=== PATIENT | female | born 1960 | race Caucasian/White ===

== ENCOUNTER 2024-03-10 20:30 | Observation (INO) | payer MEDICARE, SELFPAY ==
[2024-03-10] VITALS (11 sets, daily range): BP systolic 89–117; BP diastolic 58–74; PULSE 59–88; RESP 11–22; TEMP 37.5; O2SAT 96–99; BMI 23.0
--- NOTE | 2024-03-10 21:19 | EKG12_ITS ---
Test Reason : Blood Pressure : / mmHG Vent. Rate : 068 BPM Atrial Rate : 068 BPM P-R Int : 128 ms QRS Dur : 090 ms QT Int : 440 ms P-R-T Axes : 043 -19 025 degrees QTc Int : 467 ms Normal sinus rhythm Normal ECG Confirmed by Stanford Kelly ([id number]), communications editor SCOTT TEE ([id number]) on 03/11/2024 1:00:31 PM Referred By: Confirmed By:Stanford Kelly
--- NOTE | 2024-03-10 21:19 | CT_ITS ---
STUDY: CT BRAIN WITHOUT CONTRAST REASON FOR EXAM: Female, 64 years old. FLORES RADIATION DOSAGE (If Supplied By Facility): CTDIvol = ( 44.99 ) mGy, DLP = ( 846.73 ) mGycm TECHNIQUE: Transaxial CT imaging of the brain was performed without administration of intravenous contrast material. Individualized dose optimization techniques were used for this CT. COMPARISON: No relevant priors. FINDINGS: Normal soft tissue structures. Normal calvarium. Normal size ventricles and extra-axial spaces for the patient''s age. Normal white matter tracts of the cerebral hemispheres. Normal basal ganglia and thalami. Normal brainstem. Normal cerebellum. 1 cm round area of CSF attenuation near the left insula may represent an arachnoid cyst. There is no intracranial hemorrhage. There are no findings of an acute ischemic infarction. Normal visualized paranasal sinuses. CT/Brain/Head without Contrast IMPRESSION: 1. No acute intracranial hemorrhage. 2. Suspect 1 cm arachnoid cyst near the left insula. Electronically Signed: Raymond Villarreal MD at 21:57 EDT ,
--- NOTE | 2024-03-10 21:20 | EX.ED.DYSGE1 ---
HPI History of Present Illness Chief Complaint: Alt LOC Narrative Narrative: 64-year-old female presenting via EMS with perceived confusion. She states that she is from [place] and moved here to [place] to live with her aunt and had a falling out with her and and she had no place to go so she found some resources as she was sent to [place] to the homeless senior living where apparently she states there is a lot of drug activity. She was accused of doing drugs and she got an argument with several people and was told not to come back. Patient states he has chronic back pain and states he used to be treated for this by pain management in [place] does not anybody established here. Patient states she used to be on Dilaudid. Patient states that she was at the [facility] and apparently EMS transported her because they thought she was confused. Patient also told is any she is having a migraine headache and has a history of migraines. [facility] Medical History Heart attack Pain management Home Medications ?Medication ?Instructions ?Recorded ?Last Taken ?Type aspirin 81 mg capsule 81 mg PO DAILY 03/10/24 Unknown History baclofen 20 mg tablet 20 mg PO TID 03/10/24 Unknown History gabapentin 600 mg tablet 600 mg PO 5X/DAY 03/10/24 Unknown History metoprolol tartrate 25 mg tablet 12.5 mg PO DAILY 03/10/24 Unknown History ondansetron HCl 4 mg tablet 4 mg PO Q6H 03/10/24 Unknown History Allergy/AdvReac Type Severity Reaction Status Date / Time diltiazem (From [facility]) Allergy Severe Angioedema Verified 03/10/24 23:00 meloxicam Allergy Intermediate Pain in Verified 03/10/24 23:00 joints Social History Smoking Status: Current every day smoker tobacco type: e-cigarettes ROS ROS ED Constitutional Constitutional ED: Denies chills, fever(s) or sweats Eyes Eyes: Denies blurry vision or change in vision ENT ENT ED: Denies ear pain or sore throat Cardiovascular Cardiovascular: Denies chest pain, palpitations or racing heartbeat Respiratory/Chest Respiratory/Chest: Denies cough, dyspnea or sputum Gastrointestinal Gastrointestinal: Denies abdominal pain, constipation, diarrhea, nausea or vomiting Genitourinary Genitourinary ED: Denies dysuria, hematuria or urinary frequency Musculoskeletal Musculoskeletal: Denies arthralgias, myalgias or neck pain Integumentary Denies abscess, Abrasions or rash Neurologic Neurologic: Denies headache(s), paresthesias or weakness Psychiatric Psychiatric: Denies anxiety, depression, suicidal ideation or suicidal thoughts Endocrine Endocrinology: Denies polydipsia or polyuria EXAM Physical Exam Const Vital Signs: 03/10/24 20:31 03/10/24 21:33 03/10/24 21:33 Temperature 99.5 F H Temperature Source Temporal Pulse Rate 88 69 Respiratory Rate 18 18 Blood Pressure 94/60 117/74 117/74 Blood Pressure Mean 71 85 85 Pulse Ox 98 97 Oxygen Delivery Method Room Air 03/10/24 21:51 03/10/24 22:00 03/10/24 22:15 Temperature Temperature Source Pulse Rate 70 71 Respiratory Rate 22 H 15 Blood Pressure 94/69 Blood Pressure Mean 78 Pulse Ox 96 97 99 Oxygen Delivery Method Room Air 03/10/24 22:30 03/10/24 22:45 03/10/24 23:00 Temperature Temperature Source Pulse Rate 68 61 62 Respiratory Rate 12 12 11 L Blood Pressure 92/58 L 89/59 L Blood Pressure Mean 70 70 Pulse Ox 96 97 97 Oxygen Delivery Method Room Air Room Air 03/10/24 23:15 03/10/24 23:30 03/10/24 23:45 Temperature Temperature Source Pulse Rate 61 59 L 60 Respiratory Rate 12 12 12 Blood Pressure 90/61 Blood Pressure Mean 70 Pulse Ox 96 96 97 Oxygen Delivery Method 03/11/24 00:00 03/11/24 01:00 Temperature Temperature Source Pulse Rate 61 55 L Respiratory Rate 12 11 L Blood Pressure 88/56 L 91/57 L Blood Pressure Mean 67 68 Pulse Ox 98 97 Oxygen Delivery Method Room Air Room Air Positive well nourished General Appearance ED: NAD; Negative for pallor HEENT Reports moist mucous membranes Eyes PERRL and EOMs intact bilaterally Neck no lymphadenopathy Chest Wall inspection of chest normal and palpation of chest normal Resp normal respiratory effort and clear to auscultation bilaterally Auscultation: Negative for rales, rhonchi or wheezes Cardio regular rate and regular rhythm GI normal to inspection, nondistended, normoactive bowel sounds Back/Spine Back/Spine Narrative: There is mild thoracic paraspinal musculature tenderness about T8 bilaterally. There is no deformity or step-off. Patient is able to sit forward and backwards in the bed without any difficulty. She does not appear to be in pain. Twisting of the trunk without difficulty. No bruising or rashes. Extremity normal to inspection Neuro oriented x3 and CN's II-XII intact bilaterally Sensorium / Orientation: alert Motor Exam: strength 5/5 throughout Psych mental status grossly normal Skin no rashes or lesions noted General Skin Exam: Negative for jaundice or pallor MDM MDM MDM Narrative Medical decision making narrative: Patient states that she was transported against her well initially but then she states she wants an evaluation for back pain. She is also having a migraine headache. She states that the back pain is chronic. Denies saddle anesthesia or paresthesia. No loss of bladder or bowel control. Patient is sitting up in the bed and moving [id number] without any difficulty. She does appear to possibly be on drugs or confused. It is unknown if she has a mental health history she has not told me this. She does not have any focal deficits on examination. Will treat her headache with Reglan and Benadryl. Will obtain a CBC to assess white blood cell count, hemoglobin, platelets. CMP to assess liver function, renal function, electrolytes. High-sensitivity troponin and EKG to assess for ischemia/arrhythmia. Chest x-ray to rule out pneumonia. CT brain will be obtained as the patient seems to be a little confused and complaining of headache. Patient will be given IV fluids. Review of the medical records on [facility] shows that she was admitted to the hospital 01/28/2024 through 01/30/2024 for gastroenteritis. She was treated for this. It looks as if she was discharged with amitriptyline 50 mg tablets, aspirin 81 mg, baclofen 20 mg tablets celecoxib 200 mg, diphenhydramine 25 mg, duloxetine 60 mg, famotidine 20 mg, gabapentin 600 mg hide hydromorphone 4 mg every 4-6 hours. Looking at these records it does not show how much she was given. Patient went into the restroom and about 9:50 PM and came out more confused and was falling asleep in the bed. I went to evaluate her and knowing that she has a prescription for opiates I did give her Narcan. Her eyes appear to be more dilated than pinpoint. She was more arousable after this we did give her a sternal rub and she was up she was able to get up and walk around. BMP in her pockets and found to SATIVA of vape inhaler, and a pocket knife which we took from her. Went to her medications did not find any opiates or other drugs. Patient put back in bed. CBC shows white blood cell count 11.4. Hemoglobin 12.2. Platelets of 18. Renal function and electrolytes are really unremarkable. LFTs are normal. EtOH negative. High-sensitivity troponin is 5. EKG on my interpretation shows a sinus rhythm at 68 bpm without sign of ischemic change or ectopy. CT brain shows nothing acute. Still awaiting urine drug screen and UA. Urinalysis negative for infection. Urine drug screen only positive for cannabinoids. Patient still confused and unable to arouse her very well. I gave her another dose of Narcan because when I sternal rub her she is not waking up. She is protecting her airway. She was able to wake up after the status of Narcan and grunted for a second and then laid back down. Her blood pressure has been up and down and her latest blood pressure is 88/56. She is already received 2 L of fluids but I will add maintenance fluids for her. Discussed with the hospitalist for admission due to the altered mental status. Impression 1. Altered mental status Lab Data Attestation: I reviewed the patient's lab results. Labs: Laboratory Results - last 24 hr 03/10/24 03/10/24 20:40 22:27 WBC 11.4 H RBC 3.99 L Hgb 12.2 Hct 36.5 L MCV 91.5 MCH 30.6 MCHC 33.4 RDW Std Deviation 43.2 RDW Coeff of Jessica 12.8 Plt Count 318 MPV 9.3 Immature Gran % (Auto) 0.400 Neut % (Auto) 78.3 H Lymph % (Auto) 15.7 L [place] % (Auto) 4.9 Eos % (Auto) 0.1 Baso % (Auto) 0.6 Absolute Neuts (auto) 8.9 H Absolute Lymphs (auto) 1.79 Nucleated RBC % 0 Sodium 137 Potassium 3.3 L Chloride 107 Carbon Dioxide 23.0 Anion Gap 7 BUN 17 Creatinine 1.22 H Estim Creat Clear Calc 43.02 Est GFR (MDRD) Af Amer 57 L Est GFR (MDRD) Non-Af 47 L BUN/Creatinine Ratio 13.9 Glucose 110 H Calcium 8.5 Total Bilirubin 0.40 AST 35 ALT 41 Alkaline Phosphatase 80 Troponin I High Sens 5 Total Protein 6.4 Albumin 3.6 Globulin 2.8 Albumin/Globulin Ratio 1.3 Urine Color Yellow Urine Clarity Clear Urine pH 6.5 Ur Specific [place] 1.010 Urine Protein 15 H Urine Glucose (UA) Normal Urine Ketones Negative Urine Occult Blood Negative Urine Nitrite Negative Urine Bilirubin Negative Urine Urobilinogen Normal Ur Leukocyte Esterase 25 H Urine RBC 0 SEEN Urine WBC 0 SEEN Ur Squamous Epith Cells 0 SEEN Urine Bacteria 0 SEEN Urine Mucus 0 SEEN Urine Opiates Screen NEGATIVE Urine Methadone Screen NEGATIVE Ur Barbiturates Screen NEGATIVE Ur Phencyclidine Scrn NEGATIVE Ur Amphetamines Screen NEGATIVE MDMA (Ecstasy) Screen NEGATIVE U Benzodiazepines Scrn NEGATIVE Urine Cocaine Screen NEGATIVE U Cannabinoids Screen POSITIVE H Ur Drug Screen Comment Ethyl Alcohol < 3.0 Radiography Diagnostic Testing: Clinical Impression(s) from Imaging Studies Brain CT 03/10/24 21:19 IMPRESSION: 1. No acute intracranial hemorrhage. 2. Suspect 1 cm arachnoid cyst near the left insula. Electronically Signed: Raymond Villarreal MD at 21:57 EDT , Chest X-Ray 03/10/24 21:35 IMPRESSION: Normal x-ray examination of the chest. Electronically Signed: Raymond Villarreal MD at 22:12 EDT , Discharge Plan Triage Chief Complaint: Alt LOC ED Provider: Huber Comer Dx/Rx/DC Orders Prescriptions: No Action metoprolol tartrate 25 mg tablet 12.5 mg PO DAILY gabapentin 600 mg tablet 600 mg PO 5X/DAY baclofen 20 mg tablet 20 mg PO TID aspirin 81 mg capsule 81 mg PO DAILY ondansetron HCl 4 mg tablet 4 mg PO Q6H Primary Care Provider: Care Physician,No Primary Referrals: NOT,DEFINED [Non-Staff] - Print Language: French
[2024-03-10 21:28] LABS: Absolute Lymphocyte Count 1.79 X10^3/uL (0.83-4.51); Absolute Neutrophil Count 8.9 X10^3/uL (2.0-7.7); Basophil# 0.07 X10^3/uL; Basophil% 0.6 % (0-1); Eosinophil# 0.01 X10^3/uL; Eosinophils% 0.1 % (0-5); Hematocrit 36.5 % (37-47); Hemoglobin 12.2 g/dL (12.0-15.0); Lymphocyte # 1.79 X10^3/ul (0.83-4.51); Lymphocyte % 15.7 % (19-41); Mean Corp Hgb Conc 33.4 g/dL (32-36); Mean Corpuscular Hgb 30.6 pg (27.0-32.0); Mean Corpuscular Volume 91.5 fL (81-99); Mean Platelet Vol. 9.3 fl (6.2-12.0); Monocyte# 0.56 X10^3/uL; Monocyte% 4.9 % (0-10); NRBC Flagged by Analyzer 0 % (0-5); Neutrophil # 8.91 X10^3/uL (2.7-7.7); Neutrophil % 78.3 % (47-70); Platelet Count 318 K/mm3 (150-450); RBC Distribution Width CV 12.8 % (11.6-14.6); RBC Distribution Width SD 43.2 fl (35.1-43.9); Red Blood Count 3.99 M/mm3 (4.2-5.4); White Blood Count 11.4 K/mm3 (4.4-11.0)
[2024-03-10] MEDS: 0.9% Normal Saline (1000mL) 1,000 ML 1000 ML IV (21:34)
[2024-03-10] MEDS: DiphenhydrAMINE 50 MG/ML Syringe 25 MG IV (21:34)
[2024-03-10] MEDS: Metoclopramide 10 MG/2 ML Vial IV (21:34)
--- NOTE | 2024-03-10 21:35 | RAD_ITS ---
STUDY: X-RAY CHEST REASON FOR EXAM: Female, 64 years old. alt loc, weakness TECHNIQUE: Single AP portable view of the chest. COMPARISON: None. FINDINGS: The lungs are clear and expanded. There is no demonstrated pleural abnormality. Normal size heart. Normal mediastinum and yves. Normal visualized pulmonary arteries. Normal visualized aortic arch and descending thoracic aorta. Normal visualized thoracic spine. Normal visualized ribs, clavicles, and shoulders. There is no demonstrated abnormality of the visualized soft tissue structures of the upper abdomen. RAD/Chest 1 View (Portable) IMPRESSION: Normal x-ray examination of the chest. Electronically Signed: Raymond Villarreal MD at 22:12 EDT ,
[2024-03-10 21:43] LABS: Alcohol, Blood (Medical)-Serum < 3.0 mg/dL
[2024-03-10 21:49] LABS: ALB/GLOB Ratio 1.3 RATIO (0.9-2.4); AST(SGOT) 35 U/L (15-37); Alanine Aminotransfer ALT/SGPT 41 U/L (13-56); Albumin, Serum 3.6 g/dL (3.2-5.0); Alkaline Phosphatase 80 U/L (45-117); Anion Gap 7 (5-15); BUN 17 mg/dL (7-18); BUN/Creat Ratio 13.9 RATIO (10-20); Calcium,Total 8.5 mg/dL (8.5-10.1); Chloride 107 mmol/L (98-107); Creatinine, Serum 1.22 mg/dL (0.55-1.02); EST Glomerular Filtration Rate 47 mL/min (>60); Est Glom Filt Rate - Afr Amer 57 mL/min (>60); Estimated Creatinine Clearance 43.02 ml/min; Globulin 2.8 g/dL (2.2-4.2); Glucose 110 mg/dL (74-106); Potassium 3.3 mmol/L (3.5-5.1); Protein, Total 6.4 g/dL (6.4-8.2); Sodium Level 137 mmol/L (136-145); Troponin-I HS 5 pg/mL (3.0-54.0)
[2024-03-10] MEDS: 0.9% Normal Saline (1000mL) 1,000 ML 999 ML IV (21:55)
[2024-03-10] MEDS: Naloxone 2 MG/2 ML Syringe IV (22:00)
[2024-03-10 22:34] LABS: Bacteria 0 SEEN /hpf (None Seen); Mucous, Urine 0 SEEN /hpf (<or=2+); Red Blood Cells-Urine 0 SEEN /hpf (0-5); Squamous Epithelial Cells - UA 0 SEEN /hpf (5-10); White Blood Cells 0 SEEN /hpf (0-5)
[2024-03-10 22:37] LABS: Color, Urine Yellow (Yellow); Glucose, Dipstick Normal (Normal); Ketone-Dipstick Negative (Negative); Leukocyte Esterase-Dipstick 25 /ul (Negative); Nitrite-Dipstick Negative (Negative); Occult Blood-Urine Negative /ul (Negative); Protein-Dipstick 15 mg/dl (Negative); Urine Bilirubin Dipstick Negative (Negative); Urine Clarity Clear (Clear); Urine Urobilinogen Normal (Normal); Urine pH 6.5 (5.0 - 8.0)
[2024-03-10 22:53] LABS: Amphetamine Urine VISTA NEGATIVE (<1000 ng/mL); Barbiturate Urine VISTA NEGATIVE (< 200 ng/mL); Benzodiazepine Urine VISTA NEGATIVE (< 200 ng/mL); Cocaine Urine VISTA NEGATIVE (< 300 ng/mL); Ecstacy Urine VISTA NEGATIVE (< 500 ng/mL); Methadone Urine VISTA NEGATIVE (< 300 ng/mL); PCP Urine VISTA NEGATIVE (< 25 ng/mL); THC Urine VISTA POSITIVE (< 50 ng/mL); Vista UDS pH Range 6
[2024-03-11] VITALS: BP 88/56; PULSE 61; RESP 12; O2SAT 98
[2024-03-11] MEDS: Naloxone 2 MG/2 ML Syringe IV (00:27)
--- NOTE | 2024-03-11 00:39 | ED.RN ---
Unable to obtain accurate medication list, patient not maintaining LOC appropriate for conversation.
[2024-03-11] MEDS: 0.9% Normal Saline (1000mL) 1,000 ML 100 ML IV (00:58)
[2024-03-11 01:00] VITALS: BP 91/57; PULSE 55; RESP 11; O2SAT 97
--- NOTE | 2024-03-11 01:04 | PCM.HP.STD ---
HPI - General General Date of Service: 03/11/24 Chief Complaint: drug intoxication. HPI Narrative RODERICK HAMILTON, is a 64 F who presents with confusion. Patient is lethargic and unable provide any history so history is obtained through the emergency room physician. Patient recently moved to [place] from [place], has been living with a relative but had a falling out in the went to a homeless residential where she was kicked out because of drug activity. Patient was had a [employer] hotel and was noted to be confused and picked up by EMS brought to the hospital. In emergency room, patient was awake and alert and was able to go to the bathroom. In the bathroom there was concern the patient may have ingested a drug of some kind she came back out more intended to get worse. Patient underwent head CT that showed no acute process. Gave her a couple rounds of Narcan had no effects on her. She continued to remain lethargic and did not wake up to any kind noxious stimuli. After couple hours no improvement, the hospital service was contacted for admission. Discussing with nursing, did not find anything of any overall concerns other than a vape pen but they were unsure what was in the cartridges. [facility] Medical History Heart attack Pain management Home Medications ?Medication ?Instructions ?Recorded ?Last Taken ?Type aspirin 81 mg capsule 81 mg PO DAILY 03/10/24 Unknown History baclofen 20 mg tablet 20 mg PO TID 03/10/24 Unknown History gabapentin 600 mg tablet 600 mg PO 5X/DAY 03/10/24 Unknown History metoprolol tartrate 25 mg tablet 12.5 mg PO DAILY 03/10/24 Unknown History ondansetron HCl 4 mg tablet 4 mg PO Q6H 03/10/24 Unknown History Allergy/AdvReac Type Severity Reaction Status Date / Time diltiazem (From Cardizem) Allergy Severe Angioedema Verified 03/10/24 23:00 meloxicam Allergy Intermediate Pain in Verified 03/10/24 23:00 joints unable to obtain unable to obtain Social History Smoking Status: Current every day smoker tobacco type: e-cigarettes ROS Review of Systems ROS Unobtainable: due to encephalopathy Vital Signs Vital Signs Vital Signs: 03/10/24 20:31 03/10/24 21:33 03/10/24 21:33 Temperature 37.5 C H Temperature Source Temporal Pulse Rate 88 69 Respiratory Rate 18 18 Blood Pressure 94/60 117/74 117/74 Blood Pressure Mean 71 85 85 Pulse Ox 98 97 Oxygen Delivery Method Room Air 03/10/24 21:51 03/10/24 22:00 03/10/24 22:15 Temperature Temperature Source Pulse Rate 70 71 Respiratory Rate 22 H 15 Blood Pressure 94/69 Blood Pressure Mean 78 Pulse Ox 96 97 99 Oxygen Delivery Method Room Air 03/10/24 22:30 03/10/24 22:45 03/10/24 23:00 Temperature Temperature Source Pulse Rate 68 61 62 Respiratory Rate 12 12 11 L Blood Pressure 92/58 L 89/59 L Blood Pressure Mean 70 70 Pulse Ox 96 97 97 Oxygen Delivery Method Room Air Room Air 03/10/24 23:15 03/10/24 23:30 03/10/24 23:45 Temperature Temperature Source Pulse Rate 61 59 L 60 Respiratory Rate 12 12 12 Blood Pressure 90/61 Blood Pressure Mean 70 Pulse Ox 96 96 97 Oxygen Delivery Method 03/11/24 00:00 03/11/24 01:00 Temperature Temperature Source Pulse Rate 61 55 L Respiratory Rate 12 11 L Blood Pressure 88/56 L 91/57 L Blood Pressure Mean 67 68 Pulse Ox 98 97 Oxygen Delivery Method Room Air Room Air Weight Weight: 62.8 kg Body Mass Index (BMI) 23.0 Physical Exam Const Constitutional Narrative: Lethargic. Patient sleeping. Patient did have a positive gag reflex using a tongue blade. Patient did withdraw to noxious stimuli such as performing a Babinski on her bilaterally. Did not follow any commands, did mumble some words that I could not decipher when I used a tongue blade. Appears much older than stated age. HEENT normocephalic and head/scalp atraumatic HEENT Narrative: Poor dentition Eyes Eyes Narrative: Pupils not completely dilated but minimal reaction to light. No icterus. Resp normal respiratory effort, no retractions, no use of accessory muscles and clear to auscultation bilaterally Cardio regular rate, regular rhythm, S1 normal heart sound and S2 normal heart sound GI normal to inspection, nondistended, normoactive bowel sounds, soft to palpation, non-tender and non-distended Extremity normal to inspection and full ROM Neuro moves all extremities Neuro Narrative: Downgoing Babinski. Withdraws to noxious stimuli. Results Lab / Micro Data Attestation: I reviewed the patient's lab results. 03/10/24 20:40 03/10/24 20:40 Labs: Laboratory Results - last 24 hr 03/10/24 20:40: WBC 11.4 H, RBC 3.99 L, Hgb 12.2, Hct 36.5 L, MCV 91.5, MCH 30.6, MCHC 33.4, RDW Std Deviation 43.2, RDW Coeff of Jessica 12.8, Plt Count 318, MPV 9.3, Immature Gran % (Auto) 0.400, Neut % (Auto) 78.3 H, Lymph % (Auto) 15.7 L, [place] % (Auto) 4.9, Eos % (Auto) 0.1, Baso % (Auto) 0.6, Absolute Neuts (auto) 8.9 H, Absolute Lymphs (auto) 1.79, Nucleated RBC % 0, Sodium 137, Potassium 3.3 L, Chloride 107, Carbon Dioxide 23.0, Anion Gap 7, BUN 17, Creatinine 1.22 H, Estim Creat Clear Calc 43.02, Est GFR (MDRD) Af Amer 57 L, Est GFR (MDRD) Non-Af 47 L, BUN/Creatinine Ratio 13.9, Glucose 110 H, Calcium 8.5, Total Bilirubin 0.40, AST 35, ALT 41, Alkaline Phosphatase 80, Troponin I High Sens 5, Total Protein 6.4, Albumin 3.6, Globulin 2.8, Albumin/Globulin Ratio 1.3, Ethyl Alcohol < 3.0 03/10/24 22:27: Urine Color Yellow, Urine Clarity Clear, Urine pH 6.5, Ur Specific [place] 1.010, Urine Protein 15 H, Urine Glucose (UA) Normal, Urine Ketones Negative, Urine Occult Blood Negative, Urine Nitrite Negative, Urine Bilirubin Negative, Urine Urobilinogen Normal, Ur Leukocyte Esterase 25 H, Urine RBC 0 SEEN, Urine WBC 0 SEEN, Ur Squamous Epith Cells 0 SEEN, Urine Bacteria 0 SEEN, Urine Mucus 0 SEEN, Urine Opiates Screen NEGATIVE, Urine Methadone Screen NEGATIVE, Ur Barbiturates Screen NEGATIVE, Ur Phencyclidine Scrn NEGATIVE, Ur Amphetamines Screen NEGATIVE, MDMA (Ecstasy) Screen NEGATIVE, U Benzodiazepines Scrn NEGATIVE, Urine Cocaine Screen NEGATIVE, U Cannabinoids Screen POSITIVE H, Ur Drug Screen Comment EKG Initial EKG: Attestation: I personally reviewed and interpreted this EKG as follows: Prior EKG tracings: available for review EKG Rhythm Intrepretation: Sinus Rhythm Imaging Radiology Impression Brain CT 03/10/24 21:19 IMPRESSION: 1. No acute intracranial hemorrhage. 2. Suspect 1 cm arachnoid cyst near the left insula. Electronically Signed: Raymond Villarreal MD at 21:57 EDT Reading Location ID and State: [email or web address] [facility] [email or web address] Tel , Service support , Chest X-Ray 03/10/24 21:35 IMPRESSION: Normal x-ray examination of the chest. Electronically Signed: Raymond Villarreal MD at 22:12 EDT Reading Location ID and State: [email or web address] / [employer] Tel , Service support , Assessment & Plan Assessment/Plan (1) Drug intoxication: PLAN: Plan Drug intoxication This apparently occurred while she was in the emergency room. No obvious lesion was identified. Drug screen only positive for cannabinoids. I do not feel that this is cannabinoid toxicity, however. She did not respond to Narcan which is suggests that this is not an opiate overdose. Head CT was negative. Plan: Supportive at this time. Patient is clearly unsafe to go home or be discharged at this time. Will give IV fluids. If patient does start to become agitated lorazepam will be available if needed. Hold her baclofen and gabapentin. Homelessness Patient is really from [place] and then went to stay with a relative and then was at homeless residential and got kicked out due to drug use. When she presented here she was staying at a hotel. Plan: Case management for input. Chronic conditions Migraines: This was gleaned from history and physical performed at [facility]. Patient was hospitalized there in January of this year for what appears to be colitis. Colitis: Seems like she is completed treatment for that. Does not appear to be active at this time. VTE prophylaxis: Low risk this patient just radios to be observation status. Disposition: To be determined. If this is just drug overdose I would dissipate the patient improving in the next several hours. Complicating this is the patient's apparent homeless status. Charges/Coding Visit Charges Inpatient E&M: 63441 Init Hosp L3
[2024-03-11 01:14] VITALS: BP 91/57; PULSE 50; RESP 12; TEMP 36.8; O2SAT 97
[2024-03-11 01:58] VITALS: BMI 22.1
[2024-03-11 01:59] VITALS: BP 120/80; PULSE 73; RESP 10; TEMP 36.4; O2SAT 97
[2024-03-11] MEDS: 0.9% Normal Saline (1000mL) 1,000 ML 150 ML IV ×2 (02:48→09:58)
[2024-03-11 07:05] LABS: Absolute Lymphocyte Count 2.62 X10^3/uL (0.83-4.51); Absolute Neutrophil Count 6.5 X10^3/uL (2.0-7.7); Eosinophil# 0.12 X10^3/uL; Eosinophils% 1.2 % (0-5); Hematocrit 37.9 % (37-47); Hemoglobin 12.2 g/dL (12.0-15.0); Lymphocyte # 2.62 X10^3/ul (0.83-4.51); Lymphocyte % 26.1 % (19-41); Mean Corp Hgb Conc 32.2 g/dL (32-36); Mean Corpuscular Volume 93.1 fL (81-99); Monocyte# 0.72 X10^3/uL; Monocyte% 7.2 % (0-10); NRBC Flagged by Analyzer 0 % (0-5); Neutrophil # 6.46 X10^3/uL (2.7-7.7); Neutrophil % 64.2 % (47-70); Platelet Count 269 K/mm3 (150-450); RBC Distribution Width SD 44.6 fl (35.1-43.9); Red Blood Count 4.07 M/mm3 (4.2-5.4); White Blood Count 10.1 K/mm3 (4.4-11.0)
[2024-03-11 07:33] LABS: ALB/GLOB Ratio 1.2 RATIO (0.9-2.4); AST(SGOT) 24 U/L (15-37); Alanine Aminotransfer ALT/SGPT 30 U/L (13-56); Albumin, Serum 2.8 g/dL (3.2-5.0); Alkaline Phosphatase 55 U/L (45-117); Anion Gap 4 (5-15); BUN 12 mg/dL (7-18); BUN/Creat Ratio 15.8 RATIO (10-20); Calcium,Total 7.8 mg/dL (8.5-10.1); Chloride 119 mmol/L (98-107); Creatinine, Serum 0.76 mg/dL (0.55-1.02); EST Glomerular Filtration Rate 82 mL/min (>60); Est Glom Filt Rate - Afr Amer 99 mL/min (>60); Estimated Creatinine Clearance 69.06 ml/min; Globulin 2.3 g/dL (2.2-4.2); Glucose 98 mg/dL (74-106); Potassium 2.9 mmol/L (3.5-5.1); Protein, Total 5.1 g/dL (6.4-8.2); Sodium Level 146 mmol/L (136-145)
--- NOTE | 2024-03-11 08:05 | NURSING ---
black and yellow tote with pt belongings sent down to security office via [employer] in [employer].
[2024-03-11 08:17] VITALS: BP 110/59; PULSE 51; RESP 16; TEMP 36.1; O2SAT 98
--- NOTE | 2024-03-11 09:48 | NURSING ---
pt states she is unsure of her PCP, the [facility] is going to set me up with one. I talked with a lady named Diane osullivan at the [facility] [employer] who works for [facility]. pt states her pharmacy that she uses for medications is [facility] in [place]
[2024-03-11] MEDS: Potassium Chloride Oral Tablet 20 MEQ 60 MEQ PO (09:59)
[2024-03-11] MEDS: Enoxaparin 40 MG/0.4 ML Syringe SC (09:59)
--- NOTE | 2024-03-11 10:06 | PCM.HOSP.N ---
Hospitalist Note Patient was sleeping on my arrival however she woke up to tactile stimulus and was completely alert and oriented x 3. Per documentation she had been living with a relative but they had a falling out and she had gone to a homeless [facility] where she was kicked out for drug activity. She adamantly denies this and states the only drug she uses is marijuana which is prescribed to her by pain management. 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 I discussed with her that we would monitor her throughout the day today and as long as she remained alert and oriented we will plan on discharging her tomorrow. Case management and social work will be walking with her with regards to living arrangements after discharge.
--- NOTE | 2024-03-11 10:27 | NURSING ---
spoke with Pharmacist Pina at [facility]. She verbally gave pt med list with repeating back information
--- NOTE | 2024-03-11 12:29 | NURSING ---
tote brought up from security office by Hema STEWART and opened in front of pt. pt cooperative and allows her pocket knife, vape and blue fender mechanic and a meteor rock to be locked in med drawer at bedside. pt keeps her wallet at bedside, offered to send to security office/safe and pt declines, states if she changes her mind, she will let said nurse or primary nurse Emperatriz know. pt organizes rest of her belongings and shown where closet is in room to place her belongings.
[2024-03-11] MEDS: DULoxetine Hcl 60 MG Capsule PO (12:44)
[2024-03-11] MEDS: Topiramate 100 MG Tablet PO (12:44)
[2024-03-11] MEDS: Celecoxib 200 MG Capsule PO (12:45)
[2024-03-11] MEDS: Ensure Plus High Protein 120 ML LIQUID PO (12:45)
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
[2024-03-11] MEDS: Acetaminophen 500 MG Tablet 1000 MG PO (13:53)
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
--- NOTE | 2024-03-11 15:40 | PCM.DC.SUM ---
Providers Date of Admission: 03/11/24 Date of Discharge: 03/11/24 Primary Care Physician: No Primary Care Phys Reason For Visit: DRUG INTOXICATION Diagnosis Discharge Diagnosis (1) Drug intoxication: Status: Acute Code(s): F19.929 - Other psychoactive substance use, unspecified with intoxication, unspecified Medications at Discharge Home Medications aspirin 81 mg capsule 81 mg PO DAILY 03/10/24 baclofen 20 mg tablet 20 mg PO TID PRN pain/spasms 03/10/24 gabapentin 600 mg tablet 600 mg PO TIDCM per md 03/10/24 metoprolol tartrate 25 mg tablet 12.5 mg PO DAILY 03/10/24 ondansetron HCl 4 mg tablet 4 mg PO Q6H PRN nausea and vomiting 03/10/24 celecoxib 200 mg capsule (Celebrex) 200 mg PO BID 03/11/24 duloxetine 60 mg capsule,delayed release (Cymbalta) 60 mg PO DAILY 03/11/24 nortriptyline 50 mg capsule 50 mg PO QHS 03/11/24 topiramate 100 mg tablet (Topamax) 100 mg PO BID 03/11/24 Hospital Course Procedures - (CT brain/chest x-ray) Summary of Care Provided Minutes Spent on Discharge: 25 Hospital Course: Ms. Fernandes is a 64-year-old white female who presented to the emergency department at [facility] late last evening with perceived confusion. She reported at the time of presentation that she recently moved here from [place] to live in [place] with her aunt. She and her aunt had a falling out and she had no place to go so she found some resources and [facility] where she reported there was a lot of drug activity. She was accused of doing drugs and got an argument with several people and was told not to come back. She has a history of chronic back pain and reported that she used to be treated for this by pain management in [place] and has not established yet here with anybody. She indicated she used to be on Dilaudid and is currently living at [place] [address] [address]. EMS was called and transported her here because they thought she was confused. Initially she was transported the emergency department against her will but then reported she had back pain upon arrival. She also complained of a migraine headache. She denied any saddle anesthesia or paresthesia with no loss of bowel or bladder control and was sitting up in the bed moving without any difficulty. It was unknown if she has any mental health history and on examination had no focal deficits. She was treated with Reglan and Benadryl for her headache. Her vital signs were overtly unremarkable and her CBC, CMP, troponin, and EKG were all unremarkable. Chest x-ray was unremarkable for any signs of infection and CT of the brain was without any acute abnormality. She was also given some IV fluids. Patient went into the restroom at about 950 last evening and came out more confused and was falling asleep in the bed. The emergency department physician went to evaluate her and her pupils were noted to be more dilated than pinpoint. She was able to get up and walk around however she was found to have SATIVA with a vape inhaler in her pocket as well as a pocket knife which was taken from her. Toxicology screen was performed and showed only cannabis. She was given Narcan x 2 doses and was able to wake up after her Narcan dose and grunted for second and then laid back down given this it was recommended she be admitted. Her pressure at the time admission was 88/56. It was highly suspected that she took something in the bathroom which caused her altered mental status. She was admitted to the medical floor and upon evaluation by me earlier this morning she was sleeping but arousable to tactile stimulus and upon awakening she was alert and oriented x 3 asking if she could have breakfast and drink some coffee. She was monitored throughout the day with any significant abnormalities. Her potassium was found to be low so she was given supplemental potassium orally and her baseline medications were reinitiated. She was evaluated by social work as she is noted to be homeless however stated she would go back to the [facility] but did not want us to call to make a reservation for her prior to discharge and stated she would do that on her own. She was referred to the [facility] clinic at the time of discharge as she does not have a primary care physician and discharged home in stable condition on 03/11/2024. I did question her about any illicit use which she adamantly denied. Discharge diagnoses: Acute toxic/metabolic encephalopathy-resolved Suspected drug intoxication-resolved Homelessness History of migraines History of chronic back pain History of colitis-not currently active Chronic pain Hypertension History of polysubstance abuse History of tobacco abuse Physical Exam Const alert, oriented x3 and no apparent distress; Negative for healthy appearing Constitutional Narrative: Upper middle-aged, white female, initially lying in bed sleeping but responded to tactile stimulus and was alert and oriented x 3, appears comfortable, nontoxic, appears much older than stated age General Appearance: cooperative, comfortable, well developed and disheveled Orientation / Consciousness: awake, oriented to person, oriented to place and oriented to time Exam Limitations: no limitations HEENT normocephalic, head/scalp atraumatic, hearing grossly normal bilaterally and moist oral mucous membranes HEENT Narrative: Dentition is poor, Mallampati is 2, no thrush Resp normal respiratory effort, no retractions, no use of accessory muscles and clear to auscultation bilaterally Resp Narrative: Diminished diffusely but clear Auscultation: Negative for rales, rhonchi or wheezes Cardio regular rate, regular rhythm, S1 normal heart sound, S2 normal heart sound, no murmurs, no rub, no gallops and no clicks GI normal to inspection, nondistended, normoactive bowel sounds, soft to palpation and non-tender Extremity no clubbing, cyanosis or edema Extremity Narrative: Radial and pedal pulses are 2+ Neuro oriented x3, moves all extremities and no focal motor deficits Speech: speech normal Psych affect normal Psych Narrative: Calm at this time my examination however became intermittently agitated throughout the day Weight / BMI Weight Weight: 60.5 kg Body Mass Index (BMI) 22.1 ABG / Lab / Microbiology Data 03/11/24 06:43 03/11/24 06:43 Laboratory: Laboratory Results - last 24 hr 03/10/24 20:40: WBC 11.4 H, RBC 3.99 L, Hgb 12.2, Hct 36.5 L, MCV 91.5, MCH 30.6, MCHC 33.4, RDW Std Deviation 43.2, RDW Coeff of Jessica 12.8, Plt Count 318, MPV 9.3, Immature Gran % (Auto) 0.400, Neut % (Auto) 78.3 H, Lymph % (Auto) 15.7 L, Whitman % (Auto) 4.9, Eos % (Auto) 0.1, Baso % (Auto) 0.6, Absolute Neuts (auto) 8.9 H, Absolute Lymphs (auto) 1.79, Nucleated RBC % 0, Sodium 137, Potassium 3.3 L, Chloride 107, Carbon Dioxide 23.0, Anion Gap 7, BUN 17, Creatinine 1.22 H, Estim Creat Clear Calc 43.02, Est GFR (MDRD) Af Amer 57 L, Est GFR (MDRD) Non-Af 47 L, BUN/Creatinine Ratio 13.9, Glucose 110 H, Calcium 8.5, Total Bilirubin 0.40, AST 35, ALT 41, Alkaline Phosphatase 80, Troponin I High Sens 5, Total Protein 6.4, Albumin 3.6, Globulin 2.8, Albumin/Globulin Ratio 1.3, Ethyl Alcohol < 3.0 03/10/24 22:27: Urine Color Yellow, Urine Clarity Clear, Urine pH 6.5, Ur Specific Jennings 1.010, Urine Protein 15 H, Urine Glucose (UA) Normal, Urine Ketones Negative, Urine Occult Blood Negative, Urine Nitrite Negative, Urine Bilirubin Negative, Urine Urobilinogen Normal, Ur Leukocyte Esterase 25 H, Urine RBC 0 SEEN, Urine WBC 0 SEEN, Ur Squamous Epith Cells 0 SEEN, Urine Bacteria 0 SEEN, Urine Mucus 0 SEEN, Urine Opiates Screen NEGATIVE, Urine Methadone Screen NEGATIVE, Ur Barbiturates Screen NEGATIVE, Ur Phencyclidine Scrn NEGATIVE, Ur Amphetamines Screen NEGATIVE, MDMA (Ecstasy) Screen NEGATIVE, U Benzodiazepines Scrn NEGATIVE, Urine Cocaine Screen NEGATIVE, U Cannabinoids Screen POSITIVE H, Ur Drug Screen Comment 03/11/24 06:43: WBC 10.1, RBC 4.07 L, Hgb 12.2, Hct 37.9, MCV 93.1, MCH 30.0, MCHC 32.2, RDW Std Deviation 44.6 H, RDW Coeff of Jessica 13.0, Plt Count 269, MPV 9.0, Immature Gran % (Auto) 0.300, Neut % (Auto) 64.2, Lymph % (Auto) 26.1, Whitman % (Auto) 7.2, Eos % (Auto) 1.2, Baso % (Auto) 1.0, Absolute Neuts (auto) 6.5, Absolute Lymphs (auto) 2.62, Nucleated RBC % 0, Sodium 146 H, Potassium 2.9 L, Chloride 119 H, Carbon Dioxide 23.0, Anion Gap 4 L, BUN 12, Creatinine 0.76, Estim Creat Clear Calc 69.06, Est GFR (MDRD) Af Amer 99, Est GFR (MDRD) Non-Af 82, BUN/Creatinine Ratio 15.8, Glucose 98, Calcium 7.8 L, Total Bilirubin 0.30, AST 24, ALT 30, Alkaline Phosphatase 55, Total Protein 5.1 L, Albumin 2.8 L, Globulin 2.3, Albumin/Globulin Ratio 1.2 Radiography Diagnostic Testing: Radiology Impression Brain CT 03/10/24 21:19 IMPRESSION: 1. No acute intracranial hemorrhage. 2. Suspect 1 cm arachnoid cyst near the left insula. Electronically Signed: Raymond Villarreal MD at 21:57 EDT , Chest X-Ray 03/10/24 21:35 IMPRESSION: Normal x-ray examination of the chest. Electronically Signed: Raymond Villarreal MD at 22:12 EDT Reading Location ID and State: [id number] / [employer] Tel , Service support , D/C Instructions Discharge Diet: Low fat / Low cholesterol Discharge Activity: Return to Normal Activity Meaningful Use Info Meaningful Use Meaningful Use Diagnoses (Choose all that apply): None applicable Ischemic Stroke Statin Dosing Therapy Reference: STATIN DOSE THERAPY REFERENCE: * Patients > 75 years receive moderate or high dose statin therapy. * Patients 75 years or YOUNGER should receive HIGH intensity statin dose unless contraindicated. You will be required to document reason for non-treatment if statin daily dose does not meet guidelines. HIGH DOSE STATIN THERAPY DAILY Atorvastatin > than or = to 40 mg Rosuvastatin > than or = to 20 mg Amlodipine + Atorvastatin > than or = to 2.5/40 mg Ezetimibe + Simvastatin 10/80 mg Simvastatin 80mg Discharge Plan Admission Admit Date/Time: 03/11/24 00:57 Primary Reason for Your Visit: Altered mental status Attending Provider: Adilia Cali Primary Care Provider: Care Physician,No Primary Consulting Providers: Gil Foster Discharge Orders/Prescriptions Prescriptions: Continued metoprolol tartrate 25 mg tablet 12.5 mg PO DAILY gabapentin 600 mg tablet 600 mg PO TIDCM Patient Comments: Takes 600mg po in am Takes 600mg po at noon Takes 1800 mg po at HS Rx Instructions: Takes 600mg po in am Takes 600mg po at noon Takes 1800 mg po at HS baclofen 20 mg tablet 20 mg PO TID PRN aspirin 81 mg capsule 81 mg PO DAILY ondansetron HCl 4 mg tablet 4 mg PO Q6H PRN (Reason: nausea and vomiting) Patient Comments: ODT Rx Instructions: uses ODT celecoxib [Celebrex] 200 mg capsule 200 mg PO BID nortriptyline 50 mg capsule 50 mg PO QHS duloxetine [Cymbalta] 60 mg capsule,delayed release(DR/EC) 60 mg PO DAILY topiramate [Topamax] 100 mg tablet 100 mg PO BID Referrals / Follow Up: Jaycee Brown [Non-Staff] - Within 1 Week Care Physician,No Primary [Primary Care Provider] - NOT,DEFINED [Non-Staff] - Disposition Disposition (needs filled in before D/C Order can be placed): Home, Self Care Charges/Coding Visit Charges Inpatient E&M: 74787 Disch Hosp
--- NOTE | 2024-03-11 15:52 | CASEMGMT ---
Social Work SW gave pt information on the hotels that have availability. Pt wants to go to [facility]. SW called the hospital van, they can take her at 4pm. FRANKIE let the RN know, she is going over discharge instructions and will have her downstairs at 4pm. MARCI Greenberg
== END 2024-03-11 16:17 | disposition home or self-care (01) ==
LOC: ED 22:30 → MS3 03-11 01:14
PROVIDERS: Emergency Provider Student in an Organized Health Care Education/Training Program; Visit Provider Internal Medicine
DX: G92.8 Other toxic encephalopathy (principal); F19.929 Other psychoactive substance use, unspecified with intoxication, unspecified; G89.29 Other chronic pain; Z79.82 Long term (current) use of aspirin; I10 Essential (primary) hypertension; Z59.01 Sheltered homelessness; G43.909 Migraine, unspecified, not intractable, without status migrainosus; M54.9 Dorsalgia, unspecified; Z79.899 Other long term (current) drug therapy; F17.290 Nicotine dependence, other tobacco product, uncomplicated
CPT/HCPCS: 36415; 70450; 71045; 80053; 80307; 80320; 81001; 84484; 85025; 92523; 93005; 96361; 96372; 96374; 96375; 96376; 97162; 97165; 97802; 99221; 99285; J7030; P9612; A4216; G0378; G0480

== ENCOUNTER 2024-03-21 08:34 | Inpatient (IN) | payer MEDICARE, SELFPAY ==
[2024-03-21 08:35] VITALS: BP 172/75; PULSE 57; RESP 16; TEMP 36.2; O2SAT 99; BMI 10.5
--- NOTE | 2024-03-21 08:44 | ED.RN ---
pt reports having diarrhea for several days. pt soiled of urine and stool on arrival.
--- NOTE | 2024-03-21 09:17 | CT_ITS ---
STUDY: CT CHEST, ABDOMEN T PELVIS WITH CONTRAST REASON FOR EXAM: Female, 64 years old. History of fall. Bruising. Rib pain. RADIATION DOSAGE (If Supplied By Facility): CTDIvol = ( 12.34 ) mGy, DLP = ( 909.14 ) mGycm TECHNIQUE: Transaxial imaging was performed following intravenous administration of IV 100mL Isovue-370. Individualized dose optimization techniques were used for this CT. COMPARISON: No relevant priors. FINDINGS: CHEST Apical scarring bilaterally. There is no demonstrated pleural abnormality. Normal heart and pericardium. Normal mediastinum. Normal hilar regions. Normal unenhanced pulmonary arteries. Normal aorta arch and descending thoracic aorta. There is a nondisplaced fracture of the right sixth and seventh ribs anterolaterally. ABDOMEN Mild degree of central intrahepatic biliary ductal dilatation. The patient is status post cholecystectomy. The common bile duct is dilated. It measures 1 cm in transverse dimension. Normal spleen. Mildly dilated pancreatic duct. Normal bilateral adrenal glands. Normal right kidney. Normal left kidney. Normal visualized stomach. Normal small intestine. Normal colon. The appendix is visualized and appears normal. There is diffuse atherosclerotic calcification of the abdominal aorta, without a demonstrated aneurysm. Normal inferior vena cava. Normal retroperitoneum. There is a 4.2 cm x 2.9 cm soft tissue prominence in the lower right lateral abdominal wall most likely secondary to trauma and possible resolving hematoma. Prior fusion at the L2-L3 vertebrae. Scoliosis. PELVIS Normal urinary bladder. Normal visualized pelvic arteries. CT/CT Chest, Abd, Pel w/Contrast IMPRESSION: Nondisplaced right sixth and seventh rib fractures. Status post cholecystectomy with dilatation of the intrahepatic biliary ducts and common bile duct as well as the pancreatic duct. Focal soft tissue prominence in the inferior aspect of the right anterior abdominal wall laterally suggestive of possible hematoma. Electronically Signed: Andres Adams MD at 10:24 EDT ,
--- NOTE | 2024-03-21 09:17 | CT_ITS ---
STUDY: CT BRAIN WITHOUT CONTRAST REASON FOR EXAM: Female, 64 years old. Altered mental status. Trauma. RADIATION DOSAGE (If Supplied By Facility): CTDIvol = ( 44.99 ) mGy, DLP = ( 846.73 ) mGycm TECHNIQUE: Transaxial CT imaging of the brain was performed without administration of intravenous contrast material. Individualized dose optimization techniques were used for this CT. COMPARISON: Comparison is made with prior study dated March 10, 2024. FINDINGS: Normal soft tissue structures. Normal calvarium. Normal size ventricles and extra-axial spaces for the patient''s age. Stable 1.2 cm x 1.1 cm lacunar in the insular cortex of the left temporal lobe. Normal basal ganglia and thalami. Normal brainstem. Normal cerebellum. There is no intracranial hemorrhage. There are no findings of an acute ischemic infarction. Normal visualized paranasal sinuses. CT/Brain/Head without Contrast IMPRESSION: Stable lacunar infarct in the insular cortex of the left temporal lobe. Electronically Signed: Andres Adams MD at 10:06 EDT ,
--- NOTE | 2024-03-21 09:18 | EKG12_ITS ---
Test Reason : FALL Blood Pressure : / mmHG Vent. Rate : 063 BPM Atrial Rate : 063 BPM P-R Int : 142 ms QRS Dur : 088 ms QT Int : 466 ms P-R-T Axes : 081 046 070 degrees QTc Int : 476 ms Sinus rhythm with marked sinus arrhythmia Otherwise normal ECG Confirmed by Stanford Kelyl ([id number]), advertising editor EAMON WHEAT ([id number]) on 03/25/2024 6:58:14 AM Referred By: Confirmed By:Stanford Kelly
[2024-03-21 09:36] LABS: Absolute Lymphocyte Count 1.13 X10^3/uL (0.83-4.51); Basophil# 0.05 X10^3/uL; Basophil% 0.3 % (0-1); Eosinophil# 0.01 X10^3/uL; Eosinophils% 0.1 % (0-5); Hematocrit 43.6 % (37-47); Hemoglobin 14.6 g/dL (12.0-15.0); Lymphocyte # 1.13 X10^3/ul (0.83-4.51); Lymphocyte % 7.1 % (19-41); Mean Corp Hgb Conc 33.5 g/dL (32-36); Mean Corpuscular Hgb 30.5 pg (27.0-32.0); Mean Corpuscular Volume 91.2 fL (81-99); Mean Platelet Vol. 9.9 fl (6.2-12.0); Monocyte% 3.8 % (0-10); NRBC Flagged by Analyzer 0 % (0-5); Neutrophil # 13.98 X10^3/uL (2.7-7.7); Neutrophil % 88.4 % (47-70); Platelet Count 325 K/mm3 (150-450); RBC Distribution Width CV 13.2 % (11.6-14.6); Red Blood Count 4.78 M/mm3 (4.2-5.4); White Blood Count 15.8 K/mm3 (4.4-11.0)
--- NOTE | 2024-03-21 09:40 | CT_ITS ---
STUDY: CT CERVICAL SPINE WITHOUT CONTRAST REASON FOR EXAM: Female, 64 years old. TRAUMA RADIATION DOSAGE (If Supplied By Facility): CTDIvol = ( 13.88 ) mGy, DLP = ( 241.65 ) mGycm TECHNIQUE: High resolution transaxial imaging was performed without contrast material. Sagittal and coronal images were reconstructed. Individualized dose optimization techniques were used for this CT. COMPARISON: None FINDINGS: Normal craniovertebral junction. Normal anterior atlantoaxial articulation. Normal odontoid process. There is an exaggerated cervical lordosis. Normal vertebral bodies and posterior osseous elements. C2-3: Normal endplates. Normal disc height and morphology. Normal central canal and intervertebral neuroforamina. C3-4: Normal endplates. Normal disc height and morphology. Normal central canal and intervertebral neuroforamina. C4-5: Mild degree of disc space narrowing. Hypertrophy of the facet joints right greater than left with mild degree of bilateral neural foraminal stenosis. C5-6: Normal endplates. Normal disc height and morphology. Normal central canal and intervertebral neuroforamina. C6-7: Normal endplates. Normal disc height and morphology. Normal central canal and intervertebral neuroforamina. C7-T1: Normal endplates. Normal disc height and morphology. Normal central canal and intervertebral neuroforamina. Normal visualized soft tissue structures. CT/Spine Cervical without Contras IMPRESSION: Multilevel degenerative changes, as described above. Exaggerated cervical lordosis. Electronically Signed: Andres Adams MD at 10:26 EDT ,
[2024-03-21] MEDS: 0.9% Normal Saline (1000mL) 1,000 ML 1000 ML IV (09:55)
[2024-03-21] MEDS: Diphth,Pertuss(Acell),Tet Vac 0.5 ML Vial IM (09:55)
[2024-03-21 10:04] LABS: ALB/GLOB Ratio 1.2 RATIO (0.9-2.4); AST(SGOT) 48 U/L (15-37); Alanine Aminotransfer ALT/SGPT 49 U/L (13-56); Albumin, Serum 3.7 g/dL (3.2-5.0); Alkaline Phosphatase 88 U/L (45-117); Anion Gap 11 (5-15); BUN 16 mg/dL (7-18); BUN/Creat Ratio 19.9 RATIO (10-20); CPK Total, Creatine Kinase 571 U/L (26-192); Calcium,Total 8.6 mg/dL (8.5-10.1); Chloride 100 mmol/L (98-107); EST Glomerular Filtration Rate 77 mL/min (>60); Est Glom Filt Rate - Afr Amer 93 mL/min (>60); Estimated Creatinine Clearance 33.15 ml/min; Glucose 117 mg/dL (74-106); Lipase 15 U/L (13-75); Potassium 3.5 mmol/L (3.5-5.1); Protein, Total 6.7 g/dL (6.4-8.2); Sodium Level 133 mmol/L (136-145); Troponin-I HS 7 pg/mL (3.0-54.0)
[2024-03-21 10:05] LABS: Bacteria 0 SEEN /hpf (None Seen); Mucous, Urine 0 SEEN /hpf (<or=2+); Red Blood Cells-Urine 0 SEEN /hpf (0-5); Squamous Epithelial Cells - UA 0 SEEN /hpf (5-10); White Blood Cells 0 SEEN /hpf (0-5)
[2024-03-21 10:19] LABS: Alcohol, Blood (Medical)-Serum < 3.0 mg/dL
[2024-03-21 10:20] LABS: Bedside Glucose 115 mg/dL (74-106)
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
[2024-03-21 10:33] LABS: Color, Urine Yellow (Yellow); Glucose, Dipstick Normal (Normal); Ketone-Dipstick 50 mg/dl (Negative); Leukocyte Esterase-Dipstick Negative /ul (Negative); Nitrite-Dipstick Negative (Negative); Occult Blood-Urine Negative /ul (Negative); Protein-Dipstick Negative (Negative); Urine Bilirubin Dipstick Negative (Negative); Urine Clarity Clear (Clear); Urine Urobilinogen Normal (Normal); Urine pH 6.5 (5.0 - 8.0)
[2024-03-21 10:35] VITALS: BP 146/76; PULSE 57; RESP 14; O2SAT 98
[2024-03-21 10:35] LABS: Lactic Acid 1.4 mmol/L (0.4-1.9)
--- NOTE | 2024-03-21 10:49 | PCM.HP.STD ---
HPI - General General Date of Admission: 03/21/24 Date of Service: 03/21/24 Chief Complaint: Altered mental status, fall HPI Narrative RODERICK HAMILTON, is a 64 F who presented to [facility] ED on 03/21/2024 via EMS with altered mental status. Patient seen at bedside in the ED. Patient was laying back comfortably in bed, in no acute distress. She was breathing comfortably on room air with oxygen saturations in the high 90s. Blood pressure was slightly elevated but heart rate was stable in the 60s to 70s and respiration rate was stable around 14-16. Patient remained altered during my encounter. She appeared very somnolent. She did respond to voice and open her eyes for me but was not able to answer any questions for me. Per EMS and ED staff, patient was found unresponsive and down in the parking lot at the [employer] in [place] this morning. ED physician noted that patient was able to tell her that she fell but continued to fall asleep and did not provide any further information. On chart review, patient was recently hospitalized here from 03/10 to 03/11. See discharge summary from 03/11 for further details. Had similar presentation at that time, however she notably improved back to her baseline mental status by the evening of admission. She previously lived in [place], has recently moved to [place]. 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 Had very high concern for substance abuse during the hospitalization but patient adamantly denied this. She was also noted to be homeless and living in a motel per social work. However, patient denied any social work needs on discharge and was discharged on hospital day 2. Vitals in ED notable for mild hypertension, otherwise benign. CBC with WBC count 15, hemoglobin 14 (baseline hemoglobin around 12-13). BMP with sodium 133, potassium 3.5, creatinine 0.80 (at baseline), BUN 16, otherwise unremarkable. CK level 571. Lactic acid 1.4. UA unremarkable. Urine drug screen positive for cannabinoids, otherwise unremarkable. CT brain and C-spine with stable lacunar infarct in left temporal lobe and multilevel degenerative cervical changes, otherwise nonacute. CT chest abdomen pelvis with IV contrast showed nondisplaced right sixth and seventh rib fractures, focal soft tissue prominence and inferior aspect of right anterior abdominal wall suggestive of possible hematoma, otherwise unremarkable. Patient will be admitted for further evaluation. [facility] Medical History Heart attack Pain management Home Medications ?Medication ?Instructions ?Recorded ?Last Taken ?Type aspirin 81 mg capsule 81 mg PO DAILY 03/10/24 Unknown History baclofen 20 mg tablet 20 mg PO TID PRN pain/spasms 03/10/24 Unknown History gabapentin 600 mg tablet 600 mg PO TIDCM per md 03/10/24 Unknown History metoprolol tartrate 25 mg tablet 12.5 mg PO DAILY 03/10/24 Unknown History ondansetron HCl 4 mg tablet 4 mg PO Q6H PRN nausea and vomiting 03/10/24 Unknown History celecoxib 200 mg capsule (Celebrex) 200 mg PO BID 03/11/24 Unknown History duloxetine 60 mg capsule,delayed 60 mg PO DAILY 03/11/24 Unknown History release (Cymbalta) nortriptyline 50 mg capsule 50 mg PO QHS 03/11/24 Unknown History topiramate 100 mg tablet (Topamax) 100 mg PO BID 03/11/24 Unknown History amitriptyline 50 mg tablet 50 mg PO QHS 03/21/24 Unknown History Allergy/AdvReac Type Severity Reaction Status Date / Time diltiazem (From Cardizem) Allergy Severe Angioedema Verified 03/21/24 08:35 meloxicam Allergy Intermediate Pain in Verified 03/21/24 08:35 joints Social History Smoking Status: Current every day smoker tobacco type: e-cigarettes ROS Review of Systems ROS Unobtainable: due to mental status Vital Signs Vital Signs Vital Signs: 03/21/24 08:35 03/21/24 10:35 Temperature 97.1 F L Temperature Source Temporal Pulse Rate 57 L 57 L Respiratory Rate 16 14 Blood Pressure 172/75 H 146/76 H Blood Pressure Mean 107 99 Pulse Ox 99 98 Oxygen Delivery Method Room Air Room Air Weight Weight: 28.803 kg Body Mass Index (BMI) 10.5 Physical Exam Const Constitutional Narrative: Middle-age female, thin and chronically ill-appearing, very lethargic and somnolent, opening eyes to voice but not answering many questions for me, otherwise laying back comfortably in bed and in no acute distress. General Appearance: comfortable Orientation / Consciousness: lethargic HEENT normocephalic and nasal mucous membranes and turbinates normal HEENT Narrative: Dry mucous membranes. Large bruise noted around left eye. Chest inspection of chest normal Resp normal respiratory effort, normal air movement, no use of accessory muscles and clear to auscultation bilaterally Resp Narrative: Breathing comfortably on room air with good saturations. Good breath sounds bilaterally throughout. Cardio regular rate, regular rhythm, no murmurs and peripheral pulses 2+ throughout GI normal to inspection, nondistended, normoactive bowel sounds, soft to palpation, non-tender and non-distended Extremity normal to inspection and no pedal edema Skin no rashes or lesions noted Results Lab / Micro Data 03/21/24 09:25 03/21/24 09:25 Labs: Laboratory Results - last 24 hr 03/21/24 09:25: WBC 15.8 H, RBC 4.78, Hgb 14.6, Hct 43.6, MCV 91.2, MCH 30.5, MCHC 33.5, RDW Std Deviation 44.0 H, RDW Coeff of Jessica 13.2, Plt Count 325, MPV 9.9, Immature Gran % (Auto) 0.300, Neut % (Auto) 88.4 H, Lymph % (Auto) 7.1 L, [place] % (Auto) 3.8, Eos % (Auto) 0.1, Baso % (Auto) 0.3, Absolute Neuts (auto) 14.0 H, Absolute Lymphs (auto) 1.13, Nucleated RBC % 0, Sodium 133 L, Potassium 3.5, Chloride 100, Carbon Dioxide 22.0, Anion Gap 11, BUN 16, Creatinine 0.80, Estim Creat Clear Calc 33.15, Est GFR (MDRD) Af Amer 93, Est GFR (MDRD) Non-Af 77, BUN/Creatinine Ratio 19.9, Glucose 117 H, Lactic Acid 1.4, Calcium 8.6, Total Bilirubin 0.50, AST 48 H, ALT 49, Alkaline Phosphatase 88, Total Creatine Kinase 571 H, Troponin I High Sens 7, Total Protein 6.7, Albumin 3.7, Globulin 3.0, Albumin/Globulin Ratio 1.2, Lipase 15, Ethyl Alcohol < 3.0 03/21/24 10:00: Urine Color Yellow, Urine Clarity Clear, Urine pH 6.5, Ur Specific [place] 1.020, Urine Protein Negative, Urine Glucose (UA) Normal, Urine Ketones 50 H, Urine Occult Blood Negative, Urine Nitrite Negative, Urine Bilirubin Negative, Urine Urobilinogen Normal, Ur Leukocyte Esterase Negative, Urine RBC 0 SEEN, Urine WBC 0 SEEN, Ur Squamous Epith Cells 0 SEEN, Urine Bacteria 0 SEEN, Urine Mucus 0 SEEN, Ur Drug Screen Comment 03/21/24 10:01: POC Glucose 115 H Imaging Radiology Impression Brain CT 03/21/24 09:17 IMPRESSION: Stable lacunar infarct in the insular cortex of the left temporal lobe. Electronically Signed: Andres Adams MD at 10:06 EDT , Chest/Abdomen/Pelvis CT 03/21/24 09:17 IMPRESSION: Nondisplaced right sixth and seventh rib fractures. Status post cholecystectomy with dilatation of the intrahepatic biliary ducts and common bile duct as well as the pancreatic duct. Focal soft tissue prominence in the inferior aspect of the right anterior abdominal wall laterally suggestive of possible hematoma. Electronically Signed: Andres Adams MD at 10:24 EDT , Cervical Spine CT 03/21/24 09:40 IMPRESSION: Multilevel degenerative changes, as described above. Exaggerated cervical lordosis. Electronically Signed: Andres Adams MD at 10:26 EDT , Assessment & Plan Assessment/Plan (1) Acute alteration in mental status: (2) Right rib fracture: (3) Rhabdomyolysis: PLAN: Plan Patient is a 64-year-old female who presented [facility] ED on 03/21/2024 via EMS with altered mental status. 1. Acute encephalopathy, recent hospitalization for encephalopathy suspected secondary to drug use ? Admit under observation status to [facility]. Suspected toxic encephalopathy secondary to illicit drug use. UDS only positive for cannabinoids but patient reportedly has history of opiate abuse. Currently somnolent but hemodynamically stable and protecting her airway. Will monitor closely as I expect her mental status will recover fairly quickly as it did on the most recent admission. Limit sedating medications as able. Case management consulted. 2. Fall with right sixth and seventh rib fractures ? PT/OT/case management consulted. Small rib fractures noted on imaging on my read, no need for surgical evaluation. Pain control with Tylenol as needed for now given patient is quite somnolent. If patient has worsening pain once mental status recovers we will need to discuss pain medication options with her given concern for opiate abuse. 3. Homelessness ? Case management consulted. 4. Acute dehydration with mild rhabdomyolysis and mild hyponatremia ? Sodium 133, CK level 571 on admit. No kidney dysfunction. Labs generally appeared hemoconcentrated. Given 1 L of normal saline in the ED, will give another 1 L of normal saline over 8 hours today. Follow-up a.m. labs. Once mental status improves, will encourage p.o. intake. Chronic medical conditions: ? History of chronic back pain: Listed home regimen of gabapentin 600 mg 3 times daily, duloxetine 60 mg daily, amitriptyline 50 mg at night, Celebrex 200 mg twice daily. Strongly suspect patient is not taking any these medications at home. Will restart home duloxetine but otherwise hold other home medications for now. ? History of migraines: Topamax 100 mg twice daily on home med list, unclear if patient has been compliant. Topamax level ordered. Will start Topamax at home dose for now. ? History of tobacco abuse: Encouraged cessation. Nicotine replacement therapy available as needed. ? History of colitis: Not currently active. DVT prophylaxis: Lovenox CODE STATUS: Full code, unverified Expected disposition: TBD Total clinical time spent by myself addressing the patient's medical issues, reviewing all the data, and collaborating with patient's care team: 55 minutes. Charges/Coding Visit Charges Inpatient E&M: 48981 Init Hosp L2
[2024-03-21 11:10] LABS: Amphetamine Urine VISTA NEGATIVE (<1000 ng/mL); Barbiturate Urine VISTA NEGATIVE (< 200 ng/mL); Benzodiazepine Urine VISTA NEGATIVE (< 200 ng/mL); Cocaine Urine VISTA NEGATIVE (< 300 ng/mL); Ecstacy Urine VISTA NEGATIVE (< 500 ng/mL); Methadone Urine VISTA NEGATIVE (< 300 ng/mL); PCP Urine VISTA NEGATIVE (< 25 ng/mL); THC Urine VISTA POSITIVE (< 50 ng/mL); Vista UDS pH Range 6
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
[2024-03-21 12:04] VITALS: BP 141/89; PULSE 79; RESP 16; TEMP 36.3; TEMP 36.4; O2SAT 98
[2024-03-21 12:14] VITALS: BP 142/85; PULSE 63; RESP 13; TEMP 36.3; O2SAT 97; BMI 21.1
[2024-03-21] MEDS: 0.9% Normal Saline (1000mL) 1,000 ML 125 ML IV ×2 (12:20→20:08)
--- NOTE | 2024-03-21 12:32 | NURSING ---
rt knee w. abrasions largest area [id number]. site cleansed with NS, adaptic and opsite x2 applied. left knee with smaller abrasion cleansed with NS, adaptic and 2x2 gauze applied.
[2024-03-21 14:00] VITALS: BP 140/90; PULSE 62; RESP 13; TEMP 36.3; O2SAT 100
[2024-03-21] MEDS: Famotidine 20 MG Tablet PO (15:46)
[2024-03-21] MEDS: Ensure Plus High Protein 120 ML LIQUID PO (15:48)
[2024-03-21] MEDS: 0.9% Saline Lock 10 ML Syringe IV (18:30)
[2024-03-21] MEDS: Ondansetron 4 MG/2 ML Vial IV (18:30)
[2024-03-21 21:37] VITALS: BP 135/75; PULSE 69; RESP 16; TEMP 36.8; O2SAT 99
[2024-03-21] MEDS: Topiramate 100 MG Tablet PO (21:41)
[2024-03-21] MEDS: Acetaminophen 325 MG Tablet 650 MG PO (23:54)
[2024-03-21] MEDS: proCHLORPERazine 10 MG/2 ML Vial IV (23:54)
[2024-03-22 06:09] VITALS: BP 149/68; PULSE 85; RESP 16; TEMP 37.2; O2SAT 97
[2024-03-22 06:49] LABS: Hematocrit 37.3 % (37-47); Hemoglobin 12.3 g/dL (12.0-15.0); Mean Corpuscular Hgb 30.1 pg (27.0-32.0); Mean Corpuscular Volume 91.2 fL (81-99); Mean Platelet Vol. 10.2 fl (6.2-12.0); Platelet Count 332 K/mm3 (150-450); RBC Distribution Width CV 13.3 % (11.6-14.6); RBC Distribution Width SD 44.7 fl (35.1-43.9); Red Blood Count 4.09 M/mm3 (4.2-5.4); White Blood Count 9.3 K/mm3 (4.4-11.0)
[2024-03-22] MEDS: Famotidine 20 MG Tablet PO (07:19)
[2024-03-22] MEDS: Topiramate 100 MG Tablet PO ×2 (07:19→20:53)
[2024-03-22] MEDS: Ensure Plus High Protein 120 ML LIQUID PO ×2 (07:19→17:20)
[2024-03-22] MEDS: Aspirin 81 MG TAB.CHEW PO ×2 (07:20)
[2024-03-22] MEDS: Enoxaparin 40 MG/0.4 ML Syringe SC (07:20)
[2024-03-22] MEDS: DULoxetine Hcl 60 MG Capsule PO (07:20)
[2024-03-22 07:24] LABS: Anion Gap 12 (5-15); BUN 11 mg/dL (7-18); BUN/Creat Ratio 16.3 RATIO (10-20); CPK Total, Creatine Kinase 279 U/L (26-192); Calcium,Total 8.2 mg/dL (8.5-10.1); Chloride 108 mmol/L (98-107); Creatinine, Serum 0.67 mg/dL (0.55-1.02); EST Glomerular Filtration Rate 94 mL/min (>60); Est Glom Filt Rate - Afr Amer 114 mL/min (>60); Estimated Creatinine Clearance 78.34 ml/min; Glucose 84 mg/dL (74-106); Sodium Level 138 mmol/L (136-145)
[2024-03-22] MEDS: Acetaminophen 325 MG Tablet 650 MG PO (07:28)
[2024-03-22 07:30] VITALS: BP 127/63; PULSE 85; RESP 14; TEMP 36.6; O2SAT 93
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
[2024-03-22] MEDS: Potassium Chloride Oral Tablet 20 MEQ 40 MEQ PO (12:23)
[2024-03-22] MEDS: Gabapentin 300 MG Capsule PO ×2 (12:24→17:19)
[2024-03-22] MEDS: Ketorolac 15 MG/ML Vial IV ×3 (12:24→23:52)
[2024-03-22] MEDS: 0.9% Saline Lock 10 ML Syringe IV (12:24)
[2024-03-22 13:40] LABS: Magnesium 2.3 mg/dL (1.6-2.6)
[2024-03-22 14:00] VITALS: BP 95/48; PULSE 84; RESP 14; TEMP 37.1; O2SAT 93
--- NOTE | 2024-03-22 14:05 | CASEMGMT ---
Met with patient to complete BARRETT form. BARRETT form explained to patient who voiced understanding and signed form. Original form placed in pt?s chart and copy provided to patient. Carol Barton, Discharge Planning Asst
--- NOTE | 2024-03-22 15:07 | PCM.PN.HOSP ---
Reason for Visit Reason for Visit: Diagnoses Rhabdomyolysis (03/21/24) Altered mental status, unspecified (03/21/24) Fracture of one rib, right side, initial encounter for closed fracture (03/21/24) Subjective Subjective No acute events overnight. Saw patient bedside this morning. Patient appears much more awake and alert today than yesterday. Was sitting up in bedside chair and conversing normally. Patient did appear to be in mild pain and discomfort and stated she had moderate rib pain as well as generalized pain and discomfort this morning. She was on several home medications and states that she was taking these as prescribed, and she was hoping that these will be restarted. She denies any fevers or chills. Denies any recent illicit drug use. Rather, states that she is currently homeless and she has been trying to avoid being seen by the police so that she does not get picked up for vacancy, and that she has been hiding in trees in her dumpsters. States that she think she had a fall yesterday by one of those dumpsters that led to her coming in. She does feel weaker than her baseline currently and had difficulty with ambulation this morning due to pain. She would be interested in pursuing detention facility placement if she would qualify. Objective Data Objective Data Vital Signs: Vital Signs Temp Pulse Resp BP Pulse Ox O2 Del Method 98.8 F 84 14 95/48 L 93 Room Air 03/22/24 14:00 03/22/24 14:00 03/22/24 14:00 03/22/24 14:00 03/22/24 14:00 03/22/24 14:00 Oxygen Delivery Method Room Air Weight: 57.663 kg Body Mass Index (BMI) 21.1 Intake & Output: Intake and Output for Last 24 Hours 03/20/24 03/21/24 03/22/24 23:59 23:59 23:59 Intake Total 2275 / 2275 1200 / 1200 Balance 2275 / 2275 1200 / 1200 Lab / Micro Data 03/22/24 06:05 03/22/24 06:05 Labs: Laboratory Results - last 24 hr 03/22/24 06:05: WBC 9.3, RBC 4.09 L, Hgb 12.3, Hct 37.3, MCV 91.2, MCH 30.1, MCHC 33.0, RDW Std Deviation 44.7 H, RDW Coeff of Jessica 13.3, Plt Count 332, MPV 10.2, Sodium 138, Potassium 3.0 L, Chloride 108 H, Carbon Dioxide 18.0 L, Anion Gap 12, BUN 11, Creatinine 0.67, Estim Creat Clear Calc 78.34, Est GFR (MDRD) Af Amer 114, Est GFR (MDRD) Non-Af 94, BUN/Creatinine Ratio 16.3, Glucose 84, Calcium 8.2 L, Magnesium 2.3, Total Creatine Kinase 279 H Rhythm Strip Rhythm Strip: Sinus Rhythm Rate: 63 Ectopy: None Physical Exam Const alert and oriented x3 Constitutional Narrative: Middle-age female, thin and chronically ill-appearing, much more awake and alert today than on admission, sitting up in bedside chair and conversing normally, mild distress due to pain. HEENT normocephalic, nasal mucous membranes and turbinates normal and moist oral mucous membranes HEENT Narrative: Large bruise noted around left eye, stable. Eyes PERRL, EOMs intact bilaterally and conjunctivae normal Chest inspection of chest normal Resp normal respiratory effort, normal air movement, no use of accessory muscles and clear to auscultation bilaterally Resp Narrative: Breathing comfortably on room air with good saturations. Good breath sounds bilaterally throughout. Cardio regular rate, regular rhythm, no murmurs and peripheral pulses 2+ throughout GI normal to inspection, nondistended, normoactive bowel sounds, soft to palpation, non-tender and non-distended Extremity normal to inspection and no pedal edema Skin no rashes or lesions noted Neuro moves all extremities and no focal motor deficits Speech: speech normal Psych affect normal Mood & Affect: anxious Assessment & Plan Assessment/Plan (1) Acute alteration in mental status: (2) Right rib fracture: (3) Rhabdomyolysis: PLAN: Plan Patient is a 64-year-old female who presented [facility] ED on 03/21/2024 via EMS with altered mental status. 1. Acute encephalopathy, resolved; recent hospitalization for encephalopathy suspected secondary to drug use ? Found down by police in a parking lot and brought to the ED by EMS. Was lethargic in the ED, able to open eyes to command but not able to answer any questions. Highest concern is for toxic cephalopathy secondary to illicit drug use. Patient with significant improvement in mental status by hospital day 2, alert and oriented x 3. Notably had the same presentation on a recent admission about 2 weeks ago. UDS only positive for cannabinoids and patient denies opiate use but unclear if other substances may be involved. Case management following. Continue to limit sedating medications as able. 2. Fall with right sixth and seventh rib fractures ? PT/OT/case management following. Small rib fractures noted on imaging on my read, no need for surgical evaluation. Initiated on IV Toradol 15 mg every 6 hours on 03/22, will plan to give 5 doses total. Scheduled Tylenol every 8 hours also prescribed for pain. Restarted home gabapentin at decreased dose of 300 mg 3 times daily on 03/22. Patient with borderline therapy scores on 03/22 and requesting SNF placement on discharge. Continue to monitor. 3. Homelessness ? Case management following. Planning for SNF placement on discharge at this time. 4. Acute dehydration with mild rhabdomyolysis and mild hyponatremia, improving ? Sodium 133, CK level 571 on admit. No kidney dysfunction. Labs generally appeared hemoconcentrated. Given 2 L normal saline on admission with improvement in sodium. CK level 279 on hospital day 2. No need to check further CK values. Encourage p.o. intake. Continue to monitor daily BMP. Chronic medical conditions: ? History of chronic back pain: Listed home regimen of gabapentin 600 mg 3 times daily, duloxetine 60 mg daily, amitriptyline 50 mg at night, Celebrex 200 mg twice daily. Patient reported taking her medications as prescribed on 03/22 and per pharmacy it does appear that she had most of these filled recently. Continued home duloxetine on admission. Will start gabapentin 300 mg 3 times daily and amitriptyline 50 mg at night on 03/22. Giving IV Toradol for pain as noted above. Monitor. ? History of migraines: Topamax 100 mg twice daily on home med list and patient reports compliance. Topamax level pending. Continue Topamax at home dose. ? History of tobacco abuse: Encouraged cessation. Nicotine replacement therapy available as needed. ? History of colitis: Not currently active. DVT prophylaxis: Lovenox CODE STATUS: Full code, unverified Expected disposition: SNF, likely medically ready for discharge on 03/23 Total clinical time spent by myself addressing the patient's medical issues, reviewing all the data, and collaborating with patient's care team: 35 minutes. Charges/Coding Visit Charges Inpatient E&M: 43315 Subs Hosp L2
--- NOTE | 2024-03-22 15:11 | CASEMGMT ---
Social Work SW printed a list via [facility] of fpc facilities in network w/insurance, in pt's preferred geographic area, complete w/quality and resource use management. FRANKIE Ornelas gave list to pt, pt does not have a preference for facility. Referrals sent to [facility], [facility], [facility] and [facility]. It is anticipated pt will be here through the weekend, SW will follow up on Monday. MARCI Greenberg
[2024-03-22 20:22] VITALS: BP 103/50; PULSE 80; RESP 16; TEMP 36.8; O2SAT 95
[2024-03-22] MEDS: Amitriptyline 25 MG Tablet 50 MG PO (20:53)
[2024-03-22] MEDS: Ondansetron 4 MG/2 ML Vial IV (22:23)
[2024-03-22] MEDS: proCHLORPERazine 10 MG/2 ML Vial IV (23:59)
[2024-03-23] MEDS: Ketorolac 15 MG/ML Vial IV ×2 (05:51→12:40)
[2024-03-23 05:59] VITALS: BP 121/65; PULSE 75; RESP 16; TEMP 36.7; O2SAT 95
[2024-03-23 08:12] LABS: Anion Gap 6 (5-15); BUN 14 mg/dL (7-18); Calcium,Total 8.4 mg/dL (8.5-10.1); Chloride 109 mmol/L (98-107); Creatinine, Serum 0.88 mg/dL (0.55-1.02); EST Glomerular Filtration Rate 70 mL/min (>60); Est Glom Filt Rate - Afr Amer 84 mL/min (>60); Estimated Creatinine Clearance 59.64 ml/min; Glucose 114 mg/dL (74-106); Sodium Level 139 mmol/L (136-145)
[2024-03-23 09:05] VITALS: BP 116/59; PULSE 86; RESP 16; TEMP 37.2; O2SAT 94
[2024-03-23] MEDS: DULoxetine Hcl 60 MG Capsule PO (09:14)
[2024-03-23] MEDS: Famotidine 20 MG Tablet PO (09:15)
[2024-03-23] MEDS: Enoxaparin 40 MG/0.4 ML Syringe SC (09:15)
[2024-03-23] MEDS: Topiramate 100 MG Tablet PO ×2 (09:16→20:58)
[2024-03-23] MEDS: Gabapentin 300 MG Capsule PO ×3 (09:20→16:49)
--- NOTE | 2024-03-23 09:55 | PN.HOSP_ITS ---
Reason for Visit Reason for Visit: Diagnoses Rhabdomyolysis (03/22/24) Altered mental status, unspecified (03/22/24) Fracture of one rib, right side, initial encounter for closed fracture (03/22/24) Subjective Subjective No acute events overnight. Patient seen at bedside this morning. Sitting up comfortably in bed, conversing normally, in no acute distress. States that her pain is moderately improved today compared to yesterday. She otherwise does still feel weaker than her baseline but denies any new pain or discomfort. No other acute concerns this morning. Objective Data Objective Data Vital Signs: Vital Signs Temp Pulse Resp BP Pulse Ox O2 Del Method 99.0 F 86 16 116/59 L 94 Room Air 03/23/24 09:05 03/23/24 09:05 03/23/24 09:05 03/23/24 09:05 03/23/24 09:05 03/23/24 09:05 Oxygen Delivery Method Room Air Weight: 57.663 kg Body Mass Index (BMI) 21.1 Intake & Output: Intake and Output for Last 24 Hours 03/21/24 03/22/24 03/23/24 23:59 23:59 23:59 Intake Total 2275 / 2275 1200 / 1200 800 / 800 Balance 2275 / 2275 1200 / 1200 800 / 800 Lab / Micro Data 03/22/24 06:05 03/23/24 07:38 Labs: Laboratory Results - last 24 hr 03/22/24 06:05: Magnesium 2.3 03/23/24 07:38: Sodium 139, Potassium 3.0 L, Chloride 109 H, Carbon Dioxide 24.0, Anion Gap 6, BUN 14, Creatinine 0.88, Estim Creat Clear Calc 59.64, Est GFR (MDRD) Af Amer 84, Est GFR (MDRD) Non-Af 70, BUN/Creatinine Ratio 16.0, G lucose 114 H, Calcium 8.4 L Micro: Microbiology 03/22/24 16:30 Sputum, Expectorated/Coughed Respiratory Culture - Preliminary Gram negative kristina Rhythm Strip Rhythm Strip: Sinus Rhythm Rate: 63 Ectopy: None Physical Exam Const alert and oriented x3 Constitutional Narrative: Middle-age female, thin and chronically ill-appearing, alert and oriented x 3, sitting up comfortably in bed, conversing normally, in no acute distress. HEENT normocephalic, nasal mucous membranes and turbinates normal and moist oral mucous membranes HEENT Narrative: Large bruise noted around left eye, stable. Eyes PERRL, EOMs intact bilaterally and conjunctivae normal Chest inspection of chest normal Resp normal respiratory effort, normal air movement, no use of accessory muscles and clear to auscultation bilaterally Resp Narrative: Breathing comfortably on room air with good saturations. Good breath sounds bilaterally throughout. Cardio regular rate, regular rhythm, no murmurs and peripheral pulses 2+ throughout GI normal to inspection, nondistended, normoactive bowel sounds, soft to palpation, non-tender and non-distended Extremity normal to inspection and no pedal edema Skin no rashes or lesions noted Neuro moves all extremities and no focal motor deficits Speech: speech normal Psych affect normal Assessment & Plan Assessment/Plan (1) Acute alteration in mental status: (2) Right rib fracture: (3) Rhabdomyolysis: PLAN: Plan Patient is a 64-year-old female who presented [facility] ED on 03/21/2024 via EMS with altered mental status. 1. Acute encephalopathy, resolved; recent hospitalization for encephalopathy suspected secondary to drug use ? Found down by police in a parking lot and brought to the ED by EMS. Was lethargic in the ED, able to open eyes to command but not able to answer any questions. Highest concern is for toxic cephalopathy secondary to illicit drug use. Patient with significant improvement in mental status by hospital day 2, alert and oriented x 3. Notably had the same presentation on a recent admission about 2 weeks ago. UDS only positive for cannabinoids and patient denies opiate use but unclear if other substances may be involved. Case management following. Continue to limit sedating medications as able. 2. Fall with right sixth and seventh rib fractures, acute debility ? PT/OT/case management following. Small rib fractures noted on imaging, no need for surgical evaluation. Started on IV Toradol 15 mg every 6 hours on 03/22, will complete 5 doses of 03/23; patient reports good improvement in pain level with this. Will restart home Celebrex 200 mg twice daily on 03/24. Continue scheduled Tylenol every 8 hours for pain as well. Restarted home gabapentin at decreased dose of 300 mg 3 times daily on 03/22. Patient with borderline therapy scores on 03/22 and requesting SNF placement on discharge, referrals sent. Medically stable for discharge on 03/23, awaiting placement. 3. Homelessness ? Case management following. Planning for SNF placement on discharge at this time. 4. Acute dehydration with mild rhabdomyolysis and mild hyponatremia, improving ? Sodium 133, CK level 571 on admit. No kidney dysfunction. Labs generally appeared hemoconcentrated. Given 2 L normal saline on admission with improvement in sodium. CK level 279 on hospital day 2. No need to check further CK values. Encourage p.o. intake. Continue to monitor daily BMP. Chronic medical conditions: ? History of chronic back pain: Listed home regimen of gabapentin 600 mg 3 times daily, duloxetine 60 mg daily, amitriptyline 50 mg at night, Celebrex 200 mg twice daily. Patient reported taking her medications as prescribed on 03/22 and per pharmacy it does appear that she had most of these filled recently. Continued home duloxetine on admission. Started gabapentin 300 mg 3 times daily and amitriptyline 50 mg at night on 03/22. Will finish IV Toradol on 03/23 and restart home Celebrex on 03/24. Monitor. ? History of migraines: Topamax 100 mg twice daily on home med list and patient reports compliance. Topamax level pending. Continue Topamax at home dose. ? History of tobacco abuse: Encouraged cessation. Nicotine replacement therapy available as needed. ? History of colitis: Not currently active. DVT prophylaxis: Lovenox CODE STATUS: Full code, unverified Expected disposition: SNF, medically ready for discharge on 03/23, awaiting placement Total clinical time spent by myself addressing the patient's medical issues, reviewing all the data, and collaborating with patient's care team: 35 minutes. Charges/Coding Visit Charges Inpatient E&M: 03560 Subs Hosp L2
[2024-03-23] MEDS: Potassium Chloride Oral Tablet 20 MEQ 60 MEQ PO (10:30)
[2024-03-23] MEDS: Ceftriaxone 1 GM/50 ML BAG IV (10:30)
[2024-03-23 13:59] VITALS: BP 105/57; PULSE 76; RESP 16; TEMP 37.1; O2SAT 96
[2024-03-23] MEDS: Acetaminophen 500 MG Tablet 1000 MG PO ×2 (14:07→20:58)
[2024-03-23 20:40] VITALS: BP 118/63; PULSE 79; RESP 16; TEMP 37.1; O2SAT 98
[2024-03-23] MEDS: Menthol/Lanolin/Calamine/Znox 113 GM Tube 1 APPLIC TOPICAL (20:43)
[2024-03-23] MEDS: Amitriptyline 25 MG Tablet 50 MG PO (20:58)
[2024-03-24 02:40] VITALS: BP 113/65; PULSE 72; RESP 18; TEMP 37.2; O2SAT 96
[2024-03-24] MEDS: Acetaminophen 500 MG Tablet 1000 MG PO ×3 (04:59→20:39)
[2024-03-24 08:04] VITALS: BP 119/74; PULSE 71; RESP 16; TEMP 37.3; O2SAT 94
[2024-03-24] MEDS: Aspirin 81 MG TAB.CHEW PO (08:14)
[2024-03-24] MEDS: Gabapentin 300 MG Capsule PO ×3 (08:16→16:56)
[2024-03-24 09:02] LABS: Anion Gap 7 (5-15); BUN 15 mg/dL (7-18); BUN/Creat Ratio 20.7 RATIO (10-20); Calcium,Total 8.3 mg/dL (8.5-10.1); Chloride 109 mmol/L (98-107); Creatinine, Serum 0.72 mg/dL (0.55-1.02); EST Glomerular Filtration Rate 87 mL/min (>60); Est Glom Filt Rate - Afr Amer 105 mL/min (>60); Glucose 96 mg/dL (74-106); Potassium 3.3 mmol/L (3.5-5.1); Sodium Level 139 mmol/L (136-145)
[2024-03-24] MEDS: 0.9% Saline Lock 10 ML Syringe IV (10:06)
[2024-03-24] MEDS: Ceftriaxone 1 GM/50 ML BAG IV (10:06)
[2024-03-24] MEDS: Menthol/Lanolin/Calamine/Znox 113 GM Tube 1 APPLIC TOPICAL ×2 (10:06→20:39)
[2024-03-24] MEDS: Enoxaparin 40 MG/0.4 ML Syringe SC (10:07)
[2024-03-24] MEDS: Celecoxib 200 MG Capsule PO ×2 (10:07→20:39)
[2024-03-24] MEDS: DULoxetine Hcl 60 MG Capsule PO (10:07)
[2024-03-24] MEDS: Topiramate 100 MG Tablet PO ×2 (10:09→20:39)
[2024-03-24] MEDS: Famotidine 20 MG Tablet PO (10:15)
--- NOTE | 2024-03-24 11:10 | PCM.PN.HOSP ---
Reason for Visit Reason for Visit: Diagnoses Rhabdomyolysis (03/22/24) Altered mental status, unspecified (03/22/24) Fracture of one rib, right side, initial encounter for closed fracture (03/22/24) Subjective Subjective No acute events overnight. Saw patient at bedside this morning. Sitting up comfortably in bed, conversing normally, no acute distress. Appears similar to yesterday. Reports mild pain in her ribs and mild general pain, similar to yesterday. Completed 5 doses of IV Toradol yesterday and back on home Celebrex today, feels like her pain is being adequately controlled. No other acute concerns today. Objective Data Objective Data Vital Signs: Vital Signs Temp Pulse Resp BP Pulse Ox O2 Del Method 99.1 F 71 16 119/74 94 Room Air 03/24/24 08:04 03/24/24 08:04 03/24/24 08:04 03/24/24 08:04 03/24/24 08:04 03/24/24 08:04 Oxygen Delivery Method Room Air Weight: 57.663 kg Body Mass Index (BMI) 21.1 Intake & Output: Intake and Output for Last 24 Hours 03/22/24 03/23/24 03/24/24 23:59 23:59 23:59 Intake Total 1200 / 1200 1250 / 1250 200 / 200 Balance 1200 / 1200 1250 / 1250 200 / 200 Lab / Micro Data 03/22/24 06:05 03/24/24 08:05 Labs: Laboratory Results - last 24 hr 03/24/24 08:05: Sodium 139, Potassium 3.3 L, Chloride 109 H, Carbon Dioxide 23.0, Anion Gap 7, BUN 15, Creatinine 0.72, Estim Creat Clear Calc 72.90, Est GFR (MDRD) Af Amer 105, Est GFR (MDRD) Non-Af 87, BUN/Creatinine Ratio 20.7 H, Glucose 96, Calcium 8.3 L Micro: Microbiology 03/22/24 16:30 Sputum, Expectorated/Coughed Gram Stain - Final 03/22/24 16:30 Sputum, Expectorated/Coughed Respiratory Culture - Final Serratia marcescens Rhythm Strip Rhythm Strip: Sinus Rhythm Rate: 63 Ectopy: None Physical Exam Const alert and oriented x3 Constitutional Narrative: Middle-age female, thin and chronically ill-appearing, alert and oriented x 3, sitting up comfortably in bed, conversing normally, in no acute distress. HEENT normocephalic, nasal mucous membranes and turbinates normal and moist oral mucous membranes HEENT Narrative: Large bruise noted around left eye, improving. Eyes PERRL, EOMs intact bilaterally and conjunctivae normal Chest inspection of chest normal Resp normal respiratory effort, normal air movement, no use of accessory muscles and clear to auscultation bilaterally Resp Narrative: Breathing comfortably on room air with good saturations. Good breath sounds bilaterally throughout. Cardio regular rate, regular rhythm, no murmurs and peripheral pulses 2+ throughout GI normal to inspection, nondistended, normoactive bowel sounds, soft to palpation, non-tender and non-distended Extremity normal to inspection and no pedal edema Skin no rashes or lesions noted Neuro moves all extremities and no focal motor deficits Speech: speech normal Psych affect normal Assessment & Plan Assessment/Plan (1) Acute alteration in mental status: (2) Right rib fracture: (3) Rhabdomyolysis: PLAN: Plan Patient is a 64-year-old female who presented [facility] ED on 03/21/2024 via EMS with altered mental status. 1. Acute encephalopathy, resolved; recent hospitalization for encephalopathy suspected secondary to drug use ? Found down by police in a parking lot and brought to the ED by EMS. Was lethargic in the ED, able to open eyes to command but not able to answer any questions. Highest concern is for toxic cephalopathy secondary to illicit drug use. Patient with significant improvement in mental status by hospital day 2, alert and oriented x 3. Notably had the same presentation on a recent admission about 2 weeks ago. UDS only positive for cannabinoids and patient denies opiate use but unclear if other substances may be involved. Case management following. Continue to limit sedating medications as able. 2. Fall with right sixth and seventh rib fractures, acute debility ? PT/OT/case management following. Small rib fractures noted on imaging, no need for surgical evaluation. Started on IV Toradol 15 mg every 6 hours on 03/22, completed 5 doses of 03/23; patient reported good improvement in pain level with this. Restarted home Celebrex 200 mg twice daily on 03/24. Continue scheduled Tylenol every 8 hours for pain as well. Restarted home gabapentin at decreased dose of 300 mg 3 times daily on 03/22. Patient with borderline therapy scores on 03/22 and requesting SNF placement on discharge, referrals sent. Medically stable for discharge on 03/23, awaiting placement. 3. Homelessness ? Case management following. Planning for SNF placement on discharge at this time. 4. Acute dehydration with mild rhabdomyolysis and mild hyponatremia, improving ? Sodium 133, CK level 571 on admit. No kidney dysfunction. Labs generally appeared hemoconcentrated. Given 2 L normal saline on admission with improvement in sodium. CK level 279 on hospital day 2. No need to check further CK values. Encourage p.o. intake. Continue to monitor daily BMP. Chronic medical conditions: ? History of chronic back pain: Listed home regimen of gabapentin 600 mg 3 times daily, duloxetine 60 mg daily, amitriptyline 50 mg at night, Celebrex 200 mg twice daily. Patient reported taking her medications as prescribed on 03/22 and per pharmacy it does appear that she had most of these filled recently. Continued home duloxetine on admission. Started gabapentin 300 mg 3 times daily and amitriptyline 50 mg at night on 03/22. Finished IV Toradol on 03/23 and restarted home Celebrex on 03/24. Monitor. ? History of migraines: Topamax 100 mg twice daily on home med list and patient reports compliance. Topamax level pending. Continue Topamax at home dose. ? History of tobacco abuse: Encouraged cessation. Nicotine replacement therapy available as needed. ? History of colitis: Not currently active. DVT prophylaxis: Lovenox CODE STATUS: Full code, unverified Expected disposition: SNF, medically ready for discharge on 03/23, awaiting placement Total clinical time spent by myself addressing the patient's medical issues, reviewing all the data, and collaborating with patient's care team: 35 minutes. Charges/Coding Visit Charges Inpatient E&M: 10860 Subs Hosp L2
[2024-03-24 13:26] VITALS: BP 115/64; PULSE 88; RESP 16; TEMP 37; O2SAT 98
[2024-03-24 20:32] VITALS: BP 123/76; PULSE 88; RESP 18; TEMP 37.2; O2SAT 97
[2024-03-24] MEDS: Amitriptyline 25 MG Tablet 50 MG PO (20:39)
[2024-03-25 03:09] VITALS: BP 125/82; PULSE 68; RESP 16; TEMP 36.9; O2SAT 97
[2024-03-25 06:03] LABS: Hematocrit 36.1 % (37-47); Hemoglobin 11.9 g/dL (12.0-15.0); Mean Corpuscular Hgb 30.3 pg (27.0-32.0); Mean Corpuscular Volume 91.9 fL (81-99); Platelet Count 243 K/mm3 (150-450); RBC Distribution Width CV 13.7 % (11.6-14.6); RBC Distribution Width SD 46.4 fl (35.1-43.9); Red Blood Count 3.93 M/mm3 (4.2-5.4); White Blood Count 8.7 K/mm3 (4.4-11.0)
[2024-03-25] MEDS: Acetaminophen 500 MG Tablet 1000 MG PO ×3 (06:32→21:29)
[2024-03-25 06:38] LABS: Anion Gap 8 (5-15); BUN 16 mg/dL (7-18); BUN/Creat Ratio 21.2 RATIO (10-20); Calcium,Total 8.5 mg/dL (8.5-10.1); Chloride 110 mmol/L (98-107); Creatinine, Serum 0.76 mg/dL (0.55-1.02); EST Glomerular Filtration Rate 82 mL/min (>60); Est Glom Filt Rate - Afr Amer 100 mL/min (>60); Estimated Creatinine Clearance 69.06 ml/min; Glucose 89 mg/dL (74-106); Potassium 3.3 mmol/L (3.5-5.1); Sodium Level 140 mmol/L (136-145)
[2024-03-25 07:34] VITALS: BP 119/77; PULSE 71; RESP 16; TEMP 36.8; O2SAT 95
[2024-03-25] MEDS: Menthol/Lanolin/Calamine/Znox 113 GM Tube 1 APPLIC TOPICAL ×2 (07:47→21:26)
[2024-03-25] MEDS: Gabapentin 300 MG Capsule PO ×3 (07:47→17:03)
[2024-03-25] MEDS: Enoxaparin 40 MG/0.4 ML Syringe SC (07:48)
[2024-03-25] MEDS: Aspirin 81 MG TAB.CHEW PO (07:49)
[2024-03-25] MEDS: Celecoxib 200 MG Capsule PO ×2 (07:49→21:27)
[2024-03-25] MEDS: DULoxetine Hcl 60 MG Capsule PO (07:49)
[2024-03-25] MEDS: Famotidine 20 MG Tablet PO (07:59)
[2024-03-25] MEDS: Topiramate 100 MG Tablet PO ×2 (07:59→21:27)
--- NOTE | 2024-03-25 08:13 | PCM.PN.HOSP ---
Reason for Visit Reason for Visit: Diagnoses Rhabdomyolysis (03/22/24) Altered mental status, unspecified (03/22/24) Fracture of one rib, right side, initial encounter for closed fracture (03/22/24) Subjective Subjective Patient is a 64-year-old lady who was apparently found wandering brought to the emergency department. An assessment of acute toxic encephalopathy suspected to be secondary to drug use made admitted to regular nursing floor for further management Objective Data Objective Data Vital Signs: Vital Signs Temp Pulse Resp BP Pulse Ox O2 Del Method 98.2 F 71 16 119/77 95 Room Air 03/25/24 07:34 03/25/24 07:34 03/25/24 07:34 03/25/24 07:34 03/25/24 07:34 03/25/24 07:34 Oxygen Delivery Method Room Air Weight: 57.663 kg Body Mass Index (BMI) 21.1 Intake & Output: Intake and Output for Last 24 Hours 03/23/24 03/24/24 03/25/24 23:59 23:59 23:59 Intake Total 1250 / 1250 250 / 700 550 / 550 Balance 1250 / 1250 250 / 700 550 / 550 Lab / Micro Data 03/25/24 05:23 03/25/24 05:23 Labs: Laboratory Results - last 24 hr 03/24/24 08:05: Sodium 139, Potassium 3.3 L, Chloride 109 H, Carbon Dioxide 23.0, Anion Gap 7, BUN 15, Creatinine 0.72, Estim Creat Clear Calc 72.90, Est GFR (MDRD) Af Amer 105, Est GFR (MDRD) Non-Af 87, BUN/Creatinine Ratio 20.7 H, Glucose 96, Calcium 8.3 L 03/25/24 05:23: WBC 8.7, RBC 3.93 L, Hgb 11.9 L, Hct 36.1 L, MCV 91.9, MCH 30.3, MCHC 33.0, RDW Std Deviation 46.4 H, RDW Coeff of Jessica 13.7, Plt Count 243, MPV 10.0, Sodium 140, Potassium 3.3 L, Chloride 110 H, Carbon Dioxide 22.0, Anion Gap 8, BUN 16, Creatinine 0.76, Estim Creat Clear Calc 69.06, Est GFR (MDRD) Af Amer 100, Est GFR (MDRD) Non-Af 82, BUN/Creatinine Ratio 21.2 H, Glucose 89, Calcium 8.5 Micro: Microbiology 03/22/24 16:30 Sputum, Expectorated/Coughed Gram Stain - Final 03/22/24 16:30 Sputum, Expectorated/Coughed Respiratory Culture - Final Serratia marcescens Rhythm Strip Rhythm Strip: Sinus Rhythm Rate: 63 Ectopy: None Physical Exam Narrative GENERAL: cooperative HEENT: Left periorbital bruising, normocephalic EYES; Anicteric, Normal Conjunctiva NECK; supple, normal thyroid, RESPIRATORY: Diminished to auscultation CARDIOVASCULAR: Regular S1 S2, GI: soft, normoactive bowel sounds, : No Renal angle tenderness; EXTREMITIES: No edema, no clubbing, MUSCULOSKELETAL: no muscle wasting NEURO: Awake; no lateralizing signs. SKIN: No Rash PSYCH; Flat affect Assessment & Plan Assessment/Plan (1) Acute alteration in mental status: (2) Right rib fracture: (3) Rhabdomyolysis: PLAN: Plan Patient is a 64-year-old lady who was apparently found wandering brought to the emergency department. An assessment of acute toxic encephalopathy suspected to be secondary to drug use made admitted to regular nursing floor for further management Acute toxic encephalopathy secondary to drug use ? Patient back to baseline. Case management consulted to assist with disposition 2. Homelessness ? Case management following plan is for SNF placement 3. Mild rhabdomyolysis ? Managed with IV fluid with subsequent monitoring of electrolyte 4. Dehydration ? Resolved with IV fluids 5. Hyponatremia ? Secondary to hypovolemic hyponatremia. Resolved with rehydration 6. Hypokalemia ? Corrected per protocol repeat labs ordered for a.m. 7. Chronic back pain ? Patient is on gabapentin and Celebrex continue 8. Migraine headaches ? Patient is on Topamax 9. Tobacco dependence - Counseled on cessation, offered nicotine patch for tobacco cravings 10. DVT prophylaxis - On enoxaparin Time spent in the patient's overall evaluation,decision-making process, review of diagnostic data, adjustment of management, discussion with other providers, nursing nursing and ancillary staff involved in patient's care documentation, 35 minutes Charges/Coding Visit Charges Inpatient E&M: 37835 Subs Hosp L2
[2024-03-25] MEDS: Ceftriaxone 1 GM/50 ML BAG IV (10:09)
[2024-03-25] MEDS: 0.9% Saline Lock 10 ML Syringe IV ×3 (10:09→22:55)
[2024-03-25] MEDS: Potassium Chloride Oral Tablet 20 MEQ 40 MEQ PO (10:56)
--- NOTE | 2024-03-25 11:37 | CASEMGMT ---
[facility] Planning Follow up msgs sent to all referrals via [facility]. [facility] would like to do an onsite that patient consented to. SW updated. Carol Barton DC Planning Asst.
--- NOTE | 2024-03-25 12:32 | CASEMGMT ---
Social Work- Sw met with pt to discuss preferences at d/c. Pt states she would like to stay near [place] and, therefore, would like to meet with [facility] food service representative at 2. Pt states that he aunt Celeste is coming to visit this afternoon to buy her clothes, as pt clothing is all soiled. Pt advised that [facility] was also willing to accept if [facility] does not. SW will f/u w/pt following meeting with [facility] at 2pm today. KAHLIL Leung
[2024-03-25 15:40] VITALS: BP 112/66; PULSE 84; RESP 18; TEMP 37.2; O2SAT 99
--- NOTE | 2024-03-25 15:48 | CASEMGMT ---
Social Work- Medicaid pending #: [id number]. Mellissa, [facility], asks to be notified with d/c facility and date to pass on to medicaid eligibility examiner for potential AL. SW reached out to [facility] to clarify acceptance status. KAHLIL Leung
[2024-03-25] MEDS: Potassium Chloride Oral Tablet 20 MEQ PO (17:05)
[2024-03-25 21:24] VITALS: BP 119/65; PULSE 80; RESP 16; TEMP 36.6; O2SAT 99
[2024-03-25] MEDS: Amitriptyline 25 MG Tablet 50 MG PO (21:27)
[2024-03-25] MEDS: Ondansetron 4 MG/2 ML Vial IV (22:55)
[2024-03-26 05:01] VITALS: BP 118/76; PULSE 74; RESP 16; TEMP 37.1; O2SAT 98
[2024-03-26] MEDS: Acetaminophen 500 MG Tablet 1000 MG PO (06:02)
[2024-03-26 06:18] LABS: Absolute Lymphocyte Count 2.54 X10^3/uL (0.83-4.51); Absolute Neutrophil Count 4.1 X10^3/uL (2.0-7.7); Basophil# 0.09 X10^3/uL; Basophil% 1.1 % (0-1); Eosinophil# 0.34 X10^3/uL; Eosinophils% 4.3 % (0-5); Hematocrit 38.9 % (37-47); Hemoglobin 12.6 g/dL (12.0-15.0); Lymphocyte # 2.54 X10^3/ul (0.83-4.51); Mean Corp Hgb Conc 32.4 g/dL (32-36); Mean Corpuscular Hgb 30.1 pg (27.0-32.0); Mean Corpuscular Volume 93.1 fL (81-99); Mean Platelet Vol. 9.9 fl (6.2-12.0); Monocyte# 0.82 X10^3/uL; Monocyte% 10.3 % (0-10); NRBC Flagged by Analyzer 0 % (0-5); Neutrophil # 4.12 X10^3/uL (2.7-7.7); Neutrophil % 51.9 % (47-70); Platelet Count 267 K/mm3 (150-450); RBC Distribution Width CV 13.9 % (11.6-14.6); RBC Distribution Width SD 47.7 fl (35.1-43.9); Red Blood Count 4.18 M/mm3 (4.2-5.4); White Blood Count 7.9 K/mm3 (4.4-11.0)
[2024-03-26 07:05] LABS: Anion Gap 6 (5-15); BUN 18 mg/dL (7-18); BUN/Creat Ratio 21.9 RATIO (10-20); Calcium,Total 8.9 mg/dL (8.5-10.1); Chloride 109 mmol/L (98-107); Creatinine, Serum 0.82 mg/dL (0.55-1.02); EST Glomerular Filtration Rate 75 mL/min (>60); Est Glom Filt Rate - Afr Amer 91 mL/min (>60); Estimated Creatinine Clearance 64.01 ml/min; Glucose 86 mg/dL (74-106); Magnesium 2.1 mg/dL (1.6-2.6); Phosphorus 4.1 mg/dL (2.5-4.9); Potassium 4.2 mmol/L (3.5-5.1); Sodium Level 138 mmol/L (136-145)
--- NOTE | 2024-03-26 08:01 | PCM.PN.HOSP ---
Reason for Visit Reason for Visit: Diagnoses Rhabdomyolysis (03/22/24) Altered mental status, unspecified (03/22/24) Fracture of one rib, right side, initial encounter for closed fracture (03/22/24) Subjective Subjective Patient seen complains of sore RIB. Transfer to A care home facility still pending Objective Data Objective Data Vital Signs: Vital Signs Temp Pulse Resp BP Pulse Ox O2 Del Method 98.7 F 74 16 118/76 98 Room Air 03/26/24 05:01 03/26/24 05:01 03/26/24 05:01 03/26/24 05:01 03/26/24 05:01 03/26/24 05:01 Oxygen Delivery Method Room Air Weight: 57.663 kg Body Mass Index (BMI) 21.1 Intake & Output: Intake and Output for Last 24 Hours 03/24/24 03/25/24 03/26/24 23:59 23:59 23:59 Intake Total 250 / 700 700 / 1000 550 / 550 Balance 250 / 700 700 / 1000 550 / 550 Lab / Micro Data 03/26/24 05:19 03/26/24 05:19 Labs: Laboratory Results - last 24 hr 03/26/24 05:19: WBC 7.9, RBC 4.18 L, Hgb 12.6, Hct 38.9, MCV 93.1, MCH 30.1, MCHC 32.4, RDW Std Deviation 47.7 H, RDW Coeff of Jessica 13.9, Plt Count 267, MPV 9.9, Immature Gran % (Auto) 0.400, Neut % (Auto) 51.9, Lymph % (Auto) 32.0, [place] % (Auto) 10.3 H, Eos % (Auto) 4.3, Baso % (Auto) 1.1 H, Absolute Neuts (auto) 4.1, Absolute Lymphs (auto) 2.54, Nucleated RBC % 0, Sodium 138, Potassium 4.2, Chloride 109 H, Carbon Dioxide 23.0, Anion Gap 6, BUN 18, Creatinine 0.82, Estim Creat Clear Calc 64.01, Est GFR (MDRD) Af Amer 91, Est GFR (MDRD) Non-Af 75, BUN/Creatinine Ratio 21.9 H, Glucose 86, Calcium 8.9, Phosphorus 4.1, Magnesium 2.1 Micro: Microbiology 03/22/24 16:30 Sputum, Expectorated/Coughed Gram Stain - Final 03/22/24 16:30 Sputum, Expectorated/Coughed Respiratory Culture - Final Serratia marcescens Rhythm Strip Rhythm Strip: Sinus Rhythm Rate: 63 Ectopy: None Physical Exam Narrative GENERAL: cooperative HEENT: Left periorbital bruising, normocephalic EYES; Anicteric, Normal Conjunctiva NECK; supple, normal thyroid, RESPIRATORY: Diminished to auscultation CARDIOVASCULAR: Regular S1 S2, GI: soft, normoactive bowel sounds, : No Renal angle tenderness; EXTREMITIES: No edema, no clubbing, MUSCULOSKELETAL: no muscle wasting NEURO: Awake; no lateralizing signs. SKIN: No Rash PSYCH; Flat affect Assessment & Plan Assessment/Plan (1) Acute alteration in mental status: (2) Right rib fracture: (3) Rhabdomyolysis: PLAN: Plan Patient is a 64-year-old lady who was apparently found wandering brought to the emergency department. An assessment of acute toxic encephalopathy suspected to be secondary to drug use made admitted to regular nursing floor for further management 1. Acute toxic encephalopathy secondary to drug use ? Patient back to baseline. Case management consulted to assist with disposition 2. Fall with multiple rib fractures ? Imaging studies demonstrated nondisplaced right sixth and seventh rib fractures. Use of incentive spirometry encouraged in addition to pain meds ? 03/26/2024;Patient seen complains of sore RIB. Transfer to A care home facility still pending 3. Mild rhabdomyolysis ? Managed with IV fluid with subsequent monitoring of electrolyte 4. Dehydration ? Resolved with IV fluids 5. Hyponatremia ? Secondary to hypovolemic hyponatremia. Resolved with rehydration 6. Hypokalemia ? Corrected per protocol repeat labs ordered for a.m. 7. Chronic back pain ? Patient is on gabapentin and Celebrex continue 8. Migraine headaches ? Patient is on Topamax 9. Tobacco dependence - Counseled on cessation, offered nicotine patch for tobacco cravings 10. Homelessness ? Case management following plan is for SNF placement 11. DVT prophylaxis - On enoxaparin Time spent in the patient's overall evaluation,decision-making process, review of diagnostic data, adjustment of management, discussion with other providers, nursing nursing and ancillary staff involved in patient's care documentation, 37 minutes Charges/Coding Visit Charges Inpatient E&M: 77766 Subs Hosp L2
--- NOTE | 2024-03-26 08:13 | CASEMGMT ---
Discharge Planning Msg sent via [facility] to check on status of referral. Carol Barton DC Planning Asst.
[2024-03-26 08:35] VITALS: BP 108/74; PULSE 78; RESP 18; TEMP 36.8; O2SAT 97
[2024-03-26] MEDS: Aspirin 81 MG TAB.CHEW PO (08:39)
[2024-03-26] MEDS: Potassium Chloride Oral Tablet 20 MEQ PO (08:39)
[2024-03-26] MEDS: Celecoxib 200 MG Capsule PO (08:39)
[2024-03-26] MEDS: DULoxetine Hcl 60 MG Capsule PO (08:40)
[2024-03-26] MEDS: Enoxaparin 40 MG/0.4 ML Syringe SC (08:40)
[2024-03-26] MEDS: Famotidine 20 MG Tablet PO (08:40)
[2024-03-26] MEDS: Menthol/Lanolin/Calamine/Znox 113 GM Tube 1 APPLIC TOPICAL (08:40)
[2024-03-26] MEDS: Topiramate 100 MG Tablet PO (08:40)
[2024-03-26] MEDS: Gabapentin 300 MG Capsule PO ×2 (08:51→12:04)
[2024-03-26] MEDS: Ceftriaxone 1 GM/50 ML BAG IV (09:40)
[2024-03-26] MEDS: 0.9% Saline Lock 10 ML Syringe IV (09:40)
--- NOTE | 2024-03-26 10:18 | DS.PCM_ITS ---
Providers Date of Admission: 03/22/24 Date of Discharge: 03/26/24 Primary Care Physician: No Primary Care Phys Reason For Visit: ALTERED MENTAL STATUS, DEHYDRATION WITH MILD RHABD Diagnosis Discharge Diagnosis (1) Acute alteration in mental status: Status: Acute Code(s): R41.82 - Altered mental status, unspecified (2) Right rib fracture: Status: Acute Code(s): S22.31XA - Fracture of one rib, right side, initial encounter for closed fracture (3) Rhabdomyolysis: Status: Acute Code(s): M62.82 - Rhabdomyolysis Plan Patient is a 64-year-old lady who was apparently found wandering brought to the emergency department. An assessment of acute toxic encephalopathy suspected to be secondary to drug use made admitted to regular nursing floor for further management 1. Acute toxic encephalopathy secondary to drug use ? Patient back to baseline. Case management consulted to assist with disposition 2. Fall with multiple rib fractures ? Imaging studies demonstrated nondisplaced right sixth and seventh rib fractures. Use of incentive spirometry encouraged in addition to pain meds ? 03/26/2024;Patient seen complains of sore RIB. Transfer to A long-term facility still pending 3. Mild rhabdomyolysis ? Managed with IV fluid with subsequent monitoring of electrolyte 4. Dehydration ? Resolved with IV fluids 5. Hyponatremia ? Secondary to hypovolemic hyponatremia. Resolved with rehydration 6. Hypokalemia ? Corrected per protocol repeat labs ordered for a.m. 7. Chronic back pain ? Patient is on gabapentin and Celebrex continue 8. Migraine headaches ? Patient is on Topamax 9. Tobacco dependence - Counseled on cessation, offered nicotine patch for tobacco cravings 10. Homelessness ? Case management following plan is for SNF placement 11. DVT prophylaxis - On enoxaparin Time spent in the patient's overall evaluation,decision-making process, review of diagnostic data, adjustment of management, discussion with other providers, nursing nursing and ancillary staff involved in patient's care documentation, 37 minutes Medications at Discharge Home Medications aspirin 81 mg capsule 81 mg PO DAILY 03/10/24 baclofen 20 mg tablet 20 mg PO TID PRN pain/spasms 03/10/24 gabapentin 600 mg tablet 600 mg PO TIDCM per 03/10/24 metoprolol tartrate 25 mg tablet 12.5 mg PO DAILY 03/10/24 ondansetron HCl 4 mg tablet 4 mg PO Q6H PRN nausea and vomiting 03/10/24 celecoxib 200 mg capsule (Celebrex) 200 mg PO BID 03/11/24 duloxetine 60 mg capsule,delayed release (Cymbalta) 60 mg PO DAILY 03/11/24 nortriptyline 50 mg capsule 50 mg PO QHS 03/11/24 topiramate 100 mg tablet (Topamax) 100 mg PO BID 03/11/24 amitriptyline 50 mg tablet 50 mg PO QHS 03/21/24 acetaminophen 500 mg tablet 1,000 mg (2 x 500 mg) PO Q8 #0 tabs 03/26/24 cefdinir 300 mg capsule 300 mg PO BID #14 caps 03/26/24 famotidine 20 mg tablet 20 mg PO DAILY #0 tabs 03/26/24 nicotine 21 mg/24 hr daily transdermal patch 21 mg transdermal DAILY #0 ea 03/26/24 potassium chloride 20 mEq tablet,extended release(part/cryst) 20 meq PO BIDCM #0 tabs 03/26/24 Physical Exam Narrative GENERAL: cooperative HEENT: Left periorbital bruising, normocephalic EYES; Anicteric, Normal Conjunctiva NECK; supple, normal thyroid, RESPIRATORY: Diminished to auscultation CARDIOVASCULAR: Regular S1 S2, GI: soft, normoactive bowel sounds, : No Renal angle tenderness; EXTREMITIES: No edema, no clubbing, MUSCULOSKELETAL: no muscle wasting NEURO: Awake; no lateralizing signs. SKIN: No Rash PSYCH; Flat affect Weight / BMI Weight Weight: 57.663 kg Body Mass Index (BMI) 21.1 ABG / Lab / Microbiology Data 03/26/24 05:19 03/26/24 05:19 Laboratory: Laboratory Results - last 24 hr 03/26/24 05:19: WBC 7.9, RBC 4.18 L, Hgb 12.6, Hct 38.9, MCV 93.1, MCH 30.1, MCHC 32.4, RDW Std Deviation 47.7 H, RDW Coeff of Jessica 13.9, Plt Count 267, MPV 9.9, Immature Gran % (Auto) 0.400, Neut % (Auto) 51.9, Lymph % (Auto) 32.0, [place] % (Auto) 10.3 H, Eos % (Auto) 4.3, Baso % (Auto) 1.1 H, Absolute Neuts (auto) 4.1, Absolute Lymphs (auto) 2.54, Nucleated RBC % 0, Sodium 138, Potassium 4.2, Chloride 109 H, Carbon Dioxide 23.0, Anion Gap 6, BUN 18, Creatinine 0.82, Estim Creat Clear Calc 64.01, Est GFR (MDRD) Af Amer 91, Est GFR (MDRD) Non-Af 75, B UN/Creatinine Ratio 21.9 H, Glucose 86, Calcium 8.9, Phosphorus 4.1, Magnesium 2.1 Microbiology: Microbiology 03/22/24 16:30 Sputum, Expectorated/Coughed Gram Stain - Final 03/22/24 16:30 Sputum, Expectorated/Coughed Respiratory Culture - Final Serratia marcescens D/C Instructions Discharge Diet: No restrictions Discharge Activity: Return to Normal Activity Call your doctor if you observe: Fever of 101 or Higher, Shortness of breath, Fainting spells and Chest pain Meaningful Use Info Meaningful Use Meaningful Use Diagnoses (Choose all that apply): None applicable Ischemic Stroke Statin Dosing Therapy Reference: STATIN DOSE THERAPY REFERENCE: * Patients > 75 years receive moderate or high dose statin therapy. * Patients 75 years or YOUNGER should receive HIGH intensity statin dose unless contraindicated. You will be required to document reason for non-treatment if statin daily dose does not meet guidelines. HIGH DOSE STATIN THERAPY DAILY Atorvastatin > than or = to 40 mg Rosuvastatin > than or = to 20 mg Amlodipine + Atorvastatin > than or = to 2.5/40 mg Ezetimibe + Simvastatin 10/80 mg Simvastatin 80mg Discharge Plan Admission Admit Date/Time: 03/22/24 14:59 Attending Provider: Dillon Blanc Primary Care Provider: Care Physician,No Primary Consulting Providers: Alvarez Razo Discharge Orders/Prescriptions Prescriptions: New acetaminophen 500 mg Tablet 1,000 mg PO Q8 Qty: 0 0RF nicotine 21 mg/24 hr Patch 24 Hour 21 mg transdermal DAILY Qty: 0 0RF potassium chloride 20 mEq Tablet,Er Particles/Crystals 20 meq PO BIDCM Qty: 0 0RF cefdinir 300 mg capsule 300 mg PO BID Qty: 14 0RF famotidine 20 mg Tablet 20 mg PO DAILY Qty: 0 0RF Continued metoprolol tartrate 25 mg tablet 12.5 mg PO DAILY gabapentin 600 mg tablet 600 mg PO TIDCM Patient Comments: Takes 600mg po in am Takes 600mg po at noon Takes 1800 mg po at HS Rx Instructions: Takes 600mg po in am Takes 600mg po at noon Takes 1800 mg po at HS baclofen 20 mg tablet 20 mg PO TID PRN aspirin 81 mg capsule 81 mg PO DAILY ondansetron HCl 4 mg tablet 4 mg PO Q6H PRN (Reason: nausea and vomiting) Patient Comments: ODT Rx Instructions: uses ODT celecoxib [Celebrex] 200 mg capsule 200 mg PO BID nortriptyline 50 mg capsule 50 mg PO QHS duloxetine [Cymbalta] 60 mg capsule,delayed release(DR/EC) 60 mg PO DAILY topiramate [Topamax] 100 mg tablet 100 mg PO BID amitriptyline 50 mg tablet 50 mg PO QHS Referrals / Follow Up: Care Physician,No Primary [Primary Care Provider] - Disposition Disposition (needs filled in before D/C Order can be placed): Detention Facility Charges/Coding Visit Charges Inpatient E&M: 57234 Disch Hosp >30min
--- NOTE | 2024-03-26 10:22 | TREXTCAR_ITS ---
Diet Diet Order/Speech Therapy: 03/21/24 12:16 Diet: Regular - General Food consistency:: Regular Liquid Consistency:: Regular/Thin Type of Dietary Supplement:: Ensure Plus High Protein Is pt able to select menu?: Yes Diet Comments: ensure plus high protein on each meal tray Wound(s) lt eyebrow: Wound Type: Abrasion rt knee: Wound Type: Abrasion lt knee: Wound Type: Abrasion Problem/Diagnosis (1) Acute alteration in mental status: Status: Acute Code(s): R41.82 - Altered mental status, unspecified (2) Right rib fracture: Status: Acute Code(s): S22.31XA - Fracture of one rib, right side, initial encounter for closed fracture (3) Rhabdomyolysis: Status: Acute Code(s): M62.82 - Rhabdomyolysis Plan Patient is a 64-year-old lady who was apparently found wandering brought to the emergency department. An assessment of acute toxic encephalopathy suspected to be secondary to drug use made admitted to regular nursing floor for further management 1. Acute toxic encephalopathy secondary to drug use ? Patient back to baseline. Case management consulted to assist with disposition 2. Fall with multiple rib fractures ? Imaging studies demonstrated nondisplaced right sixth and seventh rib fractures. Use of incentive spirometry encouraged in addition to pain meds ? 03/26/2024;Patient seen complains of sore RIB. Transfer to A senior living facility still pending 3. Mild rhabdomyolysis ? Managed with IV fluid with subsequent monitoring of electrolyte 4. Dehydration ? Resolved with IV fluids 5. Hyponatremia ? Secondary to hypovolemic hyponatremia. Resolved with rehydration 6. Hypokalemia ? Corrected per protocol repeat labs ordered for a.m. 7. Chronic back pain ? Patient is on gabapentin and Celebrex continue 8. Migraine headaches ? Patient is on Topamax 9. Tobacco dependence - Counseled on cessation, offered nicotine patch for tobacco cravings 10. Homelessness ? Case management following plan is for SNF placement 11. DVT prophylaxis - On enoxaparin Time spent in the patient's overall evaluation,decision-making process, review of diagnostic data, adjustment of management, discussion with other providers, nursing nursing and ancillary staff involved in patient's care documentation, 3 7 minutes Allergies/Procedures Done in Hospital Allergies diltiazem (From [facility]) Allergy (Severe, Verified 03/21/24 08:35) Angioedema PATIENT DISORIENTED AT TIME OF REPORT meloxicam Allergy (Intermediate, Verified 03/21/24 08:35) Pain in joints PATIENT DISORIENTED AT TIME OF REPORT Type of Care/Length of Stay Estimated LOS: Convalescent Care Less Than 30 days Type of Care Needed: Skilled Rehab Potential: Good Prognosis: Good Additional Orders/Day of Discharge Day of Discharge: 03/26/24 Dietary and Speech Recommendations Dietitian Recommendations/Changes: Continue Regular diet to optimize oral intakes. Continue 120mL EPHP TID with medpass to provide supplemental energy Discharge Plan Admission Admit Date/Time: 03/22/24 14:59 Attending Provider: Dillon Blanc Primary Care Provider: Care Physician,No Primary Consulting Providers: Alvarez Razo Discharge Orders/Prescriptions Prescriptions: New acetaminophen 500 mg Tablet 1,000 mg PO Q8 Qty: 0 0RF nicotine 21 mg/24 hr Patch 24 Hour 21 mg transdermal DAILY Qty: 0 0RF potassium chloride 20 mEq Tablet,Er Particles/Crystals 20 meq PO BIDCM Qty: 0 0RF cefdinir 300 mg capsule 300 mg PO BID Qty: 14 0RF famotidine 20 mg Tablet 20 mg PO DAILY Qty: 0 0RF Continued metoprolol tartrate 25 mg tablet 12.5 mg PO DAILY gabapentin 600 mg tablet 600 mg PO TIDCM Patient Comments: Takes 600mg po in am Takes 600mg po at noon Takes 1800 mg po at HS Rx Instructions: Takes 600mg po in am Takes 600mg po at noon Takes 1800 mg po at HS baclofen 20 mg tablet 20 mg PO TID PRN aspirin 81 mg capsule 81 mg PO DAILY ondansetron HCl 4 mg tablet 4 mg PO Q6H PRN (Reason: nausea and vomiting) Patient Comments: ODT Rx Instructions: uses ODT celecoxib [Celebrex] 200 mg capsule 200 mg PO BID nortriptyline 50 mg capsule 50 mg PO QHS duloxetine [Cymbalta] 60 mg capsule,delayed release(DR/EC) 60 mg PO DAILY topiramate [Topamax] 100 mg tablet 100 mg PO BID amitriptyline 50 mg tablet 50 mg PO QHS Referrals / Follow Up: Care Physician,No Primary [Primary Care Provider] - Disposition Disposition (needs filled in before D/C Order can be placed): Assisted Facility
--- NOTE | 2024-03-26 10:39 | CASEMGMT ---
[facility] cannot accept pt. SW let pt know this, she is agreeable to go to [facility] today. Physician notified, he discharged pt. FRANKIE completed the hospital exemption in the [facility] system, d/c therapeutic recreation assistant Carol setting up discharge to [facility], pt going to SNF today, skilled. MARCI Greenberg
--- NOTE | 2024-03-26 10:47 | CASEMGMT ---
Discharge Planning Discharge orders, signed med list, and transport time sent to [facility] via [facility]. Physicians will transport patient by wheelchair at 12p. Nursing, SW, and patient updated. Carol Barton DC Planning Asst.
--- NOTE | 2024-03-26 10:53 | NURSING ---
attempted 4 times to phone ECF facility to give nurse to nurse, Sonia hot saw operator sent me to couple different numbers with no answer, she states she will transfer my call to the social media coordinator, voicemail message left at informed said nurse attempting to give nurse to nurse report for pt who's transportation was scheduled to be picked up from [facility] at noon. requesting inform nurse at facility and ask that ECF nurse phones back to [facility] and phone number to this station provided.
== END 2024-03-26 12:28 | disposition skilled nursing facility (03) | DRG 183 ==
LOC: ED 10:59 → MS3 11:25
PROVIDERS: Admitting Provider Hospitalist; Emergency Provider Emergency Medicine; Visit Provider Internal Medicine
DX: S22.41XA Multiple fractures of ribs, right side, initial encounter for closed fracture (principal); G92.8 Other toxic encephalopathy; E87.1 Hypo-osmolality and hyponatremia; Z59.02 Unsheltered homelessness; T79.6XXA Traumatic ischemia of muscle, initial encounter; S30.1XXA Contusion of abdominal wall, initial encounter; E87.6 Hypokalemia; E86.0 Dehydration; E86.1 Hypovolemia; G43.909 Migraine, unspecified, not intractable, without status migrainosus; M50.30 Other cervical disc degeneration, unspecified cervical region; W19.XXXA Unspecified fall, initial encounter; I25.2 Old myocardial infarction; F17.290 Nicotine dependence, other tobacco product, uncomplicated; F12.99 Cannabis use, unspecified with unspecified cannabis-induced disorder; G89.29 Other chronic pain; R53.81 Other malaise; Z79.82 Long term (current) use of aspirin; Z79.899 Other long term (current) drug therapy
CPT/HCPCS: 36415; 70450; 71260; 72125; 74177; 80048; 80053; 80201; 80307; 81001; 82077; 82550; 82962; 83605; 83690; 83735; 84100; 84484; 85025; 85027; 87070; 87077; 87186; 87205; 90715; 93005; 94668; 97116; 97162; 97166; 97530; 97535; 99252; 99285; 99406; J7030; Q9967; A4216; G0463; J2405

== ENCOUNTER 2024-05-06 07:39 | Emergency (ER) | payer MEDICARE, SELFPAY ==
[2024-05-06 07:40] VITALS: BP 130/94; PULSE 82; RESP 16; TEMP 36.7; O2SAT 99; BMI 22.3
[2024-05-06 07:49] VITALS: BP 130/94; PULSE 81; RESP 16; TEMP 36.7; O2SAT 99
--- NOTE | 2024-05-06 08:30 | EKG12_ITS ---
Test Reason : GEN ILLNESS Blood Pressure : / mmHG Vent. Rate : 075 BPM Atrial Rate : 075 BPM P-R Int : 124 ms QRS Dur : 084 ms QT Int : 420 ms P-R-T Axes : 073 017 050 degrees QTc Int : 469 ms Normal sinus rhythm Confirmed by CALEB BUTTERFIELD, CAMI ([id number]), communications editor EAMON WHEAT ([id number]) on 05/08/2024 9:56:51 AM Referred By: Confirmed By:ROSY ELLIS MD
--- NOTE | 2024-05-06 08:31 | EX.ED.DYSGE1 ---
HPI History of Present Illness Chief Complaint: General Illness Informant: patient and EMS Onset/Context/Timing Onset: Days Context: Gradual Onset Timing: Continuous Quality: Aching Location: Generalized Worsened by: Walking Relieved by: Nothing Narrative Narrative: Patient presents with generalized muscle pain that has been getting worse over the past several days. Patient states she feels achy all over. Patient states it feels similar to prior episode of rhabdomyolysis. Patient states her pain is worse with walking. Patient states she is unable to walk due to the pain. Patient states nothing seems to help her pain. Patient denies any fevers or chills. Patient does admit to some chest pain and shortness of breath. Patient also admits to some recent rhinorrhea. [facility] Medical History (Updated 05/06/24 @ 14:[address] Gil Baker, ) Rhabdomyolysis Heart attack Pain management Home Medications ?Medication ?Instructions ?Recorded ?Last Taken ?Type aspirin 81 mg capsule 81 mg PO DAILY 03/10/24 Unknown History baclofen 20 mg tablet 20 mg PO TID PRN pain/spasms 03/10/24 Unknown History gabapentin 600 mg tablet 600 mg PO TIDCM per md 03/10/24 Unknown History metoprolol tartrate 25 mg tablet 12.5 mg PO DAILY 03/10/24 Unknown History ondansetron HCl 4 mg tablet 4 mg PO Q6H PRN nausea and vomiting 03/10/24 Unknown History celecoxib 200 mg capsule (Celebrex) 200 mg PO BID 03/11/24 Unknown History duloxetine 60 mg capsule,delayed 60 mg PO DAILY 03/11/24 Unknown History release (Cymbalta) nortriptyline 50 mg capsule 50 mg PO QHS 03/11/24 Unknown History topiramate 100 mg tablet (Topamax) 100 mg PO BID 03/11/24 Unknown History amitriptyline 50 mg tablet 50 mg PO QHS 03/21/24 Unknown History acetaminophen 500 mg tablet 1,000 mg (2 x 500 mg) PO Q8 #0 tabs 03/26/24 Unknown Rx cefdinir 300 mg capsule 300 mg PO BID #14 caps 03/26/24 Unknown Rx famotidine 20 mg tablet 20 mg PO DAILY #0 tabs 03/26/24 Unknown Rx nicotine 21 mg/24 hr daily 21 mg transdermal DAILY #0 ea 03/26/24 Unknown Rx transdermal patch potassium chloride 20 mEq 20 meq PO BIDCM #0 tabs 03/26/24 Unknown Rx tablet,extended release(part/cryst) Allergy/AdvReac Type Severity Reaction Status Date / Time diltiazem (From Cardizem) Allergy Severe Angioedema Verified 05/06/24 07:50 meloxicam Allergy Intermediate Pain in Verified 05/06/24 07:50 joints Surgical History (Updated 05/06/24 @ 08:[address] Gil Baker DO) History of back surgery Social History Smoking Status: Current every day smoker tobacco type: cigarettes ROS ROS ED Constitutional Constitutional ED: Denies chills or fever(s) Eyes Eyes: Denies blurry vision or change in vision ENT ENT ED: Reports rhinorrhea; Denies sore throat Cardiovascular Cardiovascular: Reports chest pain; Denies palpitations Respiratory/Chest Respiratory/Chest: Reports dyspnea; Denies cough Gastrointestinal Gastrointestinal: Denies nausea or vomiting Genitourinary Genitourinary ED: Denies dysuria or hematuria Musculoskeletal Musculoskeletal: Reports back pain and neck pain Integumentary Denies abscess or rash Neurologic Neurologic: Reports headache(s); Denies weakness Psychiatric Psychiatric: Reports depression, suicidal ideation and suicidal thoughts Allergic/Immunologic Allergic/Immunologic ED: Denies mouth swelling or urticaria EXAM Physical Exam Const Vital Signs: 05/06/24 07:40 05/06/24 07:49 05/06/24 07:50 Temperature 98.1 F 98.1 F Temperature Source Oral Oral Pulse Rate 82 81 Respiratory Rate 16 16 Respiratory Effort Normal Non-Labored Respiratory Pattern Normal Blood Pressure 130/94 H 130/94 H Blood Pressure Mean 106 106 Pulse Ox 99 99 Oxygen Delivery Method Room Air Room Air 05/06/24 09:39 Temperature Temperature Source Pulse Rate 68 Respiratory Rate 16 Respiratory Effort Respiratory Pattern Blood Pressure 111/70 Blood Pressure Mean 83 Pulse Ox 97 Oxygen Delivery Method Room Air Positive well nourished and well developed General Appearance ED: well developed and NAD Neck supple and no JVD Resp normal respiratory effort and clear to auscultation bilaterally Cardio regular rate and regular rhythm GI non-tender and non-distended Palpation: soft Extremity General Extremety ED: Negative for edema or tenderness General Extremity: Negative for edema Neuro oriented x3, CN's II-XII intact bilaterally and no sensory deficits noted Sensorium / Orientation: alert Motor Exam: strength 5/5 throughout Psych mental status grossly normal MDM MDM MDM Narrative Medical decision making narrative: Differential diagnosis includes rhabdomyolysis, dehydration, depression, suicidal ideation, anxiety, viral illness, cardiac dysrhythmia, cardiac ischemia, and electrolyte abnormality. EKG will be obtained to assess for cardiac dysrhythmia and cardiac ischemia. Chest x-ray will be obtained to assess for pneumonia and pneumothorax. CBC will be obtained to assess for leukocytosis and anemia. Basic metabolic profile will be obtained to assess for electrolyte abnormality and renal function. Urinalysis will be obtained to assess for urinary tract infection and hematuria. Total CPK will be obtained to assess for rhabdomyolysis. High-sensitivity troponin will be obtained to assess for cardiac ischemia. Urine tox screen will be obtained to assess for substance abuse. Serum alcohol level will be obtained to assess for alcohol intoxication. Lab Data Attestation: I reviewed the patient's lab results. Lab results narrative: CBC was reviewed and was within normal limits. Basic metabolic profile was reviewed and was within normal limits. High-sensitivity troponin was reviewed and was within normal limits. Total CPK was reviewed and was only slightly elevated at 256. Urinalysis was reviewed. There is no evidence of urinary tract infection or hematuria. Urine tox screen was reviewed and was positive for cannabinoids. Serum alcohol level was reviewed and was less than 3.0. Labs: Laboratory Results - last 24 hr 05/06/24 05/06/24 08:40 08:47 WBC 6.1 RBC 4.06 L Hgb 12.1 Hct 38.6 MCV 95.1 MCH 29.8 MCHC 31.3 L RDW Std Deviation 51.3 H RDW Coeff of Jessica 14.6 Plt Count 314 MPV 9.0 Immature Gran % (Auto) 0.200 Neut % (Auto) 56.5 Lymph % (Auto) 26.1 [place] % (Auto) 11.2 H Eos % (Auto) 4.5 Baso % (Auto) 1.5 H Absolute Neuts (auto) 3.4 Absolute Lymphs (auto) 1.58 Nucleated RBC % 0 Sodium 142 Potassium 3.7 Chloride 112 H Carbon Dioxide 24.0 Anion Gap 6 BUN 12 Creatinine 0.99 Estim Creat Clear Calc 53.02 Est GFR (MDRD) Af Amer 73 Est GFR (MDRD) Non-Af 60 BUN/Creatinine Ratio 12.1 Glucose 97 Calcium 9.1 Total Creatine Kinase 256 H Troponin I High Sens 4 Urine Color Yellow Urine Clarity Clear Urine pH 6.5 Ur Specific [place] 1.010 Urine Protein Negative Urine Glucose (UA) Normal Urine Ketones Negative Urine Occult Blood Negative Urine Nitrite Negative Urine Bilirubin Negative Urine Urobilinogen Normal Ur Leukocyte Esterase 500 H Urine RBC 0 SEEN Urine WBC 0 SEEN Ur Squamous Epith Cells 0 SEEN Urine Bacteria 0 SEEN Urine Mucus 0 SEEN Urine Opiates Screen NEGATIVE Urine Methadone Screen NEGATIVE Ur Barbiturates Screen NEGATIVE Ur Phencyclidine Scrn NEGATIVE Ur Amphetamines Screen NEGATIVE MDMA (Ecstasy) Screen NEGATIVE U Benzodiazepines Scrn NEGATIVE Urine Cocaine Screen NEGATIVE U Cannabinoids Screen POSITIVE H Ur Drug Screen Comment Ethyl Alcohol < 3.0 Radiography Chest X-Ray - ED: 1 View, Read by ED Physician, Read by Radiologist and No Acute Disease Diagnostic Testing: Clinical Impression(s) from Imaging Studies Chest X-Ray 05/06/24 09:10 IMPRESSION: No acute abnormality is seen. Electronically Signed: Andres Adams MD at 9:47 EDT , Portable 1 view chest x-ray was obtained. On my independent interpretation, lung montemayor are clear. There is normal cardiac silhouette. Bony thorax is normal. There is no acute process noted. Radiologist also interpreted the x-ray and agrees. EKG Initial EKG: Attestation: I personally reviewed and interpreted this EKG as follows: Interpretation: Sinus Rhythm (75) and No Acute Injury Pattern Comments: EKG was obtained. On my independent interpretation, it showed a normal sinus rhythm with a rate of 75. DC interval, QRS interval, and QTc intervals were all normal. [place] was normal. There are no acute ST or T wave changes. Prior EKG tracings: available for review Prior: Unchanged (03/22/2024) Management Discussion w/another healthcare provider: Behavioral health Treatment and Re-Evaluation :: Patient was given IV fluids. Patient is medically cleared for crisis evaluation. Crisis came in to evaluate the patient. She does not feel patient is actively suicidal. She will attempt to arrange for outpatient follow-up. Patient was instructed to take Tylenol as needed for pain. Patient was instructed to drink plenty of fluids. Patient understands and is agreeable with the plan. All questions were answered. Discharge Plan Triage Chief Complaint: General Illness ED Provider: Gil Baker Dx/Rx/DC Orders Clinical Impression: Myalgia, Chest pain Instructions: ED Myalgias, ED Pain, Acute, Uncertain Cause Prescriptions: No Action metoprolol tartrate 25 mg tablet 12.5 mg PO DAILY gabapentin 600 mg tablet 600 mg PO TIDCM Patient Comments: Takes 600mg po in am Takes 600mg po at noon Takes 1800 mg po at HS Rx Instructions: Takes 600mg po in am Takes 600mg po at noon Takes 1800 mg po at HS baclofen 20 mg tablet 20 mg PO TID PRN aspirin 81 mg capsule 81 mg PO DAILY ondansetron HCl 4 mg tablet 4 mg PO Q6H PRN (Reason: nausea and vomiting) Patient Comments: ODT Rx Instructions: uses ODT celecoxib [Celebrex] 200 mg capsule 200 mg PO BID nortriptyline 50 mg capsule 50 mg PO QHS duloxetine [Cymbalta] 60 mg capsule,delayed release(DR/EC) 60 mg PO DAILY topiramate [Topamax] 100 mg tablet 100 mg PO BID amitriptyline 50 mg tablet 50 mg PO QHS acetaminophen 500 mg Tablet 1,000 mg PO Q8 Qty: 0 0RF nicotine 21 mg/24 hr Patch 24 Hour 21 mg transdermal DAILY Qty: 0 0RF potassium chloride 20 mEq Tablet,Er Particles/Crystals 20 meq PO BIDCM Qty: 0 0RF cefdinir 300 mg capsule 300 mg PO BID Qty: 14 0RF famotidine 20 mg Tablet 20 mg PO DAILY Qty: 0 0RF Primary Care Provider: Care Physician,No Primary Referrals: Counseling,Center [Group of Physicians] - 5-7 Days Jaycee Brown [Non-Staff] - 5-7 Days Care Physician,No Primary [Primary Care Provider] - Print Language: [place]ese Disposition Disposition: Home, Self Care
[2024-05-06 08:52] LABS: Bacteria 0 SEEN /hpf (None Seen); Mucous, Urine 0 SEEN /hpf (<or=2+); Red Blood Cells-Urine 0 SEEN /hpf (0-5); Squamous Epithelial Cells - UA 0 SEEN /hpf (5-10); White Blood Cells 0 SEEN /hpf (0-5)
[2024-05-06 08:58] LABS: Absolute Lymphocyte Count 1.58 X10^3/uL (0.83-4.51); Absolute Neutrophil Count 3.4 X10^3/uL (2.0-7.7); Basophil# 0.09 X10^3/uL; Basophil% 1.5 % (0-1); Eosinophil# 0.27 X10^3/uL; Eosinophils% 4.5 % (0-5); Hematocrit 38.6 % (37-47); Hemoglobin 12.1 g/dL (12.0-15.0); Lymphocyte # 1.58 X10^3/ul (0.83-4.51); Lymphocyte % 26.1 % (19-41); Mean Corp Hgb Conc 31.3 g/dL (32-36); Mean Corpuscular Hgb 29.8 pg (27.0-32.0); Mean Corpuscular Volume 95.1 fL (81-99); Monocyte# 0.68 X10^3/uL; Monocyte% 11.2 % (0-10); NRBC Flagged by Analyzer 0 % (0-5); Neutrophil # 3.43 X10^3/uL (2.7-7.7); Neutrophil % 56.5 % (47-70); Platelet Count 314 K/mm3 (150-450); RBC Distribution Width CV 14.6 % (11.6-14.6); RBC Distribution Width SD 51.3 fl (35.1-43.9); Red Blood Count 4.06 M/mm3 (4.2-5.4); White Blood Count 6.1 K/mm3 (4.4-11.0)
[2024-05-06] MEDS: 0.9% Normal Saline (1000mL) 1,000 ML 1000 ML IV (09:09)
--- NOTE | 2024-05-06 09:10 | RAD_ITS ---
STUDY: X-RAY CHEST REASON FOR EXAM: Female, 64 years old. Chest pain TECHNIQUE: Single AP portable view of the chest. COMPARISON: Comparison is made with prior study dated March 10, 2024. FINDINGS: Hyperinflation. Scattered calcified granulomas. There is no demonstrated pleural abnormality. Normal size heart. Normal mediastinum and yves. Normal visualized pulmonary arteries. There is atherosclerotic calcification of the aortic arch with tortuosity. There are diffuse degenerative changes of the visualized thoracic spine. Mild levoscoliosis. Healed right rib fractures. There is no demonstrated abnormality of the visualized soft tissue structures of the upper abdomen. RAD/Chest 1 View (Portable) IMPRESSION: No acute abnormality is seen. Electronically Signed: Andres Adams MD at 9:47 EDT ,
[2024-05-06 09:13] LABS: Color, Urine Yellow (Yellow); Glucose, Dipstick Normal (Normal); Ketone-Dipstick Negative (Negative); Leukocyte Esterase-Dipstick 500 /ul (Negative); Nitrite-Dipstick Negative (Negative); Occult Blood-Urine Negative /ul (Negative); Protein-Dipstick Negative (Negative); Urine Bilirubin Dipstick Negative (Negative); Urine Clarity Clear (Clear); Urine Urobilinogen Normal (Normal); Urine pH 6.5 (5.0 - 8.0)
[2024-05-06 09:39] VITALS: BP 111/70; PULSE 68; RESP 16; O2SAT 97
[2024-05-06 09:40] LABS: Anion Gap 6 (5-15); BUN 12 mg/dL (7-18); BUN/Creat Ratio 12.1 RATIO (10-20); CPK Total, Creatine Kinase 256 U/L (26-192); Calcium,Total 9.1 mg/dL (8.5-10.1); Chloride 112 mmol/L (98-107); Creatinine, Serum 0.99 mg/dL (0.55-1.02); EST Glomerular Filtration Rate 60 mL/min (>60); Est Glom Filt Rate - Afr Amer 73 mL/min (>60); Estimated Creatinine Clearance 53.02 ml/min; Glucose 97 mg/dL (74-106); Potassium 3.7 mmol/L (3.5-5.1); Sodium Level 142 mmol/L (136-145); Troponin-I HS 4 pg/mL (3.0-54.0)
[2024-05-06 09:41] LABS: Alcohol, Blood (Medical)-Serum < 3.0 mg/dL
[2024-05-06 10:08] LABS: Amphetamine Urine VISTA NEGATIVE (<1000 ng/mL); Barbiturate Urine VISTA NEGATIVE (< 200 ng/mL); Benzodiazepine Urine VISTA NEGATIVE (< 200 ng/mL); Cocaine Urine VISTA NEGATIVE (< 300 ng/mL); Ecstacy Urine VISTA NEGATIVE (< 500 ng/mL); Methadone Urine VISTA NEGATIVE (< 300 ng/mL); PCP Urine VISTA NEGATIVE (< 25 ng/mL); THC Urine VISTA POSITIVE (< 50 ng/mL); Vista UDS pH Range 6
--- NOTE | 2024-05-06 10:49 | PCA ---
Pt states that she doesn't need a sitter due to the fact that she is a [employer] and believes that if she were to kill herself that she would be committing murder, and that she isn't a murderer.
[2024-05-06 14:43] VITALS: BP 119/74; PULSE 71; RESP 16; TEMP 36.7; O2SAT 99
== END 2024-05-06 14:45 | disposition home or self-care (01) ==
PROVIDERS: Emergency Provider Emergency Medicine; Visit Provider Emergency Medicine
DX: M79.10 Myalgia, unspecified site (principal); R07.9 Chest pain, unspecified; R06.02 Shortness of breath; M54.2 Cervicalgia; F17.210 Nicotine dependence, cigarettes, uncomplicated; Z79.82 Long term (current) use of aspirin; Z79.899 Other long term (current) drug therapy
CPT/HCPCS: 71045; 80048; 80307; 81001; 82077; 82550; 84484; 85025; 93005; 96360; 99283; J7030; A4216

== ENCOUNTER 2024-05-09 12:02 | Emergency (ER) | payer MEDICARE, SELFPAY ==
[2024-05-09 12:03] VITALS: BP 112/82; PULSE 112; RESP 13; TEMP 36.6; O2SAT 99; BMI 20.9
--- NOTE | 2024-05-09 12:21 | RAD_ITS ---
STUDY: X-RAY CHEST REASON FOR EXAM: Female, 64 years old. cp TECHNIQUE: Single AP portable view of the chest. COMPARISON: 05/06/2024 FINDINGS: There is hyperinflation of the lungs consistent with chronic obstructive lung disease (COPD). There is no demonstrated pleural abnormality. Normal size heart. Normal mediastinum and yves. Normal visualized pulmonary arteries. Normal visualized aortic arch and descending thoracic aorta. There is a levoscoliosis of the thoracic spine. Normal visualized ribs, clavicles, and shoulders. There is no demonstrated abnormality of the visualized soft tissue structures of the upper abdomen. RAD/Chest 1 View (Portable) IMPRESSION: Emphysema without pneumonia or atelectasis. Electronically Signed: Raymond Villarreal MD at 13:14 EDT ,
--- NOTE | 2024-05-09 12:22 | EKG12_ITS ---
Test Reason : SOB Blood Pressure : / mmHG Vent. Rate : 101 BPM Atrial Rate : 101 BPM P-R Int : 112 ms QRS Dur : 084 ms QT Int : 370 ms P-R-T Axes : 085 042 063 degrees QTc Int : 479 ms Sinus tachycardia Otherwise normal ECG Confirmed by TRAMAINE GUZMAN MD [id number]), non linear editor EAMON WHEAT ([id number]) on 05/13/2024 11:07:32 AM Referred By: PRETTY Confirmed By:TRAMAINE GUZMAN MD
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
--- NOTE | 2024-05-09 12:26 | RAD_ITS ---
STUDY: X-RAY - LUMBAR SPINE REASON FOR EXAM: Female, 64 years old. back pain, H/O surgery TECHNIQUE: 3 view(s) of the lumbar spine were obtained. COMPARISON: None FINDINGS: Normal lumbar lordosis. Moderate dextroscoliosis centered at L1/L2. Status post discectomy, interbody fusion, transpedicular fixation at L2/L3 with anatomic alignment. There is multilevel endplate spondylosis of the lumbar vertebrae. There is multi-level degenerative disc disease with multi-level disc space narrowing. There is multilevel facet hypertrophy. The soft tissue structures are unremarkable. RAD/Lumbar Spine 2 or 3 Views IMPRESSION: 1. Status post discectomy, interbody fusion, transpedicular fixation at L2/L3 with anatomic alignment. 2. Moderate dextroscoliosis with degenerative disc disease. Electronically Signed: Raymond Villarreal MD at 13:13 EDT ,
[2024-05-09] MEDS: Ketorolac 15 MG/ML Vial IV (12:38)
[2024-05-09] MEDS: 0.9% Normal Saline (1000mL) 1,000 ML 1000 ML IV (12:38)
[2024-05-09 12:47] LABS: Absolute Lymphocyte Count 1.89 X10^3/uL (0.83-4.51); Absolute Neutrophil Count 3.9 X10^3/uL (2.0-7.7); Basophil# 0.07 X10^3/uL; Basophil% 1.1 % (0-1); Eosinophil# 0.06 X10^3/uL; Eosinophils% 0.9 % (0-5); Hematocrit 33.8 % (37-47); Hemoglobin 11.4 g/dL (12.0-15.0); Lymphocyte # 1.89 X10^3/ul (0.83-4.51); Lymphocyte % 29.7 % (19-41); Mean Corp Hgb Conc 33.7 g/dL (32-36); Mean Corpuscular Hgb 31.1 pg (27.0-32.0); Mean Corpuscular Volume 92.3 fL (81-99); Mean Platelet Vol. 8.9 fl (6.2-12.0); Monocyte# 0.46 X10^3/uL; Monocyte% 7.2 % (0-10); NRBC Flagged by Analyzer 0 % (0-5); Neutrophil # 3.87 X10^3/uL (2.7-7.7); Neutrophil % 60.8 % (47-70); Platelet Count 354 K/mm3 (150-450); RBC Distribution Width CV 14.3 % (11.6-14.6); Red Blood Count 3.66 M/mm3 (4.2-5.4); White Blood Count 6.4 K/mm3 (4.4-11.0)
[2024-05-09 13:00] VITALS: BP 126/75; PULSE 98; RESP 16; O2SAT 100
[2024-05-09 13:08] LABS: Anion Gap 6 (5-15); BUN 12 mg/dL (7-18); CPK Total, Creatine Kinase 135 U/L (26-192); Calcium,Total 8.8 mg/dL (8.5-10.1); Chloride 113 mmol/L (98-107); Creatinine, Serum 0.75 mg/dL (0.55-1.02); EST Glomerular Filtration Rate 83 mL/min (>60); Est Glom Filt Rate - Afr Amer 101 mL/min (>60); Estimated Creatinine Clearance 69.98 ml/min; Glucose 109 mg/dL (74-106); Potassium 3.1 mmol/L (3.5-5.1); Sodium Level 140 mmol/L (136-145); Troponin-I HS 4 pg/mL (3.0-54.0)
[2024-05-09] MEDS: Metoprolol Tartrate 25 MG Tablet 12.5 MG PO (13:10)
[2024-05-09] MEDS: Potassium Chloride Oral Tablet 20 MEQ 40 MEQ PO (13:39)
[2024-05-09] MEDS: 0.9% Normal Saline (1000mL) 1,000 ML 150 ML IV (14:10)
[2024-05-09 14:50] LABS: Mucous, Urine 0 SEEN /hpf (<or=2+); Red Blood Cells-Urine 0 SEEN /hpf (0-5)
[2024-05-09 15:00] VITALS: BP 118/74; PULSE 73; RESP 17; TEMP 36.5; O2SAT 100
[2024-05-09 15:03] LABS: Color, Urine Yellow (Yellow); Glucose, Dipstick Normal (Normal); Ketone-Dipstick Negative (Negative); Leukocyte Esterase-Dipstick 25 /ul (Negative); Nitrite-Dipstick Negative (Negative); Occult Blood-Urine Negative /ul (Negative); Protein-Dipstick Negative (Negative); Specific Gravity, Urine 1.015 (1.002-1.030); Urine Bilirubin Dipstick Negative (Negative); Urine Clarity Sl. Cloudy (Clear); Urine Urobilinogen Normal (Normal); Urine pH 6.5 (5.0 - 8.0)
[2024-05-09 15:13] LABS: Bacteria 2+ /hpf (None Seen); Squamous Epithelial Cells - UA 0-5 SEEN /hpf (5-10); White Blood Cells 0-5 SEEN /hpf (0-5)
[2024-05-09] MEDS: Penicillin Vk 250 MG Tablet 500 MG PO (16:11)
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
[2024-05-09 17:00] VITALS: BP 125/74; PULSE 79; RESP 19; O2SAT 98
[2024-05-09 17:17] VITALS: BP 124/79; PULSE 85; RESP 18; TEMP 36.2; O2SAT 98
== END 2024-05-09 17:23 | disposition home or self-care (01) ==
PROVIDERS: Emergency Provider Emergency Medicine; Visit Provider Emergency Medicine
DX: R07.9 Chest pain, unspecified (principal); R00.2 Palpitations; E87.6 Hypokalemia; S02.5XXA Fracture of tooth (traumatic), initial encounter for closed fracture; K02.9 Dental caries, unspecified; K08.89 Other specified disorders of teeth and supporting structures; M79.10 Myalgia, unspecified site; M54.50 Low back pain, unspecified; F17.210 Nicotine dependence, cigarettes, uncomplicated; Z79.82 Long term (current) use of aspirin; Z79.899 Other long term (current) drug therapy; I25.2 Old myocardial infarction
CPT/HCPCS: 71045; 72100; 80048; 81001; 82550; 84484; 85025; 93005; 96361; 96374; 99285; J7030; A4216

== ENCOUNTER → 2024-05-22 | Outpatient (CLI) | payer MEDICARE, SELFPAY ==
[2024-05-22 12:59] LABS: Erythrocyte Sedimentation Rate 13 mm/hr (0-30)
[2024-05-22 13:00] LABS: Hematocrit 40.3 % (37-47); Hemoglobin 13.1 g/dL (12.0-15.0); Mean Corp Hgb Conc 32.5 g/dL (32-36); Mean Corpuscular Hgb 29.8 pg (27.0-32.0); Mean Corpuscular Volume 91.8 fL (81-99); Mean Platelet Vol. 9.8 fl (6.2-12.0); Platelet Count 325 K/mm3 (150-450); RBC Distribution Width CV 13.9 % (11.6-14.6); RBC Distribution Width SD 47.2 fl (35.1-43.9); Red Blood Count 4.39 M/mm3 (4.2-5.4); White Blood Count 9.1 K/mm3 (4.4-11.0)
[2024-05-22 13:40] LABS: HIV - WCH Non-Reactive (Nonreactive); Syphilis Antibodies Non-reactive; Vitamin B12 232 pg/mL (211-911)
[2024-05-22 13:51] LABS: Microalbumin,Random Urine 6.9 mg/L (NO RANGE EST.)
[2024-05-22 14:08] LABS: ALB/GLOB Ratio 1.2 RATIO (0.9-2.4); AST(SGOT) 25 U/L (15-37); Alanine Aminotransfer ALT/SGPT 31 U/L (13-56); Albumin, Serum 3.7 g/dL (3.2-5.0); Alkaline Phosphatase 110 U/L (45-117); Anion Gap 9 (5-15); BUN 15 mg/dL (7-18); BUN/Creat Ratio 15.2 RATIO (10-20); CRP < 2.90 mg/L (0.0-3.0); Calcium,Total 9.6 mg/dL (8.5-10.1); Chloride 109 mmol/L (98-107); Cholesterol 115 mg/dL (200); Creatinine, Serum 0.98 mg/dL (0.55-1.02); EST Glomerular Filtration Rate 61 mL/min (>60); Est Glom Filt Rate - Afr Amer 73 mL/min (>60); Ferritin 111 ng/mL (8-252); Globulin 3.2 g/dL (2.2-4.2); Glucose 101 mg/dL (74-106); High Density Lipoprotein 42 mg/dL; Potassium 3.4 mmol/L (3.5-5.1); Protein, Total 6.9 g/dL (6.4-8.2); Sodium Level 139 mmol/L (136-145); Thyroid Stim Hormone (TSH) 0.18 uIU/mL (0.358-3.74); Triglycerides 95 mg/dL; Very Low Density Lipoprotein 19 mg/dL (5-40)
[2024-05-23 09:33] LABS: CPK Total, Creatine Kinase 97 U/L (26-192)
[2024-05-28 12:09] LABS: Arsenic 7245 3 ug/L (0-9); Deamidated Gliadin IgA 4 units (0-19); Deamidated Gliadin IgG 2 units (0-19); Endomysial Antibody IgA Negative (Negative); HEPATITIS B SURFACE AG Negative (Negative); Hep C Antibodies Non Reactive (Non Reactive); Hepatitis A IgM Antibody Negative (Negative); Hepatitis B Core AB IgM Negative (Negative); Immunoglobulin A 140 mg/dL (87-352); Lead, Blood 2.3 ug/dL (0.0-3.4); Lyme Scn Total Ab w/Rflx Negative (Negative); Mercury, Blood 85324 < 1.0 ug/L (0.0-14.9); t-Transglutaminase IgA <2 U/mL (0-3)
== END | disposition home or self-care (01) ==
LOC: VSLAB 11:34
PROVIDERS: Visit Provider Family Medicine
DX: R74.8 Abnormal levels of other serum enzymes (principal); R53.83 Other fatigue; R73.09 Other abnormal glucose; R41.82 Altered mental status, unspecified; D64.9 Anemia, unspecified; M62.81 Muscle weakness (generalized)
CPT/HCPCS: 36415; 80053; 80061; 80074; 82043; 82175; 82550; 82607; 82728; 82784; 83036; 83516; 83655; 83825; 84443; 85027; 85652; 86140; 86255; 86618; 86703; 86780

== ENCOUNTER → 2024-06-20 | Outpatient (CLI) | payer MEDICARE, SELFPAY ==
[2024-06-20 13:00] LABS: T4 Free Direct 1.07 ng/dL (0.76-1.46); T4 Total, Thyroxin 9.3 ug/dL (4.8-13.9); Thyroid Stim Hormone (TSH) 0.691 uIU/mL (0.358-3.740)
[2024-06-21 16:10] LABS: Thyroglobulin Antibody < 1.0 IU/mL (0.0-0.9); Thyroid Peroxidase AB 12 IU/mL (0-34)
== END | disposition home or self-care (01) ==
LOC: VSLAB 09:18
PROVIDERS: PCP Family Medicine; Visit Provider Family Medicine
DX: R94.6 Abnormal results of thyroid function studies (principal)
CPT/HCPCS: 36415; 84436; 84439; 84443; 86376; 86800

== ENCOUNTER → 2024-08-14 | Outpatient (CLI) | payer MEDICARE, SELFPAY ==
--- OUTSIDE RECORDS SUMMARY | 2024-08-14 12:13 | XMS RPT_ITS | CCD ---
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 Name Role Phone RADHA BRIONES Admitting Unavailable RADHA BRIONES Attending Unavailable Allergies Allergy Classification Reported Allergen(s) Allergy Type Date of Onset Reaction(s) Facility (1 source) dilTIAZem; Translations: [DILTIAZEM HCL] Drug Allergy 01-03-2024 [facility] 2 Repository (1 source) meloxicam; Translations: [MELOXICAM] Drug Allergy 01-03-2024 [facility] 2 Repository (1 source) oxybutynin; Translations: [OXYBUTYNIN] Drug Allergy 01-03-2024 [facility] 2 Repository Problems Problem Classification Problem Date Documented Date Episodic/Chronic Fluid and electrolyte disorders (2 sources) Dehydration; Translations: [Dehydration] Onset: 01-28-2024 Episodic Nausea and vomiting (2 sources) Nausea with vomiting, unspecified; Translations: [Nausea with vomiting, unspecified] Onset: 01-28-2024 Episodic Noninfectious gastroenteritis (2 sources) Noninfective gastroenteritis and colitis, unspecified; Translations: [Noninfective gastroenteritis and colitis, unspecified] Onset: 01-28-2024 Episodic Results Test Name Value Interpretation Reference Range Facility Basic metabolic 2000 panelon 01-30-2024 Anion gap [Moles/Vol] 9 mmol/L Low 10-20 [facility] Comment on above: Performed By: #### 2 4323-8 #### [place] ([id number]) [facility] ([facility]) [address] [place] [address] 41931 Calcium [Mass/Vol] 7.8 mg/dL Low 8.6-10.3 [facility] Comment on above: Performed By: #### 2 4323-8 #### [place] ([id number]) [facility] ([facility]) [address] [place] [address] [place] [address] Chloride [Moles/Vol] 114 mmol/L High 98-107 [facility] Comment on above: Performed By: #### 2 432-8 #### [place] (07285) [facility] ([facility]) [facility] [place] [address] CO2 [Moles/Vol] 19 mmol/L Low 21-32 [facility] Comment on above: Performed By: #### 2 4323-8 #### [place] (91992) [facility] ([facility]) [address] [place] [address] 24235 Creatinine [Mass/Vol] 0.80 mg/dL Normal 0.50-1.05 [facility] Comment on above: Performed By: #### 2 432-8 #### [place] (92756) [facility] ([facility]) [address] [place] [address] 77234 Glomerular filtration rate/1.73 sq M.predicted 83 mL/min/1.73m*2 Normal >60 [facility] Comment on above: Result Comment: Calc ulations of estimated GFR are performed using the 2020 CKD-EPI Study Refit equation without the race variable for the IDMS-Traceable creatinine methods. https://jasn.asnjournals.org/content/early/ASN.2759441 988 Performed By: #### 2 4323-8 #### [place] (04456) [facility] ([facility]) [address] [place] [address] 89800 Glucose [Mass/Vol] 86 mg/dL Normal 74-99 [facility] Comment on above: Performed By: #### 2 4323-8 #### [place] (24226) [facility] ([facility]) [address] [place] [address] 52667 Potassium [Moles/Vol] 4.0 mmol/L Normal 3.5-5.3 [facility] Comment on above: Performed By: #### 2 432-8 #### [place] (67542) [facility] ([facility]) [address] [place] [address] 80198 Sodium [Moles/Vol] 138 mmol/L Normal 136-145 [facility] Comment on above: Performed By: #### 2 4323-8 #### [place] ([id number]) [facility] ([facility]) [address] [place] [address] 12013 Urea nitrogen [Mass/Vol] 19 mg/dL Normal 6-23 [facility] Comment on above: Performed By: #### 2 4322-8 #### [place] (00951) [facility] ([facility]) [address] [place] [address] CBC panel Auto (Bld)on 01-29 Erythrocyte distribution width (RBC) [Ratio] 12.9 % Normal 11.5-14.5 [facility] Comment on above: Performed By: #### 2 4322-8 #### [place] (80380) [facility] ([facility]) [address] [place], [place] [address] Hematocrit (Bld) [Volume fraction] 38.6 % Normal 36.0-46.0 [facility] Comment on above: Performed By: #### 2 432-8 #### [place] (53028) [facility] ([facility]) [address] [place] [address] 88517 Hemoglobin (Bld) [Mass/Vol] 12.7 g/dL Normal 12.0-16.0 [facility] Comment on above: Performed By: #### 2 432-8 #### [place] (09603) [facility] ([facility]) [address] [place] [address] 70194 MCH (RBC) [Entitic mass] 30.5 pg Normal 26.0-34.0 [facility] Comment on above: Performed By: #### 2 4323-8 #### [place] (54621) [facility] ([facility]) [address] [place] [address] 86152 MCHC (RBC) [Mass/Vol] 32.9 g/dL Normal 32.0-36.0 [facility] Comment on above: Performed By: #### 2 4323-8 #### [place] ([id number]) [facility] ([facility]) [address] [place] [address] 77734 MCV (RBC) [Entitic vol] 93 fL Normal 80-100 [facility] Comment on above: Performed By: #### 2 432-8 #### [place] (78393) [facility] ([facility]) [address] [place] [address] 02926 Nucleated RBC/100 WBC (Bld) [Ratio] 0.0 /100 WBCs Normal 0.0-0.0 [facility] Comment on above: Performed By: #### 2 432-8 #### [place] (39936) [facility] ([facility]) [address] [place] [address] 10954 Platelets (Bld) [#/Vol] 230 x10*3/uL Normal 150-450 [facility] Comment on above: Performed By: #### 2 432-8 #### [place] (35268) [facility] ([facility]) [address] [place] [address] 13686 RBC (Bld) [#/Vol] 4.16 x10*6/uL Normal 4.00-5.20 [facility] Comment on above: Performed By: #### 2 4323-8 #### [place] (35543) [facility] ([facility]) [address] [place] [address] 60332 WBC (Bld) [#/Vol] 10.4 x10*3/uL Normal 4.4-11.3 [facility] Comment on above: Performed By: #### 2 4323-8 #### [place] (84155) [facility] ([facility]) [address] [place] [address] 93777 Basic metabolic 2000 panelon 01-29-2024 Anion gap [Moles/Vol] 16 mmol/L Normal 10-20 [facility] Comment on above: Performed By: #### 2 4323-8 #### [place] (96428) [facility] ([facility]) [facility] [place] [address] Calcium [Mass/Vol] 8.5 mg/dL Low 8.6-10.3 [facility] Comment on above: Performed By: #### 2 4323-8 #### [place] (28238) [facility] ([facility]) [address] [place] [address] 91668 Chloride [Moles/Vol] 104 mmol/L Normal 98-107 [facility] Comment on above: Performed By: #### 2 4323-8 #### [place] (86739) [facility] ([facility]) [address] [place] [address] 60052 CO2 [Moles/Vol] 20 mmol/L Low 21-32 [facility] Comment on above: Performed By: #### 2 4323-8 #### [place] (48744) [facility] ([facility]) [address] [place] [address] 08100 Creatinine [Mass/Vol] 0.96 mg/dL Normal 0.50-1.05 [facility] Comment on above: Performed By: #### 2 4323-8 #### [place] (95423) [facility] ([facility]) [address] [place] [address] 90040 Glomerular filtration rate/1.73 sq M.predicted 67 mL/min/1.73m*2 Normal >60 [facility] Comment on above: Result Comment: Calc ulations of estimated GFR are performed using the 2020 CKD-EPI Study Refit equation without the race variable for the IDMS-Traceable creatinine methods. https://jasn.asnjournals.org/content/early//ASN.4398690 988 Performed By: #### 2 4323-8 #### [place] (88355) [facility] ([facility]) [address] [place] [address] 93056 Glucose [Mass/Vol] 118 mg/dL High 74-99 [facility] Comment on above: Performed By: #### 2 4323-8 #### [place] (63726) [facility] ([facility]) [address] [place] [address] 23088 Potassium [Moles/Vol] 3.1 mmol/L Low 3.5-5.3 [facility] Comment on above: Performed By: #### 2 4323-8 #### [place] (44599) [facility] ([facility]) [address] [place] [address] 72539 Sodium [Moles/Vol] 137 mmol/L Normal 136-145 [facility] Comment on above: Performed By: #### 2 4323-8 #### [place] (22763) [facility] ([facility]) [address] [place] [address] 52104 Urea nitrogen [Mass/Vol] 24 mg/dL High 6-23 [facility] Comment on above: Performed By: #### 2 4323-8 #### [place] (81200) [facility] ([facility]) [address] [place], [place] [address] CBC panel Auto (Bld)on 01-28 Erythrocyte distribution width (RBC) [Ratio] 12.9 % Normal 11.5-14.5 [facility] Comment on above: Performed By: #### 5 8410-2 #### [place] (61733) [facility] ([facility]) [address] [place], [place] [address] Hematocrit (Bld) [Volume fraction] 41.9 % Normal 36.0-46.0 [facility] Comment on above: Performed By: #### 5 8410-2 #### [place] (83430) [facility] ([facility]) [address] [place] [address] 39372 Hemoglobin (Bld) [Mass/Vol] 14.1 g/dL Normal 12.0-16.0 [facility] Comment on above: Performed By: #### 5 8410-2 #### [place] (57599) [facility] ([facility]) [address] [place] [address] 43566 MCH (RBC) [Entitic mass] 30.8 pg Normal 26.0-34.0 [facility] Comment on above: Performed By: #### 5 8410-2 #### [place] ([id number]) [facility] ([facility]) [address] [place] [address] 21281 MCHC (RBC) [Mass/Vol] 33.7 g/dL Normal 32.0-36.0 [facility] Comment on above: Performed By: #### 5 8410-2 #### [place] (80760) [facility] ([facility]) [address] [place] [address] MCV (RBC) [Entitic vol] 92 fL Normal 80-100 [facility] Comment on above: Performed By: #### 5 8410-2 #### [place] (30993) [facility] ([facility]) [address] [place], [place] [address] Nucleated RBC/100 WBC (Bld) [Ratio] 0.0 /100 WBCs Normal 0.0-0.0 [facility] Comment on above: Performed By: #### 5 8410-2 #### [place] (22087) [facility] ([facility]) [address] [place] [address] 30840 Platelets (Bld) [#/Vol] 295 x10*3/uL Normal 150-450 [facility] Comment on above: Performed By: #### 5 8410-2 #### [place] (87101) [facility] ([facility]) [address] [place] [address] 96076 RBC (Bld) [#/Vol] 4.58 x10*6/uL Normal 4.00-5.20 [facility] Comment on above: Performed By: #### 5 8410-2 #### [place] (53886) [facility] ([facility]) [address] [place] [address] 35537 WBC (Bld) [#/Vol] 11.3 x10*3/uL Normal 4.4-11.3 [facility] Comment on above: Performed By: #### 5 8410-2 #### [place] (33326) [facility] ([facility]) [address] [place] [address] Clostridioides difficile tox in A+B tcdA+tcdB geneson 01-29-2024 C. difficile toxin A+B tcdA+tcdB genes ABEL+probe Ql (Stl) Clostridioides difficile toxin A+B tcdA+tcdB genes Not Detected Normal Not Detected [facility] Comment on above: Order Comment: This test is an FDA-cleared real-time PCR assay for detection of toxigenic C. difficile DNA from unprocessed liquid or unformed stool specimens that have not undergone nucleic acid extraction in symptomatic patients with potential C. difficile infection (CDI). A positive result may indicate colonization, and clinical assessment is required for the diagnosis of CDI. This test cannot be performed on formed stools or used as a test of cure, and should not be performed more than once per 7 days. Performed By: #### 8 0685-1 #### [place] ([id number]) [facility] ([facility]) [address] [place] [address] Gastrointestinal pathogens i dentifiedon 01-29-2024 Gastrointestinal pathogens identified ABEL+probe Nom (Stl) Campylobacter coli+jejuni+upsaliensis DNA Not Detected Salmonella sp DNA Not Detected Shigella sp DNA Not Detected Vibrio cholerae DNA Not Detected Yersinia enterocolitica DNA Not Detected Escherichia coli Stx1 toxin stx1 gene Not Detected Escherichia coli Stx2 toxin stx2 gene Not Detected Norovirus genogroup I AND II RNA Not Detected Rotavirus RNA Not Detected Normal Not Detected [facility] Comment on above: Performed By: #### 2 4323-8 #### [place] (83080) [facility] ([facility]) [address] [place] [address] Bacteria identifiedon 2023 Bacteria identified Cx Nom (U) Test: Urine Culture Specimen Source: Clean Catch/Voided Specimen Type: Urine Specimen Date: 01/28/2024 6:13 PM Result Date: 01/30/2024 8:15 AM Result Status: Final result Abnormal: No Resulting Lab: [facility] [address] [place] [address] CULTURE No significant growth Normal [facility] Comment on above: Performed By: #### 2 4323-8 #### [place] ([id number]) [facility] ([facility]) [address] [place] [address] 57815 CBC panel Auto (Bld)on 01-27 Erythrocyte distribution width (RBC) [Ratio] 12.8 % Normal 11.5-14.5 [facility] Comment on above: Performed By: #### 5 8410-2 #### [place] (38981) [facility] ([facility]) [address] [place] [address] 68154 Hematocrit (Bld) [Volume fraction] 46.8 % High 36.0-46.0 [facility] Comment on above: Performed By: #### 5 8410-2 #### [place] (76048) [facility] ([facility]) [address] [place] [address] 22235 Hemoglobin (Bld) [Mass/Vol] 16.2 g/dL High 12.0-16.0 [facility] Comment on above: Performed By: #### 5 8410-2 #### [place] (78658) [facility] ([facility]) [address] [place] [address] 90751 MCH (RBC) [Entitic mass] 30.9 pg Normal 26.0-34.0 [facility] Comment on above: Performed By: #### 5 8410-2 #### [place] (27164) [facility] ([facility]) [address] [place] [address] 94487 MCHC (RBC) [Mass/Vol] 34.6 g/dL Normal 32.0-36.0 [facility] Comment on above: Performed By: #### 5 8410-2 #### [place] (52583) [facility] ([facility]) [address] [place] [address] 93490 MCV (RBC) [Entitic vol] 89 fL Normal 80-100 [facility] Comment on above: Performed By: #### 5 8410-2 #### [place] (23624) [facility] ([facility]) [address] [place] [address] 93920 Nucleated RBC/100 WBC (Bld) [Ratio] 0.0 /100 WBCs Normal 0.0-0.0 [facility] Comment on above: Performed By: #### 5 8410-2 #### [place] (22289) [facility] ([facility]) [address] [place] [address] Platelets (Bld) [#/Vol] 339 x10*3/uL Normal 150-450 [facility] Comment on above: Performed By: #### 5 8410-2 #### [place] (11498) [facility] ([facility]) [address] [place] [address] RBC (Bld) [#/Vol] 5.24 x10*6/uL High 4.00-5.20 [facility] Comment on above: Performed By: #### 5 8410-2 #### [place] ([id number]) [facility] ([facility]) [address] [place] [address] WBC (Bld) [#/Vol] 10.0 x10*3/uL Normal 4.4-11.3 [facility] Comment on above: Performed By: #### 5 8410-2 #### [place] ([id number]) [facility] ([facility]) [address] [place], [place] [address] CT ABDOMEN PELVIS W IV CONTR Johnnie 01-28-2024 CT ABDOMEN PELVIS W IV CONTRAST Interpreted By: Robbie Diaz, STUDY: CT ABDOMEN PELVIS W IV CONTRAST; 01/28/2024 8:19 pm INDICATION: Signs/Symptoms:vomiting. COMPARISON: None. ACCESSION NUMBER(S): [id number] ORDERING CLINICIAN: MIKE LUCERO TECHNIQUE: Contiguous axial images of the abdomen and pelvis were obtained after the intravenous administration of iodinated contrast. Coronal and sagittal reformatted images were reconstructed from the axial data. FINDINGS: LOWER CHEST: No acute abnormality. ABDOMEN/PELVIS: ABDOMINAL WALL: No significant abnormality. LIVER: The liver is enlarged measuring 17.1 cm in craniocaudal dimension. There are multiple pbw-mddis-rr-characterize hypodensities in the liver statistically representing benign cysts. No suspicious lesions. BILE DUCTS: No significant intrahepatic or extrahepatic dilatation. GALLBLADDER: Surgically absent. PANCREAS: No significant abnormality. SPLEEN: No significant abnormality. ADRENALS: No significant abnormality. KIDNEYS, URETERS, BLADDER: No hydroureteronephrosis or nephroureterolithiasis. There is a wedge-shaped parenchymal defect in the upper pole of the left kidney representing scar from prior insult. The urinary bladder is decompressed and not well evaluated. No definite inflammation. REPRODUCTIVE ORGANS: No significant abnormality. VESSELS: Mild aortic atherosclerosis without AAA. RETROPERITONEUM/LYMPH NODES: No enlarged lymph nodes. No acute retroperitoneal abnormality. BOWEL/MESENTERY/PERITONEU M: There is diffuse wall thickening of the colon. The small bowel appears within normal limits. The appendix is surgically absent. No ascites, free air, or fluid collection. MUSCULOSKELETAL: Subacute nondisplaced fracture of the posterior right 11th rib with immature callus. Subacute nondisplaced fracture of the partially visualized anterior right 6th rib with immature callus formation. No suspicious osseous lesion. Postsurgical changes of L2-L3 posterior fusion and decompressive laminectomy at L2. Hardware is intact without periprosthetic lucency or fracture. There is solid osseous fusion across the L2-L3 disc space with interbody disc age noted. IMPRESSION: 1. Colonic wall thickening diffusely, in part due to underdistention with a component of mild colitis not excluded. No active pericolonic inflammatory changes. 2. No bowel obstruction. 3. Subacute nondisplaced fractures of anterior right 6th and posterior right 11th ribs with early bridging callus. Correlate for recent trauma. MACRO: None. Signed by: Robbie Diaz 01/28/2024 9:10 PM Dictation workstation: [id number] Normal [facility] Comprehensive metabolic 2000 panelon 01-28-2024 Albumin BCP dye [Mass/Vol] 4.2 g/dL Normal 3.4-5.0 [facility] Comment on above: Performed By: #### 2 4323-8 #### [place] ([id number]) [facility] ([facility]) [address] [place] [address] 25520 ALP [Catalytic activity/Vol] 75 U/L Normal 33-136 [facility] Comment on above: Performed By: #### 2 4323-8 #### [place] (73098) [facility] ([facility]) [address] [place] [address] 15505 ALT With P-5'-P [Catalytic activity/Vol] 23 U/L Normal 7-45 [facility] Comment on above: Result Comment: Marina ents treated with Sulfasalazine may generate falsely decreased results for ALT. Performed By: #### 2 432-8 #### [place] (14047) [facility] ([facility]) [address] [place] [address] Anion gap [Moles/Vol] 19 mmol/L Normal 10-20 [facility] Comment on above: Performed By: #### 2 432-8 #### [place] (46285) [facility] ([facility]) [address] [place] [address] 89682 AST With P-5'-P [Catalytic activity/Vol] 15 U/L Normal 9-39 [facility] Comment on above: Performed By: #### 2 432-8 #### [place] (30208) [facility] ([facility]) [address] [place] [address] 61943 Bilirubin [Mass/Vol] 0.4 mg/dL Normal 0.0-1.2 [facility] Comment on above: Performed By: #### 2 4323-8 #### [place] ([id number]) [facility] ([facility]) [address] [place] [address] 30096 Calcium [Mass/Vol] 9.3 mg/dL Normal 8.6-10.3 [facility] Comment on above: Performed By: #### 2 3-8 #### [place] ([id number]) [facility] ([facility]) [address] [place] [address] Chloride [Moles/Vol] 104 mmol/L Normal 98-107 [facility] Comment on above: Performed By: #### 2 4323-8 #### [place] (22163) [facility] ([facility]) [address] [place] [address] CO2 [Moles/Vol] 17 mmol/L Low 21-32 [facility] Comment on above: Performed By: #### 2 4323-8 #### [place] (06345) [facility] ([facility]) [facility] [place] [address] Creatinine [Mass/Vol] 1.07 mg/dL High 0.50-1.05 [facility] Comment on above: Performed By: #### 2 4323-8 #### [place] (87954) [facility] ([facility]) [address] [place] [address] 35757 Glomerular filtration rate/1.73 sq M.predicted 59 mL/min/1.73m*2 Low >60 [facility] Comment on above: Result Comment: Calc ulations of estimated GFR are performed using the 2020 CKD-EPI Study Refit equation without the race variable for the IDMS-Traceable creatinine methods. https://jasn.asnjournals.org/content//ASN.8176782 988 Performed By: #### 2 4323-8 #### [place] ([id number]) [facility] ([facility]) [address] [place] [address] Glucose [Mass/Vol] 158 mg/dL High 74-99 [facility] Comment on above: Performed By: #### 2 4323-8 #### [place] ([id number]) [facility] ([facility]) [address] [place] [address] Potassium [Moles/Vol] 3.2 mmol/L Low 3.5-5.3 [facility] Comment on above: Performed By: #### 2 4323-8 #### [place] (42243) [facility] ([facility]) [address] [place] [address] 65134 Protein [Mass/Vol] 7.0 g/dL Normal 6.4-8.2 [facility] Comment on above: Performed By: #### 2 4323-8 #### [place] (87919) [facility] ([facility]) [address] [place] [address] 79818 Sodium [Moles/Vol] 137 mmol/L Normal 136-145 [facility] Comment on above: Performed By: #### 2 4323-8 #### [place] ([id number]) [facility] ([facility]) [address] [place] [address] 53685 Urea nitrogen [Mass/Vol] 25 mg/dL High 6-23 [facility] Comment on above: Performed By: #### 2 4323-8 #### [place] OG ([id number]) [facility] ([facility]) [address] [place] [address] 48554 ECG 12-LEADon 01-28-2024 ECG 12-LEAD Ventricular Rate 87 Atrial Rate 87 P-R Interval 128 QRS Duration 92 Q-T Interval 380 QTC Calculation(Bazett) 457 P Borup 82 R Borup 60 T Borup 102 QRS Count 15 Q Onset 229 P Onset 165 P Offset 216 T Offset 419 QTC Fredericia 430 Diagnosis Sinus rhythm with Premature atrial complexes Incomplete right bundle branch block ST & T wave abnormality, consider anterior ischemia Abnormal ECG No previous ECGs available See ED provider note for full interpretation and clinical correlation Confirmed by Shweta Moreno ([id number]) on 01/29/2024 8:55:13 PM Normal [facility] Magnesiumon 01-28-2024 Magnesium [Mass/Vol] 1.83 mg/dL Normal 1.60-2.40 [facility] Comment on above: Performed By: #### 1 9123-9 #### [place] OG ([id number]) [facility] ([facility]) [address] [place] [address] 12158 Triacylglycerol lipaseon Lipase [Catalytic activity/Vol] 20 U/L Normal 9-82 [facility] Comment on above: Order Comment: Venip uncture immediately after or during the administration of Metamizole may lead to falsely low results. Testing should be performed immediately prior to Metamizole dosing. Performed By: #### 3 040-3 #### [place] OG ([id number]) [facility] ([facility]) [address] [place] [address] 83291 Troponin I.cardiac panelon 0 01-28-2024 Tropinin I.cardiac panel High sensitivity method 3 ng/L Normal 0-13 [facility] Comment on above: Order Comment: Less than 99th percentile of normal range cutoff- Female and children under 18 years old <14 ng/L; Male <21 ng/L: Negative Repeat testing should be performed if clinically indicated. Female and children under 18 years old 14-50 ng/L; Male 21-50 ng/L: Consistent with possible cardiac damage and possible increased clinical risk. Serial measurements may help to assess extent of myocardial damage. >50 ng/L: Consistent with cardiac damage, increased clinical risk and myocardial infarction. Serial measurements may help assess extent of myocardial damage. NOTE: Children less than 1 year old may have higher baseline troponin levels and results should be interpreted in conjunction with the overall clinical context. NOTE: Troponin I testing is performed using a different testing methodology at [facility] than at other [facility]. Direct result comparisons should only be made within the same method. Performed By: #### 8 9577-1 #### [place]G ([id number]) [facility] ([facility]) [address] [place] [address] 72284 Urinalysis complete W Reflex Culture panel (U)on 01-28-2024 Appearance (U) Hazy Normal Clear [facility] Comment on above: Performed By: #### 5 8077-9 #### [place]G ([id number]) [facility] ([facility]) [address] [place] [address] 54749 Bilirubin (U) [Mass/Vol] SMALL (1+) Abnormal NEGATIVE [facility] Comment on above: Performed By: #### 5 8077-9 #### [place] ([id number]) [facility] ([facility]) [address] [place] [address] 09498 Color (U) Yellow Normal Straw, Yellow [facility] Comment on above: Performed By: #### 5 8077-9 #### [place] ([id number]) [facility] ([facility]) [address] [place] [address] 88685 Glucose Auto test strip (U) [Mass/Vol] Negative Normal NEGATIVE [facility] Comment on above: Performed By: #### 5 8077-9 #### [place] ([id number]) [facility] ([facility]) [address] [place] [address] 05834 Ketones (U) [Mass/Vol] 20 (1+) Abnormal NEGATIVE [facility] Comment on above: Performed By: #### 5 8077-9 #### [place] ([id number]) [facility] ([facility]) [address] [place], [place] [id number] Leukocyte esterase Auto test strip Ql (U) TRACE Abnormal NEGATIVE [facility] Comment on above: Performed By: #### 5 8077-9 #### [place] ([id number]) [facility] ([facility]) [address] [place] [address] 26829 Nitrite Auto test strip Ql (U) Negative Normal NEGATIVE [facility] Comment on above: Performed By: #### 5 8077-9 #### [place] ([id number]) [facility] ([facility]) [address] [place] [address] 87388 pH (U) 5.0 [pH] Normal 5.0, 5.5, 6.0, 6.5, 7.0, 7.5, 8.0 [facility] Comment on above: Performed By: #### 5 8077-9 #### [place] ([id number]) [facility] ([facility]) [address] [place] [address] 89787 Protein (U) [Mass/Vol] 100 (2+) Normal NEGATIVE [facility] Comment on above: Performed By: #### 5 8077-9 #### [place] ([id number]) [facility] ([facility]) [address] [place] [address] RBC (U) [#/Vol] Negative Normal NEGATIVE [facility] Comment on above: Performed By: #### 5 8077-9 #### [place] ([id number]) [facility] ([facility]) [address] [place] [address] Specific gravity (U) [Rel density] 1.026 Normal 1.005-1.035 [facility] Comment on above: Performed By: #### 5 8077-9 #### [place] ([id number]) [facility] ([facility]) [address] [place] [address] Urobilinogen (U) [Mass/Vol] mg/dL Normal <2.0 [facility] Comment on above: Performed By: #### 5 8077-9 #### [place] ([id number]) [facility] ([facility]) [address] [place] [address] Urinalysis microscopic panel Auto Ql (U)on 01-28-2024 Epithelial cells.squamous Auto (Urine sed) [#/Area] 1-9 (SPARSE) Normal Reference range not established. [facility] Comment on above: Performed By: #### 5 3315-8 #### [place] ([id number]) [facility] ([facility]) [address] [place] [address] Hyaline casts Auto (Urine sed) [#/Area] 2+ /LPF Abnormal NONE [facility] Comment on above: Performed By: #### 5 3315-8 #### [place] ([id number]) [facility] ([facility]) [address] [place] [address] Mucus Auto (Urine sed) [#/Area] 1+ /LPF Normal Reference range not established. [facility] Comment on above: Performed By: #### 5 3315-8 #### [place] ([id number]) [facility] ([facility]) [address] [place] [address] RBC Auto (Urine sed) [#/Area] 1-2 Normal NONE, 1-2, 3-5 [facility] Comment on above: Performed By: #### 5 3315-8 #### [place] ([id number]) [facility] ([facility]) [facility] [place] [address] WBC Auto (Urine sed) [#/Area] 1-5 Normal 1-5, NONE [facility] Comment on above: Performed By: #### 5 3315-8 #### [place] ([id number]) [facility] ([facility]) [address] [place] [address] Encounters Encounter Date Encounter Type Care Provider Facility Start: 01-28-2024 End: 01-30-2024 Evaluation and management of inpatient RADHA FITO NATAN [facility] Procedures Date Procedure Procedure Detail Performing Clinician Start: 01-30-2024 DISCHARGE PATIENT PIERR E EL NATAN Start: 01-30-2024 ADULT DISCHARGE DIET PI ERRE FITO NATAN Start: 01-30-2024 DISCHARGE ACTIVITY PIER RE EL NATAN Start: 01-30-2024 NOTIFY PROVIDER (DO NOT PROMPT FOR PARAMETERS) RADHA EL NATAN Start: 01-30-2024 Basic metabolic 2000 panel - Serum or Plasma RADHA EL NATAN Start: 01-30-2024 CBC panel - Blood by Automated count RADHA EL NATAN Start: 01-29-2024 STOOL PATHOGEN PANEL, PCR RADHA EL NATAN Start: 01-29-2024 Basic metabolic 2000 panel - Serum or Plasma RADHA EL NATAN Start: 01-29-2024 CBC panel - Blood by Automated count RADHA EL NATAN Start: 01-29-2024 C. DIFFICILE, PCR MABELR E EL NATAN Start: 01-29-2024 FULL CODE RADHA EL NATAN Start: 01-29-2024 MEASURE HEIGHT RADHA E L NATAN Start: 01-29-2024 WEIGH PATIENT RADHA EL NATAN Start: 01-28-2024 ED TO FLOOR BED REQUEST RADHA EL NATAN Start: 01-28-2024 ADMIT TO INPATIENT PIER RE EL NATAN Start: 01-28-2024 MEASURE HEIGHT RADHA E L NATAN Start: 01-28-2024 NURSING COMMUNICATION P IEEITAN PAYTON NATAN Start: 01-28-2024 WEIGH PATIENT RADHA GAMA Start: 01-28-2024 CT ABDOMEN PELVIS W IV CONTRAST RADHA GAMA Start: 01-28-2024 Bacteria identified in Urine by Culture RADHA GAMA Start: 01-28-2024 EXTRA URINE BARAKAT TUBE P IEEITAN GAMA Start: 01-28-2024 MICROSCOPIC ONLY, URINE RADHA GAMA Start: 01-28-2024 URINALYSIS WITH REFL EX CULTURE AND MICROSCOPIC RADHA GAMA Start: 01-28-2024 CBC panel - Blood by Automated count RADHA GAMA Start: 01-28-2024 Comprehensive metabo lic 2000 panel - Serum or Plasma RADHA GAMA Start: 01-28-2024 Lipase [Enzymatic activity/volume] in Serum or Plasma RADHA GAMA Start: 01-28-2024 Magnesium [Mass/volu me] in Serum or Plasma RADHA GAMA Start: 01-28-2024 TROPONIN I, HIGH SENSITIVITY RADHA GAMA Start: 01-28-2024 ECG 12-LEAD RADHA GAMA Payers Date Payer Category Payer Medicare [id number] 1960 Unknown [id number] Summary Purpose Family History No Family History Records FoundNo Family History Records Found Advance Directives No Advanced Directives Records FoundNo Advanced Directives Records Found Additional Source Comments INFORMATION SOURCE (unrecogn ized section and content) DATE CREATED AUTHOR 01/30/2024 [facility] DATE CREATED AUTHOR AUTHOR'S ORGANIZ ATION 02/01/2024 [facility] FOR RECORDS PERTAINING TO PATIENTS WHO ARE OR HAVE BEEN ENROLLED IN A CHEMICAL DEPENDENCY/SUBSTANCEABUSE PROGRAM, SOME INFORMATION MAY BE OMITTED. This clinical summary was aggregated from multiple sources. Caution should be exercised in using it in the provision of clinical care. This summary normalizes information from multiple sources, and as a consequence, information in this document may materially change the coding, format and clinical context of patient data. In addition, data may be omitted in some cases. CLINICAL DECISIONS SHOULD BE BASED ON THE PRIMARY CLINICAL RECORDS. [employer] provides no warranty or guarantee of the accuracy or completeness of information in this document.
[2024-08-14 13:32] LABS: ALB/GLOB Ratio 1.1 RATIO (0.9-2.4); AST(SGOT) 10 U/L (15-37); Alanine Aminotransfer ALT/SGPT 18 U/L (13-56); Albumin, Serum 3.4 g/dL (3.2-5.0); Alkaline Phosphatase 102 U/L (45-117); Anion Gap 3 (5-15); BUN 27 mg/dL (7-18); BUN/Creat Ratio 22.9 RATIO (10-20); Calcium,Total 9.1 mg/dL (8.5-10.1); Chloride 114 mmol/L (98-107); Creatinine, Serum 1.18 mg/dL (0.55-1.02); EST Glomerular Filtration Rate 49 mL/min (>60); Est Glom Filt Rate - Afr Amer 60 mL/min (>60); Globulin 3.2 g/dL (2.2-4.2); Glucose 90 mg/dL (74-106); Potassium 4.6 mmol/L (3.5-5.1); Protein, Total 6.6 g/dL (6.4-8.2); Sodium Level 142 mmol/L (136-145); Thyroid Stim Hormone (TSH) 0.212 uIU/mL (0.358-3.740)
== END | disposition home or self-care (01) ==
LOC: VSLAB 11:18
PROVIDERS: PCP Family Medicine; Visit Provider Family Medicine
DX: M62.81 Muscle weakness (generalized) (principal)
CPT/HCPCS: 36415; 80053; 84443

== ENCOUNTER → 2024-08-28 | Outpatient (CLI) | payer MEDICARE, SELFPAY ==
[2024-08-28 16:09] LABS: Amphetamine Urine VISTA NEGATIVE (<1000 ng/mL); Barbiturate Urine VISTA NEGATIVE (< 200 ng/mL); Benzodiazepine Urine VISTA NEGATIVE (< 200 ng/mL); Cocaine Urine VISTA NEGATIVE (< 300 ng/mL); Ecstacy Urine VISTA NEGATIVE (< 500 ng/mL); Methadone Urine VISTA NEGATIVE (< 300 ng/mL); PCP Urine VISTA NEGATIVE (< 25 ng/mL); THC Urine VISTA POSITIVE (< 50 ng/mL); Vista UDS pH Range 5
== END | disposition home or self-care (01) ==
LOC: LAB 15:29
PROVIDERS: PCP Family Medicine; Referring Provider Anesthesiology Pain Medicine; Visit Provider Anesthesiology Pain Medicine
DX: F11.20 Opioid dependence, uncomplicated (principal)
CPT/HCPCS: 80307

== ENCOUNTER → 2024-09-05 | Outpatient (CLI) | payer MEDICARE, SELFPAY ==
--- NOTE | 2024-09-05 12:43 | MRI_ITS ---
HISTORY: MIGRAINES. TECHNIQUE: Multiplanar and multisequence MR images of the brain were obtained before and after the intravenous administration of 13 mL Clariscan. 333 images. COMPARISON: CT 03/21/2024. FINDINGS: BRAIN PARENCHYMA: Very mild periventricular white matter changes. Chronic 1.3 cm left basal ganglia cyst or prominent perivascular space. No enhancing lesion in the brain parenchyma. No abnormal focus of restricted diffusion. No acute intracranial hemorrhage identified. CSF SPACES: Cerebral ventricles, cortical sulci, and other extra-axial CSF spaces within normal limits in size for age. No significant midline shift or other mass effect.No extra-axial fluid collection. VASCULAR SYSTEM: Major intracranial flow voids are maintained. PARANASAL SINUSES AND MASTOID AIR CELLS: No significant air fluid levels. ORBITS: Symmetric contents. MRI/Brain W/WO Contrast IMPRESSION: No evidence for acute infarct or enhancing intracranial mass. Mild chronic white matter changes. Chronic small cyst or prominent perivascular space in the left basal ganglia. Electronically Signed: Feli Paulson MD at 11:41 EST ,
== END | disposition home or self-care (01) ==
PROVIDERS: PCP Family Medicine; Referring Provider Family Medicine; Visit Provider Family Medicine
DX: G43.909 Migraine, unspecified, not intractable, without status migrainosus (principal)
CPT/HCPCS: 70553; A9575

== ENCOUNTER 2024-10-23 16:35 | Emergency (ER) | payer MEDICARE, SELFPAY ==
[2024-10-23 16:36] VITALS: BP 108/77; PULSE 103; RESP 18; TEMP 35.7; O2SAT 100; BMI 21.2
--- NOTE | 2024-10-23 17:21 | CT_ITS ---
EXAM: CT ABDOMEN AND PELVIS WITH INTRAVENOUS CONTRAST CLINICAL INDICATION: Diarrhea TECHNIQUE: Helically acquired images were obtained of the abdomen and pelvis with intravenous contrast. This CT exam was performed using one or more of the following dose reduction techniques: automated exposure control, adjustment of the mA and/or kV according to patient size, and/or use of iterative reconstruction technique. CONTRAST: IV 100mL Isovue-370 RADIATION DOSE: CTDIvol = 9.23 mGy, DLP = 404.62 mGy-cm. COMPARISON: March 21, 2024. FINDINGS: LOWER THORAX: Unremarkable. Lung bases are clear. No cardiomegaly. No significant pericardial effusion. ABDOMEN: LIVER: At least 5 subcentimeter presumed hepatic cysts appear largely stable. Mildly elongated right lobe of liver, 18.3 cm craniocaudal, it was 16.7 cm. GALLBLADDER AND BILE DUCTS: Cholecystectomy clips. Improved appearance of mild central intrahepatic and extrahepatic bile duct dilatation, proximal CBD 1 cm, previously 1.5 cm. Also improved pancreatic duct, visible but roughly 2.7 mm in the body, it was 4.4 mm. PANCREAS: See above. SPLEEN: Unremarkable. Normal size without focal cystic or solid mass. ADRENALS: Unremarkable. No nodules. KIDNEYS AND URETERS: Unremarkable. Normal renal size and position. No hydronephrosis. STOMACH AND BOWEL: Moderate fluid and gas and mucosal thickening in the stomach, mildly prominent fluid and gas in mucosal enhancement in the small bowel and in the proximal half of the colon. Almost collapsed distal colon with moderate gas in the rectum and mild gas in the sigmoid. Suspicion of gastroenteritis-enterocolitis in the appropriate clinical setting. Maximum small bowel diameter roughly 1.8 cm. No formed stool in the colon. No stomach or bowel distention. PELVIS: APPENDIX: Appendectomy surgical changes. BLADDER: Unremarkable. REPRODUCTIVE: Small uterus is present with estimated low-attenuation 6 mm fundal endometrium. ABDOMEN and PELVIS: INTRAPERITONEAL SPACE: Unremarkable. No ascites or other fluid collection. No free air. BONES/JOINTS: Old healed right lateral rib fracture with callus.. Stable postoperative change and L2-3. Similar advanced predominantly unilateral left vacuum disc and endplate changes at L3-4 and to a lesser extent at L5-S1. No suspicious lytic or blastic abnormality. SOFT TISSUES: Unremarkable. No discrete abdominal or pelvic wall hernia. VASCULATURE: Unremarkable. Abdominal aorta is non-dilated. LYMPH NODES: Unremarkable. No enlarged lymph nodes. CT/Abdomen/Pelvis W IV Cont ONLY IMPRESSION: 1. Findings most consistent with gastroenteritis-enterocolitis. 2. Cholecystectomy. Appendectomy. Mildly prominent but decreased biliary and pancreatic duct dilatation. Postoperative and degenerative spine changes and dextroscoliosis. Electronically Signed: Leona Shah MD at 19:13 EST ,
--- NOTE | 2024-10-23 17:22 | ED.VIS.GI ---
HPI HPI - GI History of Present Illness Chief Complaint: Diarrhea Narrative Narrative: 64-year-old female who denies significant past medical history, states she is currently staying in a halfway where there are sick contacts states that she has had upper respiratory infection type symptoms for the last 3 weeks. She was having nausea and vomiting as well but that resolved. Her main concern is that over the last 4 days, she has had watery diarrhea. Whenever she eats, it goes right through her and she has brown watery stool. She may feel somewhat weak as well. She had fever previously. She states that her stool is foul-smelling although she has not had antibiotics recently. She does not necessarily have abdominal pain, but she might be having cramping as well. [facility] Medical History Rhabdomyolysis Heart attack Pain management Home Medications ?Medication ?Instructions ?Recorded ?Last Taken ?Type aspirin 81 mg capsule 81 mg PO DAILY 03/10/24 Unknown History baclofen 20 mg tablet 20 mg PO TID PRN pain/spasms 03/10/24 Unknown History gabapentin 600 mg tablet 600 mg PO TIDCM per md 03/10/24 Unknown History metoprolol tartrate 25 mg tablet 12.5 mg PO DAILY 03/10/24 Unknown History celecoxib 200 mg capsule (Celebrex) 200 mg PO BID 03/11/24 Unknown History topiramate 100 mg tablet (Topamax) 100 mg PO BID 03/11/24 Unknown History amitriptyline 50 mg tablet 50 mg PO QHS 03/21/24 Unknown History acetaminophen 500 mg tablet 1,000 mg (2 x 500 mg) PO Q8 #0 tabs 03/26/24 Unknown Rx famotidine 20 mg tablet 20 mg PO DAILY #0 tabs 03/26/24 Unknown Rx nicotine 21 mg/24 hr daily 21 mg transdermal DAILY #0 ea 03/26/24 Unknown Rx transdermal patch amitriptyline 50 mg tablet 50 mg PO QHS #30 tabs 05/09/24 Unknown Rx baclofen 20 mg tablet 20 mg PO TID PRN pain, spasm #90 05/09/24 Unknown Rx tabs duloxetine 60 mg capsule,delayed 60 mg PO DAILY #30 caps 05/09/24 Unknown Rx release (Cymbalta) gabapentin 600 mg tablet 600 mg PO TID #90 tabs 05/09/24 Unknown Rx magnesium 250 mg tablet 250 mg PO BID 05/09/24 Unknown History metoprolol tartrate 25 mg tablet 12.5 mg (1/2 x 25 mg) PO DAILY #14 05/09/24 Unknown Rx tabs topiramate 100 mg tablet 100 mg PO BID #60 tabs 05/09/24 Unknown Rx Allergy/AdvReac Type Severity Reaction Status Date / Time diltiazem (From Cardizem) Allergy Severe Angioedema Verified 10/23/24 16:36 meloxicam Allergy Intermediate Pain in Verified 10/23/24 16:36 joints Surgical History History of back surgery Social History Smoking Status: Current every day smoker tobacco type: cigarettes ROS ROS ED ROS Narrative Constitutional: Resolved fever, no chills. Slight generalized weakness. HEENT: No sore throat. No neck pain. No loss of vision. No rhinorrhea. Cardiovascular: No chest pain. No palpitations. No pedal edema. Respiratory: Occasional cough, no shortness of breath. Abdominal: Minimal abdominal pain. Nausea and vomiting resolved. 4 days of diarrhea. Genitourinary: No dysuria. No hematuria. Musculoskeletal: No myalgias. No arthralgias. Neurologic: No headaches. No dizziness. No lightheadedness. Skin: No rash. No change in color. EXAM Physical Exam Narrative Exam Narrative: Afebrile. Vital signs noted. HEENT: Normocephalic. Atraumatic. PERRL, EOMI. Neck soft and supple. No point tenderness or step off. Cardiovascular: Regular rate and rhythm with intermittent tachycardia. No murmurs, rubs, or gallops appreciated. Respiratory: No tachypnea. Lungs clear to auscultation bilaterally. Gastrointestinal: Abdomen soft, minimal diffuse tenderness with normoactive bowel sounds. No rebound or guarding. Neurological: Awake. Alert. Nonfocal, nonlateralizing. Skin: No rash. Normal color. No pallor. Musculoskeletal: No pedal edema. Full range of motion extremities. Const Vital Signs: 10/23/24 16:36 10/23/24 17:42 10/23/24 17:45 Temperature 96.3 F L 96.3 F L Temperature Source Temporal Temporal Pulse Rate 103 H 103 H Respiratory Rate 18 18 Respiratory Effort Normal Respiratory Depth Normal Respiratory Pattern Normal Blood Pressure 108/77 108/77 Blood Pressure Mean 87 87 Pulse Ox 100 100 Oxygen Delivery Method Room Air Room Air Room Air 10/23/24 19:00 Temperature Temperature Source Pulse Rate 74 Respiratory Rate 18 Respiratory Effort Respiratory Depth Respiratory Pattern Blood Pressure Blood Pressure Mean Pulse Ox 100 Oxygen Delivery Method MDM MDM MDM Narrative Medical decision making narrative: Differential diagnosis includes but not limited to colitis versus diverticulitis versus gastroenteritis with addition of possible dehydration secondary to diarrhea. I have lower suspicion for C. difficile but sample will be sent if patient is able to produce it. Comprehensive workup was pursued. I reviewed her laboratory work and she has normal white count of 8.5, hemoglobin slightly hemoconcentrated at 15.8 with platelet count normal at 313. CMP is significant for chloride of 110 and BUN of 23 and creatinine 0.93. Glucose appropriately elevated at 106 with normal anion gap of 7. LFTs are grossly unremarkable. Lipase slightly elevated at 96 which I think is nonspecific. On the CT radiology report, pattern is most consistent with gastroenteritis. There is no stranding around the pancreas which makes me think that she has an acute pancreatitis that requires admission. She is not having pain. Her main concern is her diarrhea, which is consistent with her gastroenteritis which I think is more viral. She was also concerned about her coughing up yellow mucus but I think this is more of a bronchitis and that antibiotics are not indicated. She was told that the antibiotics could make the diarrhea worse. She will follow-up with her primary care provider in 3 to 5 days. I do not feel she requires admission at this time. Return instructions were reviewed. Disposition is discharged home in stable condition. History & Record Review Discussion w/independent historian: Patient Lab Data Attestation: I reviewed the patient's lab results. Labs: Laboratory Results - last 24 hr 10/23/24 17:32 WBC 8.5 RBC 5.12 Hgb 15.8 H Hct 46.4 MCV 90.6 MCH 30.9 MCHC 34.1 RDW Std Deviation 46.6 H RDW Coeff of Jessica 13.9 Plt Count 313 MPV 9.4 Immature Gran % (Auto) 0.200 Neut % (Auto) 67.6 Lymph % (Auto) 23.9 [place] % (Auto) 6.9 Eos % (Auto) 0.7 Baso % (Auto) 0.7 Absolute Neuts (auto) 5.8 Absolute Lymphs (auto) 2.04 Nucleated RBC % 0 Sodium 138 Potassium 3.9 Chloride 110 H Carbon Dioxide 21.0 Anion Gap 7 BUN 23 H Creatinine 0.93 Estim Creat Clear Calc 56.44 Est GFR (MDRD) Af Amer 78 Est GFR (MDRD) Non-Af 64 BUN/Creatinine Ratio 24.6 H Glucose 106 Calcium 9.3 Total Bilirubin 0.40 AST 16 ALT 21 Alkaline Phosphatase 94 Total Protein 7.9 Albumin 4.0 Globulin 3.9 Albumin/Globulin Ratio 1.0 Lipase 96 H Radiography Diagnostic Testing: Clinical Impression(s) from Imaging Studies Abdomen/Pelvis CT 10/23/24 17:21 IMPRESSION: 1. Findings most consistent with gastroenteritis-enterocolitis. 2. Cholecystectomy. Appendectomy. Mildly prominent but decreased biliary and pancreatic duct dilatation. Postoperative and degenerative spine changes and dextroscoliosis. Electronically Signed: Leona Shah MD at 19:13 EST , Discharge Plan Triage Chief Complaint: Diarrhea Other Complaint: Cough ED Provider: Lester Naranjo Dx/Rx/DC Orders Clinical Impression: Bronchitis, Gastroenteritis, Elevated lipase Instructions: ED Bronchitis, No Antibiotic (Adult), ED Gastroenteritis, Noninfectious Prescriptions: No Action metoprolol tartrate 25 mg tablet 12.5 mg PO DAILY gabapentin 600 mg tablet 600 mg PO TIDCM Patient Comments: Takes 600mg po in am Takes 600mg po at noon Takes 1800 mg po at HS Rx Instructions: Takes 600mg po in am Takes 600mg po at noon Takes 1800 mg po at HS baclofen 20 mg tablet 20 mg PO TID PRN aspirin 81 mg capsule 81 mg PO DAILY celecoxib [Celebrex] 200 mg capsule 200 mg PO BID topiramate [Topamax] 100 mg tablet 100 mg PO BID amitriptyline 50 mg tablet 50 mg PO QHS acetaminophen 500 mg Tablet 1,000 mg PO Q8 Qty: 0 0RF nicotine 21 mg/24 hr Patch 24 Hour 21 mg transdermal DAILY Qty: 0 0RF famotidine 20 mg Tablet 20 mg PO DAILY Qty: 0 0RF magnesium 250 mg tablet 250 mg PO BID amitriptyline 50 mg tablet 50 mg PO QHS Qty: 30 0RF duloxetine [Cymbalta] 60 mg capsule,delayed release(DR/EC) 60 mg PO DAILY Qty: 30 0RF baclofen 20 mg tablet 20 mg PO TID PRN (Reason: pain, spasm) Qty: 90 0RF gabapentin 600 mg tablet 600 mg PO TID Qty: 90 0RF metoprolol tartrate 25 mg tablet 12.5 mg PO DAILY Qty: 14 0RF topiramate 100 mg tablet 100 mg PO BID Qty: 60 0RF Primary Care Provider: Celina Arvizu Referrals: Celina Arvizu, DO [Primary Care Provider] - 3-5 Days if not improving Activity Restrictions/Additional Instructions: Drink plenty of oral fluids. Follow-up with your primary care provider in the next 3 to 5 days if not improving. Return with new or worsening symptoms. Print Language: [place] Island[place] Disposition Disposition: Home, Self Care
[2024-10-23 17:41] LABS: Absolute Lymphocyte Count 2.04 X10^3/uL (0.83-4.51); Absolute Neutrophil Count 5.8 X10^3/uL (2.0-7.7); Basophil# 0.06 X10^3/uL; Basophil% 0.7 % (0-1); Eosinophil# 0.06 X10^3/uL; Eosinophils% 0.7 % (0-5); Hematocrit 46.4 % (37-47); Hemoglobin 15.8 g/dL (12.0-15.0); Lymphocyte # 2.04 X10^3/ul (0.83-4.51); Lymphocyte % 23.9 % (19-41); Mean Corp Hgb Conc 34.1 g/dL (32-36); Mean Corpuscular Hgb 30.9 pg (27.0-32.0); Mean Corpuscular Volume 90.6 fL (81-99); Mean Platelet Vol. 9.4 fl (6.2-12.0); Monocyte# 0.59 X10^3/uL; Monocyte% 6.9 % (0-10); NRBC Flagged by Analyzer 0 % (0-5); Neutrophil # 5.76 X10^3/uL (2.7-7.7); Neutrophil % 67.6 % (47-70); Platelet Count 313 K/mm3 (150-450); RBC Distribution Width CV 13.9 % (11.6-14.6); RBC Distribution Width SD 46.6 fl (35.1-43.9); Red Blood Count 5.12 M/mm3 (4.2-5.4); White Blood Count 8.5 K/mm3 (4.4-11.0)
[2024-10-23 17:45] VITALS: BP 108/77; PULSE 103; RESP 18; TEMP 35.7; O2SAT 100
[2024-10-23 17:57] LABS: AST(SGOT) 16 U/L (15-37); Alanine Aminotransfer ALT/SGPT 21 U/L (13-56); Alkaline Phosphatase 94 U/L (45-117); Anion Gap 7 (5-15); BUN 23 mg/dL (7-18); BUN/Creat Ratio 24.6 RATIO (10-20); Calcium,Total 9.3 mg/dL (8.5-10.1); Chloride 110 mmol/L (98-107); Creatinine, Serum 0.93 mg/dL (0.55-1.02); EST Glomerular Filtration Rate 64 mL/min (>60); Est Glom Filt Rate - Afr Amer 78 mL/min (>60); Estimated Creatinine Clearance 56.44 ml/min; Globulin 3.9 g/dL (2.2-4.2); Glucose 106 mg/dL (74-106); Lipase 96 U/L (13-75); Potassium 3.9 mmol/L (3.5-5.1); Protein, Total 7.9 g/dL (6.4-8.2); Sodium Level 138 mmol/L (136-145)
[2024-10-23 19:00] VITALS: PULSE 74; RESP 18; O2SAT 100
--- NOTE | 2024-10-23 19:45 | ED.RN ---
patient upset about waiting for results. pt states I should have never come here. I just need my IV out so I can leave. Patients IV removed, dressing placed over post-IV site. Discharge paperwork reviewed and given to patient
== END 2024-10-23 19:47 | disposition home or self-care (01) ==
PROVIDERS: Emergency Provider Emergency Medicine; PCP Family Medicine; Visit Provider Emergency Medicine
DX: K52.9 Noninfective gastroenteritis and colitis, unspecified (principal); R74.8 Abnormal levels of other serum enzymes; J40 Bronchitis, not specified as acute or chronic; F17.210 Nicotine dependence, cigarettes, uncomplicated; Z59.01 Sheltered homelessness
CPT/HCPCS: 74177; 80053; 83690; 85025; 99284; Q9967; A4216

== ENCOUNTER → 2024-12-24 | Outpatient (CLI) | payer MEDICARE, SELFPAY ==
[2024-12-24 18:50] LABS: ALB/GLOB Ratio 1.7 RATIO (0.9-2.4); AST(SGOT) 15 U/L (<=31); Alanine Aminotransfer ALT/SGPT 9 U/L (<=34); Albumin, Serum 4.4 g/dL (3.4-4.8); Alkaline Phosphatase 108 U/L (35-104); Anion Gap 11 (5-15); BUN 12 mg/dL (4-19); BUN/Creat Ratio 13.8 RATIO (10-20); Calcium,Total 9.9 mg/dL (7.6-11.0); Carbon Dioxide 26.1 mmol/L (21.0-32.0); Chloride 99 mmol/L (98-108); Creatinine, Serum 0.87 mg/dL (0.70-1.20); EST Glomerular Filtration Rate 75 (>60); Globulin 2.6 g/dL (2.2-4.2); Glucose 95 mg/dL (70-99); Potassium 4.9 mmol/L (3.3-5.1); Sodium Level 136 mmol/L (133-145); Total Bilirubin < 0.15 mg/dL (0.00-1.30)
[2024-12-24 20:22] LABS: Vitamin B12 > 4000 pg/mL (180-914)
== END | disposition home or self-care (01) ==
PROVIDERS: PCP Family Medicine; Visit Provider Nurse Practitioner Family
DX: E53.8 Deficiency of other specified B group vitamins (principal); F41.8 Other specified anxiety disorders
CPT/HCPCS: 36415; 80053; 82607

== ENCOUNTER 2025-05-01 12:21 | Observation (INO) | payer MEDICARE, SELFPAY ==
[2025-05-01 12:22] VITALS: BP 136/89; PULSE 98; RESP 18; TEMP 35.7; O2SAT 98; BMI 21.9
--- NOTE | 2025-05-01 13:17 | ED.RN ---
Pt called multiple times, no answer. Pt was in the bathroom flipping the tampon lever.
--- NOTE | 2025-05-01 13:58 | ED.RN ---
PT COMPLAINING ABOUT THE WAIT, DEMANDING TO BE SEEN RIGHT NOW. 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 I'M GOING [facility], IF I HAVE AN ANEURYSM I'M GOING TO [facility], IM GOING TO [facility]. PT KEEPS REPEATING THE SAME THING.
--- NOTE | 2025-05-01 14:36 | EDS_ITS ---
HPI <Dr. Gil Baker DO - Last Filed: 05/01/25 17:18> History of Present Illness Chief Complaint: General Illness Informant: patient Limited: uncooperative Onset/Context/Timing Onset: Today Context: Gradual Onset Narrative Narrative: Patient presents with generalized weakness. Patient reported to the triage nurse that she was falling frequently. Patient states she has bruises all over. On my exam, patient was talking nonsensical. Patient was difficult to understand. PFSH <Dr. Gli Baker DO - Last Filed: 05/01/25 17:18> [facility] Medical History Mixed anxiety and depressive disorder Pain in thoracic spine Other chronic pain Vitamin B12 deficiency GERD (gastroesophageal reflux disease) Migraines Insomnia Depression Chronic back pain PSVT (paroxysmal supraventricular tachycardia) Rhabdomyolysis Heart attack Pain management Home Medications ?Medication ?Instructions ?Recorded ?Last Taken ?Type aspirin 81 mg capsule 81 mg PO DAILY 03/10/24 Unkn own History baclofen 20 mg tablet 20 mg PO TID PRN pain/spasms 03/10/24 Unknown History gabapentin 600 mg tablet 600 mg PO TIDCM per md 03/10 Unknown History celecoxib 200 mg capsule (Celebrex) 200 mg PO BID 02/21 Unknown History topiramate 100 mg tablet (Topamax) 100 mg PO BID 03/11 Unknown History acetaminophen 500 mg tablet 1,000 mg (2 x 500 mg) PO Q 8 #0 tabs 03/26/24 Unknown Rx famotidine 20 mg tablet 20 mg PO DAILY #0 tabs 03/26 Unknown Rx amitriptyline 50 mg tablet 50 mg PO QHS #30 tabs 05/09 Unknown Rx duloxetine 60 mg capsule,delayed 60 mg PO DAILY #30 ca ps 05/09/24 Unknown Rx release (Cymbalta) magnesium 250 mg tablet 250 mg PO BID 05/09/24 Unkno wn History ascorbic acid (vitamin C) 500 mg 500 mg PO QDAY Unknown History tablet chlorpheniramine maleate 4 mg 4 - 8 mg PO QHS PRN 07/17 Unknown History tablet diphenhydramine HCl 25 mg tablet 25 mg PO QHS PRN 07/17 Unknown History (Allergy (diphenhydramine)) fluticasone propionate 50 2 spray intranasal QDAY 07/17 Unknown History mcg/actuation nasal spray,suspension (Flonase Allergy Relief) ibuprofen 200 mg capsule 200 mg PO BID PRN 01/29/25 U nknown History melatonin 10 mg capsule 10 mg PO HS PRN 01/29/25 Unk nown History metoprolol tartrate 25 mg tablet 25 mg PO DAILY Unknown History Allergy/AdvReac Type Severity Reaction Status Date / Time diltiazem (From Cardizem) Allergy Severe Angioedema Verified 05/01/25 12:25 meloxicam Allergy Intermediate Pain in Verified 05/01/25 12:25 joints oxybutynin Allergy Unknown NEEDS Verified 05/01/25 12:25 FOLLOW-UP Surgical History History of back surgery Social History Smoking Status: Current every day smoker tobacco type: cigarettes alcohol intake: never substance use type: does not use caffeine: Yes ROS <Dr. Gil Baker, - Last Filed: 05/01/25 17:18> ROS ED Review of Systems ROS Unobtainable: due to mental condition and due to mental status EXAM <Dr. Gil Baker DO - Last Filed: 05/01/25 17:18> Physical Exam Const Vital Signs: 05/01/25 12:22 05/01/25 14:21 05/01/25 16:00 Temperature 96.2 F L Temperature Source Oral Pulse Rate 98 76 Respiratory Rate 18 16 Respiratory Effort Normal Non-Labored Respiratory Pattern Normal Blood Pressure 136/89 H 132/88 H Blood Pressure Mean 104 102 Pulse Ox 98 99 Oxygen Delivery Method Room Air 05/01/25 18:00 05/01/25 21:03 Temperature Temperature Source Pulse Rate 92 50 L Respiratory Rate 16 15 Respiratory Effort Respiratory Pattern Blood Pressure 103/48 L 120/66 Blood Pressure Mean 66 84 Pulse Ox 99 100 Oxygen Delivery Method Room Air Positive well nourished and well developed Constitutional Narrative: BMI is 21.9. General Appearance ED: well developed and NAD HEENT Reports moist mucous membranes Eyes PERRL and EOMs intact bilaterally Eyes Narrative: Pupils are mildly dilated but reactive. Neck supple and no JVD Resp normal respiratory effort and clear to auscultation bilaterally Cardio regular rate and regular rhythm GI non-tender and non-distended Palpation: soft Neuro CN's II-XII intact bilaterally and no sensory deficits noted Sensorium / Orientation: orientation impaired Psych Attitude: agitated Activity / Motor Behavior: avoids eye contact Speech: excessive and rapid Thought Process: loose associations and perseverating <Dr. Edinson Dwyer MD - Last Filed: 05/01/25 21:57> Physical Exam Const Vital Signs:
--- NOTE | 2025-05-01 14:36 | EX.ED.DYSGE1 ---
HPI <Dr. Gil Baker DO - Last Filed: 05/01/25 17:18> History of Present Illness Chief Complaint: General Illness Informant: patient Limited: uncooperative Onset/Context/Timing Onset: Today Context: Gradual Onset Narrative Narrative: Patient presents with generalized weakness. Patient reported to the triage nurse that she was falling frequently. Patient states she has bruises all over. On my exam, patient was talking nonsensical. Patient was difficult to understand. PFSH <Dr. Gil Baker DO - Last Filed: 05/01/25 17:18> [facility] Medical History Mixed anxiety and depressive disorder Pain in thoracic spine Other chronic pain Vitamin B12 deficiency GERD (gastroesophageal reflux disease) Migraines Insomnia Depression Chronic back pain PSVT (paroxysmal supraventricular tachycardia) Rhabdomyolysis Heart attack Pain management Home Medications ?Medication ?Instructions ?Recorded ?Last Taken ?Type aspirin 81 mg capsule 81 mg PO DAILY 03/10/24 Unknown History baclofen 20 mg tablet 20 mg PO TID PRN pain/spasms 03/10/24 Unknown History gabapentin 600 mg tablet 600 mg PO TIDCM per md 03/10/24 Unknown History celecoxib 200 mg capsule (Celebrex) 200 mg PO BID 03/11/24 Unknown History topiramate 100 mg tablet (Topamax) 100 mg PO BID 03/11/24 Unknown History acetaminophen 500 mg tablet 1,000 mg (2 x 500 mg) PO Q8 #0 tabs 03/26/24 Unknown Rx famotidine 20 mg tablet 20 mg PO DAILY #0 tabs 03/26/24 Unknown Rx amitriptyline 50 mg tablet 50 mg PO QHS #30 tabs 05/09/24 Unknown Rx duloxetine 60 mg capsule,delayed 60 mg PO DAILY #30 caps 05/09/24 Unknown Rx release (Cymbalta) magnesium 250 mg tablet 250 mg PO BID 05/09/24 Unknown History ascorbic acid (vitamin C) 500 mg 500 mg PO QDAY 01/29/25 Unknown History tablet chlorpheniramine maleate 4 mg 4 - 8 mg PO QHS PRN 01/29/25 Unknown History tablet diphenhydramine HCl 25 mg tablet 25 mg PO QHS PRN 01/29/25 Unknown History (Allergy (diphenhydramine)) fluticasone propionate 50 2 spray intranasal QDAY 01/29/25 Unknown History mcg/actuation nasal spray,suspension (Flonase Allergy Relief) ibuprofen 200 mg capsule 200 mg PO BID PRN 01/29/25 Unknown History melatonin 10 mg capsule 10 mg PO HS PRN 01/29/25 Unknown History metoprolol tartrate 25 mg tablet 25 mg PO DAILY 01/29/25 Unknown History Allergy/AdvReac Type Severity Reaction Status Date / Time diltiazem (From Cardizem) Allergy Severe Angioedema Verified 05/01/25 12:25 meloxicam Allergy Intermediate Pain in Verified 05/01/25 12:25 joints oxybutynin Allergy Unknown NEEDS Verified 05/01/25 12:25 FOLLOW-UP Surgical History History of back surgery Social History Smoking Status: Current every day smoker tobacco type: cigarettes alcohol intake: never substance use type: does not use caffeine: Yes ROS <Dr. Gil Baker, - Last Filed: 05/01/25 17:18> ROS ED Review of Systems ROS Unobtainable: due to mental condition and due to mental status EXAM <Dr. Gil Baker, - Last Filed: 05/01/25 17:18> Physical Exam Const Vital Signs: 05/01/25 12:22 05/01/25 14:21 05/01/25 16:00 Temperature 96.2 F L Temperature Source Oral Pulse Rate 98 76 Respiratory Rate 18 16 Respiratory Effort Normal Non-Labored Respiratory Pattern Normal Blood Pressure 136/89 H 132/88 H Blood Pressure Mean 104 102 Pulse Ox 98 99 Oxygen Delivery Method Room Air 05/01/25 18:00 05/01/25 21:03 Temperature Temperature Source Pulse Rate 92 50 L Respiratory Rate 16 15 Respiratory Effort Respiratory Pattern Blood Pressure 103/48 L 120/66 Blood Pressure Mean 66 84 Pulse Ox 99 100 Oxygen Delivery Method Room Air Positive well nourished and well developed Constitutional Narrative: BMI is 21.9. General Appearance ED: well developed and NAD HEENT Reports moist mucous membranes Eyes PERRL and EOMs intact bilaterally Eyes Narrative: Pupils are mildly dilated but reactive. Neck supple and no JVD Resp normal respiratory effort and clear to auscultation bilaterally Cardio regular rate and regular rhythm GI non-tender and non-distended Palpation: soft Neuro CN's II-XII intact bilaterally and no sensory deficits noted Sensorium / Orientation: orientation impaired Psych Attitude: agitated Activity / Motor Behavior: avoids eye contact Speech: excessive and rapid Thought Process: loose associations and perseverating <Dr. Edinson Dwyer MD - Last Filed: 05/01/25 21:57> Physical Exam Const Vital Signs: 05/01/25 12:22 05/01/25 14:21 05/01/25 16:00 Temperature 96.2 F L Temperature Source Oral Pulse Rate 98 76 Respiratory Rate 18 16 Respiratory Effort Normal Non-Labored Respiratory Pattern Normal Blood Pressure 136/89 H 132/88 H Blood Pressure Mean 104 102 Pulse Ox 98 99 Oxygen Delivery Method Room Air 05/01/25 18:00 05/01/25 21:03 Temperature Temperature Source Pulse Rate 92 50 L Respiratory Rate 16 15 Respiratory Effort Respiratory Pattern Blood Pressure 103/48 L 120/66 Blood Pressure Mean 66 84 Pulse Ox 99 100 Oxygen Delivery Method Room Air MDM <Dr. Gil Baker DO - Last Filed: 05/01/25 17:18> MDM MDM Narrative Medical decision making narrative: Differential diagnosis includes stroke, intracranial bleeding, encephalopathy, sepsis, electrolyte abnormality, urinary tract infection, hypothyroidism, hyperthyroidism, and psychosis. CT scan of the brain will be obtained to assess for intracranial bleeding and stroke. CBC will be obtained to assess for leukocytosis and anemia. Comprehensive metabolic profile will be obtained to assess for hepatic function, renal function, and electrolyte abnormality. PT with INR and PTT will be obtained to assess for coagulopathy. Serum ammonia level will be obtained to assess for hepatic encephalopathy. Serum lactate will be obtained to assess for sepsis. Urinalysis will be obtained to assess for urinary tract infection and hematuria. TSH will be obtained to assess for hypothyroidism and hyperthyroidism. Serum magnesium level will be obtained to assess for hypermagnesemia and hypomagnesemia. Urine drug screen will be obtained to assess for substance abuse. Serum alcohol level will be obtained to assess for alcohol intoxication. History & Record Review Additional record(s) reviewed:: Prior ED visit and Prior labs Lab Data Attestation: I reviewed the patient's lab results. Lab results narrative: CBC was reviewed and was essentially within normal limits. PT with INR and PTT were reviewed. Pro time was 15.1 and INR was 1.2. PTT was normal at 28.9. Serum ammonia level was reviewed and was normal at 26.6. Serum lactate was reviewed and was less than 1.0. TSH was reviewed and was slightly low at 0.198. Serum magnesium was reviewed and was slightly elevated at 2.3. Labs: Laboratory Results - last 24 hr 05/01/25 05/01/25 05/01/25 14:55 16:50 17:35 WBC 9.0 RBC 4.00 L Hgb 12.2 Hct 37.4 MCV 93.5 MCH 30.5 MCHC 32.6 RDW Std Deviation 51.0 H RDW Coeff of Jessica 14.7 H Plt Count 296 MPV 10.4 Immature Gran % (Auto) 0.200 Neut % (Auto) 56.4 Lymph % (Auto) 32.2 Beauregard % (Auto) 8.1 Eos % (Auto) 2.0 Baso % (Auto) 1.1 H Absolute Neuts (auto) 5.1 Absolute Lymphs (auto) 2.89 Nucleated RBC % 0 PT 15.1 H INR 1.2 APTT 28.9 Sodium 144 Potassium 3.1 L Chloride 106 Carbon Dioxide 23.5 Anion Gap 14 BUN 18 Creatinine 1.21 H Estim Creat Clear Calc 42.82 L Est GFR (MDRD) Non-Af 50 L BUN/Creatinine Ratio 15.1 Glucose 89 Lactic Acid < 1.0 Calcium 9.6 Magnesium 2.3 H Total Bilirubin 0.16 AST 31 ALT 42 H Alkaline Phosphatase 133 H Ammonia 26.6 Total Protein 6.4 Albumin 3.9 Globulin 2.5 Albumin/Globulin Ratio 1.6 TSH 0.198 L Urine Color Yellow Urine Clarity Clear Urine pH 7.0 Ur Specific Pierron 1.010 Urine Protein 15 H Urine Glucose (UA) Normal Urine Ketones 5 H Urine Occult Blood Negative Urine Nitrite Negative Urine Bilirubin Negative Urine Urobilinogen Normal Ur Leukocyte Esterase 500 H Urine RBC 0-5 SEEN Urine WBC 0-5 SEEN Ur Squamous Epith Cells 0-5 SEEN Ur Transition Epith Cell 0 SEEN Urine Bacteria RARE Urine Mucus 0 SEEN Urine Opiates Screen NEGATIVE U Buprenorphine Qual NEGATIVE Ur Oxycodone Screen NEGATIVE Urine Methadone Screen NEGATIVE Urine Fentanyl Screen NEGATIVE Ur Barbiturates Screen NEGATIVE Ur Phencyclidine Scrn NEGATIVE Ur Amphetamines Screen NEGATIVE U Benzodiazepines Scrn NEGATIVE Urine Cocaine Screen NEGATIVE U Cannabinoids Screen PRESUMPTIVE POSITIVE Ethyl Alcohol < 10.1 Radiography Diagnostic Testing: Clinical Impression(s) from Imaging Studies Brain CT 05/01/25 16:10 IMPRESSION: Stable examination, without acute intracranial process noted. Reading Location: [address] Chest X-Ray 05/01/25 16:15 IMPRESSION: Lungs are significantly hypoinflated, but no gross acute pneumonic process is seen. No pleural effusion or pneumothorax is noted. The cardiomediastinal silhouette is stable, without evidence of cardiomegaly. No interval osseous change is identified. Reading Location: [address] Portable 1 view chest x-ray was obtained. On my independent interpretation, lung montemayor are hypoinflated. There is normal cardiac silhouette. Bony thorax is normal. There is no acute process noted. Radiologist also interpreted the x-ray and agrees. CT scan of the brain was obtained. There is no acute intracranial abnormality. This was interpreted by the radiologist and was also independently reviewed by myself. Management Discussion w/another healthcare provider: mill worker/Case management Treatment and Re-Evaluation :: Patient was given IV fluids. Patient was somewhat improved on reevaluation. Patient speaking more clearly but is still confabulating. Patient admits to using cannabis. Patient kept repeating that she uses cannabis and that her pain management physician that she uses cannabis and that she only uses this for pain. mill worker will be consulted for possible mental health placement. Care of patient will be turned over to the oncoming physician pending social work evaluation. <Dr. Edinson Dwyer MD - Last Filed: 05/01/25 21:57> [facility] Lab Data Labs: Laboratory Results - last 24 hr 05/01/25 05/01/25 05/01/25 14:55 16:50 17:35 WBC 9.0 RBC 4.00 L Hgb 12.2 Hct 37.4 MCV 93.5 MCH 30.5 MCHC 32.6 RDW Std Deviation 51.0 H RDW Coeff of Jessica 14.7 H Plt Count 296 MPV 10.4 Immature Gran % (Auto) 0.200 Neut % (Auto) 56.4 Lymph % (Auto) 32.2 Beauregard % (Auto) 8.1 Eos % (Auto) 2.0 Baso % (Auto) 1.1 H Absolute Neuts (auto) 5.1 Absolute Lymphs (auto) 2.89 Nucleated RBC % 0 PT 15.1 H INR 1.2 APTT 28.9 Sodium 144 Potassium 3.1 L Chloride 106 Carbon Dioxide 23.5 Anion Gap 14 BUN 18 Creatinine 1.21 H Estim Creat Clear Calc 42.82 L Est GFR (MDRD) Non-Af 50 L BUN/Creatinine Ratio 15.1 Glucose 89 Lactic Acid < 1.0 Calcium 9.6 Magnesium 2.3 H Total Bilirubin 0.16 AST 31 ALT 42 H Alkaline Phosphatase 133 H Ammonia 26.6 Total Protein 6.4 Albumin 3.9 Globulin 2.5 Albumin/Globulin Ratio 1.6 TSH 0.198 L Urine Color Yellow Urine Clarity Clear Urine pH 7.0 Ur Specific Pierron 1.010 Urine Protein 15 H Urine Glucose (UA) Normal Urine Ketones 5 H Urine Occult Blood Negative Urine Nitrite Negative Urine Bilirubin Negative Urine Urobilinogen Normal Ur Leukocyte Esterase 500 H Urine RBC 0-5 SEEN Urine WBC 0-5 SEEN Ur Squamous Epith Cells 0-5 SEEN Ur Transition Epith Cell 0 SEEN Urine Bacteria RARE Urine Mucus 0 SEEN Urine Opiates Screen NEGATIVE U Buprenorphine Qual NEGATIVE Ur Oxycodone Screen NEGATIVE Urine Methadone Screen NEGATIVE Urine Fentanyl Screen NEGATIVE Ur Barbiturates Screen NEGATIVE Ur Phencyclidine Scrn NEGATIVE Ur Amphetamines Screen NEGATIVE U Benzodiazepines Scrn NEGATIVE Urine Cocaine Screen NEGATIVE U Cannabinoids Screen PRESUMPTIVE POSITIVE Ethyl Alcohol < 10.1 Radiography Diagnostic Testing: Clinical Impression(s) from Imaging Studies Brain CT 05/01/25 16:10 IMPRESSION: Stable examination, without acute intracranial process noted. Reading Location: [address] Chest X-Ray 05/01/25 16:15 IMPRESSION: Lungs are significantly hypoinflated, but no gross acute pneumonic process is seen. No pleural effusion or pneumothorax is noted. The cardiomediastinal silhouette is stable, without evidence of cardiomegaly. No interval osseous change is identified. Reading Location: [address] Management Discussion w/another healthcare provider: mill worker/Case management (Suzie attempted to evaluate patient. She will not talk to her. She will attempt to reevaluate in an hour or 2. Patient was reassessed. Patient unable to contribute to her history. She is not making much sense. Lysin manager social work recommended observation status and reevaluate in the morning. ) Discharge Plan Triage Chief Complaint: General Illness ED Provider: Gil Baker Dx/Rx/DC Orders Clinical Impression: Acute alteration in mental status, Mixed anxiety and depressive disorder Prescriptions: No Action metoprolol tartrate 25 mg tablet 25 mg PO DAILY chlorpheniramine maleate 4 mg tablet 4 - 8 mg PO QHS PRN diphenhydramine HCl [Allergy (diphenhydramine)] 25 mg tablet 25 mg PO QHS PRN fluticasone propionate [Flonase Allergy Relief] 50 mcg/actuation spray,suspension 2 spray intranasal QDAY Rx Instructions: administer into each nostril ibuprofen 200 mg capsule 200 mg PO BID PRN melatonin 10 mg capsule 10 mg PO HS PRN ascorbic acid (vitamin C) 500 mg tablet 500 mg PO QDAY gabapentin 600 mg tablet 600 mg PO TIDCM Patient Comments: Takes 600mg po in am Takes 600mg po at noon Takes 1800 mg po at HS Rx Instructions: Takes 600mg po in am Takes 600mg po at noon Takes 1800 mg po at HS baclofen 20 mg tablet 20 mg PO TID PRN aspirin 81 mg capsule 81 mg PO DAILY celecoxib [Celebrex] 200 mg capsule 200 mg PO BID topiramate [Topamax] 100 mg tablet 100 mg PO BID acetaminophen 500 mg Tablet 1,000 mg PO Q8 Qty: 0 0RF famotidine 20 mg Tablet 20 mg PO DAILY Qty: 0 0RF magnesium 250 mg tablet 250 mg PO BID amitriptyline 50 mg tablet 50 mg PO QHS Qty: 30 0RF duloxetine [Cymbalta] 60 mg capsule,delayed release(DR/EC) 60 mg PO DAILY Qty: 30 0RF Primary Care Provider: Celina Arvizu Referrals: Celina Arvizu, DO [Primary Care Provider] - Print Language: Romansh Disposition Disposition: Acute Care [facility]
[2025-05-01 15:20] LABS: Hematocrit 37.4 % (37-47); Hemoglobin 12.2 g/dL (12.0-15.0); Immature Granulocytes Count 0.020 X10^3/uL (0.0-0.0); Mean Corp Hgb Conc 32.6 g/dL (32-36); Mean Corpuscular Volume 93.5 fL (81-99); Mean Platelet Vol. 10.4 fl (6.2-12.0); NRBC Flagged by Analyzer 0 % (0-5); Platelet Count 296 K/mm3 (150-450); RBC Distribution Width CV 14.7 % (11.6-14.6); RBC Distribution Width SD 51.0 fl (35.1-43.9); Red Blood Count 4.00 M/mm3 (4.2-5.4); White Blood Count 9.0 K/mm3 (4.4-11.0)
[2025-05-01 15:30] LABS: Partial Thromboplast Time 28.9 Seconds (24.1-36.2)
[2025-05-01 15:36] LABS: Prothrombin Time (Protime)PT. 15.1 SECONDS (11.7-14.9)
[2025-05-01 15:53] LABS: Ammonia 26.6 umol/L (11-51)
[2025-05-01 16:00] VITALS: BP 132/88; PULSE 76; RESP 16; O2SAT 99
[2025-05-01 16:04] LABS: AST(SGOT) 31 U/L (<=31); Alanine Aminotransfer ALT/SGPT 42 U/L (<=34); Albumin, Serum 3.9 g/dL (3.4-4.8); Alkaline Phosphatase 133 U/L (35-104); Anion Gap 14 (5-15); BUN 18 mg/dL (4-19); BUN/Creat Ratio 15.1 RATIO (10-20); Calcium,Total 9.6 mg/dL (7.6-11.0); Carbon Dioxide 23.5 mmol/L (21.0-32.0); Chloride 106 mmol/L (98-108); Estimated Creatinine Clearance 42.82 ml/min (50-250); Globulin 2.5 g/dL (2.2-4.2); Glucose 89 mg/dL (70-99); Magnesium 2.3 mg/dL (1.5-2.2); Potassium 3.1 mmol/L (3.3-5.1)
--- NOTE | 2025-05-01 16:10 | CT_ITS ---
PROCEDURE: BRAIN/HEAD WITHOUT CONTRAST 05/01/2025 REASON FOR EXAM: CONFUSION. Frequent falls. TECHNIQUE: BRAIN/HEAD WITHOUT CONTRAST Coronal and Sagittal reconstruction series were provided. One or more dose reduction techniques were used (e.g., Automated exposure control, adjustment of the mA and/or kV according to patient size, use of iterative reconstruction technique. RADIATION DOSE SUMMARY: CTDlvol: 44.99 mGy DLP: 863.6 mGycm COMPARISON: Head CT of 03/21/2024. 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 No intracranial hemorrhage, mass, or mass effect is noted. No extra-axial fluid collection is seen. No orbital pathology is noted. CSF Spaces: Normal Sinuses/Mastoids: Clear at visualized levels Bones: No fracture or or other acute osseous process is seen. CT/Brain/Head without Contrast IMPRESSION: Stable examination, without acute intracranial process noted. Reading Location: [address]
--- NOTE | 2025-05-01 16:15 | RAD_ITS ---
PROCEDURE: CHEST PA AND LATERAL 05/01/2025 REASON FOR EXAM: CONFUSION TECHNIQUE: CHEST PA AND LATERAL COMPARISON: Chest x-ray of 05/09/2024. RAD/Chest PA and Lateral IMPRESSION: Lungs are significantly hypoinflated, but no gross acute pneumonic process is s een. No pleural effusion or pneumothorax is noted. The cardiomediastinal silhouette is stable, without evidence of cardiomegaly. No interval osseous change is identified. Reading Location: [address]
[2025-05-01] MEDS: 0.9% Normal Saline (1000mL) 1,000 ML 1000 ML IV ×2 (16:35→18:00)
[2025-05-01 16:57] LABS: Mucous, Urine 0 SEEN /hpf (<or=2+)
[2025-05-01 17:02] LABS: Glucose, Dipstick Normal (Normal); Ketone-Dipstick 5 mg/dl (Negative); Leukocyte Esterase-Dipstick 500 /ul (Negative); Nitrite-Dipstick Negative (Negative); Occult Blood-Urine Negative /ul (Negative); Protein-Dipstick 15 mg/dl (Negative); Specific Gravity, Urine 1.010 (1.002-1.030); Urine Bilirubin Dipstick Negative (Negative)
[2025-05-01 17:24] LABS: Color, Urine Yellow (Yellow); Red Blood Cells-Urine 0-5 SEEN /hpf (0-5); Squamous Epithelial Cells - UA 0-5 SEEN /hpf (5-10); Transitional Epithelial - Ur 0 SEEN /hpf (0-5)
[2025-05-01 18:00] VITALS: BP 103/48; PULSE 92; RESP 16; O2SAT 99
[2025-05-01 18:12] LABS: Barbiturate Urine NEGATIVE (< 200 ng/mL); Benzodiazepine Urine NEGATIVE (< 200 ng/mL); PCP Urine NEGATIVE (< 25 ng/mL); THC Urine PRESUMPTIVE POSITIVE (< 50 ng/mL)
[2025-05-01 18:26] LABS: Alcohol, Blood (Medical)-Serum < 10.1 mg/dL (<=10.0)
[2025-05-01 21:03] VITALS: BP 120/66; PULSE 50; RESP 15; O2SAT 100
--- NOTE | 2025-05-01 21:26 | CM.ED ---
Social work Reason for referral: mental health Referral source: Dr Baker SW consulted for possible mental health placement due to patient's rambling and inability to make sense with words that patient was using. Per triage notes, patient stated having low potassium and magnesium, as well as back pain and pain all over. 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 SW entered patient's room, introducing self and role at [facility]. The first time SW entered, patient was laying in bed on patient's side and mumbling answers. Patient stated knowing patient was in [place], but patient was unable to share the year or the month and patient was unable to tell SW what street patient lived on. Patient knew patient's birthday, but patient was even unable to state that patient was at a hospital. Patient fell asleep in between each question and patient was unable to be aroused many times to SW even stating patient's name loudly. SW left the room, updated Dr. Dwyer who had taken over for Dr. Baker and stated ability to try again later. The second time SW entered, SW reintroduced self and role at [facility]. Patient was asleep, though arousable to patient's name. Patient stated knowing patient was in [place], but patient simply stated [place] to every question SW asked. Patient loudly stated needing to use the restroom, so SW left the room and told nursing. The third and final time SW entered after patient used the restroom, nursing was trying to help patient back into bed. Patient kept repeating, I'm a 65 year old woman, be careful with me, I'm an old woman, be careful with how you twist me around. This time, patient was able to state that patient had been for 20 years, lived alone, does not sleep very well, and was originally from [place]. Patient did not know patient's birthday during this SW attempt. With every attempt to talk with patient, patient was talking more clearly, but patient kept falling asleep. Patient was unable to stay awake for more than 10 seconds with this SW in the room. Patient would keep repeating that it was 2024 more than 20 times in a 10 second period of time. Patient told SW patient was using cannabis for pain. Every 10 seconds, patient would fall asleep, tell SW that patient was thinking of the answer, and then fall asleep again. Patient was repeating words and phrases during each SW attempt. SW was barely able to get any part of the mental health assessment done and patient is unable to go home safely. Patient's aunt, Celeste, is patient's only emergency contact (ph: [phone]). SW was unable to leave a for Celeste this evening due to Celeste's phone ringing once and going straight to . Plan: likely planning to attempt for admission to acute; handoff to acute SW team to attempt for further assessment tomorrow. Cassandra Fallon, SUPERINTENDENT SALES, ACCELERATOR SYSTEMS DIRECTOR
--- NOTE | 2025-05-01 22:02 | PCM.HP.STD ---
HPI - General General Date of Admission: 05/01/25 Date of Service: 05/01/25 Chief Complaint: Altered mental status and recent falls HPI Narrative RODERICK HAMILTON, is a 65 F who presented to [facility] ED on 05/01/2025 with altered mental status and reported recent falls. Patient was last hospitalized here in late February 2024 and again in early March 2024. She presented both times then with acute encephalopathy suspected secondary to drug use and falls. Her mental status improved significantly by hospital day 2 each time. There was some concern for opiate abuse but urine drug screen was positive for only cannabinoids and patient denied opiate abuse. There was also concern for polypharmacy with patient on gabapentin, amitriptyline, duloxetine and Topamax. She was found to have multiple rib fractures during the March hospitalization and was eventually discharged to [facility]. She was last seen here in early October for acute bronchitis. She was homeless and staying in a care home then. Did not require admission to the hospital. Today patient presented with generalized weakness and reported frequent falls. Appears that she brought herself to the ED. ED staff noted that she was talking nonsensically. Normal vital signs noted. CBC benign. BMP with potassium 3.1, creatinine 1.21 (baseline 0.9), TSH mildly low at 0.198. UA unremarkable. CT brain and chest x-ray unremarkable. ED social science analyst attempted to evaluate the patient multiple times but patient remained confused and refused to talk to the social science analyst, so recommendation was made to admit for overnight observation and reevaluation in the morning. Hospitalist was then contacted for admission. I saw the patient at bedside in the ED. Patient did sit up in bed at my request and made appropriate eye contact with me. She was able to tell me she was at [facility] and knew that it was April but did not know the year. She told her that she came in today because she was having frequent falls, however she could not elaborate on this further. She was not answering other questions appropriately for me. She denied any current pain or discomfort. Will be admitted for further management. [facility] Medical History Mixed anxiety and depressive disorder Pain in thoracic spine Other chronic pain Vitamin B12 deficiency GERD (gastroesophageal reflux disease) Migraines Insomnia Depression Chronic back pain PSVT (paroxysmal supraventricular tachycardia) Rhabdomyolysis Heart attack Pain management Home Medications ?Medication ?Instructions ?Recorded ?Last Taken ?Type aspirin 81 mg capsule 81 mg PO DAILY 03/10/24 Unknown History baclofen 20 mg tablet 20 mg PO TID PRN pain/spasms 03/10/24 Unknown History gabapentin 600 mg tablet 600 mg PO TIDCM per md 03/10/24 Unknown History celecoxib 200 mg capsule (Celebrex) 200 mg PO BID 03/11/24 Unknown History topiramate 100 mg tablet (Topamax) 100 mg PO BID 03/11/24 Unknown History acetaminophen 500 mg tablet 1,000 mg (2 x 500 mg) PO Q8 #0 tabs 03/26/24 Unknown Rx famotidine 20 mg tablet 20 mg PO DAILY #0 tabs 03/26/24 Unknown Rx amitriptyline 50 mg tablet 50 mg PO QHS #30 tabs 05/09/24 Unknown Rx duloxetine 60 mg capsule,delayed 60 mg PO DAILY #30 caps 05/09/24 Unknown Rx release (Cymbalta) magnesium 250 mg tablet 250 mg PO BID 05/09/24 Unknown History ascorbic acid (vitamin C) 500 mg 500 mg PO QDAY 01/29/25 Unknown History tablet chlorpheniramine maleate 4 mg 4 - 8 mg PO QHS PRN 01/29/25 Unknown History tablet diphenhydramine HCl 25 mg tablet 25 mg PO QHS PRN 01/29/25 Unknown History (Allergy (diphenhydramine)) fluticasone propionate 50 2 spray intranasal QDAY 01/29/25 Unknown History mcg/actuation nasal spray,suspension (Flonase Allergy Relief) ibuprofen 200 mg capsule 200 mg PO BID PRN 01/29/25 Unknown History melatonin 10 mg capsule 10 mg PO HS PRN 01/29/25 Unknown History metoprolol tartrate 25 mg tablet 25 mg PO DAILY 01/29/25 Unknown History Allergy/AdvReac Type Severity Reaction Status Date / Time diltiazem (From Cardizem) Allergy Severe Angioedema Verified 05/01/25 12:25 meloxicam Allergy Intermediate Pain in Verified 05/01/25 12:25 joints oxybutynin Allergy Unknown NEEDS Verified 05/01/25 12:25 FOLLOW-UP Surgical History History of back surgery Social History Smoking Status: Current every day smoker tobacco type: cigarettes alcohol intake: never substance use type: does not use caffeine: Yes ROS Review of Systems ROS Unobtainable: due to mental status Constitutional Constitutional: Reports weakness; Denies chills or fever(s) Eyes Eyes: Denies change in vision Cardiovascular Cardiovascular: Denies chest pain Respiratory/Chest Respiratory/Chest: Denies shortness of breath at rest Gastrointestinal Gastrointestinal: Denies abdominal pain Neurologic Neurologic: Reports headache(s); Denies dizziness or focal weakness Vital Signs Vital Signs Vital Signs: 05/01/25 12:22 05/01/25 14:21 05/01/25 16:00 Temperature 96.2 F L Temperature Source Oral Pulse Rate 98 76 Respiratory Rate 18 16 Respiratory Effort Normal Non-Labored Respiratory Pattern Normal Blood Pressure 136/89 H 132/88 H Blood Pressure Mean 104 102 Pulse Ox 98 99 Oxygen Delivery Method Room Air 05/01/25 18:00 05/01/25 21:03 Temperature Temperature Source Pulse Rate 92 50 L Respiratory Rate 16 15 Respiratory Effort Respiratory Pattern Blood Pressure 103/48 L 120/66 Blood Pressure Mean 66 84 Pulse Ox 99 100 Oxygen Delivery Method Room Air Weight Weight: 59.783 kg Body Mass Index (BMI) 21.9 Physical Exam Const alert, no apparent distress and average body habitus Constitutional Narrative: Upper middle-aged female, sitting up in bed and alert to person and place but not time, making appropriate eye contact but not answering most questions appropriately, otherwise comfortable appearing and in no acute distress. General Appearance: cooperative and comfortable Orientation / Consciousness: confused HEENT normocephalic, head/scalp atraumatic, hearing grossly normal bilaterally, nasal mucous membranes and turbinates normal and moist oral mucous membranes Eyes PERRL, EOMs intact bilaterally and conjunctivae normal Neck full ROM Chest inspection of chest normal Resp normal respiratory effort, normal air movement, no use of accessory muscles and clear to auscultation bilaterally Cardio regular rate, regular rhythm, no murmurs and peripheral pulses 2+ throughout GI normal to inspection, nondistended, normoactive bowel sounds, soft to palpation, non-tender and non-distended Back/Spine normal ROM Extremity normal to inspection, full ROM and no pedal edema Results Lab / Micro Data 05/01/25 14:55 05/01/25 14:55 Labs: Laboratory Results - last 24 hr 05/01/25 14:55: WBC 9.0, RBC 4.00 L, Hgb 12.2, Hct 37.4, MCV 93.5, MCH 30.5, MCHC 32.6, RDW Std Deviation 51.0 H, RDW Coeff of Jessica 14.7 H, Plt Count 296, MPV 10.4, Immature Gran % (Auto) 0.200, Neut % (Auto) 56.4, Lymph % (Auto) 32.2, [place] % (Auto) 8.1, Eos % (Auto) 2.0, Baso % (Auto) 1.1 H, Absolute Neuts (auto) 5.1, Absolute Lymphs (auto) 2.89, Nucleated RBC % 0, PT 15.1 H, INR 1.2, APTT 28.9, Sodium 144, Potassium 3.1 L, Chloride 106, Carbon Dioxide 23.5, Anion Gap 14, BUN 18, Creatinine 1.21 H, Estim Creat Clear Calc 42.82 L, Est GFR (MDRD) Non-Af 50 L, BUN/Creatinine Ratio 15.1, Glucose 89, Lactic Acid < 1.0, Calcium 9.6, Magnesium 2.3 H, Total Bilirubin 0.16, AST 31, ALT 42 H, Alkaline Phosphatase 133 H, Ammonia 26.6, Total Protein 6.4, Albumin 3.9, Globulin 2.5, Albumin/Globulin Ratio 1.6, TSH 0.198 L 05/01/25 16:50: Urine Color Yellow, Urine Clarity Clear, Urine pH 7.0, Ur Specific [place] 1.010, Urine Protein 15 H, Urine Glucose (UA) Normal, Urine Ketones 5 H, Urine Occult Blood Negative, Urine Nitrite Negative, Urine Bilirubin Negative, Urine Urobilinogen Normal, Ur Leukocyte Esterase 500 H, Urine RBC 0-5 SEEN, Urine WBC 0-5 SEEN, Ur Squamous Epith Cells 0-5 SEEN, Ur Transition Epith Cell 0 SEEN, Urine Bacteria RARE, Urine Mucus 0 SEEN, Urine Opiates Screen NEGATIVE, U Buprenorphine Qual NEGATIVE, Ur Oxycodone Screen NEGATIVE, Urine Methadone Screen NEGATIVE, Urine Fentanyl Screen NEGATIVE, Ur Barbiturates Screen NEGATIVE, Ur Phencyclidine Scrn NEGATIVE, Ur Amphetamines Screen NEGATIVE, U Benzodiazepines Scrn NEGATIVE, Urine Cocaine Screen NEGATIVE, U Cannabinoids Screen PRESUMPTIVE POSITIVE 05/01/25 17:35: Ethyl Alcohol < 10.1 Imaging Radiology Impression Brain CT 05/01/25 16:10 IMPRESSION: Stable examination, without acute intracranial process noted. Reading Location: [id number] Chest X-Ray 05/01/25 16:15 IMPRESSION: Lungs are significantly hypoinflated, but no gross acute pneumonic process is seen. No pleural effusion or pneumothorax is noted. The cardiomediastinal silhouette is stable, without evidence of cardiomegaly. No interval osseous change is identified. Reading Location: [address] Assessment & Plan Assessment/Plan (1) Acute alteration in mental status: PLAN: Plan Patient is a 65-year-old female who presented to [facility] ED on 05/01/2025 with altered mentation and reported recent falls. 1. Suspected acute toxic encephalopathy ? Admit under observation status to [facility]. Patient with prior hospitalizations in 2023 with similar presentation. Altered mentation resolved by hospital day 2 both times without intervention. Was suspected secondary to polypharmacy then. Urine drug screen only positive for cannabinoids. Alcohol level negative. CT brain negative. Lab work fairly benign. Ammonia level normal. Medication reconciliation pending, will follow-up once completed. Avoid sedating medications as able at this time. 2. Acute on chronic debility with reported recent falls ? PT/OT/case management consulted. Patient hospitalized in 2023 with similar presentation and had fall with rib fractures then. She required SNF placement on that discharge. Appreciate therapy recommendations. 3. Hypokalemia ? Potassium 3.1 on admit. Mag and Phos normal. Will replete potassium as needed. 4. Mild creatinine elevation ? Creatinine 1.21 on admit, baseline appears to be around 0.9-1.0. Suspect mild prerenal etiology due to poor p.o. intake. Given IV fluids in the ED, follow-up a.m. BMP and monitor urine output. 5. Low TSH ? TSH mildly low at 0.198. Free T4 normal. No history of hypo or hyper thyroidism documented. No medication needs at this time, recommend outpatient follow-up. 6. Marijuana use ? Positive for cannabinoids on admit as above. Discussed cessation on discharge. Chronic medical conditions: ? History of chronic back pain, history of anxiety/depression: Prior home regimen of gabapentin 600 mg 3 times daily, duloxetine and amitriptyline at night. Per [facility] report, filled her gabapentin recently on 04/24. Patient does have buprenorphine patch on [facility] report as well that was last filled in December. Medication reconciliation pending as above, hold all home medications for now. ? History of homelessness: Patient was homeless prior to hospitalizations in 2023 and at ED visit in October this year she came from a care home. Appreciate case management/social work assistance. ? History of migraines: Reportedly on Topamax but med rec pending as above, will hold for now. DVT prophylaxis: Lovenox CODE STATUS: Full code, unverified Expected disposition: TBD Total clinical time spent by myself addressing the patient's medical issues, reviewing all the data, and collaborating with patient's care team: 75 minutes. Charges/Coding Visit Charges Inpatient E&M: 34959 Init Hosp L3
[2025-05-01 22:33] VITALS: BP 122/77; PULSE 53; RESP 18; TEMP 36.8; O2SAT 100
--- OUTSIDE RECORDS SUMMARY | 2025-05-01 22:40 | XMS RPT_ITS | CCD ---
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 Name Role Phone RADHA BRIONES Admitting Unavailable RADHA BRIONES Attending Unavailable Unavailable Primary Care Provider UnavailPERICO Schilling Referring Unavailable Nolberto DO Celina Primary Care Provider [phone] Lester Naranjo MD Attending Provider [phone] Lester Naranjo MD Emergency Provider Rebekah WELL LOGGING OPERATOR MUD ANALYSIS-CSonia Attending Provider [phone] Alvarez Razo Consulting Unavailable Alvarez Razo Admitting Unavailable Alvarez Razo Attending Unavailable Care Physician, No Primary Primary Care Unava ilable Jopperi, Gil Consulting Unavailable Jopperi, Gil Admitting Unavailable Care Physician, No Primary Primary Care Unava ilable Adilia Cali Attending Unavailable Nolberto VSC, Celina Primary Care Unavailable Nolberto VSCCelina Attending Unavailable Danni Alvarez Admitting Unavailable Danni Alvarez Attending Unavailable Danni Alvarez Consulting Unavailable Care Physician, No Primary Primary Care Unava ilable Nolberto VSC, Celina Primary Care Unavailable Nolberto VSC, Celina Attending Unavailable Dillon Blanc Attending Unavailable Care Physician, No Primary Primary Care Unava ilable Mosteller Alvarez Admitting Unavailable Mostandry Alvarez Consulting Unavailable Sonia Welch Attending Unavailable Nolberto VSC, Celina Primary Care Unavailable Nolberto VSC, Celina Primary Care Unavailable Basali Ayman Referring Unavailable Basaltej Ayman Attending Unavailable Nolberto VSC, Celina Primary Care Unavailable Nolberto VSC, Celina Referring Unavailable Nolberto VSC, Celina Attending Unavailable Nolberto VSC, Celina Primary Care Unavailable Lester Naranjo Attending Unavailable Gil Baker Attending Unavailable Care Physician, No Primary Primary Care Unava ilable Care Physician, No Primary Primary Care Unava ilable Elaine Mann Attending Unavailable Celina Wilson Attending Unavailable Care Physician, No Primary Primary Care Unava ilable Dillon Blanc Attending Unavailable Dillon Blanc Consulting Unavailable Angel Motley Attending Unavailable Care Physician, No Primary Primary Care Unava ilable Care Physician, No Primary Referring Unava ilable Nolberto VSBerenice, Celina Primary Care Unavailable Nolberto VS, Celina Referring Unavailable Dante Caballero Attending Unavailable Gil Foster Attending Unavailable Gil Foster Consulting Unavailable Gil Foster Admitting Unavailable Care Physician, No Primary Primary Care Unava ilable Allergies Allergy Classification Reported Allergen(s) Allergy Type Date of Onset Reaction(s) Facility (1 source) dilTIAZem; Translations: [DILTIAZEM HCL] Drug Allergy 01-03-2024 [facility] 2 Repository (6 sources) meloxicam; Translations: [MELOXICAM] Drug Allergy 01-03-2024 [facility] 2 Repository Comment on above: PATIENT DISORIENTED AT TIME OF REPORT (2 sources) oxybutynin; Translations: [OXYBUTYNIN] Drug Allergy 01-03-2024 [facility] 2 Repository (4 sources) dilTIAZem; Translations: [DILTIAZEM] Drug Allergy 03-26-2024 [facility] [place] Comment on above: PATIENT DISORIENTED AT TIME OF REPORT (1 source) dilTIAZem Drug Allergy 01-29-2025 [facility] Repository Medications Current Medications Medication Drug Class(es) Dates Sig (Normalized) Sig (Original) acetaminophen 500 mg oral tablet (3 sources) Start: 03-26-2024 take 2 tablets by mouth every eight hours as needed acetaminophen (TYLENOL EXTRA STRENGTH) 500 mg tablet Take 2 tablets by mouth every 8 hours as needed for pain. 03/26/2024 Active amitriptyline hydrochloride 50 mg oral tablet (4 sources) Tricyclic Antidepressant Start: 03-21-2024 take 1 tablet by mouth at bedtime Amitriptyline 50 mg tablet Active 50 mg PO AT BEDTIME May 09, 2024 12:00am aspirin 81 mg oral tablet (3 sources) Platelet Aggregation Inhibitor, Nonsteroidal Anti-inflammatory Drug Start: 03-10-2024 take 1 capsule by mouth once daily aspirin 81 mg cap Take 81 mg by mouth once daily. 03/28/2024 Active baclofen 20 mg oral tablet (4 sources) gamma-Aminobutyric Acid-ergic Agonist Start: 03-10-2024 take 1 tablet by mouth three times daily as needed for pain Baclofen 20 mg tablet Active 20 mg PO THREE TIMES A DAY as needed for pain, spasm May 09, 2024 3:54pm 168 hr buprenorphine 0.01 mg/hr transdermal system (2 sources) Partial Opioid Agonist Start: 10-27-2024 apply 1 dose transdermal route every week buprenorphine (BUTRANS) 10 mcg/hour Apply 1 Patch as directed one time a week. 10/27/2024 Active celecoxib 200 mg oral capsule (3 sources) Nonsteroidal Anti-inflammatory Drug Start: 03-11-2024 take 1 capsule by mouth twice daily celecoxib (CELEBREX) 200 mg capsule Take 200 mg by mouth two times a day. 03/27/2024 Active doxycycline hyclate 100 mg oral tablet (1 source) Tetracycline-class Drug Start: 11-08-2024 End: 11-15-2024 take 1 tablet by mouth twice daily doxycycline (VIBRA-TABS) 100 mg tablet Take 1 tablet by mouth two times a day for 7 days. 14 tablet 11/08/2024 11/15/2024 Active DULoxetine 60 mg delayed release oral capsule (4 sources) Serotonin and Norepinephrine Reuptake Inhibitor Start: 03-11-2024 End: 05-09-2024 take 1 capsule by mouth once daily Duloxetine (Cymbalta) 60 mg capsule,delayed release(DR/EC) Active 60 mg PO DAILY May 09, 2024 12:00am famotidine 20 mg oral tablet (3 sources) Histamine-2 Receptor Antagonist Start: 03-26-2024 take 1 tablet by mouth once daily famotidine (PEPCID) 20 mg tablet Take 1 tablet by mouth once daily. 03/27/2024 Active gabapentin 600 mg oral tablet (4 sources) Anti-epileptic Agent Start: 03-27-2024 take 1 tablet by mouth once daily gabapentin (NEURONTIN) 600 mg tablet Take 600 mg by mouth once daily. 03/27/2024 Active Start: 03-10-2024 take 1 tablet by pako three times daily Gabapentin 600 mg tablet Active 600 mg PO THREE TIMES A DAY 90 May 09, 2024 12:00am Magnesium (1 source) Start: 05-09-2024 take 1 tablet by mouth twice daily Magnesium 250 mg tablet Active 250 mg PO TWICE A DAY May 09, 2024 12:00am metoprolol tartrate 25 mg oral tablet (4 sources) beta-Adrenergic Kaylen Start: 08-07-2024 take 1 tablet by mouth every twelve hours metoprolol tartrate, short acting, (LOPRESSOR) 25 mg tablet Take 1 tablet by mouth every 12 hours. 08/07/2024 Active Start: 03-10-2024 Metoprolol Tar trate 25 mg tablet Active 12.5 mg PO DAILY 14 May 09, 2024 12:00am mupirocin 0.02 mg/mg topical ointment (1 source) RNA Synthetase Inhibitor Antibacterial Start: 11-08-2024 End: 11-13-2024 mupirocin (BACTROBAN) 2 % ointment Apply to affected area three times a day for 5 days. 30 g 11/08/2024 11/13/2024 Active 24 hr nicotine 0.875 mg/hr transdermal system (1 source) Cholinergic Nicotinic Agonist Start: 03-26-2024 apply 1 dose transdermal route every twenty-four hours Nicotine 21 mg/24 hr Patch 24 Hour Active 21 mg TD DAILY 0 March 26, 2024 12:00am nystatin 241911 unt/ml oral suspension (1 source) Polyene Antifungal Start: 11-08-2024 End: 11-15-2024 nystatin (MYCOSTATIN) 100,000 unit/mL suspension Take 5 mL by mouth four times daily for 7 days. 1tsp swish in mouth for several minutes, then swallow (or expectorate) 4 times daily until gone. 140 mL 11/08/2024 11/15/2024 Active topiramate 100 mg oral tablet (4 sources) Start: 03-11-2024 take 1 tablet by mouth twice daily Topiramate 100 mg tablet Active 100 mg PO TWICE A DAY 60 May 09, 2024 12:00am vitamin b12 1 mg/ml injectable solution (2 sources) Vitamin B12 Start: 10-27-2024 inject 1000 ug by subcutaneous injection once cyanocobalamin 1,000 mcg/mL Inject 1,000 mcg subcutaneously one time only. 10/27/2024 Active Completed/Discontinued Medications Medication Drug Class(es) Dates Sig (Normalized) Sig (Original) cefdinir 300 mg oral capsule (1 source) Cephalosporin Antibacterial Start: 03-26-2024 End: 05-09-2024 take 1 capsule by mouth twice daily Cefdinir 300 mg capsule Discontinued 300 mg PO TWICE A DAY 14 March 26, 2024 12:00am May 09, 2024 3:49pm nortriptyline 50 mg oral capsule (1 source) Tricyclic Antidepressant Start: 03-11-2024 End: 05-09-2024 take 1 capsule by mouth at bedtime Nortriptyline 50 mg capsule Discontinued 50 mg PO AT BEDTIME March 11, 2024 12:00am May 09, 2024 3:50pm ondansetron 4 mg oral tablet (1 source) Serotonin-3 Receptor Antagonist Start: 03-10-2024 End: 10-23-2024 take 1 tablet by mouth every six hours as needed for nausea and vomiting Ondansetron Hcl 4 mg tablet Discontinued 4 mg PO EVERY 6 HOURS as needed for nausea and vomiting March 10, 2024 12:00am October 23, 2024 5:43pm uses ODT penicillin v potassium 500 mg oral tablet (1 source) Start: 05-09-2024 End: 10-23-2024 take 1 tablet by mouth four times daily Penicillin V Potassium 500 mg tablet Discontinued 500 mg PO 4 TIMES DAILY 40 May 09, 2024 12:00am October 23, 2024 5:43pm microencapsulated potassium chloride 20 meq extended release oral tablet (1 source) Start: 03-26-2024 End: 05-09-2024 take 1 tablet by mouth twice daily at mealtime Potassium Chloride 20 mEq Tablet,Er Particles/Crystal s Discontinued 20 meq PO TWICE DAILY WITH MEALS 0 March 26, 2024 12:00am May 09, 2024 3:50pm Problems Active Problems Problem Classification Problem Date Documented Da te Episodic/Chronic Chronic obstructive pulmonary disease and bronchiectasis (1 source) Bronchitis; Translations: [Bronchitis, not specified as acute or chronic] 10-31-2024 Episodic Disorders of teeth and jaw (1 source) Toothache; Translations: [Other specified disorders of teeth and supporting structures] 05-17-2024 Episodic Fluid and electrolyte disorders (3 sources) Dehydration; Translations: [Hypokalemia] Onset: 04-07-202 4 Episodic Headache; including migraine (1 source) Migraine, unspecified, not intractable, without status migrainosus; Translations: [Migraine, unspecified, not intractable, without status migrainosus] Onset: Chronic Mycoses (1 source) Candidiasis of mouth; Translations: [Candidal stomatitis] 11-08-2024 Episodic Nausea and vomiting (2 sources) Nausea with vomiting, unspecified; Translations: [Nausea with vomiting, unspecified] Onset: 4 Episodic Noninfectious gastroenteritis (3 sources) Noninfective gastroenteritis and colitis, unspecified; Translations: [Gastroenteritis] Onset: 4 Episodic Nonspecific chest pain (1 source) Chest pain; Translations: [Chest pain, unspecified] 05-14-2024 Episodic Nutritional deficiencies (1 source) Deficiency of other specified B group vitamins; Translations: [Deficiency of other specified B group vitamins] Onset: 5 Episodic Other connective tissue disease (1 source) Muscle pain; Translations: [Myalgia, unspecified site] 05-14-2024 Episodic Other connective tissue disease (1 source) Rhabdomyolysis; Translations: [Rhabdomyolysis] 05-06-2024 Episodic Other fractures (1 source) Fracture of right rib; Translations: [Fracture of one rib, right side, initial encounter for closed fracture] 03-21-2024 Episodic Other gastrointestinal disorders (1 source) Diarrhea, unspecified; Translations: [Diarrhea, unspecified] Onset: 5 Episodic Other injuries and conditions due to external causes (1 source) Closed injury of head; Translations: [Unspecified injury of head, initial encounter] 03-21-2024 Episodic Other injuries and conditions due to external causes (1 source) Abrasion; Translations: [Other injury of unspecified body region, initial encounter] 03-21-2024 Episodic Other liver diseases (1 source) High lipase level in serum; Translations: [Abnormal levels of other serum enzymes] 10-31-2024 Episodic Other lower respiratory disease (2 sources) Cough; Translations: [Acute cough] 11-08-2024 Episodic Other upper respiratory infections (1 source) Chronic sinusitis; Translations: [Chronic sinusitis, unspecified] 11-08-2024 Chronic Residual codes; unclassified (1 source) Altered mental status; Translations: [Altered mental status, unspecified] 03-21-2024 Episodic Substance-related disorders (1 source) Opioid dependence, uncomplicated; Translations: [Opioid dependence, uncomplicated] Onset: 4 Chronic Superficial injury; contusion (1 source) Hematoma of abdominal wall; Translations: [Contusion of abdominal wall, initial encounter] 03-21-2024 Episodic Unclassified (1 source) Acute cough; Translations: [Acute cough] Onset: 5 Unclassified (1 source) Supraventricular tachycardia, unspecified; Translations: [Supraventricular tachycardia, unspecified] Onset: 5 Past or Other Problems Problem Classification Problem Date Documented Da te Episodic/Chronic Cardiac dysrhythmias (1 source) Palpitations; Translations: [Palpitations] Onset: 05-27-2024 Episodic Other connective tissue disease (1 source) Muscle weakness (generalized); Translations: [Muscle weakness (generalized)] Onset: 09-04-2024 Episodic Other connective tissue disease (1 source) Rhabdomyolysis; Translations: [Rhabdomyolysis] Onset: 03-26-2024 Episodic Other fractures (1 source) Fracture of one rib, right side, initial encounter for closed fracture; Translations: [Fracture of one rib, right side, initial encounter for closed fracture] Onset: 03-26-2024 Episodic Other liver diseases (1 source) Abnormal levels of other serum enzymes; Translations: [Abnormal levels of other serum enzymes] Onset: 06-16-2024 Episodic Other nervous system disorders (1 source) Acute pain due to trauma; Translations: [Acute pain due to trauma] Onset: 05-17-2024 Episodic Other screening for suspected conditions (not mental disorders or infectious disease) (1 source) Abnormal results of thyroid function studies; Translations: [Abnormal results of thyroid function studies] Onset: 06-22-2024 Episodic Residual codes; unclassified (1 source) Pain, unspecified; Translations: [Pain, unspecified] Onset: 06-10-2024 Episodic Residual codes; unclassified (2 sources) Altered mental status, unspecified; Translations: [Altered mental status, unspecified] Onset: 03-26-2024 Episodic Substance-related disorders (2 sources) Poisoning by drug AND/OR medicinal substance; Translations: [Other psychoactive substance use, unspecified with intoxication, unspecified] Onset: 03-11-2024 03-19-2024 Episodic Results Test Name Value Interpretation Reference Range Facility [facility] 01-10-2025 [facility] Letter Text Normal [facility] Anion gap in Serum or Plasma Ordered By: Sonia Welch on 12-24-2024 Anion gap [Moles/Vol] 11 mmol/L 5-15 [facility] BUN/creatinine ratioOrdered By: Sonia Welch on 12-24-2024 Urea nitrogen/Creatinine [Mass ratio] 13.8 mg/mg 10-20 [facility] Bilirubin, totalOrdered By: Sonia Welch on 12-24-2024 Bilirubin [Mass/Vol] mg/dL 0.00-1.30 [facility] Carbon dioxide, total [Moles /volume] in Central venous bloodOrdered By: Sonia Welch on 12-24-2024 CO2 [Moles/Vol] 26.1 mmol/L 21.0-32.0 [facility] Chloride assayOrdered By: Ravinder Welch on 12-24-2024 Chloride [Moles/Vol] 99 mmol/L 98-108 [facility] Cobalamin (Vitamin B12) [Mas s/Vol]Ordered By: Sonia Welch on 12-24-2024 Vitamin B12 Level > 4000 pg/mL High 180-914 [facility] Comprehensive Metabolic Prof ilon 12-24-2024 Albumin [Mass/Vol] 4.4 g/dL Normal 3.4-4.8 [facility] Comment on above: Performed By: #### L 500.4050, L503.0106 ####[facility] [address] [place], [address] Albumin/Globulin [Mass ratio] 1.7 {ratio} Normal 0.9-2.4 [facility] Comment on above: Performed By: #### L 500.4050, [id number] ####[facility] [address] [place], [address] ALK PHOS 108 U/L High 35-104 [facility] Comment on above: Performed By: #### L 500.4050, L503.0106 ####[facility] [address] [place], [address] ALT [Catalytic activity/Vol] 9 U/L Normal <=34 [facility] Comment on above: Performed By: #### L 500.4050, L503.0106 ####[facility] [address] [place], [address] AST [Catalytic activity/Vol] 15 U/L Normal <=31 [facility] Comment on above: Result Comment: Hemo lysis present, Results??could be affected.?? Performed By: #### L 500.4050, L503.0106 ####[facility] [address] [place], [address] BUN/CRE 13.8 RATIO Normal 10-20 [facility] Comment on above: Performed By: #### L 500.4050, [id number] ####[facility] [address] [place], [address] Calcium [Mass/Vol] 9.9 mg/dL Normal 7.6-11.0 [facility] Comment on above: Performed By: #### L 500.4050, [id number] ####[facility] [address] [place], [address] Chloride [Moles/Vol] 99 mmol/L Normal 98-108 [facility] Comment on above: Performed By: #### L 500.4050, [id number] ####[facility] [address] [place], [address] CO2 [Moles/Vol] 26.1 mmol/L Normal 21.0-32.0 [facility] Comment on above: Performed By: #### L 500.4050, [id number] ####[facility] [address] [place], [address] Creatinine [Mass/Vol] 0.87 mg/dL Normal 0.70-1.20 [facility] Comment on above: Performed By: #### L 500.4050, [id number] ####[facility] [address] [place], [address] GAP 11 Normal 5-15 [facility] Comment on above: Performed By: #### L 500.4050, [id number] ####[facility] [address] [place], [address] GFR/1.73 sq M.predicted among non-blacks MDRD (S/P/Bld) [Vol rate/Area] 75 mL/min/{1.73_m2} Normal >60 [facility] Comment on above: Result Comment: mL/m in/1.73m2 CKD-EPI Creatinine Equation (2020) Performed By: #### L 500.4050, [id number] ####[facility] [address] [place], [address] Globulin (S) [Mass/Vol] 2.6 g/dL Normal 2.2-4.2 [facility] Comment on above: Performed By: #### L 500.4050, [id number] ####[facility] [address] [place], [address] Glucose [Mass/Vol] 95 mg/dL Normal 70-99 [facility] Comment on above: Performed By: #### L 500.4050, [id number] ####[facility] [address] [place], [address] Potassium [Moles/Vol] 4.9 mmol/L Normal 3.3-5.1 [facility] Comment on above: Result Comment: Hemo lysis present, Results??could be affected.?? Performed By: #### L 500.4050, [id number] ####[facility] [address] [place], [address] Sodium [Moles/Vol] 136 mmol/L Normal 133-145 [facility] Comment on above: Performed By: #### L 500.4050, [id number] ####[facility] [address] [place], [address] T BILI < 0.15 Normal 0.00-1.30 [facility] Comment on above: Performed By: #### L 500.4050, [id number] ####[facility] [address] [place], [address] T PROT 7.0 g/dL Normal 5.9-8.4 [facility] Comment on above: Performed By: #### L 500.4050, [id number] ####[facility] [address] [place], [address] Urea nitrogen [Mass/Vol] 12 mg/dL Normal 4-19 [facility] Comment on above: Performed By: #### L 500.4050, [id number] ####[facility] [address] [place], [address] GFR/1.73 sq M.predicted dario g non-blacks MDRD (S/P/Bld) [Vol rate/Area]Ordered By: Sonia Welch on 12-24-2024 Estimated GFR (MDRD) Non-Af Amer 75 >60 [facility] Comment on above: mL/min/1.73m2 CKD-EP I Creatinine Equation (2020) L503.0106on 12-24-2024 Cobalamin (Vitamin B12) [Mass/Vol] pg/mL High 180-914 [facility] Comment on above: Performed By: #### L 500.4050, [id number] ####[facility] [address] [place], [address] Laboratory - Chemistry and C hemistry - challengeOrdered By: Sonia Welch on 12-24-2024 AST [Catalytic activity/Vol] 15 U/L <32 [facility] Comment on above: Hemolysis present, R esults could be affected. Potassium (Unsp spec) [Mass/ Vol]Ordered By: Sonia Welch on 12-24-2024 Potassium [Moles/Vol] 4.9 mmol/L 3.3-5.1 [facility] Comment on above: Hemolysis present, R esults could be affected. Serum creatinine measurement (mass/volume)Ordered By: Sonia Welch on 12-24-2024 Creatinine [Mass/Vol] 0.87 mg/dL 0.70-1.20 [facility] Serum globulin measurementOr dered By: Sonia Welch on 12-24-2024 Globulin (S) [Mass/Vol] 2.6 g/dL 2.2-4.2 [facility] Serum glucose measurement (m ass/volume)Ordered By: Sonia Welch on 12-24-2024 Glucose [Mass/Vol] 95 mg/dL 70-99 [facility] Serum or plasma alanine rosenthal otransferase (ALT) measurementOrdered By: Sonia Welch on 12-24-2024 ALT [Catalytic activity/Vol] 9 U/L <35 [facility] Serum or plasma albumin casey urement (mass/volume)Ordered By: Sonia Welch on 12-24-2024 Albumin [Mass/Vol] 4.4 g/dL 3.4-4.8 [facility] Serum or plasma albumin/glob ulin mass ratioOrdered By: Sonia Welch 12-24-2024 Albumin/Globulin [Mass ratio] 1.7 {ratio} 0.9-2.4 [facility] Serum or plasma alkaline nicki sphatase measurementOrdered By: Sonia Welch on 12-24-2024 ALP [Catalytic activity/Vol] 108 U/L High 35-104 [facility] Serum or plasma calcium casey urement (mass/volume)Ordered By: Sonia Welch on 12-24-2024 Calcium [Mass/Vol] 9.9 mg/dL 7.6-11.0 [facility] Serum or plasma urea nitroge n measurement (mass/volume)Ordered By: Sonia Welch on 12-24-2024 Urea nitrogen [Mass/Vol] 12 mg/dL 4-19 [facility] Sodium levelOrdered By: Pauline almanzar Analicesia on 12-24-2024 Sodium [Moles/Vol] 136 mmol/L 133-145 [facility] Total proteinOrdered By: Ben Welch on 12-24-2024 Protein [Mass/Vol] 7.0 g/dL 5.9-8.4 [facility] CNOVon 11-08-2024 CNOV Office Visit ([facility] ) -- HATTIE HAMILTON ([id number]) 1960 F Date Time Provider Department 11/08/24 3:30 PM PERICO HAZEL [facility] During your visit today, we recorded the following information about you: Temperature Pulse Respiration Blood pressure 98.3 degrees 80/minute 22/minute 121/77 Weight 56 kg Perico Hazel, COURTNEY.[employer] 11/08/2024 4:23 PM Signed Subjective HPI Nontoxic-appearing female presents urgent care chief complaint cough chest congestion sore throat fatigue. Duration of symptoms 5 weeks. Associated symptoms listed above. Was seen in the ED for this complaint initially diagnosed with viral illness. Presents today for evaluation. Most bothersome symptom today is cough. Denies any fevers hemoptysis pleuritic pain vomiting. Past medical history prescription medications allergies reviewed. .Patient presents with: Cough: Chest congestion, sinus congestion, nasal drainage, SOB, wheeze, sore throat, headache x 5 weeks no improvement History reviewed. No pertinent past medical history. History reviewed. No pertinent surgical history. ALLERGIES Diltiazem and Meloxicam MEDICATIONS TOPAMAX 100 mg tablet Take 1 tablet by mouth two times a day. metoprolol tartrate, short acting, (LOPRESSOR) 25 mg tablet Take 1 tablet by mouth every 12 hours. gabapentin (NEURONTIN) 600 mg tablet Take 600 mg by mouth once daily. famotidine (PEPCID) 20 mg tablet Take 1 tablet by mouth once daily. DULoxetine (CYMBALTA) 60 mg capsule Take 60 mg by mouth once daily. cyanocobalamin 1,000 mcg/mL Inject 1,000 mcg subcutaneously one time only. celecoxib (CELEBREX) 200 mg capsule Take 200 mg by mouth two times a day. buprenorphine (BUTRANS) 10 mcg/hour Apply 1 Patch as directed one time a week. baclofen 20 mg tablet Take 1 tablet by mouth three times a day. aspirin 81 mg cap Take 81 mg by mouth once daily. amitriptyline (ELAVIL) 50 mg tablet Take 1 tablet by mouth daily at bedtime. acetaminophen (TYLENOL EXTRA STRENGTH) 500 mg tablet Take 2 tablets by mouth every 8 hours as needed for pain. History reviewed. No pertinent family history. Social History Tobacco Use Smoking status: Every Day Current packs/day: 1.00 Average packs/day: 1 pack/day for 46.0 years (46.0 ttl pk-yrs) Types: Cigarettes Start date: 1978 Smokeless tobacco: Never BP 121/77 Pulse 80 Temp 36.8 ?C (98.3 ?F) Resp 22 Wt 56 kg (123 lb 7.3 oz) LMP (LMP Unknown) SpO2 99% Review of Systems Constitutional: Positive for chills and malaise/fatigue. Negative for fever. HENT: Positive for congestion and sore throat. Negative for ear discharge, ear pain and sinus pain. Eyes: Negative for blurred vision, pain, discharge and redness. Respiratory: Positive for cough. Negative for hemoptysis, sputum production, shortness of breath, wheezing and stridor. Cardiovascular: Negative for chest pain. Gastrointestinal: Negative for abdominal pain, diarrhea, nausea and vomiting. Musculoskeletal: Positive for myalgias. Skin: Negative for itching and rash. Neurological: Positive for headaches. Negative for dizziness. Objective Physical Exam Constitutional: General: She is not in acute distress. Appearance: She is not diaphoretic. HENT: Head: Normocephalic. Jaw: No trismus, tenderness, swelling or pain on movement. Nose: Congestion present. Mouth/Throat: Mouth: Mucous membranes are moist. Pharynx: Oropharynx is clear. Uvula midline. No pharyngeal swelling, oropharyngeal exudate, posterior oropharyngeal erythema or uvula swelling. Eyes: Conjunctiva/sclera: Conjunctivae normal. Pupils: Pupils are equal, round, and reactive to light. Cardiovascular: Rate and Rhythm: Normal rate and regular rhythm. Heart sounds: Normal heart sounds. Pulmonary: Effort: Pulmonary effort is normal. No tachypnea, accessory muscle usage or respiratory distress. Breath sounds: Normal breath sounds. No stridor. No wheezing, rhonchi or rales. Abdominal: General: There is no distension. Palpations: Abdomen is soft. Tenderness: There is no abdominal tenderness. There is no guarding or rebound. Musculoskeletal: Cervical back: Normal range of motion and neck supple. No edema, erythema, rigidity or tenderness. No pain with movement. Normal range of motion. Lymphadenopathy: Cervical: No cervical adenopathy. Skin: General: Skin is warm and dry. Neurological: Mental Status: She is alert and oriented to person, place, and time. ASSESSMENT/PLAN: 1. Acute cough - ICD9: 786.2, ICD10: R05.1 (primary diagnosis) - XR CHEST 2V FRONTAL/LAT 2. Thrush - ICD9: 112.0, ICD10: B37.0 3. Sinobronchitis - ICD9: 473.9, 490, ICD10: J32.9, J40 IMPRESSION: 1. No pleural effusion or consolidation 2. Kyphosis of the thoracic spine. Age-indeterminate compression deformities at multiple levels of the lower thoracic spine. No consolidations noted o (more content not included)... Normal [facility] XR CHEST 2V FRONTAL/LATon XR CHEST 2V FRONTAL/LAT * * *Final Report* * * DATE OF EXAM: Nov 08 2024 3:55PM WOX 5291 - XR CHEST 2V FRONTAL/LAT / PROCEDURE REASON: Acute cough * * * * Physician Interpretation * * * * EXAMINATION: CHEST RADIOGRAPH (2 VIEW FRONTAL and LATERAL) CLINICAL HISTORY: Acute cough MQ: XC2_6 EXAM DATE/TIME: 11/08/2024 3:55 PM COMPARISON: No relevant prior studies available. RESULT: Lines, tubes, and devices: None. Lungs and pleura: No consolidation. No lung mass. No pleural effusion. No pneumothorax. Cardiomediastinal silhouette: Normal cardiomediastinal silhouette. Bones and soft tissues: Kyphosis and degenerative disease of the thoracic spine. There are several age-indeterminate compression deformities of the lower thoracic spine. IMPRESSION: 1. No pleural effusion or consolidation 2. Kyphosis of the thoracic spine. Age-indeterminate compression deformities at multiple levels of the lower thoracic spine. Well Flow Operator: [facility] Transcribe Date/Time: Nov 08 2024 3:55P Dictated by : BRENT FIELD MD This examination was interpreted and the report reviewed and electronically signed by: BRENT FIELD MD on Nov 08 2024 3:57PM EST [id number] Normal [facility] XR Chest PA and Lateralon IMPRESSION: 1. No pleural effusion or consolidation 2. Kyphosis of the thoracic spine. Age-indeterminate compression deformities at multiple levels of the lower thoracic spine. Well [facility] Transcribe Date/Time: Nov 08 2024 3:55P Dictated by : BRENT FIELD MD This examination was interpreted and the report reviewed and electronically signed by: BRENT FIELD MD on Nov 08 2024 3:57PM EST DIVISION OF RADIOLOGY * * *Final Report* * * DATE OF EXAM: Nov 08 2024 3:55PM WOX 5291 - XR CHEST 2V FRONTAL/LAT / PROCEDURE REASON: Acute cough * * * * Physician Interpretation * * * * EXAMINATION: CHEST RADIOGRAPH (2 VIEW FRONTAL & LATERAL) CLINICAL HISTORY: Acute cough MQ: XC2_6 EXAM DATE/TIME: 11/08/2024 3:55 PM COMPARISON: No relevant prior studies available. RESULT: Lines, tubes, and devices: None. Lungs and pleura: No consolidation. No lung mass. No pleural effusion. No pneumothorax. Cardiomediastinal silhouette: Normal cardiomediastinal silhouette. Bones and soft tissues: Kyphosis and degenerative disease of the thoracic spine. There are several age-indeterminate compression deformities of the lower thoracic spine. DIVISION OF RADIOLOGY Provider, [facility] - 11/08/2024 * * *Final Report* * * DATE OF EXAM: Nov 08 2024 3:55PM WOX 5291 - XR CHEST 2V FRONTAL/LAT / PROCEDURE REASON: Acute cough * * * * Physician Interpretation * * * * EXAMINATION: CHEST RADIOGRAPH (2 VIEW FRONTAL & LATERAL) CLINICAL HISTORY: Acute cough MQ: XC2_6 EXAM DATE/TIME: 11/08/2024 3:55 PM COMPARISON: No relevant prior studies available. RESULT: Lines, tubes, and devices: None. Lungs and pleura: No consolidation. No lung mass. No pleural effusion. No pneumothorax. Cardiomediastinal silhouette: Normal cardiomediastinal silhouette. Bones and soft tissues: Kyphosis and degenerative disease of the thoracic spine. There are several age-indeterminate compression deformities of the lower thoracic spine. IMPRESSION IMPRESSION: 1. No pleural effusion or consolidation 2. Kyphosis of the thoracic spine. Age-indeterminate compression deformities at multiple levels of the lower thoracic spine. Well Flow Operator: [facility] Transcribe Date/Time: Nov 08 2024 3:55P Dictated by : BRENT FIELD MD This examination was interpreted and the report reviewed and electronically signed by: BRENT FIELD MD on Nov 08 2024 3:57PM EST [facility] Radiology Study observation (narrative) [facility] XR Chest PA and LateralOrder ed By: [facility] Provider on 11-08-2024 [facility] Abdomen/Pelvis W IV Cont ONL Yon 10-23-2024 Abdomen/Pelvis W IV Cont ONLY Normal [facility] Absolute neutrophil countOrd ered By: Lester Naranjo on 10-23-2024 Neutrophils (Bld) [#/Vol] 5.8 10*3/uL 2.0-7.7 [facility] Albumin to globulin ratioOrd ered By: Lester Naranjo on 10-23-2024 Albumin/Globulin [Mass ratio] 1.0 {ratio} 0.9-2.4 [facility] Basophil percentageOrdered B y: Lester Naranjo on 10-23-2024 Basophils/100 WBC (Bld) 0.7 % 0-1 [facility] Bilirubin, totalOrdered By: Lester Naranjo on 10-23-2024 Bilirubin [Mass/Vol] 0.40 mg/dL 0.20-1.00 [facility] Comment on above: For patients on eltr ombopag therapy, use of Dimension [place] TBIL is not recommended. Blood urea nitrogen (BUN)/cr eatinine ratioOrdered By: Lester Naranjo on 10-23-2024 Urea nitrogen/Creatinine [Mass ratio] 24.6 mg/mg High 10-20 [facility] CBC W/Diff, Automatedon 01-0 Absolute Lymph 2.04 X10 3/uL Normal 0.83-4.51 [facility] Comment on above: Performed By: #### L 500.4050, L501.2450, L100.0100 ####[facility] [address] [place], [address] Absolute Neut 5.8 X10 3/uL Normal 2.0-7.7 [facility] Comment on above: Performed By: #### L 500.4050, L501.2450, L100.0100 ####[facility] [address] [place], [address] Basophils/100 WBC (Bld) 0.7 % Normal 0-1 [facility] Comment on above: Performed By: #### L 500.4050, L501.2450, L100.0100 ####[facility] [address], [address] Eosinophils/100 WBC (Bld) 0.7 % Normal 0-5 [facility] Comment on above: Performed By: #### L 500.4050, L501.2450, L100.0100 ####[facility] [address] [place], [address] Erythrocyte distribution width (RBC) [Ratio] 13.9 % Normal 11.6-14.6 [facility] Comment on above: Performed By: #### L 500.4050, L501.2450, L100.0100 ####[facility] [address] [place], [address] Hematocrit (Bld) [Volume fraction] 46.4 % Normal 37-47 [facility] Comment on above: Performed By: #### L 500.4050, L501.2450, L100.0100 ####[facility] [address] [place], [address] Hemoglobin (Bld) [Mass/Vol] 15.8 g/dL High 12.0-15.0 [facility] Comment on above: Performed By: #### L 500.4050, L501.2450, L100.0100 ####[facility] [address] [place], [address] IG% 0.200 Normal 0.0-0.9 [facility] Comment on above: Result Comment: IG% - Immature Granulocytes (promyelocytes, myelocytes andmetamyelocytes) > 1% indicates that a LEFT SHIFT is Present. Performed By: #### L 500.4050, L501.2450, L100.0100 ####[facility] [address] [place], [address] Lymphocytes/100 WBC (Bld) 23.9 % Normal 19-41 [facility] Comment on above: Performed By: #### L 500.4050, L501.2450, L100.0100 ####[facility] [address] [place], [address] MCH (RBC) [Entitic mass] 30.9 pg Normal 27.0-32.0 [facility] Comment on above: Performed By: #### L 500.4050, L501.2450, L100.0100 ####[facility] [address] [place], [address] MCHC (RBC) [Mass/Vol] 34.1 g/dL Normal 32-36 [facility] Comment on above: Performed By: #### L 500.4050, L501.2450, L100.0100 ####[facility] [address] [place], [address] MCV (RBC) [Entitic vol] 90.6 fL Normal 81-99 [facility] Comment on above: Performed By: #### L 500.4050, L501.2450, L100.0100 ####[facility] [address] [place], [address] Monocytes/100 WBC (Bld) 6.9 % Normal 0-10 [facility] Comment on above: Performed By: #### L 500.4050, L501.2450, L100.0100 ####[facility] [address] [place], [address] Neutrophils/100 WBC (Bld) 67.6 % Normal 47-70 [facility] Comment on above: Performed By: #### L 500.4050, L501.2450, L100.0100 ####[facility] [address] [place], [address] Nucleated RBC (Bld) [#/Vol] 0 10*3/uL Normal 0-5 [facility] Comment on above: Performed By: #### L 500.4050, L501.2450, L100.0100 ####[facility] [address] [place], [address] Platelet mean volume (Bld) [Entitic vol] 9.4 fL Normal 6.2-12.0 [facility] Comment on above: Performed By: #### L 500.4050, L501.2450, L100.0100 ####[facility] [address] [place], [address] Platelets (Bld) [#/Vol] 313 10*3/uL Normal 150-450 [facility] Comment on above: Performed By: #### L 500.4050, L501.2450, L100.0100 ####[facility] [address] [place], [address] RBC (Bld) [#/Vol] 5.12 10*6/uL Normal 4.2-5.4 [facility] Comment on above: Performed By: #### L 500.4050, L501.2450, L100.0100 ####[facility] [address] [place], [address] RDW SD 46.6 fl High 35.1-43.9 [facility] Comment on above: Performed By: #### L 500.4050, L501.2450, L100.0100 ####[facility] [address] [place], [address] WBC (Bld) [#/Vol] 8.5 10*3/uL Normal 4.4-11.0 [facility] Comment on above: Performed By: #### L 500.4050, L501.2450, L100.0100 ####[facility] [address] [place], [address] Carbon dioxide measurementOr dered By: Lester Naranjo on 10-23-2024 CO2 [Moles/Vol] 21.0 mmol/L 21.0-32.0 [facility] Chloride measurementOrdered By: Lester Naranjo on 10-23-2024 Chloride [Moles/Vol] 110 mmol/L High 98-107 [facility] Comprehensive Metabolic Prof ilon 10-23-2024 Albumin [Mass/Vol] 4.0 g/dL Normal 3.2-5.0 [facility] Comment on above: Performed By: #### L 500.4050, L501.2450, L100.0100 ####[facility] [address] [place], [address] Albumin/Globulin [Mass ratio] 1.0 {ratio} Normal 0.9-2.4 [facility] Comment on above: Performed By: #### L 500.4050, L501.2450, L100.0100 ####[facility] [address] [place], [address] ALK P 94 U/L Normal 45-117 [facility] Comment on above: Performed By: #### L 500.4050, L501.2450, L100.0100 ####[facility] [address] [place], [address] ALT [Catalytic activity/Vol] 21 U/L Normal 13-56 [facility] Comment on above: Performed By: #### L 500.4050, L501.2450, L100.0100 ####[facility] [address] [place], [address] AST [Catalytic activity/Vol] 16 U/L Normal 15-37 [facility] Comment on above: Performed By: #### L 500.4050, L501.2450, L100.0100 ####[facility] [address] [place], [address] Bilirubin [Mass/Vol] 0.40 mg/dL Normal 0.20-1.00 [facility] Comment on above: Result Comment: For patients on eltrombopag therapy, use of Dimension [place] TBIL is not recommended. Performed By: #### L 500.4050, L501.2450, L100.0100 ####[facility] [address] [place], [address] BUN/CRE 24.6 RATIO High 10-20 [facility] Comment on above: Performed By: #### L 500.4050, L501.2450, L100.0100 ####[facility] [address] [place], [address] CA,Total 9.3 mg/dL Normal 8.5-10.1 [facility] Comment on above: Performed By: #### L 500.4050, L501.2450, L100.0100 ####[facility] [address] [place], [address] Chloride [Moles/Vol] 110 mmol/L High 98-107 [facility] Comment on above: Performed By: #### L 500.4050, L501.2450, L100.0100 ####[facility] [address] [place], [address] CO2 [Moles/Vol] 21.0 mmol/L Normal 21.0-32.0 [facility] Comment on above: Performed By: #### L 500.4050, L501.2450, L100.0100 ####[facility] [address] [place], [address] Creatinine [Mass/Vol] 0.93 mg/dL Normal 0.55-1.02 [facility] Comment on above: Result Comment: The validity of the calculated GFR GFRAA in patients over70 years has not been determined. Clinical correlation isessential. Performed By: #### L 500.4050, L501.2450, L100.0100 ####[facility] [address] [place], [address] ECRCL 56.44 ml/min Normal [facility] Comment on above: Performed By: #### L 500.4050, L501.2450, L100.0100 ####[facility] [address] [place], [address] EST GFR - AA 78 mL/min Normal >60 [facility] Comment on above: Result Comment: Afri can Irish GFR Calc Performed By: #### L 500.4050, L501.2450, L100.0100 ####[facility] [address] [place], [address] GAP 7 Normal 5-15 [facility] Comment on above: Performed By: #### L 500.4050, L501.2450, L100.0100 ####[facility] [address] [place], [address] GFR/1.73 sq M.predicted among non-blacks MDRD (S/P/Bld) [Vol rate/Area] 64 mL/min/{1.73_m2} Normal >60 [facility] Comment on above: Result Comment: Non- GFR Calc Performed By: #### L 500.4050, L501.2450, L100.0100 ####[facility] [address] [place], [address] Globulin (S) [Mass/Vol] 3.9 g/dL Normal 2.2-4.2 [facility] Comment on above: Performed By: #### L 500.4050, L501.2450, L100.0100 ####[facility] [address] [place], [address] Glucose [Mass/Vol] 106 mg/dL Normal 74-106 [facility] Comment on above: Result Comment: Fast ing Glucose result from 100 to 125 mg/dLsuggests IMPAIRED HOMEOSTASIS per A.D.A. criteria. Performed By: #### L 500.4050, L501.2450, L100.0100 ####[facility] [address] [place], [address] Potassium [Moles/Vol] 3.9 mmol/L Normal 3.5-5.1 [facility] Comment on above: Performed By: #### L 500.4050, L501.2450, L100.0100 ####[facility] [address] [place], [address] Sodium [Moles/Vol] 138 mmol/L Normal 136-145 [facility] Comment on above: Performed By: #### L 500.4050, L501.2450, L100.0100 ####[facility] [address] [place], [address] T PROT 7.9 g/dL Normal 6.4-8.2 [facility] Comment on above: Performed By: #### L 500.4050, L501.2450, L100.0100 ####[facility] [address] [place], [address] Urea nitrogen [Mass/Vol] 23 mg/dL High 7-18 [facility] Comment on above: Performed By: #### L 500.4050, L501.2450, L100.0100 ####[facility] [address] [place], [address] Emergency Department Summary on 10-23-2024 Emergency Department Summary Normal [facility] Eosinophil percentageOrdered By: Lester Naranjo on 10-23-2024 Eosinophils/100 WBC (Bld) 0.7 % 0-5 [facility] Erythrocyte distribution wid th ratioOrdered By: Lester Naranjo on 10-23-2024 Erythrocyte distribution width (RBC) [Ratio] 13.9 % 11.6-14.6 [facility] Erythrocyte distribution wid th standard deviationOrdered By: Lester Naranjo on 10-23-2024 Erythrocyte distribution width (RBC) [Entitic vol] 46.6 fL High 35.1-43.9 [facility] Estimated glomerular filtrat ion rate (GFR) AmericanOrdered By: Lester Naranjo on 10-23-2024 Estimated GFR (MDRD) Amer 78 mL/min >60 [facility] Comment on above: GFR Calc Estimation of creatinine yessi aranceOrdered By: Lester Naranjo on 10-23-2024 Estimated Creatinine Clearance Calc 56.44 ml/min [facility] Glomerular filtration rate ( GFR) estimationOrdered By: Lester Naranjo on 10-23-2024 Estimated GFR (MDRD) Non-Af Amer 64 mL/min >60 [facility] Comment on above: Non- GFR Calc Glucose measurementOrdered B y: Lester Naranjo on 10-23-2024 Glucose [Mass/Vol] 106 mg/dL 74-106 [facility] Comment on above: Fasting Glucose resu lt from 100 to 125 mg/dL suggests IMPAIRED HOMEOSTASIS per A.D.A. criteria. Hematocrit Auto (Bld) [Volum e fraction]Ordered By: Lester Naranjo on 10-23-2024 Hematocrit (Bld) [Volume fraction] 46.4 % 37-47 [facility] Hemoglobin measurementOrdere d By: Lester Naranjo on 10-23-2024 Hemoglobin (Bld) [Mass/Vol] 15.8 g/dL High 12.0-15.0 [facility] Immature granulocytes/100 WB C Auto (Bld)Ordered By: Lester Naranjo on 10-23-2024 Immature granulocytes/100 WBC (Bld) 0.200 % 0.0-0.9 [facility] Comment on above: IG% - Immature Granu locytes (promyelocytes, myelocytes and metamyelocytes) > 1% indicates that a LEFT SHIFT is Present. Laboratory - Chemistry and C hemistry - challengeOrdered By: Lester Naranjo on 10-23-2024 AST [Catalytic activity/Vol] 16 U/L 15-37 [facility] Lipaseon 10-23-2024 Lipase [Catalytic activity/Vol] 96 U/L High 13-75 [facility] Comment on above: Result Comment: Mervat kim note:LIPASE revised reference range effective 23.New Lipase methodology. Expected to produce lower valuesthan the previous assay method.NEW Reference Range: 13 - 75 U/L Performed By: #### L 500.4050, L501.2450, L100.0100 ####[facility] [address] [place], [address] Lipase measurementOrdered By : Lester Naranjo on 10-23-2024 Lipase [Catalytic activity/Vol] 96 U/L High 13-75 [facility] Comment on above: Please note:LIPASE r evised reference range effective 23. New Lipase methodology. Expected to produce lower values than the previous assay method. NEW Reference Range: 13 - 75 U/L Lymphocytes Auto (Unsp spec) [#/Vol]Ordered By: Lester Naranjo on 10-23-2024 Lymphocytes (Bld) [#/Vol] 2.04 10*3/uL 0.83-4.51 [facility] [facility] Lymphocytes/100 WBC Auto (Un sp spec)Ordered By: Lester Naranjo on 10-23-2024 Lymphocytes/100 WBC (Bld) 23.9 % 19-41 [facility] MCV (mean corpuscular volume ) determinationOrdered By: Lester Naranjo on 10-23-2024 MCV (RBC) [Entitic vol] 90.6 fL 81-99 [facility] Mean corpuscular hemoglobin (MCH) determinationOrdered By: Lester Naranjo on 10-23-2024 MCH (RBC) [Entitic mass] 30.9 pg 27.0-32.0 [facility] Mean corpuscular hemoglobin concentration (MCHC) determinationOrdered By: Lester Naranjo on 10-23-2024 MCHC (RBC) [Mass/Vol] 34.1 g/dL 32-36 [facility] Mean platelet volume determi nationOrdered By: Lester Naranjo on 10-23-2024 Platelet mean volume (Bld) [Entitic vol] 9.4 fL 6.2-12.0 [facility] Monocyte percentageOrdered B y: Lester Naranjo on 10-23-2024 Monocytes/100 WBC (Bld) 6.9 % 0-10 [facility] Neutrophil percentageOrdered By: Lester Naranjo on 10-23-2024 Neutrophils/100 WBC (Bld) 67.6 % 47-70 [facility] Nucleated red blood cell per centageOrdered By: Lester Naranjo on 10-23-2024 Nucleated RBC/100 WBC (Bld) [Ratio] 0 % 0-5 [facility] Platelet countOrdered By: Kvng Naranjo on 10-23-2024 Platelets (Bld) [#/Vol] 313 10*3/uL 150-450 [facility] Potassium measurementOrdered By: Lester Naranjo on 10-23-2024 Potassium [Moles/Vol] 3.9 mmol/L 3.5-5.1 [facility] RBC Auto (Bld) [#/Vol]Ordere d By: Lester Naranjo on 10-23-2024 RBC (Bld) [#/Vol] 5.12 10*6/uL 4.2-5.4 [facility] Serum anion gap measurementO rdered By: Lester Naranjo on 10-23-2024 Anion gap [Moles/Vol] 7 mmol/L 5-15 [facility] Serum globulin measurementOr dered By: Lester Naranjo on 10-23-2024 Globulin (S) [Mass/Vol] 3.9 g/dL 2.2-4.2 [facility] Serum or plasma alanine rosenthal otransferase (ALT) measurementOrdered By: Lester Naranjo on 10-23-2024 ALT [Catalytic activity/Vol] 21 U/L 13-56 [facility] Serum or plasma albumin casey urement (mass/volume)Ordered By: Lester Naranjo on 10-23-2024 Albumin [Mass/Vol] 4.0 g/dL 3.2-5.0 [facility] Serum or plasma alkaline nicki sphatase measurementOrdered By: Lester Naranjo on 10-23-2024 ALP [Catalytic activity/Vol] 94 U/L 45-117 [facility] Serum or plasma calcium casey urement (mass/volume)Ordered By: Lester Naranjo on 10-23-2024 Calcium [Mass/Vol] 9.3 mg/dL 8.5-10.1 [facility] Serum or plasma creatinine m easurement (mass/volume)Ordered By: Lester Naranjo on 10-23-2024 Creatinine [Mass/Vol] 0.93 mg/dL 0.55-1.02 [facility] Comment on above: The validity of the calculated GFR & GFRAA in patients over 70 years has not been determined. Clinical correlation is essential. Serum or plasma urea nitroge n measurement (mass/volume)Ordered By: Lester Naranjo on 10-23-2024 Urea nitrogen [Mass/Vol] 23 mg/dL High 7-18 [facility] Sodium levelOrdered By: Lester Naranjo on 10-23-2024 Sodium [Moles/Vol] 138 mmol/L 136-145 [facility] Total proteinOrdered By: Lisette Naranjo on 10-23-2024 Protein [Mass/Vol] 7.9 g/dL 6.4-8.2 [facility] White blood cell (WBC) count Ordered By: Lester Naranjo on 10-23-2024 WBC (Bld) [#/Vol] 8.5 10*3/uL 4.4-11.0 [facility] Brain W/WO Contraston 2023 Brain W/WO Contrast Normal [facility] Miscellaneous Lab Procedureo n 09-05-2024 MISC LAB TEST Normal [facility] Comment on above: Order Comment: RUN L OWEST TEST LC [id number] URINE TOXICOLOGY Result Comment: [id number] 63 6+OXYCODONE-BUND (ng/mL)DRUG RESULT SCREEN CUTOFF____ Amphetamines,Urine Negative ng/mL 1000Amphetamine test includes Amphetamine and Methamphetamine.Barbiturates Negative ng/mL 200Benzodiazepines Negative ng/mL 200Cannabinoid Negative ng/mL 20Cocaine (Metab) Negative ng/mL 300Opiates Negative ng/mL 300 Opiates test includes Codeine, Morphine, Hydromorphone, Hydrocodone.Oxycodone/Oxymorphone,Urine Negative ng/mL 300 Test includes Oxycodone and Oxymorphone.Specimen Status Report Test not performed. Insufficient specimen to perform or complete analysis. TEST: [id number] Carboxy THC Conf, MS, UR Panel: [id number] CONTACTED TIP Amin AT YOUR FACILITY ON [phone] ___ TESTING PERFORMED AT [facility]. ORIGINAL REPORT ON FILE IN LAB CONTAINS ADDITIONAL TEST SITE INFORMATION. Performed By: #### L 505.5000, L801.1541 ####[facility] [address] [place], [address] Urine Drug Screen (VISTA)on 08-28-2024 AMPHETAMINES Negative Normal <1000 ng/mL [facility] Comment on above: Order Comment: RUN L OWESTUNK Performed By: #### L 505.5000, L801.1541 ####[facility] [address] [place], [address] BARBITIURATES Negative Normal < 200 ng/mL [facility] Comment on above: Order Comment: RUN L OWESTUNK Performed By: #### L 505.5000, L801.1541 ####[facility] [address] [place], [address] BENZODIAZIPINE Negative Normal < 200 ng/mL [facility] Comment on above: Order Comment: RUN L OWESTUNK Performed By: #### L 505.5000, L801.1541 ####[facility] [address] [place], [address] COCAINE Negative Normal < 300 ng/mL [facility] Comment on above: Order Comment: RUN L OWESTUNK Performed By: #### L 505.5000, L801.1541 ####[facility] [address] [place], [address] ECSTACY Negative Normal < 500 ng/mL [facility] Comment on above: Order Comment: RUN L OWESTUNK Performed By: #### L 505.5000, L801.1541 ####[facility] [address] [place], [place], [phone] METHADONE Negative Normal < 300 ng/mL [facility] Comment on above: Order Comment: RUN L OWESTUNK Performed By: #### L 505.5000, L801.1541 ####[facility] [address] [place], [address] OPIATES Negative Normal < 300 ng/mL [facility] Comment on above: Order Comment: RUN L OWESTUNK Performed By: #### L 505.5000, L801.1541 ####[facility] [address] [place], [address] PCP Negative Normal < 25 ng/mL [facility] Comment on above: Order Comment: RUN L OWESTUNK Performed By: #### L 505.5000, L801.1541 ####[facility] [address] [place], [address] THC Positive Abnormal < 50 ng/mL [facility] Comment on above: Order Comment: RUN L OWESTUNK Performed By: #### L 505.5000, L801.1541 ####[facility] [address] [place], [address] VISTA UDS PH 5 Normal [facility] Comment on above: Order Comment: KASEY SAENZ Performed By: #### L 505.5000, L801.1541 ####[facility] [address] [place], [address] Comprehensive Metabolic Prof ilon 08-14-2024 Albumin [Mass/Vol] 3.4 g/dL Normal 3.2-5.0 [facility] Comment on above: Performed By: #### L 500.4050, L501.9520 ####[facility] [address] [place], [address] Albumin/Globulin [Mass ratio] 1.1 {ratio} Normal 0.9-2.4 [facility] Comment on above: Performed By: #### L 500.4050, L501.9520 ####[facility] [address] [place], [address] ALK P 102 U/L Normal 45-117 [facility] Comment on above: Performed By: #### L 500.4050, L501.9520 ####[facility] [address] [place], [address] ALT [Catalytic activity/Vol] 18 U/L Normal 13-56 [facility] Comment on above: Performed By: #### L 500.4050, L501.9520 ####[facility] [address] [place], [address] AST [Catalytic activity/Vol] 10 U/L Low 15-37 [facility] Comment on above: Performed By: #### L 500.4050, L501.9520 ####[facility] [address] [place], [address] Bilirubin [Mass/Vol] 0.20 mg/dL Normal 0.20-1.00 [facility] Comment on above: Result Comment: For patients on eltrombopag therapy, use of Dimension [place] TBIL is not recommended. Performed By: #### L 500.4050, L501.9520 ####[facility] [address] [place], [address] BUN/CRE 22.9 RATIO High 10-20 [facility] Comment on above: Performed By: #### L 500.4050, L501.9520 ####[facility] [address] [place], [address] CA,Total 9.1 mg/dL Normal 8.5-10.1 [facility] Comment on above: Performed By: #### L 500.4050, L501.9520 ####[facility] [address] [place], [address] Chloride [Moles/Vol] 114 mmol/L High 98-107 [facility] Comment on above: Performed By: #### L 500.4050, L501.9520 ####[facility] [address] [place], [address] CO2 [Moles/Vol] 25.0 mmol/L Normal 21.0-32.0 [facility] Comment on above: Performed By: #### L 500.4050, L501.9520 ####[facility] [address] [place], [address] Creatinine [Mass/Vol] 1.18 mg/dL High 0.55-1.02 [facility] Comment on above: Result Comment: The validity of the calculated GFR GFRAA in patients over70 years has not been determined. Clinical correlation isessential. Performed By: #### L 500.4050, L501.9520 ####[facility] [address] [place], [address] EST GFR - AA 60 mL/min Normal >60 [facility] Comment on above: Result Comment: Afri can Irish GFR Calc Performed By: #### L 500.4050, L501.9520 ####[facility] [address] [place], [address] GAP 3 Low 5-15 [facility] Comment on above: Performed By: #### L 500.4050, L501.9520 ####[facility] [address] [place], [address] GFR/1.73 sq M.predicted among non-blacks MDRD (S/P/Bld) [Vol rate/Area] 49 mL/min/{1.73_m2} Low >60 [facility] Comment on above: Result Comment: Non- GFR Calc Performed By: #### L 500.4050, L501.9520 ####[facility] [address] [place], [address] Globulin (S) [Mass/Vol] 3.2 g/dL Normal 2.2-4.2 [facility] Comment on above: Performed By: #### L 500.4050, L501.9520 ####[facility] [address] [place], [address] Glucose [Mass/Vol] 90 mg/dL Normal 74-106 [facility] Comment on above: Performed By: #### L 500.4050, L501.9520 ####[facility] [address] [place], [address] Potassium [Moles/Vol] 4.6 mmol/L Normal 3.5-5.1 [facility] Comment on above: Performed By: #### L 500.4050, L501.9520 ####[facility] [address] [place], [address] Sodium [Moles/Vol] 142 mmol/L Normal 136-145 [facility] Comment on above: Performed By: #### L 500.4050, L501.9120 ####[facility] [address] [place], [address] T PROT 6.6 g/dL Normal 6.4-8.2 [facility] Comment on above: Performed By: #### L 500.4050, L501.9520 ####[facility] [address] [place], [address] Urea nitrogen [Mass/Vol] 27 mg/dL High 7-18 [facility] Comment on above: Performed By: #### L 500.4050, L501.9520 ####[facility] [address] [place], [address] Thyroid Stim Hormone (TSH)on 08-14-2024 TSH 0.212 uIU/mL Low 0.358-3.740 [facility] Comment on above: Performed By: #### L 500.4050, L501.9520 ####[facility] [address] [place], [address] Thyroid Antibodieson 024 TG AB < 1.0 Normal 0.0-0.9 [facility] Comment on above: Result Comment: Thyr oglobulin Antibody measured by Penny CoulterMethodologyIt should be noted that the presence of thyroglobulinantibodies may not be pathogenic nor diagnostic, especiallyat very low levels. The assay production cell leader has found thatfour percent of individuals without evidence of thyroiddisease or autoimmunity will have positive TgAb levels upto 4 IU/mL.Performed at: [address] [id number] Director: Braden Collado PhD, Phone: [phone] Performed By: #### L 506.0400, B6976.3856, L509.6524, V203.2237 ####[facility] [address] [place], [address] THYR PEROX AB 12 IU/mL Normal 0-34 [facility] Comment on above: Performed By: #### L 506.0400, L3300.6750, L501.9520, L501.9310 ####[facility] [address] [place], [address] T4 Free Directon 06-20-2024 T4 FREE DIRECT 1.07 ng/dL Normal 0.76-1.46 [facility] Comment on above: Performed By: #### L 506.0400, L3300.6750, L501.9520, L501.9310 ####[facility] [address] [place], [address] T4 Total, Thyroxinon 024 T4 [Mass/Vol] 9.3 ug/dL Normal 4.8-13.9 [facility] Comment on above: Performed By: #### L 506.0400, L3300.6750, L501.9520, L501.9310 ####[facility] [address] [place], [address] Thyroid Stim Hormone (TSH)on 06-20-2024 TSH 0.691 uIU/mL Normal 0.358-3.740 [facility] Comment on above: Performed By: #### L 506.0400, L3300.6750, L501.9520, L501.9310 ####[facility] [address] [place], [address] Celiac AB,Comprehensiveon ANTIGLIADIN IGA 4 units Normal 0-19 [facility] Comment on above: Order Comment: Test( s) 214455-Zvtz, Blood; 134202-Kjrxvpi, Blood; 999583-Qcgaimp, Bloodwas developed and its performance characteristicsdetermined by [employer]. It has not been cleared or approvedby the Food and Drug Administration. Result Comment: Nega tive 0 - 19 Weak Positive 20 - 30 Moderate to Strong Positive >30 Performed By: #### L 3410.2350, L3890.6005, L502.0500, L501.9985, L3000.0375, L503.0105, L501.6710, L101.9900, L7000.5300, L500.4100, L501.9520, L509.8000, L3100.6425, L503.6550, L500.4050, L501.3620, L100.0500 ####[facility] [address] [place], [address] ANTIGLIADIN IGG 2 units Normal 0-19 [facility] Comment on above: Order Comment: Test( s) 405608-Uuat, Blood; 756303-Abtwmdk, Blood; 220397-Vmffghj, Bloodwas developed and its performance characteristicsdetermined by [employer]. It has not been cleared or approvedby the Food and Drug Administration. Result Comment: Nega tive 0 - 19 Weak Positive 20 - 30 Moderate to Strong Positive >30 Performed By: #### L 3410.2350, L3890.6005, L502.0500, L501.9985, L3000.0375, L503.0105, L501.6710, L101.9900, L7000.5300, L500.4100, L501.9520, L509.8000, L3100.6425, L503.6550, L500.4050, L501.3620, L100.0500 ####[facility] [address] [place], [place], [id number] ENDOMYSIAL IGA Negative Normal Negative [facility] Comment on above: Order Comment: Test( s) 600699-Bdts, Blood; 007187-Osprpfk, Blood; 893483-Dbdkndy, Bloodwas developed and its performance characteristicsdetermined by [employer]. It has not been cleared or approvedby the Food and Drug Administration. Performed By: #### L 3410.2350, L3890.6005, L502.0500, L501.9985, L3000.0375, L503.0105, L501.6710, L101.9900, L7000.5300, L500.4100, L501.9520, L509.8000, L3100.6425, L503.6550, L500.4050, L501.3620, L100.0500 ####[facility] [address] [place], [address] IMMUNOGLOB A QN 140 mg/dL Normal 87-352 [facility] Comment on above: Order Comment: Test( s) 617600-Evxh, Blood; 099483-Rezcvhl, Blood; 568689-Yzbpkgu, Bloodwas developed and its performance characteristicsdetermined by [employer]. It has not been cleared or approvedby the Food and Drug Administration. Performed By: #### L 3410.2350, L3890.6005, L502.0500, L501.9985, L3000.0375, L503.0105, L501.6710, L101.9900, L7000.5300, L500.4100, L501.9520, L509.8000, L3100.6425, L503.6550, L500.4050, L501.3620, L100.0500 ####[facility] [address] [place], [address] tTG IGA <2 Normal 0-3 [facility] Comment on above: Order Comment: Test( s) 871355-Uhex, Blood; 464018-Whtandb, Blood; 010902-Bbsuoxf, Bloodwas developed and its performance characteristicsdetermined by [employer]. It has not been cleared or approvedby the Food and Drug Administration. Result Comment: Nega tive 0 - 3 Weak Positive 4 - 10 Positive >10 Tissue Transglutaminase (tTG) has been identified as the endomysial antigen. Studies have demonstr- ated that endomysial IgA antibodies have over 99% specificity for gluten sensitive enteropathy. Performed By: #### L 3410.2350, L3890.6005, L502.0500, L501.9985, L3000.0375, L503.0105, L501.6710, L101.9900, L7000.5300, L500.4100, L501.9520, L509.8000, L3100.6425, L503.6550, L500.4050, L501.3620, L100.0500 ####[facility] [address] [place], [address] tTG IGG <2 Normal 0-5 [facility] Comment on above: Order Comment: Test( s) 544221-Crnc, Blood; 080702-Xlwafqr, Blood; 423875-Dnjxuna, Bloodwas developed and its performance characteristicsdetermined by [employer]. It has not been cleared or approvedby the Food and Drug Administration. Result Comment: Nega tive 0 - 5 Weak Positive 6 - 9 Positive >9 Performed By: #### L 3410.2350, L3890.6005, L502.0500, L501.9985, L3000.0375, L503.0105, L501.6710, L101.9900, L7000.5300, L500.4100, L501.9520, L509.8000, L3100.6425, L503.6550, L500.4050, L501.3620, L100.0500 ####[facility] [address] [place], [place], [id number] Heavy Metals, Bloodon 2023 ARSENIC,BLOOD 3 ug/L Normal 0-9 [facility] Comment on above: Order Comment: Test( s) 153797-Lohu, Blood; 566260-Csbiuqv, Blood; 444490-Mnpnxde, Bloodwas developed and its performance characteristicsdetermined by [employer]. It has not been cleared or approvedby the Food and Drug Administration. Result Comment: Dete ction Limit = 1 Performed By: #### L 3410.2350, L3890.6005, L502.0500, L501.9985, L3000.0375, L503.0105, L501.6710, L101.9900, L7000.5300, L500.4100, L501.9520, L509.8000, L3100.6425, L503.6550, L500.4050, L501.3620, L100.0500 ####[facility] [address] [place], [address] LEAD, BLOOD 2.3 ug/dL Normal 0.0-3.4 [facility] Comment on above: Order Comment: Test( s) 185660-Kpis, Blood; 454979-Meluxik, Blood; 425219-Abdlgby, Bloodwas developed and its performance characteristicsdetermined by [employer]. It has not been cleared or approvedby the Food and Drug Administration. Result Comment: Test ing performed by Inductively coupled plasma/MassSpectrometry. Environmental Exposure: WHO Recommendation <5.0 Occupational Exposure: OSHA Lead Std 40.0 KRISTIE 30.0 Detection Limit = 1.0 Performed By: #### L 3410.2350, L3890.6005, L502.0500, L501.9985, L3000.0375, L503.0105, L501.6710, L101.9900, L7000.5300, L500.4100, L501.9520, L509.8000, L3100.6425, L503.6550, L500.4050, L501.3620, L100.0500 ####[facility] [address] [facility] [address] [place], [place], [id number] MERCURY,BLOOD < 1.0 Normal 0.0-14.9 [facility] Comment on above: Order Comment: Test( s) 197431-Kdsi, Blood; 857770-Znuuxds, Blood; 259333-Ssddlrj, Bloodwas developed and its performance characteristicsdetermined by [employer]. It has not been cleared or approvedby the Food and Drug Administration. Result Comment: Dete ction Limit = 1.0 Performed By: #### L 3410.2350, L3890.6005, L502.0500, L501.9985, L3000.0375, L503.0105, L501.6710, L101.9900, L7000.5300, L500.4100, L501.9520, L509.8000, L3100.6425, L503.6550, L500.4050, L501.3620, L100.0500 ####[facility] [address] [place], [address] Hepatitis Panel Acuteon 08-0 COMMENT Comment Normal . [facility] Comment on above: Order Comment: Test( s) 404140-Ruyk, Blood; 231509-Fnzdzwl, Blood; 579266-Rropmyi, Bloodwas developed and its performance characteristicsdetermined by [employer]. It has not been cleared or approvedby the Food and Drug Administration. Result Comment: Not infected with HCV unless early or acute infection issuspected (which may be delayed in an immunocompromisedindividual), or other evidence exists to indicate HCVinfection. Performed By: #### L 3410.2350, L3890.6005, L502.0500, L501.9985, L3000.0375, L503.0105, L501.6710, L101.9900, L7000.5300, L500.4100, L501.9520, L509.8000, L3100.6425, L503.6550, L500.4050, L501.3620, L100.0500 ####[facility] [address] [place], [place], [id number] HEP B CORE,IgM Negative Normal Negative [facility] Comment on above: Order Comment: Test( s) 254943-Gfmr, Blood; 511133-Csiclis, Blood; 605591-Jaxbwaj, Bloodwas developed and its performance characteristicsdetermined by [employer]. It has not been cleared or approvedby the Food and Drug Administration. Performed By: #### L 3410.2350, L3890.6005, L502.0500, L501.9985, L3000.0375, L503.0105, L501.6710, L101.9900, L7000.5300, L500.4100, L501.9520, L509.8000, L3100.6425, L503.6550, L500.4050, L501.3620, L100.0500 ####[facility] [address] [place], [place], [id number] HEP B SURF AG Negative Normal Negative [facility] Comment on above: Order Comment: Test( s) 218755-Fcht, Blood; 048530-Iyiwyub, Blood; 907781-Aegcgkm, Bloodwas developed and its performance characteristicsdetermined by [facility]. It has not been cleared or approvedby the Food and Drug Administration. Performed By: #### L 3410.2350, L3890.6005, L502.0500, L501.9985, L3000.0375, L503.0105, L501.6710, L101.9900, L7000.5300, L500.4100, L501.9520, L509.8000, L3100.6425, L503.6550, L500.4050, L501.3620, L100.0500 ####[facility] [address] [place], [address] HEP C VIRUS AB Non-Reactive Normal Non Reactive [facility] Comment on above: Order Comment: Test( s) 356145-Glze, Blood; 128286-Uxvuqkc, Blood; 052615-Afbwpiu, Bloodwas developed and its performance characteristicsdetermined by [facility]. It has not been cleared or approvedby the Food and Drug Administration. Performed By: #### L 3410.2350, L3890.6005, L502.0500, L501.9985, L3000.0375, L503.0105, L501.6710, L101.9900, L7000.5300, L500.4100, L501.9520, L509.8000, L3100.6425, L503.6550, L500.4050, L501.3620, L100.0500 ####[facility] [address] [place], [place], [id number] HEPATITIS A-IgM Negative Normal Negative [facility] Comment on above: Order Comment: Test( s) 344406-Weqq, Blood; 219390-Pszozna, Blood; 879214-Bqdaqxs, Bloodwas developed and its performance characteristicsdetermined by [facility]. It has not been cleared or approvedby the Food and Drug Administration. Performed By: #### L 3410.2350, L3890.6005, L502.0500, L501.9985, L3000.0375, L503.0105, L501.6710, L101.9900, L7000.5300, L500.4100, L501.9520, L509.8000, L3100.6425, L503.6550, L500.4050, L501.3620, L100.0500 ####[facility] [address] [place], [place], [address] Lyme Screen W/Reflex WBon LYME SCREEN Ab Negative Normal Negative [facility] Comment on above: Order Comment: Test( s) [id number]-Nsok, Blood; 870920-Dvyilzx, Blood; 758046-Xetkfqg, Bloodwas developed and its performance characteristicsdetermined by [facility]. It has not been cleared or approvedby the Food and Drug Administration. Result Comment: Lyme antibodies not detected. Reflex testing is notindicated.No laboratory evidence of infection with B. burgdorferi(Lyme disease). Negative results may occur in patientsrecently infected (less than or equal to 14 days) with B.burgdorferi. If recent infection is suspected, repeattesting on a new sample collected in 7 to 14 days isrecommended.Performed at: [address] [id number] Director: Braden Collado PhD, Phone: [phone] at: [address] [id number] Director: Rio Rondon MD, Phone: [phone] Performed By: #### L 3410.2350, L3890.6005, L502.0500, L501.9985, L3000.0375, L503.0105, L501.6710, L101.9900, L7000.5300, L500.4100, L501.9520, L509.8000, L3100.6425, L503.6550, L500.4050, L501.3620, L100.0500 ####[facility] [address] [place], [address] CPK Total, Creatine Kinaseon 05-23-2024 CPK TOTAL 97 U/L Normal 26-192 [facility] Comment on above: Performed By: #### L 3410.2350, L3890.6005, L502.0500, L501.9985, L3000.0375, L503.0105, L501.6710, L101.9900, L7000.5300, L500.4100, L501.9520, L509.8000, L3100.6425, L503.6550, L500.4050, L501.3620, L100.0500 ####[facility] [address] [place], [address] CBC-Complete Blood Cnt No Di ffon 05-22-2024 Erythrocyte distribution width (RBC) [Ratio] 13.9 % Normal 11.6-14.6 [facility] Comment on above: Performed By: #### L 3410.2350, L3890.6005, L502.0500, L501.9985, L3000.0375, L503.0105, L501.6710, L101.9900, L7000.5300, L500.4100, L501.9520, L509.8000, L3100.6425, L503.6550, L500.4050, L501.3620, L100.0500 ####[facility] [address] [place], [address] Hematocrit (Bld) [Volume fraction] 40.3 % Normal 37-47 [facility] Comment on above: Performed By: #### L 3410.2350, L3890.6005, L502.0500, L501.9985, L3000.0375, L503.0105, L501.6710, L101.9900, L7000.5300, L500.4100, L501.9520, L509.8000, L3100.6425, L503.6550, L500.4050, L501.3620, L100.0500 ####[facility] [address] [facility] [place], [place], [phone](779) Hemoglobin (Bld) [Mass/Vol] 13.1 g/dL Normal 12.0-15.0 [facility] Comment on above: Performed By: #### L 3410.2350, L3890.6005, L502.0500, L501.9985, L3000.0375, L503.0105, L501.6710, L101.9900, L7000.5300, L500.4100, L501.9520, L509.8000, L3100.6425, L503.6550, L500.4050, L501.3620, L100.0500 ####[facility] [address] [facility] [place], [place], [phone] MCH (RBC) [Entitic mass] 29.8 pg Normal 27.0-32.0 [facility] Comment on above: Performed By: #### L 3410.2350, L3890.6005, L502.0500, L501.9985, L3000.0375, L503.0105, L501.6710, L101.9900, L7000.5300, L500.4100, L501.9520, L509.8000, L3100.6425, L503.6550, L500.4050, L501.3620, L100.0500 ####[facility] [address] [facility] [place], [place], [address] MCHC (RBC) [Mass/Vol] 32.5 g/dL Normal 32-36 [facility] Comment on above: Performed By: #### L 3410.2350, L3890.6005, L502.0500, L501.9985, L3000.0375, L503.0105, L501.6710, L101.9900, L7000.5300, L500.4100, L501.9520, L509.8000, L3100.6425, L503.6550, L500.4050, L501.3620, L100.0500 ####[facility] [address] [place], [address] MCV (RBC) [Entitic vol] 91.8 fL Normal 81-99 [facility] Comment on above: Performed By: #### L 3410.2350, L3890.6005, L502.0500, L501.9985, L3000.0375, L503.0105, L501.6710, L101.9900, L7000.5300, L500.4100, L501.9520, L509.8000, L3100.6425, L503.6550, L500.4050, L501.3620, L100.0500 ####[facility] [address] [place], [address] Platelet mean volume (Bld) [Entitic vol] 9.8 fL Normal 6.2-12.0 [facility] Comment on above: Performed By: #### L 3410.2350, L3890.6005, L502.0500, L501.9985, L3000.0375, L503.0105, L501.6710, L101.9900, L7000.5300, L500.4100, L501.9520, L509.8000, L3100.6425, L503.6550, L500.4050, L501.3620, L100.0500 ####[facility] [address] [place], [address] Platelets (Bld) [#/Vol] 325 10*3/uL Normal 150-450 [facility] Comment on above: Performed By: #### L 3410.2350, L3890.6005, L502.0500, L501.9985, L3000.0375, L503.0105, L501.6710, L101.9900, L7000.5300, L500.4100, L501.9520, L509.8000, L3100.6425, L503.6550, L500.4050, L501.3620, L100.0500 ####[facility] [address] [place], [place], [phone](658) RBC (Bld) [#/Vol] 4.39 10*6/uL Normal 4.2-5.4 [facility] Comment on above: Performed By: #### L 3410.2350, L3890.6005, L502.0500, L501.9985, L3000.0375, L503.0105, L501.6710, L101.9900, L7000.5300, L500.4100, L501.9520, L509.8000, L3100.6425, L503.6550, L500.4050, L501.3620, L100.0500 ####[facility] [address] [place], [place], [phone](243) RDW SD 47.2 fl High 35.1-43.9 [facility] Comment on above: Performed By: #### L 3410.2350, L3890.6005, L502.0500, L501.9985, L3000.0375, L503.0105, L501.6710, L101.9900, L7000.5300, L500.4100, L501.9520, L509.8000, L3100.6425, L503.6550, L500.4050, L501.3620, L100.0500 ####[facility] [address] [place], [place], [phone](828) WBC (Bld) [#/Vol] 9.1 10*3/uL Normal 4.4-11.0 [facility] Comment on above: Performed By: #### L 3410.2350, L3890.6005, L502.0500, L501.9985, L3000.0375, L503.0105, L501.6710, L101.9900, L7000.5300, L500.4100, L501.9520, L509.8000, L3100.6425, L503.6550, L500.4050, L501.3620, L100.0500 ####[facility] [address] [facility] [place], [place], [phone] CRPon 05-22-2024 C-REACTIVE PROT < 2.90 Normal 0.0-3.0 [facility] Comment on above: Result Comment: C-Re active Protein (CRP) provides useful information for thediagnosis, therapy and monitoring of inflammatory processesand associated diseases. For the evaluation of Relative Riskfor Cardiovascular Disease, a High Sensitivity CRP (HSCRP)should be ordered. Performed By: #### L 3410.2350, L3890.6005, L502.0500, L501.9985, L3000.0375, L503.0105, L501.6710, L101.9900, L7000.5300, L500.4100, L501.9520, L509.8000, L3100.6425, L503.6550, L500.4050, L501.3620, L100.0500 ####[facility] [address] [facility] [place], [place], [phone] Comprehensive Metabolic Prof ilon 05-22-2024 Albumin [Mass/Vol] 3.7 g/dL Normal 3.2-5.0 [facility] Comment on above: Performed By: #### L 3410.2350, L3890.6005, L502.0500, L501.9985, L3000.0375, L503.0105, L501.6710, L101.9900, L7000.5300, L500.4100, L501.9520, L509.8000, L3100.6425, L503.6550, L500.4050, L501.3620, L100.0500 ####[facility] [address] [place], [place], [address] Albumin/Globulin [Mass ratio] 1.2 {ratio} Normal 0.9-2.4 [facility] Comment on above: Performed By: #### L 3410.2350, L3890.6005, L502.0500, L501.9985, L3000.0375, L503.0105, L501.6710, L101.9900, L7000.5300, L500.4100, L501.9520, L509.8000, L3100.6425, L503.6550, L500.4050, L501.3620, L100.0500 ####[facility] [address] [place], [place], [phone] ALK P 110 U/L Normal 45-117 [facility] Comment on above: Performed By: #### L 3410.2350, L3890.6005, L502.0500, L501.9985, L3000.0375, L503.0105, L501.6710, L101.9900, L7000.5300, L500.4100, L501.9520, L509.8000, L3100.6425, L503.6550, L500.4050, L501.3620, L100.0500 ####[facility] [address] [place], [address] ALT [Catalytic activity/Vol] 31 U/L Normal 13-56 [facility] Comment on above: Performed By: #### L 3410.2350, L3890.6005, L502.0500, L501.9985, L3000.0375, L503.0105, L501.6710, L101.9900, L7000.5300, L500.4100, L501.9520, L509.8000, L3100.6425, L503.6550, L500.4050, L501.3620, L100.0500 ####[facility] [address] [place], [place], [phone] AST [Catalytic activity/Vol] 25 U/L Normal 15-37 [facility] Comment on above: Performed By: #### L 3410.2350, L3890.6005, L502.0500, L501.9985, L3000.0375, L503.0105, L501.6710, L101.9900, L7000.5300, L500.4100, L501.9520, L509.8000, L3100.6425, L503.6550, L500.4050, L501.3620, L100.0500 ####[facility] [address] [place], [place], [address] Bilirubin [Mass/Vol] 0.30 mg/dL Normal 0.20-1.00 [facility] Comment on above: Result Comment: For patients on eltrombopag therapy, use of Dimension [place] TBIL is not recommended. Performed By: #### L 3410.2350, L3890.6005, L502.0500, L501.9985, L3000.0375, L503.0105, L501.6710, L101.9900, L7000.5300, L500.4100, L501.9520, L509.8000, L3100.6425, L503.6550, L500.4050, L501.3620, L100.0500 ####[facility] [address] [place], [place], [phone] BUN/CRE 15.2 RATIO Normal 10-20 [facility] Comment on above: Performed By: #### L 3410.2350, L3890.6005, L502.0500, L501.9985, L3000.0375, L503.0105, L501.6710, L101.9900, L7000.5300, L500.4100, L501.9520, L509.8000, L3100.6425, L503.6550, L500.4050, L501.3620, L100.0500 ####[facility] [address] [place], [address] CA,Total 9.6 mg/dL Normal 8.5-10.1 [facility] Comment on above: Performed By: #### L 3410.2350, L3890.6005, L502.0500, L501.9985, L3000.0375, L503.0105, L501.6710, L101.9900, L7000.5300, L500.4100, L501.9520, L509.8000, L3100.6425, L503.6550, L500.4050, L501.3620, L100.0500 ####[facility] [address] [place], [place], [phone](447) Chloride [Moles/Vol] 109 mmol/L High 98-107 [facility] Comment on above: Performed By: #### L 3410.2350, L3890.6005, L502.0500, L501.9985, L3000.0375, L503.0105, L501.6710, L101.9900, L7000.5300, L500.4100, L501.9520, L509.8000, L3100.6425, L503.6550, L500.4050, L501.3620, L100.0500 ####[facility] [address] [place], [place], [phone](892) CO2 [Moles/Vol] 21.0 mmol/L Normal 21.0-32.0 [facility] Comment on above: Performed By: #### L 3410.2350, L3890.6005, L502.0500, L501.9985, L3000.0375, L503.0105, L501.6710, L101.9900, L7000.5300, L500.4100, L501.9520, L509.8000, L3100.6425, L503.6550, L500.4050, L501.3620, L100.0500 ####[facility] [address] [place], [place], [phone] Creatinine [Mass/Vol] 0.98 mg/dL Normal 0.55-1.02 [facility] Comment on above: Result Comment: The validity of the calculated GFR GFRAA in patients over70 years has not been determined. Clinical correlation isessential. Performed By: #### L 3410.2350, L3890.6005, L502.0500, L501.9985, L3000.0375, L503.0105, L501.6710, L101.9900, L7000.5300, L500.4100, L501.9520, L509.8000, L3100.6425, L503.6550, L500.4050, L501.3620, L100.0500 ####[facility] [address] [place], [address] EST GFR - AA 73 mL/min Normal >60 [facility] Comment on above: Result Comment: Afri can Irish GFR Calc Performed By: #### L 3410.2350, L3890.6005, L502.0500, L501.9985, L3000.0375, L503.0105, L501.6710, L101.9900, L7000.5300, L500.4100, L501.9520, L509.8000, L3100.6425, L503.6550, L500.4050, L501.3620, L100.0500 ####[facility] [address] [place], [place], [address] GAP 9 Normal 5-15 [facility] Comment on above: Performed By: #### L 3410.2350, L3890.6005, L502.0500, L501.9985, L3000.0375, L503.0105, L501.6710, L101.9900, L7000.5300, L500.4100, L501.9520, L509.8000, L3100.6425, L503.6550, L500.4050, L501.3620, L100.0500 ####[facility] [address] [facility] [address] [place], [place], [phone](812) GFR/1.73 sq M.predicted among non-blacks MDRD (S/P/Bld) [Vol rate/Area] 61 mL/min/{1.73_m2} Normal >60 [facility] Comment on above: Result Comment: Non- GFR Calc Performed By: #### L 3410.2350, L3890.6005, L502.0500, L501.9985, L3000.0375, L503.0105, L501.6710, L101.9900, L7000.5300, L500.4100, L501.9520, L509.8000, L3100.6425, L503.6550, L500.4050, L501.3620, L100.0500 ####[facility] [address] [place], [place], [phone](007) Globulin (S) [Mass/Vol] 3.2 g/dL Normal 2.2-4.2 [facility] Comment on above: Performed By: #### L 3410.2350, L3890.6005, L502.0500, L501.9985, L3000.0375, L503.0105, L501.6710, L101.9900, L7000.5300, L500.4100, L501.9520, L509.8000, L3100.6425, L503.6550, L500.4050, L501.3620, L100.0500 ####[facility] [address] [place], [address] Glucose [Mass/Vol] 101 mg/dL Normal 74-106 [facility] Comment on above: Result Comment: Fast ing Glucose result from 100 to 125 mg/dLsuggests IMPAIRED HOMEOSTASIS per A.D.A. criteria. Performed By: #### L 3410.2350, L3890.6005, L502.0500, L501.9985, L3000.0375, L503.0105, L501.6710, L101.9900, L7000.5300, L500.4100, L501.9520, L509.8000, L3100.6425, L503.6550, L500.4050, L501.3620, L100.0500 ####[facility] [address] [place], [address] Potassium [Moles/Vol] 3.4 mmol/L Low 3.5-5.1 [facility] Comment on above: Performed By: #### L 3410.2350, L3890.6005, L502.0500, L501.9985, L3000.0375, L503.0105, L501.6710, L101.9900, L7000.5300, L500.4100, L501.9520, L509.8000, L3100.6425, L503.6550, L500.4050, L501.3620, L100.0500 ####[facility] [address] [place], [address] Sodium [Moles/Vol] 139 mmol/L Normal 136-145 [facility] Comment on above: Performed By: #### L 3410.2350, L3890.6005, L502.0500, L501.9985, L3000.0375, L503.0105, L501.6710, L101.9900, L7000.5300, L500.4100, L501.9520, L509.8000, L3100.6425, L503.6550, L500.4050, L501.3620, L100.0500 ####[facility] [address] [place], [place], [phone](993) T PROT 6.9 g/dL Normal 6.4-8.2 [facility] Comment on above: Performed By: #### L 3410.2350, L3890.6005, L502.0500, L501.9985, L3000.0375, L503.0105, L501.6710, L101.9900, L7000.5300, L500.4100, L501.9520, L509.8000, L3100.6425, L503.6550, L500.4050, L501.3620, L100.0500 ####[facility] [address] [place], [place], [phone] Urea nitrogen [Mass/Vol] 15 mg/dL Normal 7-18 [facility] Comment on above: Performed By: #### L 3410.2350, L3890.6005, L502.0500, L501.9985, L3000.0375, L503.0105, L501.6710, L101.9900, L7000.5300, L500.4100, L501.9520, L509.8000, L3100.6425, L503.6550, L500.4050, L501.3620, L100.0500 ####[facility] [address] [place], [place], [phone] Erythrocyte Sed Rateon 05-22 SED RATE 13 mm/hr Normal 0-30 [facility] Comment on above: Performed By: #### L 3410.2350, L3890.6005, L502.0500, L501.9985, L3000.0375, L503.0105, L501.6710, L101.9900, L7000.5300, L500.4100, L501.9520, L509.8000, L3100.6425, L503.6550, L500.4050, L501.3620, L100.0500 ####[facility] [address] [place], [place], [phone] Ferritinon 05-22-2024 Ferritin [Mass/Vol] 111 ng/mL Normal 8-252 [facility] Comment on above: Performed By: #### L 3410.2350, L3890.6005, L502.0500, L501.9985, L3000.0375, L503.0105, L501.6710, L101.9900, L7000.5300, L500.4100, L501.9520, L509.8000, L3100.6425, L503.6550, L500.4050, L501.3620, L100.0500 ####[facility] [address] [place], [place], [address] HIV - WCHon 05-22-2024 HIV Non-Reactive Normal Nonreactive [facility] Comment on above: Performed By: #### L 3410.2350, L3890.6005, L502.0500, L501.9985, L3000.0375, L503.0105, L501.6710, L101.9900, L7000.5300, L500.4100, L501.9520, L509.8000, L3100.6425, L503.6550, L500.4050, L501.3620, L100.0500 ####[facility] [address] [place], [address] Hemoglobin A1con 05-22-2024 HbA1c (Bld) [Mass fraction] 5.0 % Normal 3.8-5.6 [facility] Comment on above: Result Comment: Norm al < 5.7 % Prediabetic 5.7 - 6.4 % Diabetic >or= 6.5 % Please note range changes. Performed By: #### L 3410.2350, L3890.6005, L502.0500, L501.9985, L3000.0375, L503.0105, L501.6710, L101.9900, L7000.5300, L500.4100, L501.9520, L509.8000, L3100.6425, L503.6550, L500.4050, L501.3620, L100.0500 ####[facility] [address] [place], [place], [id number] L509.8000on 05-22-2024 Syphilis Abs Non-Reactive Normal [facility] Comment on above: Performed By: #### L 3410.2350, L3890.6005, L502.0500, L501.9985, L3000.0375, L503.0105, L501.6710, L101.9900, L7000.5300, L500.4100, L501.9520, L509.8000, L3100.6425, L503.6550, L500.4050, L501.3620, L100.0500 ####[facility] [address] [place], [address] Lipid Profileon 05-22-2024 Cholesterol [Mass/Vol] 115 mg/dL Normal 200 [facility] Comment on above: Result Comment: <200 mg/dL Desirable 200-240 mg/dL Borderline >240 mg/dL High Risk Performed By: #### L 3410.2350, L3890.6005, L502.0500, L501.9985, L3000.0375, L503.0105, L501.6710, L101.9900, L7000.5300, L500.4100, L501.9520, L509.8000, L3100.6425, L503.6550, L500.4050, L501.3620, L100.0500 ####[facility] [address] [place], [place], [id number] Cholesterol in HDL [Mass/Vol] 42 mg/dL Normal [facility] Comment on above: Result Comment: The drugs N-Acetylcysteine and Metamizole may falselydepress this assay. Reference Range HDL <40 mg/dL Low HDL Cholesterol HDL >or= 60 mg/dL High HDL Cholesterol Performed By: #### L 3410.2350, L3890.6005, L502.0500, L501.9985, L3000.0375, L503.0105, L501.6710, L101.9900, L7000.5300, L500.4100, L501.9520, L509.8000, L3100.6425, L503.6550, L500.4050, L501.3620, L100.0500 ####[facility] [address] [place], [place], [phone] Cholesterol in LDL [Mass/Vol] 54 mg/dL Normal 0-130 [facility] Comment on above: Performed By: #### L 3410.2350, L3890.6005, L502.0500, L501.9985, L3000.0375, L503.0105, L501.6710, L101.9900, L7000.5300, L500.4100, L501.9520, L509.8000, L3100.6425, L503.6550, L500.4050, L501.3620, L100.0500 ####[facility] [address] [place], [address] Cholesterol in VLDL [Mass/Vol] 19 mg/dL Normal 5-40 [facility] Comment on above: Performed By: #### L 3410.2350, L3890.6005, L502.0500, L501.9985, L3000.0375, L503.0105, L501.6710, L101.9900, L7000.5300, L500.4100, L501.9520, L509.8000, L3100.6425, L503.6550, L500.4050, L501.3620, L100.0500 ####[facility] [address] [place], [address] Triglyceride [Mass/Vol] 95 mg/dL Normal [facility] Comment on above: Result Comment: The drugs N-Acetylcysteine and Metamizole may falselydepress this assay.Serum Triglycerides Reference Interval Normal <150 mg/dL Borderline high 150 - 199 mg/dL High 200 - 499 mg/dL Very High > or = 500 mg/dL Performed By: #### L 3410.2350, L3890.6005, L502.0500, L501.9985, L3000.0375, L503.0105, L501.6710, L101.9900, L7000.5300, L500.4100, L501.9520, L509.8000, L3100.6425, L503.6550, L500.4050, L501.3620, L100.0500 ####[facility] [address] [place], [place], [id number] Microalbumin,Random Urineon 05-22-2024 MICROALBUMIN,UR 6.9 mg/L Normal NO RANGE EST. [facility] Comment on above: Performed By: #### L 3410.2350, L3890.6005, L502.0500, L501.9985, L3000.0375, L503.0105, L501.6710, L101.9900, L7000.5300, L500.4100, L501.9520, L509.8000, L3100.6425, L503.6550, L500.4050, L501.3620, L100.0500 ####[facility] [facility] [address] [place], [place], [id number] Thyroid Stim Hormone (TSH)on 05-22-2024 TSH 0.18 uIU/mL Low 0.358-3.74 [facility] Comment on above: Performed By: #### L 3410.2350, L3890.6005, L502.0500, L501.9985, L3000.0375, L503.0105, L501.6710, L101.9900, L7000.5300, L500.4100, L501.9520, L509.8000, L3100.6425, L503.6550, L500.4050, L501.3620, L100.0500 ####[facility] [address] [place], [place], [id number] Vitamin B12on 05-22-2024 Cobalamin (Vitamin B12) [Mass/Vol] 232 pg/mL Normal 211-911 [facility] Comment on above: Performed By: #### L 3410.2350, L3890.6005, L502.0500, L501.9985, L3000.0375, L503.0105, L501.6710, L101.9900, L7000.5300, L500.4100, L501.9520, L509.8000, L3100.6425, L503.6550, L500.4050, L501.3620, L100.0500 ####[facility] [address] [place], [address] 12 Lead EKGon 05-09-2024 12 Lead EKG Normal [facility] Basic Metabolic Profile (BMP )on 05-09-2024 BUN/CRE 16.0 RATIO Normal 10-20 [facility] Comment on above: Order Comment: 'TROP ' Serial specimen #1, #2 or #3: 1 Performed By: #### L 501.3620, L500.2500, L100.0100, L501.4020 ####[facility] [address] [place], [address] CA,Total 8.8 mg/dL Normal 8.5-10.1 [facility] Comment on above: Order Comment: 'TROP ' Serial specimen #1, #2 or #3: 1 Performed By: #### L 501.3620, L500.2500, L100.0100, L501.4020 ####[facility] [address] [place], [address] Chloride [Moles/Vol] 113 mmol/L High 98-107 [facility] Comment on above: Order Comment: 'TROP ' Serial specimen #1, #2 or #3: 1 Performed By: #### L 501.3620, L500.2500, L100.0100, L501.4020 ####[facility] [address] [place], [address] CO2 [Moles/Vol] 21.0 mmol/L Normal 21.0-32.0 [facility] Comment on above: Order Comment: 'TROP ' Serial specimen #1, #2 or #3: 1 Performed By: #### L 501.3620, L500.2500, L100.0100, L501.4020 ####[facility] [address] [place], [address] Creatinine [Mass/Vol] 0.75 mg/dL Normal 0.55-1.02 [facility] Comment on above: Order Comment: 'TROP ' Serial specimen #1, #2 or #3: 1 Result Comment: The validity of the calculated GFR GFRAA in patients over70 years has not been determined. Clinical correlation isessential. Performed By: #### L 501.3620, L500.2500, L100.0100, L501.4020 ####[facility] [address] [place], [address] ECRCL 69.98 ml/min Normal [facility] Comment on above: Order Comment: 'TROP ' Serial specimen #1, #2 or #3: 1 Performed By: #### L 501.3620, L500.2500, L100.0100, L501.4020 ####[facility] [address] [place], [address] EST GFR - AA 101 mL/min Normal >60 [facility] Comment on above: Order Comment: 'TROP ' Serial specimen #1, #2 or #3: 1 Result Comment: Afri can Irish GFR Calc Performed By: #### L 501.3620, L500.2500, L100.0100, L501.4020 ####[facility] [address] [place], [address] GAP 6 Normal 5-15 [facility] Comment on above: Order Comment: 'TROP ' Serial specimen #1, #2 or #3: 1 Performed By: #### L 501.3620, L500.2500, L100.0100, L501.4020 ####[facility] [address] [place], [address] GFR/1.73 sq M.predicted among non-blacks MDRD (S/P/Bld) [Vol rate/Area] 83 mL/min/{1.73_m2} Normal >60 [facility] Comment on above: Order Comment: 'TROP ' Serial specimen #1, #2 or #3: 1 Result Comment: Non- GFR Calc Performed By: #### L 501.3620, L500.2500, L100.0100, L501.4020 ####[facility] [address] [place], [address] Glucose [Mass/Vol] 109 mg/dL High 74-106 [facility] Comment on above: Order Comment: 'TROP ' Serial specimen #1, #2 or #3: 1 Result Comment: Fast ing Glucose result from 100 to 125 mg/dLsuggests IMPAIRED HOMEOSTASIS per A.D.A. criteria. Performed By: #### L 501.3620, L500.2500, L100.0100, L501.4020 ####[facility] [address] [place], [address] Potassium [Moles/Vol] 3.1 mmol/L Low 3.5-5.1 [facility] Comment on above: Order Comment: 'TROP ' Serial specimen #1, #2 or #3: 1 Performed By: #### L 501.3620, L500.2500, L100.0100, L501.4020 ####[facility] [address] [place], [address] Sodium [Moles/Vol] 140 mmol/L Normal 136-145 [facility] Comment on above: Order Comment: 'TROP ' Serial specimen #1, #2 or #3: 1 Performed By: #### L 501.3620, L500.2500, L100.0100, L501.4020 ####[facility] [address] [place], [address] Urea nitrogen [Mass/Vol] 12 mg/dL Normal 7-18 [facility] Comment on above: Order Comment: 'TROP ' Serial specimen #1, #2 or #3: 1 Performed By: #### L 501.3620, L500.2500, L100.0100, L501.4020 ####[facility] [address] [place], [address] CBC W/Diff, Automatedon 04-22 Absolute Lymph 1.89 X10 3/uL Normal 0.83-4.51 [facility] Comment on above: Performed By: #### L 501.3620, L500.2500, L100.0100, L501.4020 ####[facility] [address] [place], [address] Absolute Neut 3.9 X10 3/uL Normal 2.0-7.7 [facility] Comment on above: Performed By: #### L 501.3620, L500.2500, L100.0100, L501.4020 ####[facility] [address] [place], [address] Basophils/100 WBC (Bld) 1.1 % High 0-1 [facility] Comment on above: Performed By: #### L 501.3620, L500.2500, L100.0100, L501.4020 ####[facility] [address] [place], [address] Eosinophils/100 WBC (Bld) 0.9 % Normal 0-5 [facility] Comment on above: Performed By: #### L 501.3620, L500.2500, L100.0100, L501.4020 ####[facility] [address] [place], [address] Erythrocyte distribution width (RBC) [Ratio] 14.3 % Normal 11.6-14.6 [facility] Comment on above: Performed By: #### L 501.3620, L500.2500, L100.0100, L501.4020 ####[facility] [address] [place], [address] Hematocrit (Bld) [Volume fraction] 33.8 % Low 37-47 [facility] Comment on above: Performed By: #### L 501.3620, L500.2500, L100.0100, L501.4020 ####[facility] [address] [place], [address] Hemoglobin (Bld) [Mass/Vol] 11.4 g/dL Low 12.0-15.0 [facility] Comment on above: Performed By: #### L 501.3620, L500.2500, L100.0100, L501.4020 ####[facility] [address] [place], [address] IG% 0.300 Normal 0.0-0.9 [facility] Comment on above: Result Comment: IG% - Immature Granulocytes (promyelocytes, myelocytes andmetamyelocytes) > 1% indicates that a LEFT SHIFT is Present. Performed By: #### L 501.3620, L500.2500, L100.0100, L501.4020 ####[facility] [address] [place], [address] Lymphocytes/100 WBC (Bld) 29.7 % Normal 19-41 [facility] Comment on above: Performed By: #### L 501.3620, L500.2500, L100.0100, L501.4020 ####[facility] [address] [place], [address] MCH (RBC) [Entitic mass] 31.1 pg Normal 27.0-32.0 [facility] Comment on above: Performed By: #### L 501.3620, L500.2500, L100.0100, L501.4020 ####[facility] [address] [place], [address] MCHC (RBC) [Mass/Vol] 33.7 g/dL Normal 32-36 [facility] Comment on above: Performed By: #### L 501.3620, L500.2500, L100.0100, L501.4020 ####[facility] [address] [place], [address] MCV (RBC) [Entitic vol] 92.3 fL Normal 81-99 [facility] Comment on above: Performed By: #### L 501.3620, L500.2500, L100.0100, L501.4020 ####[facility] [address] [place], [address] Monocytes/100 WBC (Bld) 7.2 % Normal 0-10 [facility] Comment on above: Performed By: #### L 501.3620, L500.2500, L100.0100, L501.4020 ####[facility] [address] [place], [address] Neutrophils/100 WBC (Bld) 60.8 % Normal 47-70 [facility] Comment on above: Performed By: #### L 501.3620, L500.2500, L100.0100, L501.4020 ####[facility] [address] [place], [address] Nucleated RBC (Bld) [#/Vol] 0 10*3/uL Normal 0-5 [facility] Comment on above: Performed By: #### L 501.3620, L500.2500, L100.0100, L501.4020 ####[facility] [address] [place], [address] Platelet mean volume (Bld) [Entitic vol] 8.9 fL Normal 6.2-12.0 [facility] Comment on above: Performed By: #### L 501.3620, L500.2500, L100.0100, L501.4020 ####[facility] [address] [place], [address] Platelets (Bld) [#/Vol] 354 10*3/uL Normal 150-450 [facility] Comment on above: Performed By: #### L 501.3620, L500.2500, L100.0100, L501.4020 ####[facility] [address] [place], [address] RBC (Bld) [#/Vol] 3.66 10*6/uL Low 4.2-5.4 [facility] Comment on above: Performed By: #### L 501.3620, L500.2500, L100.0100, L501.4020 ####[facility] [address] [place], [address] RDW SD 49.0 fl High 35.1-43.9 [facility] Comment on above: Performed By: #### L 501.3620, L500.2500, L100.0100, L501.4020 ####[facility] [address] [place], [address] WBC (Bld) [#/Vol] 6.4 10*3/uL Normal 4.4-11.0 [facility] Comment on above: Performed By: #### L 501.3620, L500.2500, L100.0100, L501.4020 ####[facility] [address] [place], [address] CPK Total, Creatine Kinaseon 05-09-2024 CPK TOTAL 135 U/L Normal 26-192 [facility] Comment on above: Order Comment: 'TROP ' Serial specimen #1, #2 or #3: 1 Performed By: #### L 501.3620, L500.2500, L100.0100, L501.4020 ####[facility] [address] [place], [address] Chest 1 View (Portable)on Chest 1 View (Portable) Normal [facility] Emergency Department Summary on 05-09-2024 Emergency Department Summary Normal [facility] L501.4020on 05-09-2024 TROPONIN-I HS 4 pg/mL Normal 3.0-54.0 [facility] Comment on above: Order Comment: 'TROP ' Serial specimen #1, #2 or #3: 1 Result Comment: Mervat kim Note: New Test Units and Gender Specific Reference Ranges. For more information see Policy Stat Procedure [place] High Sensitivity Troponin (TNIH) and attachments. Performed By: #### L 501.3620, L500.2500, L100.0100, L501.4020 ####[facility] [address] [place], [address] Lumbar Spine 2 or 3 Viewson 05-09-2024 Lumbar Spine 2 or 3 Views Normal [facility] Urinalysis, Completeon 05-09 BACTERIA 2+ /hpf Normal None Seen [facility] Comment on above: Order Comment: CLEAN CATCH Performed By: #### L 400.0001 ####[facility] [address] [place], [address] EPI,SQUAMOUS 0-5 SEEN Normal 5-10 [facility] Comment on above: Order Comment: CLEAN CATCH Performed By: #### L 400.0001 ####[facility] [address] [place], [address] WBC 0-5 SEEN Normal 0-5 [facility] Comment on above: Order Comment: CLEAN CATCH Performed By: #### L 400.0001 ####[facility] [address] [place], [address] Mucus Ql (Urine sed) 0 SEEN Normal [facility] Comment on above: Order Comment: CLEAN CATCH Performed By: #### L 400.0001 ####[facility] [address] [place], [address] RBC 0 SEEN Normal 0-5 [facility] Comment on above: Order Comment: CLEAN CATCH Performed By: #### L 400.0001 ####[facility] [address] [place], [address] 12 Lead EKGon 05-06-2024 12 Lead EKG Normal [facility] Alcohol, Blood (Medical)-Ser umon 05-06-2024 SERUM ETOH < 3.0 Normal [facility] Comment on above: Result Comment: The serum:whole blood ethanol ratio is approximately 1.14and varies slightly with hematocrit.Medical Alcohol reference interval and critical value innon-tolerant individuals; 50 - 100 Impairment 100 Intoxication 100 - 250 Severe Poisoning 250 - 400 Deep/possible fatal coma Performed By: #### L 500.2500, L505.5000, L501.3620, L100.0100, L501.4020, L501.9100 ####[facility] [address] [place], [address] Basic Metabolic Profile (BMP )on 05-06-2024 BUN/CRE 12.1 RATIO Normal 10-20 [facility] Comment on above: Order Comment: 'TROP ' Serial specimen #1, #2 or #3: 1 Performed By: #### L 500.2500, L505.5000, L501.3620, L100.0100, L501.4020, L501.9100 ####[facility] [address] [place], [address] CA,Total 9.1 mg/dL Normal 8.5-10.1 [facility] Comment on above: Order Comment: 'TROP ' Serial specimen #1, #2 or #3: 1 Performed By: #### L 500.2500, L505.5000, L501.3620, L100.0100, L501.4020, L501.9100 ####[facility] [address] [place], [address] Chloride [Moles/Vol] 112 mmol/L High 98-107 [facility] Comment on above: Order Comment: 'TROP ' Serial specimen #1, #2 or #3: 1 Performed By: #### L 500.2500, L505.5000, L501.3620, L100.0100, L501.4020, L501.9100 ####[facility] [address] [place], [address] CO2 [Moles/Vol] 24.0 mmol/L Normal 21.0-32.0 [facility] Comment on above: Order Comment: 'TROP ' Serial specimen #1, #2 or #3: 1 Performed By: #### L 500.2500, L505.5000, L501.3620, L100.0100, L501.4020, L501.9100 ####[facility] [address] [place], [address] Creatinine [Mass/Vol] 0.99 mg/dL Normal 0.55-1.02 [facility] Comment on above: Order Comment: 'TROP ' Serial specimen #1, #2 or #3: 1 Result Comment: The validity of the calculated GFR GFRAA in patients over70 years has not been determined. Clinical correlation isessential. Performed By: #### L 500.2500, L505.5000, L501.3620, L100.0100, L501.4020, L501.9100 ####[facility] [address] [place], [address] ECRCL 53.02 ml/min Normal [facility] Comment on above: Order Comment: 'TROP ' Serial specimen #1, #2 or #3: 1 Performed By: #### L 500.2500, L505.5000, L501.3620, L100.0100, L501.4020, L501.9100 ####[facility] [address] [place], [address] EST GFR - AA 73 mL/min Normal >60 [facility] Comment on above: Order Comment: 'TROP ' Serial specimen #1, #2 or #3: 1 Result Comment: Afri can Irish GFR Calc Performed By: #### L 500.2500, L505.5000, L501.3620, L100.0100, L501.4020, L501.9100 ####[facility] [address] [place], [address] GAP 6 Normal 5-15 [facility] Comment on above: Order Comment: 'TROP ' Serial specimen #1, #2 or #3: 1 Performed By: #### L 500.2500, L505.5000, L501.3620, L100.0100, L501.4020, L501.9100 ####[facility] [address] [place], [address] GFR/1.73 sq M.predicted among non-blacks MDRD (S/P/Bld) [Vol rate/Area] 60 mL/min/{1.73_m2} Normal >60 [facility] Comment on above: Order Comment: 'TROP ' Serial specimen #1, #2 or #3: 1 Result Comment: Non- GFR Calc Performed By: #### L 500.2500, L505.5000, L501.3620, L100.0100, L501.4020, L501.9100 ####[facility] [address] [place], [address] Glucose [Mass/Vol] 97 mg/dL Normal 74-106 [facility] Comment on above: Order Comment: 'TROP ' Serial specimen #1, #2 or #3: 1 Performed By: #### L 500.2500, L505.5000, L501.3620, L100.0100, L501.4020, L501.9100 ####[facility] [address] [place], [address] Potassium [Moles/Vol] 3.7 mmol/L Normal 3.5-5.1 [facility] Comment on above: Order Comment: 'TROP ' Serial specimen #1, #2 or #3: 1 Performed By: #### L 500.2500, L505.5000, L501.3620, L100.0100, L501.4020, L501.9100 ####[facility] [address] [place], [address] Sodium [Moles/Vol] 142 mmol/L Normal 136-145 [facility] Comment on above: Order Comment: 'TROP ' Serial specimen #1, #2 or #3: 1 Performed By: #### L 500.2500, L505.5000, L501.3620, L100.0100, L501.4020, L501.9100 ####[facility] [address] [place], [address] Urea nitrogen [Mass/Vol] 12 mg/dL Normal 7-18 [facility] Comment on above: Order Comment: 'TROP ' Serial specimen #1, #2 or #3: 1 Performed By: #### L 500.2500, L505.5000, L501.3620, L100.0100, L501.4020, L501.9100 ####[facility] [address] [place], [address] CBC W/Diff, Automatedon 07-10 27-2023 Absolute Lymph 1.58 X10 3/uL Normal 0.83-4.51 [facility] Comment on above: Performed By: #### L 500.2500, L505.5000, L501.3620, L100.0100, L501.4020, L501.9100 ####[facility] [address] [place], [address] Absolute Neut 3.4 X10 3/uL Normal 2.0-7.7 [facility] Comment on above: Performed By: #### L 500.2500, L505.5000, L501.3620, L100.0100, L501.4020, L501.9100 ####[facility] [address] [place], [address] Basophils/100 WBC (Bld) 1.5 % High 0-1 [facility] Comment on above: Performed By: #### L 500.2500, L505.5000, L501.3620, L100.0100, L501.4020, L501.9100 ####[facility] [address] [place], [address] Eosinophils/100 WBC (Bld) 4.5 % Normal 0-5 [facility] Comment on above: Performed By: #### L 500.2500, L505.5000, L501.3620, L100.0100, L501.4020, L501.9100 ####[facility] [address] [place], [address] Erythrocyte distribution width (RBC) [Ratio] 14.6 % Normal 11.6-14.6 [facility] Comment on above: Performed By: #### L 500.2500, L505.5000, L501.3620, L100.0100, L501.4020, L501.9100 ####[facility] [address] [place], [address] Hematocrit (Bld) [Volume fraction] 38.6 % Normal 37-47 [facility] Comment on above: Performed By: #### L 500.2500, L505.5000, L501.3620, L100.0100, L501.4020, L501.9100 ####[facility] [address] [place], [address] Hemoglobin (Bld) [Mass/Vol] 12.1 g/dL Normal 12.0-15.0 [facility] Comment on above: Performed By: #### L 500.2500, L505.5000, L501.3620, L100.0100, L501.4020, L501.9100 ####[facility] [address] [place], [address] IG% 0.200 Normal 0.0-0.9 [facility] Comment on above: Result Comment: IG% - Immature Granulocytes (promyelocytes, myelocytes andmetamyelocytes) > 1% indicates that a LEFT SHIFT is Present. Performed By: #### L 500.2500, L505.5000, L501.3620, L100.0100, L501.4020, L501.9100 ####[facility] [address] [place], [address] Lymphocytes/100 WBC (Bld) 26.1 % Normal 19-41 [facility] Comment on above: Performed By: #### L 500.2500, L505.5000, L501.3620, L100.0100, L501.4020, L501.9100 ####[facility] [address] [place], [address] MCH (RBC) [Entitic mass] 29.8 pg Normal 27.0-32.0 [facility] Comment on above: Performed By: #### L 500.2500, L505.5000, L501.3620, L100.0100, L501.4020, L501.9100 ####[facility] [address] [place], [address] MCHC (RBC) [Mass/Vol] 31.3 g/dL Low 32-36 [facility] Comment on above: Performed By: #### L 500.2500, L505.5000, L501.3620, L100.0100, L501.4020, L501.9100 ####[facility] [address] [place], [address] MCV (RBC) [Entitic vol] 95.1 fL Normal 81-99 [facility] Comment on above: Performed By: #### L 500.2500, L505.5000, L501.3620, L100.0100, L501.4020, L501.9100 ####[facility] [address] [place], [address] Monocytes/100 WBC (Bld) 11.2 % High 0-10 [facility] Comment on above: Performed By: #### L 500.2500, L505.5000, L501.3620, L100.0100, L501.4020, L501.9100 ####[facility] [address] [place], [address] Neutrophils/100 WBC (Bld) 56.5 % Normal 47-70 [facility] Comment on above: Performed By: #### L 500.2500, L505.5000, L501.3620, L100.0100, L501.4020, L501.9100 ####[facility] [address] [place], [address] Nucleated RBC (Bld) [#/Vol] 0 10*3/uL Normal 0-5 [facility] Comment on above: Performed By: #### L 500.2500, L505.5000, L501.3620, L100.0100, L501.4020, L501.9100 ####[facility] [address] [place], [address] Platelet mean volume (Bld) [Entitic vol] 9.0 fL Normal 6.2-12.0 [facility] Comment on above: Performed By: #### L 500.2500, L505.5000, L501.3620, L100.0100, L501.4020, L501.9100 ####[facility] [address] [place], [address] Platelets (Bld) [#/Vol] 314 10*3/uL Normal 150-450 [facility] Comment on above: Performed By: #### L 500.2500, L505.5000, L501.3620, L100.0100, L501.4020, L501.9100 ####[facility] [address] [place], [address] RBC (Bld) [#/Vol] 4.06 10*6/uL Low 4.2-5.4 [facility] Comment on above: Performed By: #### L 500.2500, L505.5000, L501.3620, L100.0100, L501.4020, L501.9100 ####[facility] [address] [place], [address] RDW SD 51.3 fl High 35.1-43.9 [facility] Comment on above: Performed By: #### L 500.2500, L505.5000, L501.3620, L100.0100, L501.4020, L501.9100 ####[facility] [address] [place], [address] WBC (Bld) [#/Vol] 6.1 10*3/uL Normal 4.4-11.0 [facility] Comment on above: Performed By: #### L 500.2500, L505.5000, L501.3620, L100.0100, L501.4020, L501.9100 ####[facility] [address] [place], [address] CPK Total, Creatine Kinaseon 05-06-2024 CPK TOTAL 256 U/L High 26-192 [facility] Comment on above: Order Comment: 'TROP ' Serial specimen #1, #2 or #3: 1 Performed By: #### L 500.2500, L505.5000, L501.3620, L100.0100, L501.4020, L501.9100 ####[facility] [address] [place], [address] Chest 1 View (Portable)on Chest 1 View (Portable) Normal [facility] Emergency Department Summary on 05-06-2024 Emergency Department Summary Normal [facility] L501.4020on 05-06-2024 TROPONIN-I HS 4 pg/mL Normal 3.0-54.0 [facility] Comment on above: Order Comment: 'TROP ' Serial specimen #1, #2 or #3: 1 Result Comment: Mervat kim Note: New Test Units and Gender Specific Reference Ranges. For more information see Policy Stat Procedure [place] High Sensitivity Troponin (TNIH) and attachments. Performed By: #### L 500.2500, L505.5000, L501.3620, L100.0100, L501.4020, L501.9100 ####[facility] [address] [place], [address] Urinalysis, Completeon 05-06 BACTERIA 0 SEEN Normal None Seen [facility] Comment on above: Order Comment: CLEAN CATCH Performed By: #### L 400.0001 ####[facility] [address] [place], [address] EPI,SQUAMOUS 0 SEEN Normal 5-10 [facility] Comment on above: Order Comment: CLEAN CATCH Performed By: #### L 400.0001 ####[facility] [address] [place], [address] Mucus Ql (Urine sed) 0 SEEN Normal [facility] Comment on above: Order Comment: CLEAN CATCH Performed By: #### L 400.0001 ####[facility] [address] [place], [address] RBC 0 SEEN Normal 0-5 [facility] Comment on above: Order Comment: CLEAN CATCH Performed By: #### L 400.0001 ####[facility] [address] [place], [address] WBC 0 SEEN Normal 0-5 [facility] Comment on above: Order Comment: CLEAN CATCH Performed By: #### L 400.0001 ####[facility] [address] [place], [address] Urine Drug Screen (VISTA)on 05-06-2024 AMPHETAMINES Negative Normal <1000 ng/mL [facility] Comment on above: Performed By: #### L 500.2500, L505.5000, L501.3620, L100.0100, L501.4020, L501.9100 ####[facility] [address] [place] [address] BARBITIURATES Negative Normal < 200 ng/mL [facility] Comment on above: Performed By: #### L 500.2500, L505.5000, L501.3620, L100.0100, L501.4020, L501.9100 ####[facility] [address] [place] [address] BENZODIAZIPINE Negative Normal < 200 ng/mL [facility] Comment on above: Performed By: #### L 500.2500, L505.5000, L501.3620, L100.0100, L501.4020, L501.9100 ####[facility] [address] [place] [address] COCAINE Negative Normal < 300 ng/mL [facility] Comment on above: Performed By: #### L 500.2500, L505.5000, L501.3620, L100.0100, L501.4020, L501.9100 ####[facility] [address] [place] [address] ECSTACY Negative Normal < 500 ng/mL [facility] Comment on above: Performed By: #### L 500.2500, L505.5000, L501.3620, L100.0100, L501.4020, L501.9100 ####[facility] [address] [place] [address] METHADONE Negative Normal < 300 ng/mL [facility] Comment on above: Performed By: #### L 500.2500, L505.5000, L501.3620, L100.0100, L501.4020, L501.9100 ####[facility] [address] [place] [address] OPIATES Negative Normal < 300 ng/mL [facility] Comment on above: Performed By: #### L 500.2500, L505.5000, L501.3620, L100.0100, L501.4020, L501.9100 ####[facility] [address] [place], [address] PCP Negative Normal < 25 ng/mL [facility] Comment on above: Performed By: #### L 500.2500, L505.5000, L501.3620, L100.0100, L501.4020, L501.9100 ####[facility] [address] [place], [address] THC Positive Abnormal < 50 ng/mL [facility] Comment on above: Performed By: #### L 500.2500, L505.5000, L501.3620, L100.0100, L501.4020, L501.9100 ####[facility] [address] [place], [address] VISTA UDS PH 6 Normal [facility] Comment on above: Performed By: #### L 500.2500, L505.5000, L501.3620, L100.0100, L501.4020, L501.9100 ####[facility] [address] [place], [address] Basic Metabolic Profile (BMP )on 03-28-2024 BUN Normal 7-18 [facility] Comment on above: Result Comment: Canc elled via OM: Order cancelled - Patient discharged Performed By: #### L 100.0100, L500.2500 ####[facility] [address] [place], [address] BUN/CRE Normal 10-20 [facility] Comment on above: Result Comment: Canc elled via OM: Order cancelled - Patient discharged Performed By: #### L 100.0100, L500.2500 ####[facility] [address] [place], [address] CA,Total Normal 8.5-10.1 [facility] Comment on above: Result Comment: Canc elled via OM: Order cancelled - Patient discharged Performed By: #### L 100.0100, L500.2500 ####[facility] [address] [place], [address] CL Normal 98-107 [facility] Comment on above: Result Comment: Canc elled via OM: Order cancelled - Patient discharged Performed By: #### L 100.0100, L500.2500 ####[facility] [address] [place], [address] CO2 Normal 21.0-32.0 [facility] Comment on above: Result Comment: Canc elled via OM: Order cancelled - Patient discharged Performed By: #### L 100.0100, L500.2500 ####[facility] [address] [place], [address] CREAT,SERUM Normal 0.55-1.02 [facility] Comment on above: Result Comment: Canc elled via OM: Order cancelled - Patient discharged Performed By: #### L 100.0100, L500.2500 ####[facility] [address] [place], [address] EST GFR Normal >60 [facility] Comment on above: Result Comment: Canc elled via OM: Order cancelled - Patient discharged Performed By: #### L 100.0100, L500.2500 ####[facility] [address] [place], [address] EST GFR - AA Normal >60 [facility] Comment on above: Result Comment: Canc elled via OM: Order cancelled - Patient discharged Performed By: #### L 100.0100, L500.2500 ####[facility] [address] [place], [address] GAP Normal 5-15 [facility] Comment on above: Result Comment: Canc elled via OM: Order cancelled - Patient discharged Performed By: #### L 100.0100, L500.2500 ####[facility] [address] [place], [address] GLU Normal 74-106 [facility] Comment on above: Result Comment: Canc elled via OM: Order cancelled - Patient discharged Performed By: #### L 100.0100, L500.2500 ####[facility] [address] [place], [address] Potassium Normal 3.5-5.1 [facility] Comment on above: Result Comment: Canc elled via OM: Order cancelled - Patient discharged Performed By: #### L 100.0100, L500.2500 ####[facility] [address] [place], [address] Basic Metabolic Profile (BMP) Normal 136-145 [facility] Comment on above: Result Comment: Canc elled via OM: Order cancelled - Patient discharged Performed By: #### L 100.0100, L500.2500 ####[facility] [address] [place], [address] CBC W/Diff, Automatedon 06-0 -2023 Absolute Neut Normal 2.0-7.7 [facility] Comment on above: Result Comment: Canc elled via OM: Order cancelled - Patient discharged Performed By: #### L 100.0100, L500.2500 ####[facility] [address] [place], [address] HCT Normal 37-47 [facility] Comment on above: Result Comment: Canc elled via OM: Order cancelled - Patient discharged Performed By: #### L 100.0100, L500.2500 ####[facility] [address] [place], [address] HGB Normal 12.0-15.0 [facility] Comment on above: Result Comment: Canc elled via OM: Order cancelled - Patient discharged Performed By: #### L 100.0100, L500.2500 ####[facility] [address] [place], [address] MCH Normal 27.0-32.0 [facility] Comment on above: Result Comment: Canc elled via OM: Order cancelled - Patient discharged Performed By: #### L 100.0100, L500.2500 ####[facility] [address] [place], [address] MCHC Normal 32-36 [facility] Comment on above: Result Comment: Canc elled via OM: Order cancelled - Patient discharged Performed By: #### L 100.0100, L500.2500 ####[facility] [address] [place], [address] MCV Normal 81-99 [facility] Comment on above: Result Comment: Canc elled via OM: Order cancelled - Patient discharged Performed By: #### L 100.0100, L500.2500 ####[facility] [address] [place], [address] NEUT% Normal 47-70 [facility] Comment on above: Result Comment: Canc elled via OM: Order cancelled - Patient discharged Performed By: #### L 100.0100, L500.2500 ####[facility] [address] [place], [address] PLT Normal 150-450 [facility] Comment on above: Result Comment: Canc elled via OM: Order cancelled - Patient discharged Performed By: #### L 100.0100, L500.2500 ####[facility] [address] [place], [address] RBC Normal 4.2-5.4 [facility] Comment on above: Result Comment: Canc elled via OM: Order cancelled - Patient discharged Performed By: #### L 100.0100, L500.2500 ####[facility] [address] [place], [address] RDW CV Normal 11.6-14.6 [facility] Comment on above: Result Comment: Canc elled via OM: Order cancelled - Patient discharged Performed By: #### L 100.0100, L500.2500 ####[facility] [address] [place], [address] RDW SD Normal 35.1-43.9 [facility] Comment on above: Result Comment: Canc elled via OM: Order cancelled - Patient discharged Performed By: #### L 100.0100, L500.2500 ####[facility] [address] [place], [address] WBC Normal 4.4-11.0 [facility] Comment on above: Result Comment: Canc elled via OM: Order cancelled - Patient discharged Performed By: #### L 100.0100, L500.2500 ####[facility] [address] [place], [address] Basic Metabolic Profile (BMP )on 03-27-2024 BUN Normal 7-18 [facility] Comment on above: Result Comment: Canc elled via OM: Order cancelled - Patient discharged Performed By: #### L 100.0100, L500.2500 ####[facility] [address] [place], [address] BUN/CRE Normal 10-20 [facility] Comment on above: Result Comment: Canc elled via OM: Order cancelled - Patient discharged Performed By: #### L 100.0100, L500.2500 ####[facility] [address] [place], [address] CA,Total Normal 8.5-10.1 [facility] Comment on above: Result Comment: Canc elled via OM: Order cancelled - Patient discharged Performed By: #### L 100.0100, L500.2500 ####[facility] [address] [place], [address] CL Normal 98-107 [facility] Comment on above: Result Comment: Canc elled via OM: Order cancelled - Patient discharged Performed By: #### L 100.0100, L500.2500 ####[facility] [address] [place], [address] CO2 Normal 21.0-32.0 [facility] Comment on above: Result Comment: Canc elled via OM: Order cancelled - Patient discharged Performed By: #### L 100.0100, L500.2500 ####[facility] [address] [place], [address] CREAT,SERUM Normal 0.55-1.02 [facility] Comment on above: Result Comment: Canc elled via OM: Order cancelled - Patient discharged Performed By: #### L 100.0100, L500.2500 ####[facility] [address] [place], [address] EST GFR Normal >60 [facility] Comment on above: Result Comment: Canc elled via OM: Order cancelled - Patient discharged Performed By: #### L 100.0100, L500.2500 ####[facility] [address] [place], [address] EST GFR - AA Normal >60 [facility] Comment on above: Result Comment: Canc elled via OM: Order cancelled - Patient discharged Performed By: #### L 100.0100, L500.2500 ####[facility] [address] [place], [address] GAP Normal 5-15 [facility] Comment on above: Result Comment: Canc elled via OM: Order cancelled - Patient discharged Performed By: #### L 100.0100, L500.2500 ####[facility] [address] [place], [address] GLU Normal 74-106 [facility] Comment on above: Result Comment: Canc elled via OM: Order cancelled - Patient discharged Performed By: #### L 100.0100, L500.2500 ####[facility] [address] [place], [address] Potassium Normal 3.5-5.1 [facility] Comment on above: Result Comment: Canc elled via OM: Order cancelled - Patient discharged Performed By: #### L 100.0100, L500.2500 ####[facility] [address] [place], [address] Basic Metabolic Profile (BMP) Normal 136-145 [facility] Comment on above: Result Comment: Canc elled via OM: Order cancelled - Patient discharged Performed By: #### L 100.0100, L500.2500 ####[facility] [address] [place], [address] CBC W/Diff, Automatedon 06-0 Absolute Neut Normal 2.0-7.7 [facility] Comment on above: Result Comment: Canc elled via OM: Order cancelled - Patient discharged Performed By: #### L 100.0100, L500.2500 ####[facility] [address] [place], [address] HCT Normal 37-47 [facility] Comment on above: Result Comment: Canc elled via OM: Order cancelled - Patient discharged Performed By: #### L 100.0100, L500.2500 ####[facility] [address] [place], [address] HGB Normal 12.0-15.0 [facility] Comment on above: Result Comment: Canc elled via OM: Order cancelled - Patient discharged Performed By: #### L 100.0100, L500.2500 ####[facility] [address] [place], [address] MCH Normal 27.0-32.0 [facility] Comment on above: Result Comment: Canc elled via OM: Order cancelled - Patient discharged Performed By: #### L 100.0100, L500.2500 ####[facility] [address] [place], [address] MCHC Normal 32-36 [facility] Comment on above: Result Comment: Canc elled via OM: Order cancelled - Patient discharged Performed By: #### L 100.0100, L500.2500 ####[facility] [address] [place], [address] MCV Normal 81-99 [facility] Comment on above: Result Comment: Canc elled via OM: Order cancelled - Patient discharged Performed By: #### L 100.0100, L500.2500 ####[facility] [address] [place], [address] NEUT% Normal 47-70 [facility] Comment on above: Result Comment: Canc elled via OM: Order cancelled - Patient discharged Performed By: #### L 100.0100, L500.2500 ####[facility] [address] [place], [address] PLT Normal 150-450 [facility] Comment on above: Result Comment: Canc elled via OM: Order cancelled - Patient discharged Performed By: #### L 100.0100, L500.2500 ####[facility] [address] [place], [address] RBC Normal 4.2-5.4 [facility] Comment on above: Result Comment: Canc elled via OM: Order cancelled - Patient discharged Performed By: #### L 100.0100, L500.2500 ####[facility] [address] [place], [address] RDW CV Normal 11.6-14.6 [facility] Comment on above: Result Comment: Canc elled via OM: Order cancelled - Patient discharged Performed By: #### L 100.0100, L500.2500 ####[facility] [address] [place], [address] RDW SD Normal 35.1-43.9 [facility] Comment on above: Result Comment: Canc elled via OM: Order cancelled - Patient discharged Performed By: #### L 100.0100, L500.2500 ####[facility] [address] [place], [address] WBC Normal 4.4-11.0 [facility] Comment on above: Result Comment: Canc elled via OM: Order cancelled - Patient discharged Performed By: #### L 100.0100, L500.2500 ####[facility] [address] [place], [address] Basic Metabolic Profile (BMP )on 03-26-2024 BUN/CRE 21.9 RATIO High 10-20 [facility] Comment on above: Performed By: #### L 500.2500, L100.0100, L501.2300, L501.5200 ####[facility] [address] [place], [address] CA,Total 8.9 mg/dL Normal 8.5-10.1 [facility] Comment on above: Performed By: #### L 500.2500, L100.0100, L501.2300, L501.5200 ####[facility] [address] [place], [address] Chloride [Moles/Vol] 109 mmol/L High 98-107 [facility] Comment on above: Performed By: #### L 500.2500, L100.0100, L501.2300, L501.5200 ####[facility] [address] [place], [address] CO2 [Moles/Vol] 23.0 mmol/L Normal 21.0-32.0 [facility] Comment on above: Performed By: #### L 500.2500, L100.0100, L501.2300, L501.5200 ####[facility] [facility] [address] [place], [address] Creatinine [Mass/Vol] 0.82 mg/dL Normal 0.55-1.02 [facility] Comment on above: Result Comment: The validity of the calculated GFR GFRAA in patients over70 years has not been determined. Clinical correlation isessential. Performed By: #### L 500.2500, L100.0100, L501.2300, L501.5200 ####[facility] [address] [place], [address] ECRCL 64.01 ml/min Normal [facility] Comment on above: Performed By: #### L 500.2500, L100.0100, L501.2300, L501.5200 ####[facility] [address] [place], [address] EST GFR - AA 91 mL/min Normal >60 [facility] Comment on above: Result Comment: Afri can Irish GFR Calc Performed By: #### L 500.2500, L100.0100, L501.2300, L501.5200 ####[facility] [address] [place], [address] GAP 6 Normal 5-15 [facility] Comment on above: Performed By: #### L 500.2500, L100.0100, L501.2300, L501.5200 ####[facility] [address] [place], [address] GFR/1.73 sq M.predicted among non-blacks MDRD (S/P/Bld) [Vol rate/Area] 75 mL/min/{1.73_m2} Normal >60 [facility] Comment on above: Result Comment: Non- GFR Calc Performed By: #### L 500.2500, L100.0100, L501.2300, L501.5200 ####[facility] [address] [place], [address] Glucose [Mass/Vol] 86 mg/dL Normal 74-106 [facility] Comment on above: Performed By: #### L 500.2500, L100.0100, L501.2300, L501.5200 ####[facility] [address] [place], [address] Potassium [Moles/Vol] 4.2 mmol/L Normal 3.5-5.1 [facility] Comment on above: Performed By: #### L 500.2500, L100.0100, L501.2300, L501.5200 ####[facility] [address] [place], [address] Sodium [Moles/Vol] 138 mmol/L Normal 136-145 [facility] Comment on above: Performed By: #### L 500.2500, L100.0100, L501.2300, L501.5200 ####[facility] [address] [place], [address] Urea nitrogen [Mass/Vol] 18 mg/dL Normal 7-18 [facility] Comment on above: Performed By: #### L 500.2500, L100.0100, L501.2300, L501.5200 ####[facility] [address] [place], [address] CBC W/Diff, Automatedon 06-0 4-2023 Absolute Lymph 2.54 X10 3/uL Normal 0.83-4.51 [facility] Comment on above: Performed By: #### L 500.2500, L100.0100, L501.2300, L501.5200 ####[facility] [address] [place], [address] Absolute Neut 4.1 X10 3/uL Normal 2.0-7.7 [facility] Comment on above: Performed By: #### L 500.2500, L100.0100, L501.2300, L501.5200 ####[facility] [address] [place], [address] Basophils/100 WBC (Bld) 1.1 % High 0-1 [facility] Comment on above: Performed By: #### L 500.2500, L100.0100, L501.2300, L501.5200 ####[facility] [address] [place], [address] Eosinophils/100 WBC (Bld) 4.3 % Normal 0-5 [facility] Comment on above: Performed By: #### L 500.2500, L100.0100, L501.2300, L501.5200 ####[facility] [address] [place], [address] Erythrocyte distribution width (RBC) [Ratio] 13.9 % Normal 11.6-14.6 [facility] Comment on above: Performed By: #### L 500.2500, L100.0100, L501.2300, L501.5200 ####[facility] [address] [place], [address] Hematocrit (Bld) [Volume fraction] 38.9 % Normal 37-47 [facility] Comment on above: Performed By: #### L 500.2500, L100.0100, L501.2300, L501.5200 ####[facility] [address] [place], [address] Hemoglobin (Bld) [Mass/Vol] 12.6 g/dL Normal 12.0-15.0 [facility] Comment on above: Performed By: #### L 500.2500, L100.0100, L501.2300, L501.5200 ####[facility] [address] [place], [address] IG% 0.400 Normal 0.0-0.9 [facility] Comment on above: Result Comment: IG% - Immature Granulocytes (promyelocytes, myelocytes andmetamyelocytes) > 1% indicates that a LEFT SHIFT is Present. Performed By: #### L 500.2500, L100.0100, L501.2300, L501.5200 ####[facility] [address] [place], [address] Lymphocytes/100 WBC (Bld) 32.0 % Normal 19-41 [facility] Comment on above: Performed By: #### L 500.2500, L100.0100, L501.2300, L501.5200 ####[facility] [address] [place], [address] MCH (RBC) [Entitic mass] 30.1 pg Normal 27.0-32.0 [facility] Comment on above: Performed By: #### L 500.2500, L100.0100, L501.2300, L501.5200 ####[facility] [address] [place], [address] MCHC (RBC) [Mass/Vol] 32.4 g/dL Normal 32-36 [facility] Comment on above: Performed By: #### L 500.2500, L100.0100, L501.2300, L501.5200 ####[facility] [address] [place], [address] MCV (RBC) [Entitic vol] 93.1 fL Normal 81-99 [facility] Comment on above: Performed By: #### L 500.2500, L100.0100, L501.2300, L501.5200 ####[facility] [address] [place], [address] Monocytes/100 WBC (Bld) 10.3 % High 0-10 [facility] Comment on above: Performed By: #### L 500.2500, L100.0100, L501.2300, L501.5200 ####[facility] [address] [place], [address] Neutrophils/100 WBC (Bld) 51.9 % Normal 47-70 [facility] Comment on above: Performed By: #### L 500.2500, L100.0100, L501.2300, L501.5200 ####[facility] [address] [place], [address] Nucleated RBC (Bld) [#/Vol] 0 10*3/uL Normal 0-5 [facility] Comment on above: Performed By: #### L 500.2500, L100.0100, L501.2300, L501.5200 ####[facility] [address] [place], [address] Platelet mean volume (Bld) [Entitic vol] 9.9 fL Normal 6.2-12.0 [facility] Comment on above: Performed By: #### L 500.2500, L100.0100, L501.2300, L501.5200 ####[facility] [address] [place], [address] Platelets (Bld) [#/Vol] 267 10*3/uL Normal 150-450 [facility] Comment on above: Performed By: #### L 500.2500, L100.0100, L501.2300, L501.5200 ####[facility] [address] [place], [address] RBC (Bld) [#/Vol] 4.18 10*6/uL Low 4.2-5.4 [facility] Comment on above: Performed By: #### L 500.2500, L100.0100, L501.2300, L501.5200 ####[facility] [address] [place], [address] RDW SD 47.7 fl High 35.1-43.9 [facility] Comment on above: Performed By: #### L 500.2500, L100.0100, L501.2300, L501.5200 ####[facility] [address] [place], [address] WBC (Bld) [#/Vol] 7.9 10*3/uL Normal 4.4-11.0 [facility] Comment on above: Performed By: #### L 500.2500, L100.0100, L501.2300, L501.5200 ####[facility] [address] [place], [address] Magnesiumon 03-26-2024 Magnesium [Mass/Vol] 2.1 mg/dL Normal 1.6-2.6 [facility] Comment on above: Performed By: #### L 500.2500, L100.0100, L501.2300, L501.5200 ####[facility] [address] [place], [address] Phosphoruson 03-26-2024 Phosphate [Mass/Vol] 4.1 mg/dL Normal 2.5-4.9 [facility] Comment on above: Performed By: #### L 500.2500, L100.0100, L501.2300, L501.5200 ####[facility] [address] [place], [address] Topiramate, Serumon 03-26-20 24 TOPIRAMATE 11.0 ug/mL Normal 2.0-25.0 [facility] Comment on above: Result Comment: Dete ction Limit = 1.5Performed at: - [facility] [id number] Director: Rio Rondon MD, Phone: [phone] Performed By: #### L 6344.1400 ####[facility] [address] [place], [address] Basic Metabolic Profile (BMP )on 03-25-2024 BUN/CRE 21.2 RATIO High 10- [facility] Comment on above: Performed By: #### L 100.0500, L500.2500 ####[facility] [address] [place], [address] CA,Total 8.5 mg/dL Normal 8.5-10.1 [facility] Comment on above: Performed By: #### L 100.0500, L500.2500 ####[facility] [address] [place], [address] Chloride [Moles/Vol] 110 mmol/L High 98-107 [facility] Comment on above: Performed By: #### L 100.0500, L500.2500 ####[facility] [address] [place], [address] CO2 [Moles/Vol] 22.0 mmol/L Normal 21.0-32.0 [facility] Comment on above: Performed By: #### L 100.0500, L500.2500 ####[facility] [address] [place], [address] Creatinine [Mass/Vol] 0.76 mg/dL Normal 0.55-1.02 [facility] Comment on above: Result Comment: The validity of the calculated GFR GFRAA in patients over70 years has not been determined. Clinical correlation isessential. Performed By: #### L 100.0500, L500.2500 ####[facility] [address] [place], [address] ECRCL 69.06 ml/min Normal [facility] Comment on above: Performed By: #### L 100.0500, L500.2500 ####[facility] [address] [place], [address] EST GFR - AA 100 mL/min Normal >60 [facility] Comment on above: Result Comment: Afri can Irish GFR Calc Performed By: #### L 100.0500, L500.2500 ####[facility] [address] [place], [address] GAP 8 Normal 5-15 [facility] Comment on above: Performed By: #### L 100.0500, L500.2500 ####[facility] [address] [place], [address] GFR/1.73 sq M.predicted among non-blacks MDRD (S/P/Bld) [Vol rate/Area] 82 mL/min/{1.73_m2} Normal >60 [facility] Comment on above: Result Comment: Non- GFR Calc Performed By: #### L 100.0500, L500.2500 ####[facility] [address] [place], [address] Glucose [Mass/Vol] 89 mg/dL Normal 74-106 [facility] Comment on above: Performed By: #### L 100.0500, L500.2500 ####[facility] [address] [place], [address] Potassium [Moles/Vol] 3.3 mmol/L Low 3.5-5.1 [facility] Comment on above: Performed By: #### L 100.0500, L500.2500 ####[facility] [address] [place], [address] Sodium [Moles/Vol] 140 mmol/L Normal 136-145 [facility] Comment on above: Performed By: #### L 100.0500, L500.2500 ####[facility] [address] [place], [address] Urea nitrogen [Mass/Vol] 16 mg/dL Normal 7-18 [facility] Comment on above: Performed By: #### L 100.0500, L500.2500 ####[facility] [address], [address] CBC-Complete Blood Cnt No Di ffon 03-25-2024 Erythrocyte distribution width (RBC) [Ratio] 13.7 % Normal 11.6-14.6 [facility] Comment on above: Performed By: #### L 100.0500, L500.2500 ####[facility] [address] [place], [address] Hematocrit (Bld) [Volume fraction] 36.1 % Low 37-47 [facility] Comment on above: Performed By: #### L 100.0500, L500.2500 ####[facility] [address] [place], [address] Hemoglobin (Bld) [Mass/Vol] 11.9 g/dL Low 12.0-15.0 [facility] Comment on above: Performed By: #### L 100.0500, L500.2500 ####[facility] [address] [place], [address] MCH (RBC) [Entitic mass] 30.3 pg Normal 27.0-32.0 [facility] Comment on above: Performed By: #### L 100.0500, L500.2500 ####[facility] [address] [place], [address] MCHC (RBC) [Mass/Vol] 33.0 g/dL Normal 32-36 [facility] Comment on above: Performed By: #### L 100.0500, L500.2500 ####[facility] [address] [place], [address] MCV (RBC) [Entitic vol] 91.9 fL Normal 81-99 [facility] Comment on above: Performed By: #### L 100.0500, L500.2500 ####[facility] [address] [place], [address] Platelet mean volume (Bld) [Entitic vol] 10.0 fL Normal 6.2-12.0 [facility] Comment on above: Performed By: #### L 100.0500, L500.2500 ####[facility] [address] [place], [address] Platelets (Bld) [#/Vol] 243 10*3/uL Normal 150-450 [facility] Comment on above: Performed By: #### L 100.0500, L500.2500 ####[facility] [address] [place], [address] RBC (Bld) [#/Vol] 3.93 10*6/uL Low 4.2-5.4 [facility] Comment on above: Performed By: #### L 100.0500, L500.2500 ####[facility] [address] [place], [address] RDW SD 46.4 fl High 35.1-43.9 [facility] Comment on above: Performed By: #### L 100.0500, L500.2500 ####[facility] [address] [place], [address] WBC (Bld) [#/Vol] 8.7 10*3/uL Normal 4.4-11.0 [facility] Comment on above: Performed By: #### L 100.0500, L500.2500 ####[facility] [address] [place], [address] Basic Metabolic Profile (BMP )on 03-24-2024 BUN/CRE 20.7 RATIO High 10-20 [facility] Comment on above: Performed By: #### L 500.2500 ####[facility] [address] [place], [address] CA,Total 8.3 mg/dL Low 8.5-10.1 [facility] Comment on above: Performed By: #### L 500.2500 ####[facility] [address] [place], [address] Chloride [Moles/Vol] 109 mmol/L High 98-107 [facility] Comment on above: Performed By: #### L 500.2500 ####[facility] [address] [place], [address] CO2 [Moles/Vol] 23.0 mmol/L Normal 21.0-32.0 [facility] Comment on above: Performed By: #### L 500.2500 ####[facility] [address] [place], [address] Creatinine [Mass/Vol] 0.72 mg/dL Normal 0.55-1.02 [facility] Comment on above: Result Comment: The validity of the calculated GFR GFRAA in patients over70 years has not been determined. Clinical correlation isessential. Performed By: #### L 500.2500 ####[facility] [address] [place], [address] ECRCL 72.90 ml/min Normal [facility] Comment on above: Performed By: #### L 500.2500 ####[facility] [address] [place], [address] EST GFR - AA 105 mL/min Normal >60 [facility] Comment on above: Result Comment: Afri can Irish GFR Calc Performed By: #### L 500.2500 ####[facility] [address] [place], [address] GAP 7 Normal 5-15 [facility] Comment on above: Performed By: #### L 500.2500 ####[facility] [address] [place], [address] GFR/1.73 sq M.predicted among non-blacks MDRD (S/P/Bld) [Vol rate/Area] 87 mL/min/{1.73_m2} Normal >60 [facility] Comment on above: Result Comment: Non- GFR Calc Performed By: #### L 500.2500 ####[facility] [address] [place], [address] Glucose [Mass/Vol] 96 mg/dL Normal 74-106 [facility] Comment on above: Performed By: #### L 500.2500 ####[facility] [address] [place], [address] Potassium [Moles/Vol] 3.3 mmol/L Low 3.5-5.1 [facility] Comment on above: Performed By: #### L 500.2500 ####[facility] [address] [place], [address] Sodium [Moles/Vol] 139 mmol/L Normal 136-145 [facility] Comment on above: Performed By: #### L 500.2500 ####[facility] [address], [address] Urea nitrogen [Mass/Vol] 15 mg/dL Normal 7-18 [facility] Comment on above: Performed By: #### L 500.2500 ####[facility] [address] [place], [address] Respiratory Cultureon 2023 RESPC Normal [facility] Comment on above: Performed By: #### M 100.2000, M100.2400 ####[facility] [address] [place], [address] Basic Metabolic Profile (BMP )on 03-23-2024 BUN/CRE 16.0 RATIO Normal 10-20 [facility] Comment on above: Performed By: #### L 500.2500 ####[facility] [address] [place], [address] CA,Total 8.4 mg/dL Low 8.5-10.1 [facility] Comment on above: Performed By: #### L 500.2500 ####[facility] [address] [place], [address] Chloride [Moles/Vol] 109 mmol/L High 98-107 [facility] Comment on above: Performed By: #### L 500.2500 ####[facility] [address] [place], [address] CO2 [Moles/Vol] 24.0 mmol/L Normal 21.0-32.0 [facility] Comment on above: Performed By: #### L 500.2500 ####[facility] [address] [place], [address] Creatinine [Mass/Vol] 0.88 mg/dL Normal 0.55-1.02 [facility] Comment on above: Result Comment: The validity of the calculated GFR GFRAA in patients over70 years has not been determined. Clinical correlation isessential. Performed By: #### L 500.2500 ####[facility] [address] [place], [address] ECRCL 59.64 ml/min Normal [facility] Comment on above: Performed By: #### L 500.2500 ####[facility] [address] [place], [address] EST GFR - AA 84 mL/min Normal >60 [facility] Comment on above: Result Comment: Afri can Irish GFR Calc Performed By: #### L 500.2500 ####[facility] [address] [place], [address] GAP 6 Normal 5-15 [facility] Comment on above: Performed By: #### L 500.2500 ####[facility] [address] [place], [address] GFR/1.73 sq M.predicted among non-blacks MDRD (S/P/Bld) [Vol rate/Area] 70 mL/min/{1.73_m2} Normal >60 [facility] Comment on above: Result Comment: Non- GFR Calc Performed By: #### L 500.2500 ####[facility] [address] [place], [address] Glucose [Mass/Vol] 114 mg/dL High 74-106 [facility] Comment on above: Result Comment: Fast ing Glucose result from 100 to 125 mg/dLsuggests IMPAIRED HOMEOSTASIS per A.D.A. criteria. Performed By: #### L 500.2500 ####[facility] [address] [place], [address] Potassium [Moles/Vol] 3.0 mmol/L Low 3.5-5.1 [facility] Comment on above: Performed By: #### L 500.2500 ####[facility] [address] [place], [address] Sodium [Moles/Vol] 139 mmol/L Normal 136-145 [facility] Comment on above: Performed By: #### L 500.2500 ####[facility] [address] [place], [address] Urea nitrogen [Mass/Vol] 14 mg/dL Normal 7-18 [facility] Comment on above: Performed By: #### L 500.2500 ####[facility] [address] [place], [address] Gram Stainon 03-23-2024 GS Acceptable Specimen? Yes (<25 Epithelial cells per/lpf) Gram Stain No Epithelial cells 3+ White Blood Cells 2+ Gram positive cocci 1+ Gram negative rods Normal [facility] Comment on above: Performed By: #### M 100.2000, M100.2400 ####[facility] [address] [place], [address] Basic Metabolic Profile (BMP )on 03-22-2024 BUN/CRE 16.3 RATIO Normal 10-20 [facility] Comment on above: Performed By: #### L 501.3620, L500.2500, L100.0500 ####[facility] [address] [place], [address] CA,Total 8.2 mg/dL Low 8.5-10.1 [facility] Comment on above: Performed By: #### L 501.3620, L500.2500, L100.0500 ####[facility] [address] [place], [address] Chloride [Moles/Vol] 108 mmol/L High 98-107 [facility] Comment on above: Performed By: #### L 501.3620, L500.2500, L100.0500 ####[facility] [address] [place], [address] CO2 [Moles/Vol] 18.0 mmol/L Low 21.0-32.0 [facility] Comment on above: Performed By: #### L 501.3620, L500.2500, L100.0500 ####[facility] [address] [place], [address] Creatinine [Mass/Vol] 0.67 mg/dL Normal 0.55-1.02 [facility] Comment on above: Result Comment: The validity of the calculated GFR GFRAA in patients over70 years has not been determined. Clinical correlation isessential. Performed By: #### L 501.3620, L500.2500, L100.0500 ####[facility] [address] [place], [address] ECRCL 78.34 ml/min Normal [facility] Comment on above: Performed By: #### L 501.3620, L500.2500, L100.0500 ####[facility] [address] [place], [address] EST GFR - AA 114 mL/min Normal >60 [facility] Comment on above: Result Comment: Afri can Irish GFR Calc Performed By: #### L 501.3620, L500.2500, L100.0500 ####[facility] [address] [place], [address] GAP 12 Normal 5-15 [facility] Comment on above: Performed By: #### L 501.3620, L500.2500, L100.0500 ####[facility] [address] [place], [address] GFR/1.73 sq M.predicted among non-blacks MDRD (S/P/Bld) [Vol rate/Area] 94 mL/min/{1.73_m2} Normal >60 [facility] Comment on above: Result Comment: Non- GFR Calc Performed By: #### L 501.3620, L500.2500, L100.0500 ####[facility] [address] [place], [address] Glucose [Mass/Vol] 84 mg/dL Normal 74-106 [facility] Comment on above: Performed By: #### L 501.3620, L500.2500, L100.0500 ####[facility] [address] [place], [address] Potassium [Moles/Vol] 3.0 mmol/L Low 3.5-5.1 [facility] Comment on above: Performed By: #### L 501.3620, L500.2500, L100.0500 ####[facility] [address] [place], [address] Sodium [Moles/Vol] 138 mmol/L Normal 136-145 [facility] Comment on above: Performed By: #### L 501.3620, L500.2500, L100.0500 ####[facility] [address] [place], [address] Urea nitrogen [Mass/Vol] 11 mg/dL Normal 7-18 [facility] Comment on above: Performed By: #### L 501.3620, L500.2500, L100.0500 ####[facility] [address] [place], [address] CBC-Complete Blood Cnt No Nga couchon 03-22-2024 Erythrocyte distribution width (RBC) [Ratio] 13.3 % Normal 11.6-14.6 [facility] Comment on above: Performed By: #### L 501.3620, L500.2500, L100.0500 ####[facility] [address] [place], [address] Hematocrit (Bld) [Volume fraction] 37.3 % Normal 37-47 [facility] Comment on above: Performed By: #### L 501.3620, L500.2500, L100.0500 ####[facility] [address] [place], [address] Hemoglobin (Bld) [Mass/Vol] 12.3 g/dL Normal 12.0-15.0 [facility] Comment on above: Performed By: #### L 501.3620, L500.2500, L100.0500 ####[facility] [address] [place], [address] MCH (RBC) [Entitic mass] 30.1 pg Normal 27.0-32.0 [facility] Comment on above: Performed By: #### L 501.3620, L500.2500, L100.0500 ####[facility] [address] [place], [address] MCHC (RBC) [Mass/Vol] 33.0 g/dL Normal 32-36 [facility] Comment on above: Performed By: #### L 501.3620, L500.2500, L100.0500 ####[facility] [address] [place], [address] MCV (RBC) [Entitic vol] 91.2 fL Normal 81-99 [facility] Comment on above: Performed By: #### L 501.3620, L500.2500, L100.0500 ####[facility] [address] [place], [address] Platelet mean volume (Bld) [Entitic vol] 10.2 fL Normal 6.2-12.0 [facility] Comment on above: Performed By: #### L 501.3620, L500.2500, L100.0500 ####[facility] [address] [place], [address] Platelets (Bld) [#/Vol] 332 10*3/uL Normal 150-450 [facility] Comment on above: Performed By: #### L 501.3620, L500.2500, L100.0500 ####[facility] [address] [place], [address] RBC (Bld) [#/Vol] 4.09 10*6/uL Low 4.2-5.4 [facility] Comment on above: Performed By: #### L 501.3620, L500.2500, L100.0500 ####[facility] [address] [place], [address] RDW SD 44.7 fl High 35.1-43.9 [facility] Comment on above: Performed By: #### L 501.3620, L500.2500, L100.0500 ####[facility] [address] [place], [address] WBC (Bld) [#/Vol] 9.3 10*3/uL Normal 4.4-11.0 [facility] Comment on above: Performed By: #### L 501.3620, L500.2500, L100.0500 ####[facility] [address] [place], [address] CPK Total, Creatine Kinaseon 03-22-2024 CPK TOTAL 279 U/L High 26-192 [facility] Comment on above: Performed By: #### L 501.3620, L500.2500, L100.0500 ####[facility] [address] [place], [address] Magnesiumon 03-22-2024 Magnesium [Mass/Vol] 2.3 mg/dL Normal 1.6-2.6 [facility] Comment on above: Performed By: #### L 501.5200 ####[facility] [address] [place], [address] 12 Lead EKGon 03-21-2024 12 Lead EKG Normal [facility] Alcohol, Blood (Medical)-Ser umon 03-21-2024 SERUM ETOH < 3.0 Normal [facility] Comment on above: Result Comment: The serum:whole blood ethanol ratio is approximately 1.14and varies slightly with hematocrit.Medical Alcohol reference interval and critical value innon-tolerant individuals; 50 - 100 Impairment 100 Intoxication 100 - 250 Severe Poisoning 250 - 400 Deep/possible fatal coma Performed By: #### L 503.6005, L500.4050, L501.9100, L501.3620, L501.4020, L501.2450, L100.0100 ####[facility] [address] [place], [address] Bedside Glucoseon 03-21-2024 FINGERSTICK GLU 115 mg/dL High 74-106 [facility] Comment on above: Result Comment: DEWEY LAURAENT OF PATIENT CARE PER NURSING PROTOCOL Performed By: #### L 501.080 ####[facility] [address] [place], [address] Brain/Head without Contrasto n 03-21-2024 Brain/Head without Contrast Normal [facility] CBC W/Diff, Automatedon 02-22 0 Absolute Lymph 1.13 X10 3/uL Normal 0.83-4.51 [facility] Comment on above: Performed By: #### L 503.6005, L500.4050, L501.9100, L501.3620, L501.4020, L501.2450, L100.0100 ####[facility] [address] [place], [address] Absolute Neut 14.0 X10 3/uL High 2.0-7.7 [facility] Comment on above: Performed By: #### L 503.6005, L500.4050, L501.9100, L501.3620, L501.4020, L501.2450, L100.0100 ####[facility] [address] [place], [address] Basophils/100 WBC (Bld) 0.3 % Normal 0-1 [facility] Comment on above: Performed By: #### L 503.6005, L500.4050, L501.9100, L501.3620, L501.4020, L501.2450, L100.0100 ####[facility] [address] [place], [address] Eosinophils/100 WBC (Bld) 0.1 % Normal 0-5 [facility] Comment on above: Performed By: #### L 503.6005, L500.4050, L501.9100, L501.3620, L501.4020, L501.2450, L100.0100 ####[facility] [address] [place], [address] Erythrocyte distribution width (RBC) [Ratio] 13.2 % Normal 11.6-14.6 [facility] Comment on above: Performed By: #### L 503.6005, L500.4050, L501.9100, L501.3620, L501.4020, L501.2450, L100.0100 ####[facility] [address] [place], [address] Hematocrit (Bld) [Volume fraction] 43.6 % Normal 37-47 [facility] Comment on above: Performed By: #### L 503.6005, L500.4050, L501.9100, L501.3620, L501.4020, L501.2450, L100.0100 ####[facility] [address] [place], [address] Hemoglobin (Bld) [Mass/Vol] 14.6 g/dL Normal 12.0-15.0 [facility] Comment on above: Performed By: #### L 503.6005, L500.4050, L501.9100, L501.3620, L501.4020, L501.2450, L100.0100 ####[facility] [address] [place], [address] IG% 0.300 Normal 0.0-0.9 [facility] Comment on above: Result Comment: IG% - Immature Granulocytes (promyelocytes, myelocytes andmetamyelocytes) > 1% indicates that a LEFT SHIFT is Present. Performed By: #### L 503.6005, L500.4050, L501.9100, L501.3620, L501.4020, L501.2450, L100.0100 ####[facility] [address] [place], [address] Lymphocytes/100 WBC (Bld) 7.1 % Low 19-41 [facility] Comment on above: Performed By: #### L 503.6005, L500.4050, L501.9100, L501.3620, L501.4020, L501.2450, L100.0100 ####[facility] [address] [place], [address] MCH (RBC) [Entitic mass] 30.5 pg Normal 27.0-32.0 [facility] Comment on above: Performed By: #### L 503.6005, L500.4050, L501.9100, L501.3620, L501.4020, L501.2450, L100.0100 ####[facility] [address] [place], [address] MCHC (RBC) [Mass/Vol] 33.5 g/dL Normal 32-36 [facility] Comment on above: Performed By: #### L 503.6005, L500.4050, L501.9100, L501.3620, L501.4020, L501.2450, L100.0100 ####[facility] [address] [place], [address] MCV (RBC) [Entitic vol] 91.2 fL Normal 81-99 [facility] Comment on above: Performed By: #### L 503.6005, L500.4050, L501.9100, L501.3620, L501.4020, L501.2450, L100.0100 ####[facility] [address] [place], [address] Monocytes/100 WBC (Bld) 3.8 % Normal 0-10 [facility] Comment on above: Performed By: #### L 503.6005, L500.4050, L501.9100, L501.3620, L501.4020, L501.2450, L100.0100 ####[facility] [address] [place], [address] Neutrophils/100 WBC (Bld) 88.4 % High 47-70 [facility] Comment on above: Performed By: #### L 503.6005, L500.4050, L501.9100, L501.3620, L501.4020, L501.2450, L100.0100 ####[facility] [address] [place], [address] Nucleated RBC (Bld) [#/Vol] 0 10*3/uL Normal 0-5 [facility] Comment on above: Performed By: #### L 503.6005, L500.4050, L501.9100, L501.3620, L501.4020, L501.2450, L100.0100 ####[facility] [address] [place], [address] Platelet mean volume (Bld) [Entitic vol] 9.9 fL Normal 6.2-12.0 [facility] Comment on above: Performed By: #### L 503.6005, L500.4050, L501.9100, L501.3620, L501.4020, L501.2450, L100.0100 ####[facility] [address] [place], [address] Platelets (Bld) [#/Vol] 325 10*3/uL Normal 150-450 [facility] Comment on above: Performed By: #### L 503.6005, L500.4050, L501.9100, L501.3620, L501.4020, L501.2450, L100.0100 ####[facility] [address] [place], [address] RBC (Bld) [#/Vol] 4.78 10*6/uL Normal 4.2-5.4 [facility] Comment on above: Performed By: #### L 503.6005, L500.4050, L501.9100, L501.3620, L501.4020, L501.2450, L100.0100 ####[facility] [address] [place], [address] RDW SD 44.0 fl High 35.1-43.9 [facility] Comment on above: Performed By: #### L 503.6005, L500.4050, L501.9100, L501.3620, L501.4020, L501.2450, L100.0100 ####[facility] [address] [place], [address] WBC (Bld) [#/Vol] 15.8 10*3/uL High 4.4-11.0 [facility] Comment on above: Performed By: #### L 503.6005, L500.4050, L501.9100, L501.3620, L501.4020, L501.2450, L100.0100 ####[facility] [address] [place], [address] CPK Total, Creatine Kinaseon 03-21-2024 CPK TOTAL 571 U/L High 26-192 [facility] Comment on above: Order Comment: 'TROP ' Serial specimen #1, #2 or #3: 1 Performed By: #### L 503.6005, L500.4050, L501.9100, L501.3620, L501.4020, L501.2450, L100.0100 ####[facility] [address] [place], [address] CT Chest, Abd, Pel w/Contras ton 03-21-2024 CT Chest, Abd, Pel w/Contrast Normal [facility] Comprehensive Metabolic Prof ilon 03-21-2024 Albumin [Mass/Vol] 3.7 g/dL Normal 3.2-5.0 [facility] Comment on above: Order Comment: 'TROP ' Serial specimen #1, #2 or #3: 1 Performed By: #### L 503.6005, L500.4050, L501.9100, L501.3620, L501.4020, L501.2450, L100.0100 ####[facility] [address] [place], [address] Albumin/Globulin [Mass ratio] 1.2 {ratio} Normal 0.9-2.4 [facility] Comment on above: Order Comment: 'TROP ' Serial specimen #1, #2 or #3: 1 Performed By: #### L 503.6005, L500.4050, L501.9100, L501.3620, L501.4020, L501.2450, L100.0100 ####[facility] [address] [place], [address] ALK P 88 U/L Normal 45-117 [facility] Comment on above: Order Comment: 'TROP ' Serial specimen #1, #2 or #3: 1 Performed By: #### L 503.6005, L500.4050, L501.9100, L501.3620, L501.4020, L501.2450, L100.0100 ####[facility] [address] [place], [address] ALT [Catalytic activity/Vol] 49 U/L Normal 13-56 [facility] Comment on above: Order Comment: 'TROP ' Serial specimen #1, #2 or #3: 1 Performed By: #### L 503.6005, L500.4050, L501.9100, L501.3620, L501.4020, L501.2450, L100.0100 ####[facility] [address] [place], [address] AST [Catalytic activity/Vol] 48 U/L High 15-37 [facility] Comment on above: Order Comment: 'TROP ' Serial specimen #1, #2 or #3: 1 Result Comment: Slig ht Hemolysis, Result may be falsely increased. Performed By: #### L 503.6005, L500.4050, L501.9100, L501.3620, L501.4020, L501.2450, L100.0100 ####[facility] [address] [place], [address] Bilirubin [Mass/Vol] 0.50 mg/dL Normal 0.20-1.00 [facility] Comment on above: Order Comment: 'TROP ' Serial specimen #1, #2 or #3: 1 Result Comment: For patients on eltrombopag therapy, use of Dimension [place] TBIL is not recommended. Performed By: #### L 503.6005, L500.4050, L501.9100, L501.3620, L501.4020, L501.2450, L100.0100 ####[facility] [address] [place], [address] BUN/CRE 19.9 RATIO Normal 10-20 [facility] Comment on above: Order Comment: 'TROP ' Serial specimen #1, #2 or #3: 1 Performed By: #### L 503.6005, L500.4050, L501.9100, L501.3620, L501.4020, L501.2450, L100.0100 ####[facility] [address] [place], [address] CA,Total 8.6 mg/dL Normal 8.5-10.1 [facility] Comment on above: Order Comment: 'TROP ' Serial specimen #1, #2 or #3: 1 Performed By: #### L 503.6005, L500.4050, L501.9100, L501.3620, L501.4020, L501.2450, L100.0100 ####[facility] [address] [place], [address] Chloride [Moles/Vol] 100 mmol/L Normal 98-107 [facility] Comment on above: Order Comment: 'TROP ' Serial specimen #1, #2 or #3: 1 Performed By: #### L 503.6005, L500.4050, L501.9100, L501.3620, L501.4020, L501.2450, L100.0100 ####[facility] [address] [place], [address] CO2 [Moles/Vol] 22.0 mmol/L Normal 21.0-32.0 [facility] Comment on above: Order Comment: 'TROP ' Serial specimen #1, #2 or #3: 1 Performed By: #### L 503.6005, L500.4050, L501.9100, L501.3620, L501.4020, L501.2450, L100.0100 ####[facility] [address] [place], [address] Creatinine [Mass/Vol] 0.80 mg/dL Normal 0.55-1.02 [facility] Comment on above: Order Comment: 'TROP ' Serial specimen #1, #2 or #3: 1 Result Comment: The validity of the calculated GFR GFRAA in patients over70 years has not been determined. Clinical correlation isessential. Performed By: #### L 503.6005, L500.4050, L501.9100, L501.3620, L501.4020, L501.2450, L100.0100 ####[facility] [address] [place], [address] ECRCL 33.15 ml/min Normal [facility] Comment on above: Order Comment: 'TROP ' Serial specimen #1, #2 or #3: 1 Performed By: #### L 503.6005, L500.4050, L501.9100, L501.3620, L501.4020, L501.2450, L100.0100 ####[facility] [address] [place], [address] EST GFR - AA 93 mL/min Normal >60 [facility] Comment on above: Order Comment: 'TROP ' Serial specimen #1, #2 or #3: 1 Result Comment: Afri can Irish GFR Calc Performed By: #### L 503.6005, L500.4050, L501.9100, L501.3620, L501.4020, L501.2450, L100.0100 ####[facility] [address] [place], [address] GAP 11 Normal 5-15 [facility] Comment on above: Order Comment: 'TROP ' Serial specimen #1, #2 or #3: 1 Performed By: #### L 503.6005, L500.4050, L501.9100, L501.3620, L501.4020, L501.2450, L100.0100 ####[facility] [address] [place], [address] GFR/1.73 sq M.predicted among non-blacks MDRD (S/P/Bld) [Vol rate/Area] 77 mL/min/{1.73_m2} Normal >60 [facility] Comment on above: Order Comment: 'TROP ' Serial specimen #1, #2 or #3: 1 Result Comment: Non- GFR Calc Performed By: #### L 503.6005, L500.4050, L501.9100, L501.3620, L501.4020, L501.2450, L100.0100 ####[facility] [address] [place], [address] Globulin (S) [Mass/Vol] 3.0 g/dL Normal 2.2-4.2 [facility] Comment on above: Order Comment: 'TROP ' Serial specimen #1, #2 or #3: 1 Performed By: #### L 503.6005, L500.4050, L501.9100, L501.3620, L501.4020, L501.2450, L100.0100 ####[facility] [address] [place], [address] Glucose [Mass/Vol] 117 mg/dL High 74-106 [facility] Comment on above: Order Comment: 'TROP ' Serial specimen #1, #2 or #3: 1 Result Comment: Fast ing Glucose result from 100 to 125 mg/dLsuggests IMPAIRED HOMEOSTASIS per A.D.A. criteria. Performed By: #### L 503.6005, L500.4050, L501.9100, L501.3620, L501.4020, L501.2450, L100.0100 ####[facility] [address] [place], [address] Potassium [Moles/Vol] 3.5 mmol/L Normal 3.5-5.1 [facility] Comment on above: Order Comment: 'TROP ' Serial specimen #1, #2 or #3: 1 Result Comment: Slig ht Hemolysis, Result may be falsely increased. Performed By: #### L 503.6005, L500.4050, L501.9100, L501.3620, L501.4020, L501.2450, L100.0100 ####[facility] [address] [place], [place], [id number] Sodium [Moles/Vol] 133 mmol/L Low 136-145 [facility] Comment on above: Order Comment: 'TROP ' Serial specimen #1, #2 or #3: 1 Performed By: #### L 503.6005, L500.4050, L501.9100, L501.3620, L501.4020, L501.2450, L100.0100 ####[facility] [address] [place], [place], [id number] T PROT 6.7 g/dL Normal 6.4-8.2 [facility] Comment on above: Order Comment: 'TROP ' Serial specimen #1, #2 or #3: 1 Performed By: #### L 503.6005, L500.4050, L501.9100, L501.3620, L501.4020, L501.2450, L100.0100 ####[facility] [address] [place], [place], [id number] Urea nitrogen [Mass/Vol] 16 mg/dL Normal 7-18 [facility] Comment on above: Order Comment: 'TROP ' Serial specimen #1, #2 or #3: 1 Performed By: #### L 503.6005, L500.4050, L501.9100, L501.3620, L501.4020, L501.2450, L100.0100 ####[facility] [address] [place], [place], [address] Emergency Department Summary on 03-21-2024 Emergency Department Summary Normal [facility] H AND P Exam - Hospitaliston 03-21-2024 H&P Exam - Hospitalist Normal [facility] L501.4020on 03-21-2024 TROPONIN-I HS 7 pg/mL Normal 3.0-54.0 [facility] Comment on above: Order Comment: 'TROP ' Serial specimen #1, #2 or #3: 1 Result Comment: Plea se Note: New Test Units and Gender Specific Reference Ranges. For more information see Policy Stat Procedure [place] High Sensitivity Troponin (TNIH) and attachments. Performed By: #### L 503.6005, L500.4050, L501.9100, L501.3620, L501.4020, L501.2450, L100.0100 ####[facility] [address] [place], [address] Lactic Acidon 03-21-2024 Lactate [Moles/Vol] 1.4 mmol/L Normal 0.4-1.9 [facility] Comment on above: Order Comment: Y Performed By: #### L 503.6005, L500.4050, L501.9100, L501.3620, L501.4020, L501.2450, L100.0100 ####[facility] [address] [place], [place], [id number] Lipaseon 03-21-2024 Lipase [Catalytic activity/Vol] 15 U/L Normal 13-75 [facility] Comment on above: Order Comment: 'TROP ' Serial specimen #1, #2 or #3: 1 Result Comment: Plea se note:LIPASE revised reference range effective 23.New Lipase methodology. Expected to produce lower valuesthan the previous assay method.NEW Reference Range: 13 - 75 U/L Performed By: #### L 503.6005, L500.4050, L501.9100, L501.3620, L501.4020, L501.2450, L100.0100 ####[facility] [address] [place], [place], [phone] Spine Cervical without Contr ason 03-21-2024 Spine Cervical without Contras Normal [facility] Urinalysis, Completeon 03-21 BACTERIA 0 SEEN Normal None Seen [facility] Comment on above: Order Comment: RAND TER SPECIMEN Performed By: #### L 505.5000, L400.0001 ####[facility] [address] [place], [address] EPI,SQUAMOUS 0 SEEN Normal 5-10 [facility] Comment on above: Order Comment: RAND TER SPECIMEN Performed By: #### L 505.5000, L400.0001 ####[facility] [address] [place], [address] Mucus Ql (Urine sed) 0 SEEN Normal [facility] Comment on above: Order Comment: RAND TER SPECIMEN Performed By: #### L 505.5000, L400.0001 ####[facility] [address] [place], [address] RBC 0 SEEN Normal 0-5 [facility] Comment on above: Order Comment: RAND TER SPECIMEN Performed By: #### L 505.5000, L400.0001 ####[facility] [address] [place], [address] WBC 0 SEEN Normal 0-5 [facility] Comment on above: Order Comment: RAND TER SPECIMEN Performed By: #### L 505.5000, L400.0001 ####[facility] [address] [place], [address] Urine Drug Screen (VISTA)on 03-21-2024 AMPHETAMINES Negative Normal <1000 ng/mL [facility] Comment on above: Performed By: #### L 505.5000, L400.0001 ####[facility] [address] [place], [address] BARBITIURATES Negative Normal < 200 ng/mL [facility] Comment on above: Performed By: #### L 505.5000, L400.0001 ####[facility] [address] [place], [address] BENZODIAZIPINE Negative Normal < 200 ng/mL [facility] Comment on above: Performed By: #### L 505.5000, L400.0001 ####[facility] [address] [place], [address] COCAINE Negative Normal < 300 ng/mL [facility] Comment on above: Performed By: #### L 505.5000, L400.0001 ####[facility] [address] [place], [address] ECSTACY Negative Normal < 500 ng/mL [facility] Comment on above: Performed By: #### L 505.5000, L400.0001 ####[facility] [address] [place], [address] METHADONE Negative Normal < 300 ng/mL [facility] Comment on above: Performed By: #### L 505.5000, L400.0001 ####[facility] [address] [place] [address] OPIATES Negative Normal < 300 ng/mL [facility] Comment on above: Performed By: #### L 505.5000, L400.0001 ####[facility] [address] [place], [address] PCP Negative Normal < 25 ng/mL [facility] Comment on above: Performed By: #### L 505.5000, L400.0001 ####[facility] [address] [place], [address] THC Positive Abnormal < 50 ng/mL [facility] Comment on above: Performed By: #### L 505.5000, L400.0001 ####[facility] [address] [place], [address] VISTA UDS PH 6 Normal [facility] Comment on above: Performed By: #### L 505.5000, L400.0001 ####[facility] [address] [place], [address] CBC W/Diff, Automatedon 05-2 0-4 Absolute Lymph 2.62 X10 3/uL Normal 0.83-4.51 [facility] Comment on above: Performed By: #### L 100.0100, L500.4050 ####[facility] [address] [place], [address] Absolute Neut 6.5 X10 3/uL Normal 2.0-7.7 [facility] Comment on above: Performed By: #### L 100.0100, L500.4050 ####[facility] [address] [place], [address] Basophils/100 WBC (Bld) 1.0 % Normal 0-1 [facility] Comment on above: Performed By: #### L 100.0100, L500.4050 ####[facility] [address] [place], [address] Eosinophils/100 WBC (Bld) 1.2 % Normal 0-5 [facility] Comment on above: Performed By: #### L 100.0100, L500.4050 ####[facility] [address] [place], [address] Erythrocyte distribution width (RBC) [Ratio] 13.0 % Normal 11.6-14.6 [facility] Comment on above: Performed By: #### L 100.0100, L500.4050 ####[facility] [address] [place], [address] Hematocrit (Bld) [Volume fraction] 37.9 % Normal 37-47 [facility] Comment on above: Performed By: #### L 100.0100, L500.4050 ####[facility] [address] [place], [address] Hemoglobin (Bld) [Mass/Vol] 12.2 g/dL Normal 12.0-15.0 [facility] Comment on above: Performed By: #### L 100.0100, L500.4050 ####[facility] [address] [place], [address] IG% 0.300 Normal 0.0-0.9 [facility] Comment on above: Result Comment: IG% - Immature Granulocytes (promyelocytes, myelocytes andmetamyelocytes) > 1% indicates that a LEFT SHIFT is Present. Performed By: #### L 100.0100, L500.4050 ####[facility] [address] [place], [address] Lymphocytes/100 WBC (Bld) 26.1 % Normal 19-41 [facility] Comment on above: Performed By: #### L 100.0100, L500.4050 ####[facility] [address] [place], [address] MCH (RBC) [Entitic mass] 30.0 pg Normal 27.0-32.0 [facility] Comment on above: Performed By: #### L 100.0100, L500.4050 ####[facility] [address] [place], [address] MCHC (RBC) [Mass/Vol] 32.2 g/dL Normal 32-36 [facility] Comment on above: Performed By: #### L 100.0100, L500.4050 ####[facility] [address] [place], [address] MCV (RBC) [Entitic vol] 93.1 fL Normal 81-99 [facility] Comment on above: Performed By: #### L 100.0100, L500.4050 ####[facility] [address] [place], [address] Monocytes/100 WBC (Bld) 7.2 % Normal 0-10 [facility] Comment on above: Performed By: #### L 100.0100, L500.4050 ####[facility] [address] [place], [address] Neutrophils/100 WBC (Bld) 64.2 % Normal 47-70 [facility] Comment on above: Performed By: #### L 100.0100, L500.4050 ####[facility] [address] [place], [address] Nucleated RBC (Bld) [#/Vol] 0 10*3/uL Normal 0-5 [facility] Comment on above: Performed By: #### L 100.0100, L500.4050 ####[facility] [address] [place], [address] Platelet mean volume (Bld) [Entitic vol] 9.0 fL Normal 6.2-12.0 [facility] Comment on above: Performed By: #### L 100.0100, L500.4050 ####[facility] [address] [place], [address] Platelets (Bld) [#/Vol] 269 10*3/uL Normal 150-450 [facility] Comment on above: Performed By: #### L 100.0100, L500.4050 ####[facility] [address] [place], [address] RBC (Bld) [#/Vol] 4.07 10*6/uL Low 4.2-5.4 [facility] Comment on above: Performed By: #### L 100.0100, L500.4050 ####[facility] [address] [place], [address] RDW SD 44.6 fl High 35.1-43.9 [facility] Comment on above: Performed By: #### L 100.0100, L500.4050 ####[facility] [address] [place], [address] WBC (Bld) [#/Vol] 10.1 10*3/uL Normal 4.4-11.0 [facility] Comment on above: Performed By: #### L 100.0100, L500.4050 ####[facility] [address] [place], [address] Comprehensive Metabolic Prof ilon 03-11-2024 Albumin [Mass/Vol] 2.8 g/dL Low 3.2-5.0 [facility] Comment on above: Performed By: #### L 100.0100, L500.4050 ####[facility] [address] [place], [address] Albumin/Globulin [Mass ratio] 1.2 {ratio} Normal 0.9-2.4 [facility] Comment on above: Performed By: #### L 100.0100, L500.4050 ####[facility] [address] [place], [address] ALK P 55 U/L Normal 45-117 [facility] Comment on above: Performed By: #### L 100.0100, L500.4050 ####[facility] [address] [place], [address] ALT [Catalytic activity/Vol] 30 U/L Normal 13-56 [facility] Comment on above: Performed By: #### L 100.0100, L500.4050 ####[facility] [address] [place], [address] AST [Catalytic activity/Vol] 24 U/L Normal 15-37 [facility] Comment on above: Performed By: #### L 100.0100, L500.4050 ####[facility] [address] [place], [address] Bilirubin [Mass/Vol] 0.30 mg/dL Normal 0.20-1.00 [facility] Comment on above: Result Comment: For patients on eltrombopag therapy, use of Dimension [place] TBIL is not recommended. Performed By: #### L 100.0100, L500.4050 ####[facility] [address] [place], [address] BUN/CRE 15.8 RATIO Normal 10-20 [facility] Comment on above: Performed By: #### L 100.0100, L500.4050 ####[facility] [address] [place], [address] CA,Total 7.8 mg/dL Low 8.5-10.1 [facility] Comment on above: Performed By: #### L 100.0100, L500.4050 ####[facility] [address] [place], [address] Chloride [Moles/Vol] 119 mmol/L High 98-107 [facility] Comment on above: Performed By: #### L 100.0100, L500.4050 ####[facility] [address] [place], [address] CO2 [Moles/Vol] 23.0 mmol/L Normal 21.0-32.0 [facility] Comment on above: Performed By: #### L 100.0100, L500.4050 ####[facility] [address] [place], [address] Creatinine [Mass/Vol] 0.76 mg/dL Normal 0.55-1.02 [facility] Comment on above: Result Comment: The validity of the calculated GFR GFRAA in patients over70 years has not been determined. Clinical correlation isessential. Performed By: #### L 100.0100, L500.4050 ####[facility] [address] [place], [address] ECRCL 69.06 ml/min Normal [facility] Comment on above: Performed By: #### L 100.0100, L500.4050 ####[facility] [address] [place], [address] EST GFR - AA 99 mL/min Normal >60 [facility] Comment on above: Result Comment: Afri can Irish GFR Calc Performed By: #### L 100.0100, L500.4050 ####[facility] [address] [place], [address] GAP 4 Low 5-15 [facility] Comment on above: Performed By: #### L 100.0100, L500.4050 ####[facility] [address] [place], [address] GFR/1.73 sq M.predicted among non-blacks MDRD (S/P/Bld) [Vol rate/Area] 82 mL/min/{1.73_m2} Normal >60 [facility] Comment on above: Result Comment: Non- GFR Calc Performed By: #### L 100.0100, L500.4050 ####[facility] [address] [place], [address] Globulin (S) [Mass/Vol] 2.3 g/dL Normal 2.2-4.2 [facility] Comment on above: Performed By: #### L 100.0100, L500.4050 ####[facility] [address] [place], [address] Glucose [Mass/Vol] 98 mg/dL Normal 74-106 [facility] Comment on above: Performed By: #### L 100.0100, L500.4050 ####[facility] [address] [place], [address] Potassium [Moles/Vol] 2.9 mmol/L Low 3.5-5.1 [facility] Comment on above: Performed By: #### L 100.0100, L500.4050 ####[facility] [address] [place], [address] Sodium [Moles/Vol] 146 mmol/L High 136-145 [facility] Comment on above: Performed By: #### L 100.0100, L500.4050 ####[facility] [address] [place], [address] T PROT 5.1 g/dL Low 6.4-8.2 [facility] Comment on above: Performed By: #### L 100.0100, L500.4050 ####[facility] [address] [place], [address] Urea nitrogen [Mass/Vol] 12 mg/dL Normal 7-18 [facility] Comment on above: Performed By: #### L 100.0100, L500.4050 ####[facility] [address] [place], [address] H AND P Exam - Hospitaliston 03-11-2024 H&P Exam - Hospitalist Normal [facility] 12 Lead EKGon 03-10-2024 12 Lead EKG Normal [facility] Alcohol, Blood (Medical)-Ser umon 03-10-2024 SERUM ETOH < 3.0 Normal [facility] Comment on above: Result Comment: The serum:whole blood ethanol ratio is approximately 1.14and varies slightly with hematocrit.Medical Alcohol reference interval and critical value innon-tolerant individuals; 50 - 100 Impairment 100 Intoxication 100 - 250 Severe Poisoning 250 - 400 Deep/possible fatal coma Performed By: #### L 100.0100, L501.4020, L500.4050, L501.9100 ####[facility] [address] [place], [address] Brain/Head without Contrasto n 03-10-2024 Brain/Head without Contrast Normal [facility] CBC W/Diff, Automatedon 05- Absolute Lymph 1.79 X10 3/uL Normal 0.83-4.51 [facility] Comment on above: Performed By: #### L 100.0100, L501.4020, L500.4050, L501.9100 ####[facility] [address] [place], [address] Absolute Neut 8.9 X10 3/uL High 2.0-7.7 [facility] Comment on above: Performed By: #### L 100.0100, L501.4020, L500.4050, L501.9100 ####[facility] [address] [place], [address] Basophils/100 WBC (Bld) 0.6 % Normal 0-1 [facility] Comment on above: Performed By: #### L 100.0100, L501.4020, L500.4050, L501.9100 ####[facility] [address] [place], [address] Eosinophils/100 WBC (Bld) 0.1 % Normal 0-5 [facility] Comment on above: Performed By: #### L 100.0100, L501.4020, L500.4050, L501.9100 ####[facility] [address] [place], [address] Erythrocyte distribution width (RBC) [Ratio] 12.8 % Normal 11.6-14.6 [facility] Comment on above: Performed By: #### L 100.0100, L501.4020, L500.4050, L501.9100 ####[facility] [address] [place], [address] Hematocrit (Bld) [Volume fraction] 36.5 % Low 37-47 [facility] Comment on above: Performed By: #### L 100.0100, L501.4020, L500.4050, L501.9100 ####[facility] [address] [place], [address] Hemoglobin (Bld) [Mass/Vol] 12.2 g/dL Normal 12.0-15.0 [facility] Comment on above: Performed By: #### L 100.0100, L501.4020, L500.4050, L501.9100 ####[facility] [address] [place], [address] IG% 0.400 Normal 0.0-0.9 [facility] Comment on above: Result Comment: IG% - Immature Granulocytes (promyelocytes, myelocytes andmetamyelocytes) > 1% indicates that a LEFT SHIFT is Present. Performed By: #### L 100.0100, L501.4020, L500.4050, L501.9100 ####[facility] [address] [place], [address] Lymphocytes/100 WBC (Bld) 15.7 % Low 19-41 [facility] Comment on above: Performed By: #### L 100.0100, L501.4020, L500.4050, L501.9100 ####[facility] [address] [place], [address] MCH (RBC) [Entitic mass] 30.6 pg Normal 27.0-32.0 [facility] Comment on above: Performed By: #### L 100.0100, L501.4020, L500.4050, L501.9100 ####[facility] [address] [place], [address] MCHC (RBC) [Mass/Vol] 33.4 g/dL Normal 32-36 [facility] Comment on above: Performed By: #### L 100.0100, L501.4020, L500.4050, L501.9100 ####[facility] [address] [place], [address] MCV (RBC) [Entitic vol] 91.5 fL Normal 81-99 [facility] Comment on above: Performed By: #### L 100.0100, L501.4020, L500.4050, L501.9100 ####[facility] [address] [place], [address] Monocytes/100 WBC (Bld) 4.9 % Normal 0-10 [facility] Comment on above: Performed By: #### L 100.0100, L501.4020, L500.4050, L501.9100 ####[facility] [address] [place], [address] Neutrophils/100 WBC (Bld) 78.3 % High 47-70 [facility] Comment on above: Performed By: #### L 100.0100, L501.4020, L500.4050, L501.9100 ####[facility] [address] [place], [address] Nucleated RBC (Bld) [#/Vol] 0 10*3/uL Normal 0-5 [facility] Comment on above: Performed By: #### L 100.0100, L501.4020, L500.4050, L501.9100 ####[facility] [address] [place], [address] Platelet mean volume (Bld) [Entitic vol] 9.3 fL Normal 6.2-12.0 [facility] Comment on above: Performed By: #### L 100.0100, L501.4020, L500.4050, L501.9100 ####[facility] [address] [place], [address] Platelets (Bld) [#/Vol] 318 10*3/uL Normal 150-450 [facility] Comment on above: Performed By: #### L 100.0100, L501.4020, L500.4050, L501.9100 ####[facility] [address] [place], [address] RBC (Bld) [#/Vol] 3.99 10*6/uL Low 4.2-5.4 [facility] Comment on above: Performed By: #### L 100.0100, L501.4020, L500.4050, L501.9100 ####[facility] [address] [place], [address] RDW SD 43.2 fl Normal 35.1-43.9 [facility] Comment on above: Performed By: #### L 100.0100, L501.4020, L500.4050, L501.9100 ####[facility] [address] [place], [address] WBC (Bld) [#/Vol] 11.4 10*3/uL High 4.4-11.0 [facility] Comment on above: Performed By: #### L 100.0100, L501.4020, L500.4050, L501.9100 ####[facility] [address] [place], [address] Chest 1 View (Portable)on Chest 1 View (Portable) Normal [facility] Comprehensive Metabolic Prof ilon 03-10-2024 Albumin [Mass/Vol] 3.6 g/dL Normal 3.2-5.0 [facility] Comment on above: Order Comment: 'TROP ' Serial specimen #1, #2 or #3: 1 Performed By: #### L 100.0100, L501.4020, L500.4050, L501.9100 ####[facility] [address] [place], [address] Albumin/Globulin [Mass ratio] 1.3 {ratio} Normal 0.9-2.4 [facility] Comment on above: Order Comment: 'TROP ' Serial specimen #1, #2 or #3: 1 Performed By: #### L 100.0100, L501.4020, L500.4050, L501.9100 ####[facility] [address] [place], [address] ALK P 80 U/L Normal 45-117 [facility] Comment on above: Order Comment: 'TROP ' Serial specimen #1, #2 or #3: 1 Performed By: #### L 100.0100, L501.4020, L500.4050, L501.9100 ####[facility] [address] [place], [address] ALT [Catalytic activity/Vol] 41 U/L Normal 13-56 [facility] Comment on above: Order Comment: 'TROP ' Serial specimen #1, #2 or #3: 1 Performed By: #### L 100.0100, L501.4020, L500.4050, L501.9100 ####[facility] [address] [place], [address] AST [Catalytic activity/Vol] 35 U/L Normal 15-37 [facility] Comment on above: Order Comment: 'TROP ' Serial specimen #1, #2 or #3: 1 Performed By: #### L 100.0100, L501.4020, L500.4050, L501.9100 ####[facility] [address] [place], [address] Bilirubin [Mass/Vol] 0.40 mg/dL Normal 0.20-1.00 [facility] Comment on above: Order Comment: 'TROP ' Serial specimen #1, #2 or #3: 1 Result Comment: For patients on eltrombopag therapy, use of Dimension [place] TBIL is not recommended. Performed By: #### L 100.0100, L501.4020, L500.4050, L501.9100 ####[facility] [address] [place], [address] BUN/CRE 13.9 RATIO Normal 10-20 [facility] Comment on above: Order Comment: 'TROP ' Serial specimen #1, #2 or #3: 1 Performed By: #### L 100.0100, L501.4020, L500.4050, L501.9100 ####[facility] [address] [place], [address] CA,Total 8.5 mg/dL Normal 8.5-10.1 [facility] Comment on above: Order Comment: 'TROP ' Serial specimen #1, #2 or #3: 1 Performed By: #### L 100.0100, L501.4020, L500.4050, L501.9100 ####[facility] [address] [place], [address] Chloride [Moles/Vol] 107 mmol/L Normal 98-107 [facility] Comment on above: Order Comment: 'TROP ' Serial specimen #1, #2 or #3: 1 Performed By: #### L 100.0100, L501.4020, L500.4050, L501.9100 ####[facility] [address] [place], [address] CO2 [Moles/Vol] 23.0 mmol/L Normal 21.0-32.0 [facility] Comment on above: Order Comment: 'TROP ' Serial specimen #1, #2 or #3: 1 Performed By: #### L 100.0100, L501.4020, L500.4050, L501.9100 ####[facility] [address] [place], [address] Creatinine [Mass/Vol] 1.22 mg/dL High 0.55-1.02 [facility] Comment on above: Order Comment: 'TROP ' Serial specimen #1, #2 or #3: 1 Result Comment: The validity of the calculated GFR GFRAA in patients over70 years has not been determined. Clinical correlation isessential. Performed By: #### L 100.0100, L501.4020, L500.4050, L501.9100 ####[facility] [address] [place], [address] ECRCL 43.02 ml/min Normal [facility] Comment on above: Order Comment: 'TROP ' Serial specimen #1, #2 or #3: 1 Performed By: #### L 100.0100, L501.4020, L500.4050, L501.9100 ####[facility] [address] [place], [address] EST GFR - AA 57 mL/min Low >60 [facility] Comment on above: Order Comment: 'TROP ' Serial specimen #1, #2 or #3: 1 Result Comment: Afri can Irish GFR Calc Performed By: #### L 100.0100, L501.4020, L500.4050, L501.9100 ####[facility] [address] [place], [address] GAP 7 Normal 5-15 [facility] Comment on above: Order Comment: 'TROP ' Serial specimen #1, #2 or #3: 1 Performed By: #### L 100.0100, L501.4020, L500.4050, L501.9100 ####[facility] [address] [place], [address] GFR/1.73 sq M.predicted among non-blacks MDRD (S/P/Bld) [Vol rate/Area] 47 mL/min/{1.73_m2} Low >60 [facility] Comment on above: Order Comment: 'TROP ' Serial specimen #1, #2 or #3: 1 Result Comment: Non- GFR Calc Performed By: #### L 100.0100, L501.4020, L500.4050, L501.9100 ####[facility] [address] [place], [address] Globulin (S) [Mass/Vol] 2.8 g/dL Normal 2.2-4.2 [facility] Comment on above: Order Comment: 'TROP ' Serial specimen #1, #2 or #3: 1 Performed By: #### L 100.0100, L501.4020, L500.4050, L501.9100 ####[facility] [address] [place], [address] Glucose [Mass/Vol] 110 mg/dL High 74-106 [facility] Comment on above: Order Comment: 'TROP ' Serial specimen #1, #2 or #3: 1 Result Comment: Fast ing Glucose result from 100 to 125 mg/dLsuggests IMPAIRED HOMEOSTASIS per A.D.A. criteria. Performed By: #### L 100.0100, L501.4020, L500.4050, L501.9100 ####[facility] [address] [place], [address] Potassium [Moles/Vol] 3.3 mmol/L Low 3.5-5.1 [facility] Comment on above: Order Comment: 'TROP ' Serial specimen #1, #2 or #3: 1 Performed By: #### L 100.0100, L501.4020, L500.4050, L501.9100 ####[facility] [address] [place], [address] Sodium [Moles/Vol] 137 mmol/L Normal 136-145 [facility] Comment on above: Order Comment: 'TROP ' Serial specimen #1, #2 or #3: 1 Performed By: #### L 100.0100, L501.4020, L500.4050, L501.9100 ####[facility] [address] [place], [address] T PROT 6.4 g/dL Normal 6.4-8.2 [facility] Comment on above: Order Comment: 'TROP ' Serial specimen #1, #2 or #3: 1 Performed By: #### L 100.0100, L501.4020, L500.4050, L501.9100 ####[facility] [address] [place], [address] Urea nitrogen [Mass/Vol] 17 mg/dL Normal 7-18 [facility] Comment on above: Order Comment: 'TROP ' Serial specimen #1, #2 or #3: 1 Performed By: #### L 100.0100, L501.4020, L500.4050, L501.9100 ####[facility] [address] [place], [address] Emergency Department Summary on 03-10-2024 Emergency Department Summary Normal [facility] L501.4020on 03-10-2024 TROPONIN-I HS 5 pg/mL Normal 3.0-54.0 [facility] Comment on above: Order Comment: 'TROP ' Serial specimen #1, #2 or #3: 1 Result Comment: Pleandreas se Note: New Test Units and Gender Specific Reference Ranges. For more information see Policy Stat Procedure [place] High Sensitivity Troponin (TNIH) and attachments. Performed By: #### L 100.0100, L501.4020, L500.4050, L501.9100 ####[facility] [address] [place], [address] Urinalysis, Completeon 03-10 BACTERIA 0 SEEN Normal None Seen [facility] Comment on above: Order Comment: CLEAN CATCH Performed By: #### L 400.0001, L505.5000 ####[facility] [address] [place], [address] EPI,SQUAMOUS 0 SEEN Normal 5-10 [facility] Comment on above: Order Comment: CLEAN CATCH Performed By: #### L 400.0001, L505.5000 ####[facility] [address] [place], [address] Mucus Ql (Urine sed) 0 SEEN Normal [facility] Comment on above: Order Comment: CLEAN CATCH Performed By: #### L 400.0001, L505.5000 ####[facility] [address] [place], [address] RBC 0 SEEN Normal 0-5 [facility] Comment on above: Order Comment: CLEAN CATCH Performed By: #### L 400.0001, L505.5000 ####[facility] [address] [place], [address] WBC 0 SEEN Normal 0-5 [facility] Comment on above: Order Comment: CLEAN CATCH Performed By: #### L 400.0001, L505.5000 ####[facility] [address] [place] [address] Urine Drug Screen (VISTA)on 03-10-2024 AMPHETAMINES Negative Normal <1000 ng/mL [facility] Comment on above: Performed By: #### L 400.0001, L505.5000 ####[facility] [address] [place] [address] BARBITIURATES Negative Normal < 200 ng/mL [facility] Comment on above: Performed By: #### L 400.0001, L505.5000 ####[facility] [address] [place] [address] BENZODIAZIPINE Negative Normal < 200 ng/mL [facility] Comment on above: Performed By: #### L 400.0001, L505.5000 ####[facility] [address] [place] [address] COCAINE Negative Normal < 300 ng/mL [facility] Comment on above: Performed By: #### L 400.0001, L505.5000 ####[facility] [address] [place] [address] ECSTACY Negative Normal < 500 ng/mL [facility] Comment on above: Performed By: #### L 400.0001, L505.5000 ####[facility] [address] [place] [address] METHADONE Negative Normal < 300 ng/mL [facility] Comment on above: Performed By: #### L 400.0001, L505.5000 ####[facility] [address] [place] [id number] OPIATES Negative Normal < 300 ng/mL [facility] Comment on above: Performed By: #### L 400.0001, L505.5000 ####[facility] [address] [place], [address] PCP Negative Normal < 25 ng/mL [facility] Comment on above: Performed By: #### L 400.0001, L505.5000 ####[facility] [address] [place], [address] THC Positive Abnormal < 50 ng/mL [facility] Comment on above: Performed By: #### L 400.0001, L505.5000 ####[facility] [address] [place], [address] VISTA UDS PH 6 Normal [facility] Comment on above: Performed By: #### L 400.0001, L505.5000 ####[facility] [address] [place], [address] Basic metabolic 2000 panelon 01-30-2024 Anion gap [Moles/Vol] 9 mmol/L Low 10-20 [facility] Comment on above: Performed By: #### 2 4323-8 #### [place] ([id number]) [facility] ([facility]) [address] [place] [address] Calcium [Mass/Vol] 7.8 mg/dL Low 8.6-10.3 [facility] Comment on above: Performed By: #### 2 4323-8 #### [place] (85151) [facility] ([facility]) [facility] [place] [address] Chloride [Moles/Vol] 114 mmol/L High 98-107 [facility] Comment on above: Performed By: #### 2 4323-8 #### [place] (52026) [facility] ([facility]) [address] [place] [address] CO2 [Moles/Vol] 19 mmol/L Low 21-32 [facility] Comment on above: Performed By: #### 2 4323-8 #### [place] ([id number]) [facility] ([facility]) [address] [place] [address] Creatinine [Mass/Vol] 0.80 mg/dL Normal 0.50-1.05 [facility] Comment on above: Performed By: #### 2 4323-8 #### [place] ([id number]) [facility] ([facility]) [address] [place] [address] Glomerular filtration rate/1.73 sq M.predicted 83 mL/min/1.73m*2 Normal >60 [facility] Comment on above: Result Comment: Calc ulations of estimated GFR are performed using the 2020 CKD-EPI Study Refit equation without the race variable for the IDMS-Traceable creatinine methods. https://jasn.asnjournals.org/content/early//ASN.197413 7360 Performed By: #### 2 432-8 #### [place] (08231) [facility] ([facility]) [address] [place] [address] Glucose [Mass/Vol] 86 mg/dL Normal 74-99 [facility] Comment on above: Performed By: #### 2 432-8 #### [place] (71948) [facility] ([facility]) [address] [place] [address] Potassium [Moles/Vol] 4.0 mmol/L Normal 3.5-5.3 [facility] Comment on above: Performed By: #### 2 4323-8 #### [place] (57040) [facility] ([facility]) [address] [place] [address] Sodium [Moles/Vol] 138 mmol/L Normal 136-145 [facility] Comment on above: Performed By: #### 2 4323-8 #### [place] ([id number]) [facility] ([facility]) [address] [place] [address] Urea nitrogen [Mass/Vol] 19 mg/dL Normal 6-23 [facility] Comment on above: Performed By: #### 2 4323-8 #### [place] ([id number]) [facility] ([facility]) [address] [place] [address] CBC panel Auto (Bld)on 01-29 Erythrocyte distribution width (RBC) [Ratio] 12.9 % Normal 11.5-14.5 [facility] Comment on above: Performed By: #### 2 4323-8 #### [place] ([id number]) [facility] ([facility]) [address] [place] [address] Hematocrit (Bld) [Volume fraction] 38.6 % Normal 36.0-46.0 [facility] Comment on above: Performed By: #### 2 4323-8 #### [place] (56022) [facility] ([facility]) [address] [place] [address] Hemoglobin (Bld) [Mass/Vol] 12.7 g/dL Normal 12.0-16.0 [facility] Comment on above: Performed By: #### 2 4323-8 #### [place] (59025) [facility] ([facility]) [address] [place] [address] MCH (RBC) [Entitic mass] 30.5 pg Normal 26.0-34.0 [facility] Comment on above: Performed By: #### 2 4323-8 #### [place] ([id number]) [facility] ([facility]) [address] [place], [place] [id number] MCHC (RBC) [Mass/Vol] 32.9 g/dL Normal 32.0-36.0 [facility] Comment on above: Performed By: #### 2 4323-8 #### [place] ([id number]) [facility] ([facility]) [address] [place], [place] [address] MCV (RBC) [Entitic vol] 93 fL Normal 80-100 [facility] Comment on above: Performed By: #### 2 4323-8 #### [place] (50295) [facility] ([facility]) [address] [place] [address] Nucleated RBC/100 WBC (Bld) [Ratio] 0.0 /100 WBCs Normal 0.0-0.0 [facility] Comment on above: Performed By: #### 2 4323-8 #### [place] ([id number]) [facility] ([facility]) [address] [place] [address] Platelets (Bld) [#/Vol] 230 x10*3/uL Normal 150-450 [facility] Comment on above: Performed By: #### 2 432-8 #### [place] (88471) [facility] ([facility]) [address] [place] [address] RBC (Bld) [#/Vol] 4.16 x10*6/uL Normal 4.00-5.20 [facility] Comment on above: Performed By: #### 2 432-8 #### [place] (52139) [facility] ([facility]) [address] [place] [address] WBC (Bld) [#/Vol] 10.4 x10*3/uL Normal 4.4-11.3 [facility] Comment on above: Performed By: #### 2 4323-8 #### [place] ([id number]) [facility] ([facility]) [address] [place] [address] Basic metabolic 2000 panelon 01-29-2024 Anion gap [Moles/Vol] 16 mmol/L Normal 10-20 [facility] Comment on above: Performed By: #### 2 4323-8 #### [place] (26427) [facility] ([facility]) [address] [place] [address] Calcium [Mass/Vol] 8.5 mg/dL Low 8.6-10.3 [facility] Comment on above: Performed By: #### 2 4323-8 #### [place] (13352) [facility] ([facility]) [address] [place] [address] Chloride [Moles/Vol] 104 mmol/L Normal 98-107 [facility] Comment on above: Performed By: #### 2 4323-8 #### [place] (98906) [facility] ([facility]) [address] [place] [address] CO2 [Moles/Vol] 20 mmol/L Low 21-32 [facility] Comment on above: Performed By: #### 2 4323-8 #### [place] (72207) [facility] ([facility]) [address] [place] [address] Creatinine [Mass/Vol] 0.96 mg/dL Normal 0.50-1.05 [facility] Comment on above: Performed By: #### 2 4323-8 #### [place] (28337) [facility] ([facility]) [address] [place] [address] Glomerular filtration rate/1.73 sq M.predicted 67 mL/min/1.73m*2 Normal >60 [facility] Comment on above: Result Comment: Calc ulations of estimated GFR are performed using the 2020 CKD-EPI Study Refit equation without the race variable for the IDMS-Traceable creatinine methods. https://jasn.asnjournals.org/content/early/ASN.847972 6356 Performed By: #### 2 4323-8 #### [place] (40005) [facility] ([facility]) [address] [place] [address]67 Glucose [Mass/Vol] 118 mg/dL High 74-99 [facility] Comment on above: Performed By: #### 2 4323-8 #### [place] (02292) [facility] ([facility]) [address] [place] [address] Potassium [Moles/Vol] 3.1 mmol/L Low 3.5-5.3 [facility] Comment on above: Performed By: #### 2 4323-8 #### [place] (18854) [facility] ([facility]) [address] [place] [address] Sodium [Moles/Vol] 137 mmol/L Normal 136-145 [facility] Comment on above: Performed By: #### 2 4323-8 #### [place] (28512) [facility] ([facility]) [address] [place] [address] Urea nitrogen [Mass/Vol] 24 mg/dL High 6-23 [facility] Comment on above: Performed By: #### 2 4323-8 #### [place] ([id number]) [facility] ([facility]) [address] [place] [address] CBC panel Auto (Bld)on 01-28 Erythrocyte distribution width (RBC) [Ratio] 12.9 % Normal 11.5-14.5 [facility] Comment on above: Performed By: #### 5 8410-2 #### [place] (03313) [facility] ([facility]) [address] [place] [address] Hematocrit (Bld) [Volume fraction] 41.9 % Normal 36.0-46.0 [facility] Comment on above: Performed By: #### 5 8410-2 #### [place] (67621) [facility] ([facility]) [address] [place] [address] Hemoglobin (Bld) [Mass/Vol] 14.1 g/dL Normal 12.0-16.0 [facility] Comment on above: Performed By: #### 5 8410-2 #### [place] (00198) [facility] ([facility]) [address] [place] [address]677 MCH (RBC) [Entitic mass] 30.8 pg Normal 26.0-34.0 [facility] Comment on above: Performed By: #### 5 8410-2 #### [place] (63685) [facility] ([facility]) [address] [place] [address]5789 MCHC (RBC) [Mass/Vol] 33.7 g/dL Normal 32.0-36.0 [facility] Comment on above: Performed By: #### 5 8410-2 #### [place] (31318) [facility] ([facility]) [address] [place] [address] 89892 MCV (RBC) [Entitic vol] 92 fL Normal 80-100 [facility] Comment on above: Performed By: #### 5 8410-2 #### [place] (70450) [facility] ([facility]) [address] [place], [place] [address] Nucleated RBC/100 WBC (Bld) [Ratio] 0.0 /100 WBCs Normal 0.0-0.0 [facility] Comment on above: Performed By: #### 5 8410-2 #### [place] (09681) [facility] ([facility]) [address] [place] [address]805 Platelets (Bld) [#/Vol] 295 x10*3/uL Normal 150-450 [facility] Comment on above: Performed By: #### 5 8410-2 #### [place] (07582) [facility] ([facility]) [address] [place] [address] 58432 RBC (Bld) [#/Vol] 4.58 x10*6/uL Normal 4.00-5.20 [facility] Comment on above: Performed By: #### 5 8410-2 #### [place] (58948) [facility] ([facility]) [address] [place] [address]08 WBC (Bld) [#/Vol] 11.3 x10*3/uL Normal 4.4-11.3 [facility] Comment on above: Performed By: #### 5 8410-2 #### [place] (75695) [facility] ([facility]) [address] [place], [place] [phone] Clostridioides difficile tox in A+B tcdA+tcdB geneson 01-29-2024 C. difficile toxin A+B tcdA+tcdB genes ABEL+probe Ql (Stl) Clostridioides difficile toxin A+B tcdA+tcdB genes Not Detected Normal Not Detected [facility] Comment on above: Order Comment: This test [...] By: #### 8 0685-1 #### [place] (06346) [facility] ([facility]) [address] [place] [address] Gastrointestinal pathogens i dentifiedon 01-29-2024 Gastrointestinal pathogens [...] Rotavirus RNA Not Detected Normal Not Detected [facility] Comment on above: Performed By: #### 2 4323-8 #### [place] ([id number]) [facility] ([facility]) [address] [place] [address] Bacteria identifiedon 2023 Bacteria identified Cx Nom (U) Test: Urine Culture Specimen Source: Clean Catch/Voided Specimen Type: Urine Specimen Date: 01/28/2024 6:13 PM Result Date: 01/30/2024 8:15 AM Result Status: Final result Abnormal: No Resulting Lab: [facility] [id number] [place] [address] CULTURE No significant growth Normal [facility] Comment on above: Performed By: #### 2 4323-8 #### [place] (58069) [facility] ([facility]) [address] [place] [address] CBC panel Auto (Bld)on 01-27 Erythrocyte distribution width (RBC) [Ratio] 12.8 % Normal 11.5-14.5 [facility] Comment on above: Performed By: #### 5 8410-2 #### [place] (66606) [facility] ([facility]) [address] [place] [address]88 Hematocrit (Bld) [Volume fraction] 46.8 % High 36.0-46.0 [facility] Comment on above: Performed By: #### 5 8410-2 #### [place] (45836) [facility] ([facility]) [address] [place] [address] 55175 Hemoglobin (Bld) [Mass/Vol] 16.2 g/dL High 12.0-16.0 [facility] Comment on above: Performed By: #### 5 8410-2 #### [place] (96794) [facility] ([facility]) [address] [place] [address] 83244 MCH (RBC) [Entitic mass] 30.9 pg Normal 26.0-34.0 [facility] Comment on above: Performed By: #### 5 8410-2 #### LOS OG ([id number]) [facility] ([facility]) [address] [place] [address] 72138 MCHC (RBC) [Mass/Vol] 34.6 g/dL Normal 32.0-36.0 [facility] Comment on above: Performed By: #### 5 8410-2 #### LOS OG ([id number]) [facility] ([facility]) [address] [place] [address] 71757 MCV (RBC) [Entitic vol] 89 fL Normal 80-100 [facility] Comment on above: Performed By: #### 5 8410-2 #### LOS OG ([id number]) [facility] ([facility]) [address] [place] [address] 75296 Nucleated RBC/100 WBC (Bld) [Ratio] 0.0 /100 WBCs Normal 0.0-0.0 [facility] Comment on above: Performed By: #### 5 8410-2 #### LOS OG ([id number]) [facility] ([facility]) [facility] [place] [address] Platelets (Bld) [#/Vol] 339 x10*3/uL Normal 150-450 [facility] Comment on above: Performed By: #### 5 8410-2 #### LOS OG ([id number]) [facility] ([facility]) [address] [place] [address] RBC (Bld) [#/Vol] 5.24 x10*6/uL High 4.00-5.20 [facility] Comment on above: Performed By: #### 5 8410-2 #### LOS OG ([id number]) [facility] ([facility]) [facility] [place] [address] WBC (Bld) [#/Vol] 10.0 x10*3/uL Normal 4.4-11.3 [facility] Comment on above: Performed By: #### 5 8410-2 #### LOS OG ([id number]) [facility] ([facility]) [address] [place] [address] CT ABDOMEN PELVIS W IV CONTR Johnnie 01-28-2024 CT ABDOMEN PELVIS W IV CONTRAST Interpreted By: Robbie Diaz, STUDY: CT ABDOMEN PELVIS W IV CONTRAST; 01/28/2024 8:19 pm INDICATION: Signs/Symptoms:vomiting. COMPARISON: None. ACCESSION NUMBER(S): [id number] ORDERING CLINICIAN: MIKE LUCERO TECHNIQUE: Contiguous axial images of the abdomen and pelvis were obtained after the intravenous administration of iodinated contrast. Coronal and sagittal reformatted images were reconstructed from the axial data. FINDINGS: LOWER CHEST: No acute abnormality. ABDOMEN/PELVIS: ABDOMINAL WALL: No significant abnormality. LIVER: The liver is enlarged measuring 17.1 cm in craniocaudal dimension. There are multiple llh-lojjn-li-characterize hypodensities in the liver statistically representing benign [...] enlarged lymph nodes. No acute retroperitoneal abnormality. BOWEL/MESENTERY/PERITONEUM : There is diffuse wall thickening of the [...] Robbie Diaz 01/28/2024 9:10 PM Dictation workstation: [id number] Normal [facility] Comprehensive metabolic 2000 panelon 01-28-2024 Albumin BCP dye [Mass/Vol] 4.2 g/dL Normal 3.4-5.0 [facility] Comment on above: Performed By: #### 2 4323-8 #### MADISON LENKA ([id number]) [facility] ([facility]) [address] [place] [address] 61624 ALP [Catalytic activity/Vol] 75 U/L Normal 33-136 [facility] Comment on above: Performed By: #### 2 4323-8 #### MADISON LENKA ([id number]) [facility] ([facility]) [address] [place] [address] 26128 ALT With P-5'-P [Catalytic activity/Vol] 23 U/L Normal 7-45 [facility] Comment on above: Result Comment: Marina ents treated with Sulfasalazine may generate falsely decreased results for ALT. Performed By: #### 2 4323-8 #### LOS OG ([id number]) [facility] ([facility]) [address] [place] [address] Anion gap [Moles/Vol] 19 mmol/L Normal 10-20 [facility] Comment on above: Performed By: #### 2 4323-8 #### LOS OG ([id number]) [facility] ([facility]) [address] [place] [address] AST With P-5'-P [Catalytic activity/Vol] 15 U/L Normal 9-39 [facility] Comment on above: Performed By: #### 2 4323-8 #### LOS OG ([id number]) [facility] ([facility]) [address] [place] [address] Bilirubin [Mass/Vol] 0.4 mg/dL Normal 0.0-1.2 [facility] Comment on above: Performed By: #### 2 4323-8 #### LOS OG ([id number]) [facility] ([facility]) [address] [place] [address] Calcium [Mass/Vol] 9.3 mg/dL Normal 8.6-10.3 [facility] Comment on above: Performed By: #### 2 4323-8 #### LOS OG ([id number]) [facility] ([facility]) [address] [place] [address] Chloride [Moles/Vol] 104 mmol/L Normal 98-107 [facility] Comment on above: Performed By: #### 2 4323-8 #### LOS OG ([id number]) [facility] ([facility]) [address] [place] [address] CO2 [Moles/Vol] 17 mmol/L Low 21-32 [facility] Comment on above: Performed By: #### 2 4323-8 #### LOS OG ([id number]) [facility] ([facility]) [facility] [place] [address] Creatinine [Mass/Vol] 1.07 mg/dL High 0.50-1.05 [facility] Comment on above: Performed By: #### 2 4323-8 #### LOS OG ([id number]) [facility] ([facility]) [address] [place] [address] 45398 Glomerular filtration rate/1.73 sq M.predicted 59 mL/min/1.73m*2 Low >60 [facility] Comment on above: Result Comment: Calc ulations of estimated GFR are performed using the 2020 CKD-EPI Study Refit equation without the race variable for the IDMS-Traceable creatinine methods. https://jasn.asnjournals.org/content/early//ASN.323863 3571 Performed By: #### 2 4323-8 #### LOS OG ([id number]) [facility] ([facility]) [address] [place] [address] 92407 Glucose [Mass/Vol] 158 mg/dL High 74-99 [facility] Comment on above: Performed By: #### 2 4323-8 #### LOS OG ([id number]) [facility] ([facility]) [address] [place] [address] 65985 Potassium [Moles/Vol] 3.2 mmol/L Low 3.5-5.3 [facility] Comment on above: Performed By: #### 2 4323-8 #### LOS OG ([id number]) [facility] ([facility]) [address] [place] [address] 26863 Protein [Mass/Vol] 7.0 g/dL Normal 6.4-8.2 [facility] Comment on above: Performed By: #### 2 4323-8 #### LOS OG (60169) [facility] ([facility]) [address] [place] [address] 00102 Sodium [Moles/Vol] 137 mmol/L Normal 136-145 [facility] Comment on above: Performed By: #### 2 4323-8 #### LOS OG ([id number]) [facility] ([facility]) [address] [place] [address] 99068 Urea nitrogen [Mass/Vol] 25 mg/dL High 6-23 [facility] Comment on above: Performed By: #### 2 4323-8 #### LOS OG ([id number]) [facility] ([facility]) [address] [place], [place] [address] ECG 12-LEADon 01-28-2024 ECG 12-LEAD Ventricular Rate 87 Atrial Rate 87 P-R Interval 128 QRS Duration 92 Q-T Interval 380 QTC Calculation(Bazett) 457 P [place] 82 R [place] 60 T [place] 102 QRS Count 15 Q Onset 229 P Onset 165 P Offset 216 T Offset 419 QTC Fredericia 430 Diagnosis Sinus rhythm with Premature atrial complexes Incomplete right bundle branch block ST & T wave abnormality, consider anterior ischemia Abnormal ECG No previous ECGs available See ED provider note for full interpretation and clinical correlation Confirmed by Shweta Moreno ([id number]) on 01/29/2024 8:55:13 PM Normal [facility] Magnesiumon 01-28-2024 Magnesium [Mass/Vol] 1.83 mg/dL Normal 1.60-2.40 [facility] Comment on above: Performed By: #### 1 9123-9 #### LOS OG ([id number]) [facility] ([facility]) [address] [place], [place] [address] Triacylglycerol lipaseon Lipase [Catalytic activity/Vol] 20 U/L Normal 9-82 [facility] Comment on above: Order Comment: Venip uncture immediately after or during the administration of Metamizole may lead to falsely low results. Testing should be performed immediately prior to Metamizole dosing. Performed By: #### 3 040-3 #### LOS OG ([id number]) [facility] ([facility]) [address] [place] [address] 84296 Troponin I.cardiac panelon 0 01-28-2024 Tropinin I.cardiac panel High sensitivity method 3 ng/L Normal 0-13 [facility] Comment on above: Order Comment: Less than [...] performed using a different testing methodology at [facility] than at other [facility]. Direct result comparisons should only be made within the same method. Performed By: #### 8 9577-1 #### LOS OG ([id number]) [facility] ([facility]) [address] [place] [address] 27819 Urinalysis complete W Reflex Culture panel (U)on 01-28-2024 Appearance (U) Hazy Normal Clear [facility] Comment on above: Performed By: #### 5 8077-9 #### LOS OG ([id number]) [facility] ([facility]) [address] [place] [address] 61306 Bilirubin (U) [Mass/Vol] SMALL (1+) Abnormal NEGATIVE [facility] Comment on above: Performed By: #### 5 8077-9 #### LOS OG ([id number]) [facility] ([facility]) [address] [place] [address] 59702 Color (U) Yellow Normal Straw, Yellow [facility] Comment on above: Performed By: #### 5 8077-9 #### LOS OG ([id number]) [facility] ([facility]) [address] [place] [address] 86238 Glucose Auto test strip (U) [Mass/Vol] Negative Normal NEGATIVE [facility] Comment on above: Performed By: #### 5 8077-9 #### LOS OG ([id number]) [facility] ([facility]) [address] [place] [address] 77088 Ketones (U) [Mass/Vol] 20 (1+) Abnormal NEGATIVE [facility] Comment on above: Performed By: #### 5 8077-9 #### LOS OG ([id number]) [facility] ([facility]) [address] [place] [address] 45502 Leukocyte esterase Auto test strip Ql (U) TRACE Abnormal NEGATIVE [facility] Comment on above: Performed By: #### 5 8077-9 #### LOS OG (77247) [facility] ([facility]) [address] [place] [address] 01328 Nitrite Auto test strip Ql (U) Negative Normal NEGATIVE [facility] Comment on above: Performed By: #### 5 8077-9 #### LOS OG ([id number]) [facility] ([facility]) [address] [place] [address] 88957 pH (U) 5.0 [pH] Normal 5.0, 5.5, 6.0, 6.5, 7.0, 7.5, 8.0 [facility] Comment on above: Performed By: #### 5 8077-9 #### LOS OG ([id number]) [facility] ([facility]) [address] [place] [address] 33186 Protein (U) [Mass/Vol] 100 (2+) Normal NEGATIVE [facility] Comment on above: Performed By: #### 5 8077-9 #### LOS OG ([id number]) [facility] ([facility]) [address] [place] [address] 30294 RBC (U) [#/Vol] Negative Normal NEGATIVE [facility] Comment on above: Performed By: #### 5 8077-9 #### LOS OG ([id number]) [facility] ([facility]) [address] [place] [address] 18022 Specific gravity (U) [Rel density] 1.026 Normal 1.005-1.035 [facility] Comment on above: Performed By: #### 5 8077-9 #### LOS OG ([id number]) [facility] ([facility]) [address] [place] [address] Urobilinogen (U) [Mass/Vol] mg/dL Normal <2.0 [facility] Comment on above: Performed By: #### 5 8077-9 #### LOS OG ([id number]) [facility] ([facility]) [address] [place] [address] Urinalysis microscopic panel Auto Ql (U)on 01-28-2024 Epithelial cells.squamous Auto (Urine sed) [#/Area] 1-9 (SPARSE) Normal Reference range not established. [facility] Comment on above: Performed By: #### 5 3315-8 #### LOS OG (55926) [facility] ([facility]) [address] [place] [address] Hyaline casts Auto (Urine sed) [#/Area] 2+ /LPF Abnormal NONE [facility] Comment on above: Performed By: #### 5 3315-8 #### LOS OG ([id number]) [facility] ([facility]) [address] [place] [address] Mucus Auto (Urine sed) [#/Area] 1+ /LPF Normal Reference range not established. [facility] Comment on above: Performed By: #### 5 3315-8 #### LOS OG ([id number]) [facility] ([facility]) [address] [place] [address] RBC Auto (Urine sed) [#/Area] 1-2 Normal NONE, 1-2, 3-5 [facility] Comment on above: Performed By: #### 5 3315-8 #### LOS OG ([id number]) [facility] ([facility]) [address] [place] [address] WBC Auto (Urine sed) [#/Area] 1-5 Normal 1-5, NONE [facility] Comment on above: Performed By: #### 5 3315-8 #### LOS OG ([id number]) [facility] ([facility]) [address] [place] [id number] Vital Signs Date Time Vital Sign Value Performing Clinician Facility 11-08-2024 15:34-0500 Body temperature 98.29 [degF] Perico Pendlebury SENIOR CONSULTING MANAGER.WALL WASHER Work Phone: [facility] 11-08-2024 15:34-0500 Body weight 56 kg Perico Pendlebury SENIOR CONSULTING MANAGER.WALL WASHER Work Phone: [facility] 11-08-2024 15:34-0500 Diastolic blood pressure 77 mm[Hg] Perico Pendlebury SENIOR CONSULTING MANAGER.WALL WASHER Work Phone: [facility] 11-08-2024 15:34-0500 Heart rate 80 /min Perico Pendlebury SENIOR CONSULTING MANAGER.WALL WASHER Work Phone: [facility] 11-08-2024 15:34-0500 Respiratory rate 22 /min Perico Pendlebury SENIOR CONSULTING MANAGER.WALL WASHER Work Phone: [facility] 11-08-2024 15:34-0500 SaO2% (BldA) [Mass fraction] 99 % [facility] SENIOR CONSULTING MANAGER.WALL WASHER Work Phone: [facility] 11-08-2024 15:34-0500 Systolic blood pressure 121 mm[Hg] [facility] S[facility]IOR CONSULTING MANAGER.WALL WASHER Work Phone: [facility] 10-23-2024 19:00-0500 Heart rate 74 /min Celina Nolberto DO Work Phone: [facility] 10-23-2024 19:00-0500 Respiratory rate 18 /min Celina Nolberto DO Work Phone: [facility] 10-23-2024 19:00-0500 SaO2% (BldA) [Mass fraction] 100 % Celina Nolberto DO Work Phone: [facility] 10-23-2024 17:45-0500 Body temperature 96.3 [degF] Celina Nolberto DO Work Phone: [facility] 10-23-2024 17:45-0500 Diastolic blood pressure 77 mm[Hg] Celina Nolberto DO Work Phone: [facility] 10-23-2024 17:45-0500 Systolic blood pressure 108 mm[Hg] Celina Nolberto DO Work Phone: [facility] 10-23-2024 16:36-0500 Body height 165.1 cm Celina Nolberto DO Work Phone: [facility] 10-23-2024 16:36-0500 Body mass index (BMI) [Ratio] 21.2 kg/m2 Celina Nolberto DO Work Phone: [facility] 10-23-2024 16:36-0500 Body weight 57.83 kg Celina Nolberto DO Work Phone: [facility] Encounters Encounter Date Encounter Type Care Provider Facility Start: 02-06-2025 ambulatory Celina Arvizu [facility] Faci lity:[facility] Start: 12-24-2024 End: 12-24-2024 ambulatory Celina Lownger DO Work Phone: [facility] Work Phone: Start: 12-24-2024 End: 12-24-2024 Patient encounter procedure Sonia Welch NP-C -Laboratory, Jaycee Brown Start: 12-24-2024 End: 12-24-2024 ambulatory Sonia Welch Facility:[facility] Start: 11-08-2024 End: 11-08-2024 Subsequent hospital visit by physician Xr [facility] Work Phone: Radiology Comment on above: Acute cough [R05.1] Start: 11-08-2024 End: 11-08-2024 ambulatory PERICO HAZEL Facility:[facility] Start: 11-08-2024 End: 11-08-2024 Office outpatient new 20 minutes Perico Hazel SENIOR CONSULTING MANAGER.WALL WASHER Work Phone: [facility] Comment on above: Acute cough (Primary Dx); Thrush; Sinobronchitis Start: 10-23-2024 End: 10-23-2024 Emergency department patient visit Dr. Lester Naranjo MD -Emergency Department Work Phone: Start: 09-05-2024 End: 09-05-2024 ambulatory Celina Arvizu VS Facility:[facility] Start: 08-28-2024 End: 08-28-2024 ambulatory Celina Arvizu [facility] Facility:[facility] Start: 08-14-2024 End: 08-14-2024 ambulatory Celina Lownger VS Facility:[facility] Start: 07-04-2024 ambulatory Angel Murrayi ty:[facility] Start: 06-20-2024 End: 06-20-2024 ambulatory Celina Arvizu VS Facility:[facility] Start: 05-22-2024 End: 05-22-2024 ambulatory Celina Arvizu [facility] Facility:[facility] Start: 05-09-2024 End: 05-09-2024 Emergency department patient visit No Primary Care Physician Facility:[facility] Start: 05-06-2024 End: 05-06-2024 Emergency department patient visit Gil Baker Facility:[facility] Start: 03-22-2024 ambulatory Alvarez Razo Fac ility:[facility] Start: 03-22-2024 End: 03-26-2024 Evaluation and management of inpatient Dillon Laguerrechaneljeffery Facility:[facility] Start: 03-21-2024 ambulatory Alvarez Razo Fac ility:[facility] Start: 03-11-2024 End: 03-11-2024 ambulatory Gil Foster Facility:[facility] Start: 01-28-2024 End: 01-30-2024 Evaluation and management of inpatient RADHA PAYTON NATAN [facility] Procedures Date Procedure Procedure Detail Performing Clinician Start: 11-08-2024 Radiologic exam ches t 2 views Perico Hazel APRN.CNP Work Phone: Start: 10-23-2024 Computed tomography of abdomen and pelvis with intravenous contrast Celina Arvizu DO Work Phone: Start: 01-30-2024 DISCHARGE PATIENT MABELR Jeffery GAMA Start: 01-30-2024 ADULT DISCHARGE DIET PI ERRJeffery PAYTON NATAN Start: 01-30-2024 DISCHARGE ACTIVITY MABEL GAMA Start: 01-30-2024 NOTIFY PROVIDER (DO NOT PROMPT FOR PARAMETERS) RADHA GAMA Start: 01-30-2024 Basic metabolic 2000 panel - Serum or Plasma RADHA FLORESCHEM Start: 01-30-2024 CBC panel - Blood by Automated count RADHA GAMA Start: 01-29-2024 STOOL PATHOGEN PANEL, PCR RADHA FLORESCHEM Start: 01-29-2024 Basic metabolic 2000 panel - Serum or Plasma RADHA FLORESCHEM Start: 01-29-2024 CBC panel - Blood by Automated count RADHA GAMA Start: 01-29-2024 C. DIFFICILE, PCR KELI FLORESCHEM Start: 01-29-2024 FULL CODE RADHA GAMA Start: 01-29-2024 MEASURE HEIGHT RADHA FLORESCHEM Start: 01-29-2024 WEIGH PATIENT RADHA GAMA Start: 01-28-2024 ED TO FLOOR BED REQUEST RADHA GAMA Start: 01-28-2024 ADMIT TO INPATIENT MABEL FLORESCHEM Start: 01-28-2024 MEASURE HEIGHT RADHA LFORESCHEM Start: 01-28-2024 NURSING COMMUNICATION P SUZIE GAMA Start: 01-28-2024 WEIGH PATIENT RADHA GAMA Start: 01-28-2024 CT ABDOMEN PELVIS W IV CONTRAST RADHA GAMA Start: 01-28-2024 Bacteria identified in Urine by Culture RADHATANK GAMA Start: 01-28-2024 EXTRA URINE BARAKAT TUBE P IEEITAN GAMA Start: 01-28-2024 MICROSCOPIC ONLY, URINE RADHATANK FLORESCHEM Start: 01-28-2024 URINALYSIS WITH REFL EX CULTURE AND MICROSCOPIC RADHATANK GAMA Start: 01-28-2024 CBC panel - Blood by Automated count RADHA GAMA Start: 01-28-2024 Comprehensive metabo lic 2000 panel - Serum or Plasma RADHA FITO GAMA Start: 01-28-2024 Lipase [Enzymatic activity/volume] in Serum or Plasma RADHA FITO FLORESNATAN Start: 01-28-2024 Magnesium [Mass/volu me] in Serum or Plasma RADHA FITO FLORESNATAN Start: 01-28-2024 TROPONIN I, HIGH SENSITIVITY RADHA FITO FLORESNATAN Start: 04-07-2024 ECG 12-LEAD RADHA GAMA Plan of Treatment Date Care Activity Detail Author Start: 2037 RSV Vaccine (1 - 1-dose 75+ series) RSV Vaccine (1 - 1-dose 75+ series) [facility] Start: 03-21-2034 Urine microalbumin profile DTaP,Tdap,Td Vaccine (2 - Td or Tdap) [facility] Start: 10-23-2024 [facility] Start: 10-23-2024 Enteric precautions [facility] Start: 06-23-2024 Covid-19 Vaccine ( season) Covid-19 Vaccine ( season) [facility] Start: 06-23-2024 Influenza vaccination Influenza Vaccine (#1) [facility] Start: 01-06-2012 Screening for malignant neoplasm of lung Lung Cancer Screening [facility] Start: 01-06-2012 Shingrix Vaccine (1 of 2) Shingrix Vaccine (1 of 2) [facility] Start: 2007 Diabetes Screening Diabetes Screening [facility] Start: 2007 Lipid panel Lipid Screening [facility] Start: 2007 Screening for malignant neoplasm of colon [facility] Start: 2002 Screening for malignant neoplasm of breast Mammogram Screening [facility] Start: 1983 Screening for malignant neoplasm of cervix Cervical Cancer Screening [facility] Start: 1981 Pneumococcal Vaccine: 50+ (1 of 2 - PCV) Pneumococcal Vaccine: 50+ (1 of 2 - PCV) [facility] Start: 01-06-1980 Anxiety Screening Anxiety Screening [facility] Start: 01-06-1980 Depression Screening Depression Screening [facility] Start: 01-06-1980 Hepatitis C screening Hepatitis C Screening [facility] Start: 01-06-1980 HIV screening HIV Screening [facility] Patient Education ED Bronchitis, No Antibiotic (Adult) ED Gastroenteritis, Noninfectious [facility] Work Phone: Patient referral [facility] Work Phone: Immunizations Immunization Date Immunization Notes Care Provider Kaylyn astudillo 03-21-2024 tetanus toxoid, reduced diphtheria toxoid, and acellular pertussis vaccine, adsorbed Celina Arvizu DO Work Phone: [facility] 08-29-2022 influenza virus vaccine, unspecified formulation Perico Hazel APRN.WALL WASHER Work Phone: [facility] Payers Date Payer Category Payer Self-pay 2010 Medicare MEDICARE MEDICAR E A AND B [id number] 2010-Present [phone] [address] [address] [place] [address] Medicare [id number] 2010 Medicare [id number] 1962 Unknown [id number] [id number] 3 Unknown [id number] 2.16.840.1.832563.3.579.2.462 Unknown [id number] 2.16.840.1.269109.3.579.2.462 Unknown [id number] 2.16.840.1.127504.3.579.2.462 Unknown [id number] 2.16.840.1.276383.3.579.2.462 Unknown [id number] 2.16.840.1.176122.3.579.2.462 Unknown [id number] 2.16.840.1.400434.3.579.2.462 Unknown [id number] 2.16.840.1.821023.3.579.2.462 Unknown [id number] 2.16.840.1.324596.3.579.2.462 Unknown [id number] 2.16.840.1.747548.3.579.2.462 Unknown [id number] 2.16.840.1.352634.3.579.2.462 Unknown [id number] 2.16.840.1.549654.3.579.2.462 Unknown [id number] 2.16.840.1.438881.3.579.2.462 Unknown [id number] 2.16.840.1.473351.3.579.2.462 Unknown [id number] 2.16.840.1.490932.3.579.2.462 Unknown [id number] 2.16.840.1.623002.3.579.2.462 Unknown [id number] 2.16.840.1.894337.3.579.2.462 Unknown [id number] 2.16.840.1.423092.3.579.2.462 Unknown [id number] 2.16.840.1.802537.3.579.2.462 Unknown [id number] 2.16.840.1.848717.3.579.2.462 Unknown [id number] 2.16.840.1.392061.3.579.2.462 Social History Date Type Detail Facility Start: 10-23-2024 End: 11-08-2024 Tobacco smoking status NHIS Smokes tobacco daily [facility] Start: 10-23-1978 History of tobacco use Cigarette Smo ker [facility] Start: 11-08-2024 Cigarettes smoked current (pack per day) - Reported 1 [facility] Start: 11-08-2024 Tobacco use and exposure Smokeless tobacco non-user [facility] Start: 11-08-[address] [facility] Start: 1960 Sex assigned at Not on file [facility] Start: 2025 Sex Female (finding) [facility] Start: 1960 Sex Assigned At Female W [facility] History of Present illness Narrative 11-08-2024 Rigo York RT(R) - 11/08/2024 3:50 PM EST Note Date & Type Note Facility 11-08-2024 History of Presen t illness Narrative Radiology Service Progress Note PATIENT NAME: Hattie Hamilton DATE OF SERVICE: November 08, 2024 TIME: 3:47 PM PATIENT IDENTITY VERIFICATION COMPLETED USING TWO (2) IDENTIFIERS: Name and Date of confirmed by patient verbally. FALL SCREENING: Has the patient had 2 falls in the last year or 1 fall with injury or currently using an Ambulatory Assistive Device (Walker, Cane, Wheelchair, Crutches, etc.)? No PATIENT GENDER DATA: Assigned female at . status: : No status: NO. PATIENT RELEVANT IMPLANT DATA REVIEWED: Not Applicable PATIENT PRESENTS WITH AN IMPLANTABLE OR ATTACHED TRACK SUPERVISOR: No RADIOLOGY DEPARTMENT: General X-ray: Exam(s) Completed: Chest X-Ray PERIPHERAL IV DATA: Not applicable SIGNED BY: RT Eliana(R) November 08, 2024 3:47 PM documented in this encounter [facility] Progress note 11-08-2024 Note Date & Type Note Facility 11-08-2024 Note HNO ID: [id number] Author: RIGO YORK RT(R) Service: Radiology Author Type: Technologist Type: Progress Notes Filed: 11/08/2024 15:55 Note Text: Radiology Service Progress Note PATIENT NAME: Hattie Hamilton DATE OF SERVICE: November 08, 2024 TIME: 3:47 PM PATIENT IDENTITY VERIFICATION COMPLETED USING TWO (2) IDENTIFIERS: Name and Date of confirmed by patient verbally. FALL SCREENING: Has the patient had 2 falls in the last year or 1 fall with injury or currently using an Ambulatory Assistive Device (Walker, Cane, Wheelchair, Crutches, etc.)? No PATIENT GENDER DATA: Assigned female at . status: : No status: NO. PATIENT RELEVANT IMPLANT DATA REVIEWED: Not Applicable PATIENT PRESENTS WITH AN IMPLANTABLE OR ATTACHED TRACK SUPERVISOR: No RADIOLOGY DEPARTMENT: General X-ray: Exam(s) Completed: Chest X-Ray PERIPHERAL IV DATA: Not applicable SIGNED BY: RT Eliana(R) November 08, 2024 3:47 PM [facility] Progress note 11-08-2024 Note Date & Type Note Facility 11-08-2024 Note HNO ID: [id number] Author: PERICO HAZEL APRN.WALL WASHER Service: ? Author Type: Nurse Practitioner Type: Progress Notes Filed: 11/08/2024 16:23 Note Text: Subjective HPI Nontoxic-appearing female presents urgent care chief complaint cough chest congestion sore throat fatigue. Duration of symptoms 5 weeks. Associated symptoms listed above. Was seen in the ED for this complaint initially diagnosed with viral illness. Presents today for evaluation. Most bothersome symptom today is cough. Denies any fevers hemoptysis pleuritic pain vomiting. Past medical history prescription medications allergies reviewed. .Patient presents with: Cough: Chest congestion, sinus congestion, nasal drainage, SOB, wheeze, sore throat, headache x 5 weeks no improvement History reviewed. No pertinent past medical history. History reviewed. No pertinent surgical history. ALLERGIES Diltiazem and Meloxicam MEDICATIONS TOPAMAX 100 mg tablet Take 1 tablet by mouth two times a day. metoprolol tartrate, short acting, (LOPRESSOR) 25 mg tablet Take 1 tablet by mouth every 12 hours. gabapentin (NEURONTIN) 600 mg tablet Take 600 mg by mouth once daily. famotidine (PEPCID) 20 mg tablet Take 1 tablet by mouth once daily. DULoxetine (CYMBALTA) 60 mg capsule Take 60 mg by mouth once daily. cyanocobalamin 1,000 mcg/mL Inject 1,000 mcg subcutaneously one time only. celecoxib (CELEBREX) 200 mg capsule Take 200 mg by mouth two times a day. buprenorphine (BUTRANS) 10 mcg/hour Apply 1 Patch as directed one time a week. baclofen 20 mg tablet Take 1 tablet by mouth three times a day. aspirin 81 mg cap Take 81 mg by mouth once daily. amitriptyline (ELAVIL) 50 mg tablet Take 1 tablet by mouth daily at bedtime. acetaminophen (TYLENOL EXTRA STRENGTH) 500 mg tablet Take 2 tablets by mouth every 8 hours as needed for pain. History reviewed. No pertinent family history. Social History Tobacco Use Smoking status: Every Day Current packs/day: 1.00 Average packs/day: 1 pack/day for 46.0 years (46.0 ttl pk-yrs) Types: Cigarettes Start date: 1978 Smokeless tobacco: Never BP 121/77 Pulse 80 Temp 36.8 ?C (98.3 ?F) Resp 22 Wt 56 kg (123 lb 7.3 oz) LMP (LMP Unknown) SpO2 99% Review of Systems Constitutional: Positive for chills and malaise/fatigue. Negative for fever. HENT: Positive for congestion and sore throat. Negative for ear discharge, ear pain and sinus pain. Eyes: Negative for blurred vision, pain, discharge and redness. Respiratory: Positive for cough. Negative for hemoptysis, sputum production, shortness of breath, wheezing and stridor. Cardiovascular: Negative for chest pain. Gastrointestinal: Negative for abdominal pain, diarrhea, nausea and vomiting. Musculoskeletal: Positive for myalgias. Skin: Negative for itching and rash. Neurological: Positive for headaches. Negative for dizziness. Objective Physical Exam Constitutional: General: She is not in acute distress. Appearance: She is not diaphoretic. HENT: Head: Normocephalic. Jaw: No trismus, tenderness, swelling or pain on movement. Nose: Congestion present. Mouth/Throat: Mouth: Mucous membranes are moist. Pharynx: Oropharynx is clear. Uvula midline. No pharyngeal swelling, oropharyngeal exudate, posterior oropharyngeal erythema or uvula swelling. Eyes: Conjunctiva/sclera: Conjunctivae normal. Pupils: Pupils are equal, round, and reactive to light. Cardiovascular: Rate and Rhythm: Normal rate and regular rhythm. Heart sounds: Normal heart sounds. Pulmonary: Effort: Pulmonary effort is normal. No tachypnea, accessory muscle usage or respiratory distress. Breath sounds: Normal breath sounds. No stridor. No wheezing, rhonchi or rales. Abdominal: General: There is no distension. Palpations: Abdomen is soft. Tenderness: There is no abdominal tenderness. There is no guarding or rebound. Musculoskeletal: Cervical back: Normal range of motion and neck supple. No edema, erythema, rigidity or tenderness. No pain with movement. Normal range of motion. Lymphadenopathy: Cervical: No cervical adenopathy. Skin: General: Skin is warm and dry. Neurological: Mental Status: She is alert and oriented to person, place, and time. ASSESSMENT/PLAN: 1. Acute cough - ICD9: 786.2, ICD10: R05.1 (primary diagnosis) - XR CHEST 2V FRONTAL/LAT 2. Thrush - ICD9: 112.0, ICD10: B37.0 3. Sinobronchitis - ICD9: 473.9, 490, ICD10: J32.9, J40 IMPRESSION: 1. No pleural effusion or consolidation 2. Kyphosis of the thoracic spine. Age-indeterminate compression deformities at multiple levels of the lower thoracic spine. No consolidations noted on x-ray. Treat as sinobronchitis. Placed on doxycycline. Nystatin for thrush. Patient was educated on supportive therapies. Patient will follow up with primary care provider 3 to 5 days. Patient was instructed to immediately proceed to emergency room for any new, worsening, or symp (more content not included)... [facility] History of Present illness Narrative 11-08-2024 Perico Hazel APRN.WALL WASHER - 11/08/2024 3:40 PM EST Note Date & Type Note Facility 11-08-2024 History of Presen t illness Narrative Subjective HPI Nontoxic-appearing female presents urgent care chief complaint cough chest congestion sore throat fatigue. Duration of symptoms 5 weeks. Associated symptoms listed above. Was seen in the ED for this complaint initially diagnosed with viral illness. Presents today for evaluation. Most bothersome symptom today is cough. Denies any fevers hemoptysis pleuritic pain vomiting. Past medical history prescription medications allergies reviewed. .Patient presents with: Cough: Chest congestion, sinus congestion, nasal drainage, SOB, wheeze, sore throat, headache x 5 weeks no improvement History reviewed. No pertinent past medical history. History reviewed. No pertinent surgical history. ALLERGIES Diltiazem and Meloxicam MEDICATIONS TOPAMAX 100 mg tablet Take 1 tablet by mouth two times a day. metoprolol tartrate, short acting, (LOPRESSOR) 25 mg tablet Take 1 tablet by mouth every 12 hours. gabapentin (NEURONTIN) 600 mg tablet Take 600 mg by mouth once daily. famotidine (PEPCID) 20 mg tablet Take 1 tablet by mouth once daily. DULoxetine (CYMBALTA) 60 mg capsule Take 60 mg by mouth once daily. cyanocobalamin 1,000 mcg/mL Inject 1,000 mcg subcutaneously one time only. celecoxib (CELEBREX) 200 mg capsule Take 200 mg by mouth two times a day. buprenorphine (BUTRANS) 10 mcg/hour Apply 1 Patch as directed one time a week. baclofen 20 mg tablet Take 1 tablet by mouth three times a day. aspirin 81 mg cap Take 81 mg by mouth once daily. amitriptyline (ELAVIL) 50 mg tablet Take 1 tablet by mouth daily at bedtime. acetaminophen (TYLENOL EXTRA STRENGTH) 500 mg tablet Take 2 tablets by mouth every 8 hours as needed for pain. History reviewed. No pertinent family history. Social History Tobacco Use Smoking status: Every Day Current packs/day: 1.00 Average packs/day: 1 pack/day for 46.0 years (46.0 ttl pk-yrs) Types: Cigarettes Start date: 1978 Smokeless tobacco: Never BP 121/77 Pulse 80 Temp 36.8 C (98.3 F) Resp 22 Wt 56 kg (123 lb 7.3 oz) LMP (LMP Unknown) SpO2 99% Review of Systems Constitutional: Positive for chills and malaise/fatigue. Negative for fever. HENT: Positive for congestion and sore throat. Negative for ear discharge, ear pain and sinus pain. Eyes: Negative for blurred vision, pain, discharge and redness. Respiratory: Positive for cough. Negative for hemoptysis, sputum production, shortness of breath, wheezing and stridor. Cardiovascular: Negative for chest pain. Gastrointestinal: Negative for abdominal pain, diarrhea, nausea and vomiting. Musculoskeletal: Positive for myalgias. Skin: Negative for itching and rash. Neurological: Positive for headaches. Negative for dizziness. Objective Physical Exam Constitutional: General: She is not in acute distress. Appearance: She is not diaphoretic. HENT: Head: Normocephalic. Jaw: No trismus, tenderness, swelling or pain on movement. Nose: Congestion present. Mouth/Throat: Mouth: Mucous membranes are moist. Pharynx: Oropharynx is clear. Uvula midline. No pharyngeal swelling, oropharyngeal exudate, posterior oropharyngeal erythema or uvula swelling. Eyes: Conjunctiva/sclera: Conjunctivae normal. Pupils: Pupils are equal, round, and reactive to light. Cardiovascular: Rate and Rhythm: Normal rate and regular rhythm. Heart sounds: Normal heart sounds. Pulmonary: Effort: Pulmonary effort is normal. No tachypnea, accessory muscle usage or respiratory distress. Breath sounds: Normal breath sounds. No stridor. No wheezing, rhonchi or rales. Abdominal: General: There is no distension. Palpations: Abdomen is soft. Tenderness: There is no abdominal tenderness. There is no guarding or rebound. Musculoskeletal: Cervical back: Normal range of motion and neck supple. No edema, erythema, rigidity or tenderness. No pain with movement. Normal range of motion. Lymphadenopathy: Cervical: No cervical adenopathy. Skin: General: Skin is warm and dry. Neurological: Mental Status: She is alert and oriented to person, place, and time. ASSESSMENT/PLAN: 1. Acute cough - ICD9: 786.2, ICD10: R05.1 (primary diagnosis) - XR CHEST 2V FRONTAL/LAT 2. Thrush - ICD9: 112.0, ICD10: B37.0 3. Sinobronchitis - ICD9: 473.9, 490, ICD10: J32.9, J40 IMPRESSION: 1. No pleural effusion or consolidation 2. Kyphosis of the thoracic spine. Age-indeterminate compression deformities at multiple levels of the lower thoracic spine. No consolidations noted on x-ray. Treat as sinobronchitis. Placed on doxycycline. Nystatin for thrush. Patient was educated on supportive therapies. Patient will follow up with primary care provider 3 to 5 days. Patient was instructed to immediately proceed to emergency room for any new, worsening, or symptoms lasting longer than anticipated. The patient's clinical presentation is otherwise unremarkable at this time. Based on exam and clinical finding, the patient is stable for discharge. Plan of care was discussed with patient. Patient verbalizes understanding and agrees to plan of care. This note was generated using [employer] software. It may contain errors in wording, punctuation, or spelling. Perico Hazel APRN.WALL WASHER documented in this encounter [facility] Discharge summary note 03-26-2024 Note Date & Type Note Facility 03-26-2024 Note [facility] Discharge summary note 03-11-2024 Note Date & Type Note Facility 03-11-2024 Note [facility] Evaluation note Note Date & Type Note Facility Evaluation note Diagnosis Acute cough- Primary Thrush Candidiasis of mouth Sinobronchitis Unspecified sinusitis (chronic) Acute cough documented in this encounter [facility] Evaluation note Note Date & Type Note Facility Evaluation note Diagnosis Acute cough documented in this encounter [facility] Evaluation note Note Date & Type Note Facility Evaluation note No assessment information availa ble [facility] Work Phone: Reason for referral (narrative) Note Date & Type Note Facility Reason for referral (narrative) No reason for referral information available [facility] Work Phone: Summary Purpose Family History No Family History Records FoundNo Family History Records FoundNo Family History Records FoundNo Family History Records Found Advance Directives No Advanced Directives Records Found Advance Directive Response Recorded Date/ Time Living Will No October 23 6:41pm Power of [employer] Service Engineer No October 23 025 6:41pm Chief Complaint and Reason for Visit Chief Complaint Admit Date diarrhea, cough October 23, 2024 4: 35pm Additional Source Comments INFORMATION SOURCE (unrecogn ized section and content) DATE CREATED AUTHOR 01/30/2024 [facility] [place] DATE CREATED AUTHOR AUTHOR'S ORGANIZ ATION 02/01/2024 [facility] DATE CREATED AUTHOR AUTHOR'S ORGANIZ ATION 01/12/2025 [facility] DATE CREATED AUTHOR AUTHOR'S ORGANIZ ATION 02/08/2025 [facility] Source Comments (unrecognize d section and content) In the event this informatio n is protected by the Federal Confidentiality of Alcohol and Drug Abuse Patient Records regulations: The Federal rules restrict any use of the information to criminally investigate or prosecute any alcohol or drug abuse patient.[facility] the event this information is protected by the Federal Confidentiality of Alcohol and Drug Abuse Patient Records regulations: The Federal rules restrict any use of the information to criminally investigate or prosecute any alcohol or drug abuse patient.[facility] Reason for Visit (unrecogniz ed section and content) Reason Comments Cough Chest congestion, si nus congestion, nasal drainage, SOB, wheeze, sore throat, headache x 5 weeks no improvement Care Teams (unrecognized sec tion and content) Team Status: Active Member Role Status Dates Celina Arvizu VSC, DO Primary Care Provider Active Team Status: Inactive Member Role Status Dates Celina ASHTONC, DO Primary Care Provider Active Start: October 23, 2024 End: October 23, 2024 Lester Naranjo MD Attending Provider Active Star t: October 23, 2024 End: October 23, 2024 Lester Naranjo MD Emergency Provider Active Star t: October 23, 2024 End: October 23, 2024 Team Status: Inactive Member Role Status Dates Celina Arvizu VSC, DO Primary Care Provider Active Start: December 24, 2024 End: December 24, 2024 EMILIE Grace Attending Provider Active Start: December 24, 2024 End: December 24, 2024 Goals (unrecognized section and content) Goals may be documented in a n alternate section FOR RECORDS PERTAINING TO PATIENTS WHO ARE [...] BE BASED ON THE PRIMARY CLINICAL RECORDS. [employer] provides no warranty or guarantee of the accuracy or completeness of information in this document.
--- OUTSIDE RECORDS SUMMARY | 2025-05-01 22:54 | XMS RPT_ITS | CCD ---
Author Organization [facility] CliniSynd Care Team Providers Care Soyfreeze Operator Name Role Phone RADHA BRIONES Admitting Unavailable RADHA BRIONES Attending Unavailable Unavailable Primary Care Provider UnavailPERICO Schilling Referring Unavailable Nolberto DO Celina Primary Care Provider [phone] Lester Naranjo MD Attending Provider Lester Naranjo MD Emergency Provider Rebekah IT SALES REPRESENTATIVE-CSonia Attending Provider [phone] [employer] Unavailable Alvarez Razo Admitting [...] dilTIAZem; Translations: [DILTIAZEM HCL] Drug Allergy 01-03-2024 [facility] 2 Repository (6 sources) meloxicam; Translations: [MELOXICAM] Drug Allergy 01-03-2024 [facility] 2 Repository Comment on above: PATIENT DISORIENTED AT TIME OF REPORT (2 sources) oxybutynin; Translations: [OXYBUTYNIN] Drug Allergy 01-03-2024 [facility] 2 Repository (4 sources) dilTIAZem; Translations: [DILTIAZEM] Drug Allergy 03-26-2024 [facility] Comment on above: PATIENT DISORIENTED AT TIME OF REPORT (1 source) dilTIAZem Drug Allergy 01-29-2025 [facility] Repository Medications Current Medications Medication Drug Class(es) [...] DAILY 0 March 26, 2024 12:00am nystatin 950329 unt/ml oral suspension (1 source) Polyene Antifungal [...] Test Name Value Interpretation Reference Range Facility [facility] 01-10-2025 [facility] Letter Text Normal [facility] Anion gap in Serum or Plasma Ordered By: Sonia Welch on 12-24-2024 Anion gap [Moles/Vol] 11 mmol/L 5-15 [facility] BUN/creatinine ratioOrdered By: Sonia Welch on 12-24-2024 Urea nitrogen/Creatinine [Mass ratio] 13.8 mg/mg 10-20 [facility] Bilirubin, totalOrdered By: Sonia Welch on 12-24-2024 Bilirubin [Mass/Vol] mg/dL 0.00-1.30 [facility] Carbon dioxide, total [Moles /volume] in Central venous bloodOrdered By: Sonia Welch on 12-24-2024 CO2 [Moles/Vol] 26.1 mmol/L 21.0-32.0 [facility] Chloride assayOrdered By: Ravinder Welch on 12-24-2024 Chloride [Moles/Vol] 99 mmol/L 98-108 [facility] Cobalamin (Vitamin B12) [Mas s/Vol]Ordered By: Sonia Welch on 12-24-2024 Vitamin B12 Level > 4000 pg/mL High 180-914 [facility] Comprehensive Metabolic Prof ilon 12-24-2024 Albumin [Mass/Vol] 4.4 g/dL Normal 3.4-4.8 [facility] Comment on above: Performed By: #### L 500.4050, L503.0106 ####[facility] [address] [place], [address] Albumin/Globulin [Mass ratio] 1.7 {ratio} Normal 0.9-2.4 [facility] Comment on above: Performed By: #### L 500.4050, L503.0106 ####[facility] [address] [place], [address] ALK PHOS 108 U/L High 35-104 [facility] Comment on above: Performed By: #### L 500.4050, L503.0106 ####[facility] [address] [place], [address] ALT [Catalytic activity/Vol] 9 U/L Normal <=34 [facility] Comment on above: Performed By: #### L 500.4050, L503.0106 ####[facility] [address] [place], [address] AST [Catalytic activity/Vol] 15 U/L Normal <=31 [facility] Comment on above: Result Comment: Hemo lysis present, Results??could be affected.?? Performed By: #### L 500.4050, L503.0106 ####[facility] [address] [place], [address] BUN/CRE 13.8 RATIO Normal 10-20 [facility] Comment on above: Performed By: #### L 500.4050, L503.0106 ####[facility] [address] [place], [address] Calcium [Mass/Vol] 9.9 mg/dL Normal 7.6-11.0 [facility] Comment on above: Performed By: #### L 500.4050, L503.0106 ####[facility] [address] [place], [address] Chloride [Moles/Vol] 99 mmol/L Normal 98-108 [facility] Comment on above: Performed By: #### L 500.4050, L503.0106 ####[facility] [address] [place], [address] CO2 [Moles/Vol] 26.1 mmol/L Normal 21.0-32.0 [facility] Comment on above: Performed By: #### L 500.4050, L503.0106 ####[facility] [address] [place], [address] Creatinine [Mass/Vol] 0.87 mg/dL Normal 0.70-1.20 [facility] Comment on above: Performed By: #### L 500.4050, L503.0106 ####[facility] [address] [place], [address] GAP 11 Normal 5-15 [facility] Comment on above: Performed By: #### L 500.4050, L503.0106 ####[facility] [address] [place], [address] GFR/1.73 sq M.predicted among non-blacks MDRD (S/P/Bld) [Vol rate/Area] 75 mL/min/{1.73_m2} Normal >60 [facility] Comment on above: Result Comment: mL/m in/1.73m2 CKD-EPI Creatinine Equation (2020) Performed By: #### L 500.4050, L503.0106 ####[facility] [address] [place], [address] Globulin (S) [Mass/Vol] 2.6 g/dL Normal 2.2-4.2 [facility] Comment on above: Performed By: #### L 500.4050, L503.0106 ####[facility] [address] [place], [address] Glucose [Mass/Vol] 95 mg/dL Normal 70-99 [facility] Comment on above: Performed By: #### L 500.4050, L503.0106 ####[facility] [address] [place], [address] Potassium [Moles/Vol] 4.9 mmol/L Normal 3.3-5.1 [facility] Comment on above: Result Comment: Hemo lysis present, Results??could be affected.?? Performed By: #### L 500.4050, L503.0106 ####[facility] [address] [place], [address] Sodium [Moles/Vol] 136 mmol/L Normal 133-145 [facility] Comment on above: Performed By: #### L 500.4050, L503.0106 ####[facility] [address] [place], [address] T BILI < 0.15 Normal 0.00-1.30 [facility] Comment on above: Performed By: #### L 500.4050, L503.0106 ####[facility] [address] [place], [address] T PROT 7.0 g/dL Normal 5.9-8.4 [facility] Comment on above: Performed By: #### L 500.4050, L503.0106 ####[facility] [address] [place], [address] Urea nitrogen [Mass/Vol] 12 mg/dL Normal 4-19 [facility] Comment on above: Performed By: #### L 500.4050, L503.0106 ####[facility] [address] [place], [address] GFR/1.73 sq M.predicted dario g non-blacks MDRD (S/P/Bld) [Vol rate/Area]Ordered By: Sonia Welch on 12-24-2024 Estimated GFR (MDRD) Non-Af Amer 75 >60 [facility] Comment on above: mL/min/1.73m2 CKD-EP I Creatinine Equation (2020) L503.0106on 12-24-2024 Cobalamin (Vitamin B12) [Mass/Vol] pg/mL High 180-914 [facility] Comment on above: Performed By: #### L 500.4050, L503.0106 ####[facility] [address] [place], [address] Laboratory - Chemistry and C hemistry - challengeOrdered By: Sonia Welch on 12-24-2024 AST [Catalytic activity/Vol] 15 U/L <32 [facility] Comment on above: Hemolysis present, R esults could be affected. Potassium (Unsp spec) [Mass/ Vol]Ordered By: Sonia Welch on 12-24-2024 Potassium [Moles/Vol] 4.9 mmol/L 3.3-5.1 [facility] Comment on above: Hemolysis present, R esults could be affected. Serum creatinine measurement (mass/volume)Ordered By: Sonia Welch on 12-24-2024 Creatinine [Mass/Vol] 0.87 mg/dL 0.70-1.20 [facility] Serum globulin measurementOr dered By: Sonia Welch on 12-24-2024 Globulin (S) [Mass/Vol] 2.6 g/dL 2.2-4.2 [facility] Serum glucose measurement (m ass/volume)Ordered By: Sonia Welch on 12-24-2024 Glucose [Mass/Vol] 95 mg/dL 70-99 [facility] Serum or plasma alanine rosenthal otransferase (ALT) measurementOrdered By: Sonia Welch on 12-24-2024 ALT [Catalytic activity/Vol] 9 U/L <35 [facility] Serum or plasma albumin casey urement (mass/volume)Ordered By: Sonia Welch on 12-24-2024 Albumin [Mass/Vol] 4.4 g/dL 3.4-4.8 [facility] Serum or plasma albumin/glob ulin mass ratioOrdered By: Sonia Welch 12-24-2024 Albumin/Globulin [Mass ratio] 1.7 {ratio} 0.9-2.4 [facility] Serum or plasma alkaline nicki sphatase measurementOrdered By: Sonia Welch on 12-24-2024 ALP [Catalytic activity/Vol] 108 U/L High 35-104 [facility] Serum or plasma calcium casey urement (mass/volume)Ordered By: Sonia Welch on 12-24-2024 Calcium [Mass/Vol] 9.9 mg/dL 7.6-11.0 [facility] Serum or plasma urea nitroge n measurement (mass/volume)Ordered By: Sonia Welch on 12-24-2024 Urea nitrogen [Mass/Vol] 12 mg/dL 4-19 [facility] Sodium levelOrdered By: Pauline almanzar Analicesia on 12-24-2024 Sodium [Moles/Vol] 136 mmol/L 133-145 [facility] Total proteinOrdered By: Ben Welch on 12-24-2024 Protein [Mass/Vol] 7.0 g/dL 5.9-8.4 [facility] CNOVon 11-08-2024 CNOV Office Visit (UCWSTR ) -- HATTIE HAMILTON ([id number]) 1960 F Date Time Provider Department 11/08/24 3:30 PM PERICO HAZEL [facility] During your visit today, we recorded the following information about you: Temperature Pulse Respiration Blood pressure 98.3 degrees 80/minute 22/minute 121/77 Weight 56 kg Perico Hazel, COURTNEY.BILLET HEATER OPERATOR 11/08/2024 4:23 PM Signed Subjective HPI Nontoxic-appearing [...] noted o (more content not included)... Normal [facility] XR CHEST 2V FRONTAL/LATon XR CHEST 2V [...] multiple levels of the lower thoracic spine. Motor Expert: PSCB Transcribe Date/Time: Nov 08 2024 3:55P Dictated by : BRENT FIELD MD This examination was interpreted and the report reviewed and electronically signed by: BRENT FIELD MD on Nov 08 2024 3:57PM EST [id number] Normal [facility] XR Chest PA and Lateralon IMPRESSION: 1. No pleural effusion or consolidation 2. Kyphosis of the thoracic spine. Age-indeterminate compression deformities at multiple levels of the lower thoracic spine. Motor Expert: [facility] Transcribe Date/Time: Nov 08 2024 3:55P [...] lower thoracic spine. DIVISION OF RADIOLOGY Provider, [facility] - 11/08/2024 * * *Final Report* [...] multiple levels of the lower thoracic spine. Motor Expert: PSCB Transcribe Date/Time: Nov 08 2024 3:55P Dictated by : BRENT FIELD MD This examination was interpreted and the report reviewed and electronically signed by: BRENT FIELD MD on Nov 08 2024 3:57PM EST [facility] Radiology Study observation (narrative) [facility] XR Chest PA and LateralOrder ed By: [facility] Provider on 11-08-2024 [facility] Abdomen/Pelvis W IV Cont ONL Yon 10-23-2024 Abdomen/Pelvis W IV Cont ONLY Normal [facility] Absolute neutrophil countOrd ered By: Lester Naranjo on 10-23-2024 Neutrophils (Bld) [#/Vol] 5.8 10*3/uL 2.0-7.7 [facility] Albumin to globulin ratioOrd ered By: Lester Naranjo on 10-23-2024 Albumin/Globulin [Mass ratio] 1.0 {ratio} 0.9-2.4 [facility] Basophil percentageOrdered B y: Lester Naranjo on 10-23-2024 Basophils/100 WBC (Bld) 0.7 % 0-1 [facility] Bilirubin, totalOrdered By: Lester Naranjo on 10-23-2024 Bilirubin [Mass/Vol] 0.40 mg/dL 0.20-1.00 [facility] Comment on above: For patients on eltr ombopag therapy, use of Dimension [place] TBIL is not recommended. Blood urea nitrogen (BUN)/cr eatinine ratioOrdered By: Lester Naranjo on 10-23-2024 Urea nitrogen/Creatinine [Mass ratio] 24.6 mg/mg High 10-20 [facility] CBC W/Diff, Automatedon 01-0 Absolute Lymph 2.04 X10 3/uL Normal 0.83-4.51 [facility] Comment on above: Performed By: #### L 500.4050, L501.2450, L100.0100 ####[facility] [address] [place], [address] Absolute Neut 5.8 X10 3/uL Normal 2.0-7.7 [facility] Comment on above: Performed By: #### L 500.4050, L501.2450, L100.0100 ####[facility] [address] [place], [address] Basophils/100 WBC (Bld) 0.7 % Normal 0-1 [facility] Comment on above: Performed By: #### L 500.4050, L501.2450, L100.0100 ####[facility] [address] [place], [address] Eosinophils/100 WBC (Bld) 0.7 % Normal 0-5 [facility] Comment on above: Performed By: #### L 500.4050, L501.2450, L100.0100 ####[facility] [address] [place], [address] Erythrocyte distribution width (RBC) [Ratio] 13.9 % Normal 11.6-14.6 [facility] Comment on above: Performed By: #### L 500.4050, L501.2450, L100.0100 ####[facility] [address] [place], [address] Hematocrit (Bld) [Volume fraction] 46.4 % Normal 37-47 [facility] Comment on above: Performed By: #### L 500.4050, L501.2450, L100.0100 ####[facility] [address] [place], [address] Hemoglobin (Bld) [Mass/Vol] 15.8 g/dL High 12.0-15.0 [facility] Comment on above: Performed By: #### L 500.4050, L501.2450, L100.0100 ####[facility] [address] [place], [address] IG% 0.200 Normal 0.0-0.9 [facility] Comment on above: Result Comment: IG% - Immature Granulocytes (promyelocytes, myelocytes andmetamyelocytes) > 1% indicates that a LEFT SHIFT is Present. Performed By: #### L 500.4050, L501.2450, L100.0100 ####[facility] [address] [place], [address] Lymphocytes/100 WBC (Bld) 23.9 % Normal 19-41 [facility] Comment on above: Performed By: #### L 500.4050, L501.2450, L100.0100 ####[facility] [address] [place], [address] MCH (RBC) [Entitic mass] 30.9 pg Normal 27.0-32.0 [facility] Comment on above: Performed By: #### L 500.4050, L501.2450, L100.0100 ####[facility] [address] [place], [address] MCHC (RBC) [Mass/Vol] 34.1 g/dL Normal 32-36 [facility] Comment on above: Performed By: #### L 500.4050, L501.2450, L100.0100 ####[facility] [address] [place], [address] MCV (RBC) [Entitic vol] 90.6 fL Normal 81-99 [facility] Comment on above: Performed By: #### L 500.4050, L501.2450, L100.0100 ####[facility] [address] [place], [address] Monocytes/100 WBC (Bld) 6.9 % Normal 0-10 [facility] Comment on above: Performed By: #### L 500.4050, L501.2450, L100.0100 ####[facility] [address] [place], [address] Neutrophils/100 WBC (Bld) 67.6 % Normal 47-70 [facility] Comment on above: Performed By: #### L 500.4050, L501.2450, L100.0100 ####[facility] [address] [place], [address] Nucleated RBC (Bld) [#/Vol] 0 10*3/uL Normal 0-5 [facility] Comment on above: Performed By: #### L 500.4050, L501.2450, L100.0100 ####[facility] [address] [place], [address] Platelet mean volume (Bld) [Entitic vol] 9.4 fL Normal 6.2-12.0 [facility] Comment on above: Performed By: #### L 500.4050, L501.2450, L100.0100 ####[facility] [address] [place], [address] Platelets (Bld) [#/Vol] 313 10*3/uL Normal 150-450 [facility] Comment on above: Performed By: #### L 500.4050, L501.2450, L100.0100 ####[facility] [address] [place], [address] RBC (Bld) [#/Vol] 5.12 10*6/uL Normal 4.2-5.4 [facility] Comment on above: Performed By: #### L 500.4050, L501.2450, L100.0100 ####[facility] [address] [place], [address] RDW SD 46.6 fl High 35.1-43.9 [facility] Comment on above: Performed By: #### L 500.4050, L501.2450, L100.0100 ####[facility] [address] [place], [address] WBC (Bld) [#/Vol] 8.5 10*3/uL Normal 4.4-11.0 [facility] Comment on above: Performed By: #### L 500.4050, L501.2450, L100.0100 ####[facility] [address] [place], [address] Carbon dioxide measurementOr dered By: Lester Naranjo on 10-23-2024 CO2 [Moles/Vol] 21.0 mmol/L 21.0-32.0 [facility] Chloride measurementOrdered By: Lester Naranjo on 10-23-2024 Chloride [Moles/Vol] 110 mmol/L High 98-107 [facility] Comprehensive Metabolic Prof ilon 10-23-2024 Albumin [Mass/Vol] 4.0 g/dL Normal 3.2-5.0 [facility] Comment on above: Performed By: #### L 500.4050, L501.2450, L100.0100 ####[facility] [address] [place], [address] Albumin/Globulin [Mass ratio] 1.0 {ratio} Normal 0.9-2.4 [facility] Comment on above: Performed By: #### L 500.4050, L501.2450, L100.0100 ####[facility] [address] [place], [address] ALK P 94 U/L Normal 45-117 [facility] Comment on above: Performed By: #### L 500.4050, L501.2450, L100.0100 ####[facility] [address] [place], [address] ALT [Catalytic activity/Vol] 21 U/L Normal 13-56 [facility] Comment on above: Performed By: #### L 500.4050, L501.2450, L100.0100 ####[facility] [address] [place], [address] AST [Catalytic activity/Vol] 16 U/L Normal 15-37 [facility] Comment on above: Performed By: #### L 500.4050, L501.2450, L100.0100 ####[facility] [address] [place], [address] Bilirubin [Mass/Vol] 0.40 mg/dL Normal 0.20-1.00 [facility] Comment on above: Result Comment: For patients on eltrombopag therapy, use of Dimension [place] TBIL is not recommended. Performed By: #### L 500.4050, L501.2450, L100.0100 ####[facility] [address] [place], [address] BUN/CRE 24.6 RATIO High 10-20 [facility] Comment on above: Performed By: #### L 500.4050, L501.2450, L100.0100 ####[facility] [address] [place], [address] CA,Total 9.3 mg/dL Normal 8.5-10.1 [facility] Comment on above: Performed By: #### L 500.4050, L501.2450, L100.0100 ####[facility] [address] [place], [address] Chloride [Moles/Vol] 110 mmol/L High 98-107 [facility] Comment on above: Performed By: #### L 500.4050, L501.2450, L100.0100 ####[facility] [address] [place], [address] CO2 [Moles/Vol] 21.0 mmol/L Normal 21.0-32.0 [facility] Comment on above: Performed By: #### L 500.4050, L501.2450, L100.0100 ####[facility] [address] [place], [address] Creatinine [Mass/Vol] 0.93 mg/dL Normal 0.55-1.02 [facility] Comment on above: Result Comment: The validity of the calculated GFR GFRAA in patients over70 years has not been determined. Clinical correlation isessential. Performed By: #### L 500.4050, L501.2450, L100.0100 ####[facility] [address] [place], [address] ECRCL 56.44 ml/min Normal [facility] Comment on above: Performed By: #### L 500.4050, L501.2450, L100.0100 ####[facility] [address] [place], [address] EST GFR - AA 78 mL/min Normal >60 [facility] Comment on above: Result Comment: Afri can Venezuelan GFR Calc Performed By: #### L 500.4050, L501.2450, L100.0100 ####[facility] [address] [place], [address] GAP 7 Normal 5-15 [facility] Comment on above: Performed By: #### L 500.4050, L501.2450, L100.0100 ####[facility] [address] [place], [address] GFR/1.73 sq M.predicted among non-blacks MDRD (S/P/Bld) [Vol rate/Area] 64 mL/min/{1.73_m2} Normal >60 [facility] Comment on above: Result Comment: Non- GFR Calc Performed By: #### L 500.4050, L501.2450, L100.0100 ####[facility] [address] [place], [address] Globulin (S) [Mass/Vol] 3.9 g/dL Normal 2.2-4.2 [facility] Comment on above: Performed By: #### L 500.4050, L501.2450, L100.0100 ####[facility] [address] [place], [address] Glucose [Mass/Vol] 106 mg/dL Normal 74-106 [facility] Comment on above: Result Comment: Fast ing Glucose result from 100 to 125 mg/dLsuggests IMPAIRED HOMEOSTASIS per A.D.A. criteria. Performed By: #### L 500.4050, L501.2450, L100.0100 ####[facility] [address] [place], [address] Potassium [Moles/Vol] 3.9 mmol/L Normal 3.5-5.1 [facility] Comment on above: Performed By: #### L 500.4050, L501.2450, L100.0100 ####[facility] [address] [place], [address] Sodium [Moles/Vol] 138 mmol/L Normal 136-145 [facility] Comment on above: Performed By: #### L 500.4050, L501.2450, L100.0100 ####[facility] [address] [place], [address] T PROT 7.9 g/dL Normal 6.4-8.2 [facility] Comment on above: Performed By: #### L 500.4050, L501.2450, L100.0100 ####[facility] [address] [place], [address] Urea nitrogen [Mass/Vol] 23 mg/dL High 7-18 [facility] Comment on above: Performed By: #### L 500.4050, L501.2450, L100.0100 ####[facility] [address] [place], [address] Emergency Department Summary on 10-23-2024 Emergency Department Summary Normal [facility] Eosinophil percentageOrdered By: Lester Naranjo on 10-23-2024 Eosinophils/100 WBC (Bld) 0.7 % 0-5 [facility] Erythrocyte distribution wid th ratioOrdered By: Lester Naranjo on 10-23-2024 Erythrocyte distribution width (RBC) [Ratio] 13.9 % 11.6-14.6 [facility] Erythrocyte distribution wid th standard deviationOrdered By: Lester Naranjo on 10-23-2024 Erythrocyte distribution width (RBC) [Entitic vol] 46.6 fL High 35.1-43.9 [facility] Estimated glomerular filtrat ion rate (GFR) AmericanOrdered By: Lester Naranjo on 10-23-2024 Estimated GFR (MDRD) Amer 78 mL/min >60 [facility] Comment on above: GFR Calc Estimation of creatinine yessi aranceOrdered By: Lester Naranjo on 10-23-2024 Estimated Creatinine Clearance Calc 56.44 ml/min [facility] Glomerular filtration rate ( GFR) estimationOrdered By: Lester Naranjo on 10-23-2024 Estimated GFR (MDRD) Non-Af Amer 64 mL/min >60 [facility] Comment on above: Non- GFR Calc Glucose measurementOrdered B y: Lester Naranjo on 10-23-2024 Glucose [Mass/Vol] 106 mg/dL 74-106 [facility] Comment on above: Fasting Glucose resu lt from 100 to 125 mg/dL suggests IMPAIRED HOMEOSTASIS per A.D.A. criteria. Hematocrit Auto (Bld) [Volum e fraction]Ordered By: Lester Naranjo on 10-23-2024 Hematocrit (Bld) [Volume fraction] 46.4 % 37-47 [facility] Hemoglobin measurementOrdere d By: Lester Naranjo on 10-23-2024 Hemoglobin (Bld) [Mass/Vol] 15.8 g/dL High 12.0-15.0 [facility] Immature granulocytes/100 WB C Auto (Bld)Ordered By: Lester Naranjo on 10-23-2024 Immature granulocytes/100 WBC (Bld) 0.200 % 0.0-0.9 [facility] Comment on above: IG% - Immature Granu locytes (promyelocytes, myelocytes and metamyelocytes) > 1% indicates that a LEFT SHIFT is Present. Laboratory - Chemistry and C hemistry - challengeOrdered By: Lester Naranjo on 10-23-2024 AST [Catalytic activity/Vol] 16 U/L 15-37 [facility] Lipaseon 10-23-2024 Lipase [Catalytic activity/Vol] 96 U/L High 13-75 [facility] Comment on above: Result Comment: Mervat kim note:LIPASE revised reference range effective 23.New Lipase methodology. Expected to produce lower valuesthan the previous assay method.NEW Reference Range: 13 - 75 U/L Performed By: #### L 500.4050, L501.2450, L100.0100 ####[facility] [address] [place], [address] Lipase measurementOrdered By : Lester Naranjo on 10-23-2024 Lipase [Catalytic activity/Vol] 96 U/L High 13-75 [facility] Comment on above: Please note:LIPASE r evised reference range effective 23. New Lipase methodology. Expected to produce lower values than the previous assay method. NEW Reference Range: 13 - 75 U/L Lymphocytes Auto (Unsp spec) [#/Vol]Ordered By: Lester Naranjo on 10-23-2024 Lymphocytes (Bld) [#/Vol] 2.04 10*3/uL 0.83-4.51 [facility] Lymphocytes/100 WBC Auto (Un sp spec)Ordered By: Lester Naranjo on 10-23-2024 Lymphocytes/100 WBC (Bld) 23.9 % 19-41 [facility] MCV (mean corpuscular volume ) determinationOrdered By: Lester Naranjo on 10-23-2024 MCV (RBC) [Entitic vol] 90.6 fL 81-99 [facility] Mean corpuscular hemoglobin (MCH) determinationOrdered By: Lester Naranjo on 10-23-2024 MCH (RBC) [Entitic mass] 30.9 pg 27.0-32.0 [facility] Mean corpuscular hemoglobin concentration (MCHC) determinationOrdered By: Lester Naranjo on 10-23-2024 MCHC (RBC) [Mass/Vol] 34.1 g/dL 32-36 [facility] Mean platelet volume determi nationOrdered By: Lester Naranjo on 10-23-2024 Platelet mean volume (Bld) [Entitic vol] 9.4 fL 6.2-12.0 [facility] Monocyte percentageOrdered B y: Lester Naranjo on 10-23-2024 Monocytes/100 WBC (Bld) 6.9 % 0-10 [facility] Neutrophil percentageOrdered By: Lester Naranjo on 10-23-2024 Neutrophils/100 WBC (Bld) 67.6 % 47-70 [facility] Nucleated red blood cell per centageOrdered By: Lester Naranjo on 10-23-2024 Nucleated RBC/100 WBC (Bld) [Ratio] 0 % 0-5 [facility] Platelet countOrdered By: Kvng Naranjo on 10-23-2024 Platelets (Bld) [#/Vol] 313 10*3/uL 150-450 [facility] Potassium measurementOrdered By: Lester Naranjo on 10-23-2024 Potassium [Moles/Vol] 3.9 mmol/L 3.5-5.1 [facility] RBC Auto (Bld) [#/Vol]Ordere d By: Lester Naranjo on 10-23-2024 RBC (Bld) [#/Vol] 5.12 10*6/uL 4.2-5.4 [facility] Serum anion gap measurementO rdered By: Lester Naranjo on 10-23-2024 Anion gap [Moles/Vol] 7 mmol/L 5-15 [facility] Serum globulin measurementOr dered By: Lester Naranjo on 10-23-2024 Globulin (S) [Mass/Vol] 3.9 g/dL 2.2-4.2 [facility] Serum or plasma alanine rosenthal otransferase (ALT) measurementOrdered By: Lester Naranjo on 10-23-2024 ALT [Catalytic activity/Vol] 21 U/L 13-56 [facility] Serum or plasma albumin casey urement (mass/volume)Ordered By: Lester Naranjo on 10-23-2024 Albumin [Mass/Vol] 4.0 g/dL 3.2-5.0 [facility] Serum or plasma alkaline nicki sphatase measurementOrdered By: Lester Naranjo on 10-23-2024 ALP [Catalytic activity/Vol] 94 U/L 45-117 [facility] Serum or plasma calcium casey urement (mass/volume)Ordered By: Lester Naranjo on 10-23-2024 Calcium [Mass/Vol] 9.3 mg/dL 8.5-10.1 [facility] Serum or plasma creatinine m easurement (mass/volume)Ordered By: Lester Naranjo on 10-23-2024 Creatinine [Mass/Vol] 0.93 mg/dL 0.55-1.02 [facility] Comment on above: The validity of the calculated GFR & GFRAA in patients over 70 years has not been determined. Clinical correlation is essential. Serum or plasma urea nitroge n measurement (mass/volume)Ordered By: Lester Naranjo on 10-23-2024 Urea nitrogen [Mass/Vol] 23 mg/dL High 7-18 [facility] Sodium levelOrdered By: Lester Naranjo on 10-23-2024 Sodium [Moles/Vol] 138 mmol/L 136-145 [facility] Total proteinOrdered By: Lisette Naranjo on 10-23-2024 Protein [Mass/Vol] 7.9 g/dL 6.4-8.2 [facility] White blood cell (WBC) count Ordered By: Lester Naranjo on 10-23-2024 WBC (Bld) [#/Vol] 8.5 10*3/uL 4.4-11.0 [facility] Brain W/WO Contraston 2023 Brain W/WO Contrast Normal [facility] Miscellaneous Lab Procedureo n 09-05-2024 MISC LAB TEST Normal [facility] Comment on above: Order Comment: RUN L OWEST TEST LC [id number] URINE TOXICOLOGY Result Comment: [id number] 6+OXYCODONE-BUND [...] specimen to perform or complete analysis. TEST: [id number] Carboxy THC Conf, MS, UR Panel: [id number] CONTACTED TIP Amin AT YOUR FACILITY ON [phone] ___ TESTING PERFORMED AT [facility]. ORIGINAL REPORT ON FILE IN LAB CONTAINS ADDITIONAL TEST SITE INFORMATION. Performed By: #### L 505.5000, L801.1541 ####[facility] [address] [place], [address] Urine Drug Screen (VISTA)on 08-28-2024 AMPHETAMINES Negative Normal <1000 ng/mL [facility] Comment on above: Order Comment: RUN L OWESTUNK Performed By: #### L 505.5000, L801.1541 ####[facility] [address] [place], [address] BARBITIURATES Negative Normal < 200 ng/mL [facility] Comment on above: Order Comment: RUN L OWESTUNK Performed By: #### L 505.5000, L801.1541 ####[facility] [address] [place], [address] BENZODIAZIPINE Negative Normal < 200 ng/mL [facility] Comment on above: Order Comment: RUN L OWESTUNK Performed By: #### L 505.5000, L801.1541 ####[facility] [address] [place], [address] COCAINE Negative Normal < 300 ng/mL [facility] Comment on above: Order Comment: RUN L OWESTUNK Performed By: #### L 505.5000, L801.1541 ####[facility] [address] [place], [address] ECSTACY Negative Normal < 500 ng/mL [facility] Comment on above: Order Comment: RUN L OWESTUNK Performed By: #### L 505.5000, L801.1541 ####[facility] [address] [place], [place], [phone] METHADONE Negative Normal < 300 ng/mL [facility] Comment on above: Order Comment: RUN L OWESTUNK Performed By: #### L 505.5000, L801.1541 ####[facility] [address] [place], [address] OPIATES Negative Normal < 300 ng/mL [facility] Comment on above: Order Comment: RUN L OWESTUNK Performed By: #### L 505.5000, L801.1541 ####[facility] [address] [place], [address] PCP Negative Normal < 25 ng/mL [facility] Comment on above: Order Comment: RUN L OWESTUNK Performed By: #### L 505.5000, L801.1541 ####[facility] [address] [place], [address] THC Positive Abnormal < 50 ng/mL [facility] Comment on above: Order Comment: RUN L OWESTUNK Performed By: #### L 505.5000, L801.1541 ####[facility] [address] [place], [address] VISTA UDS PH 5 Normal [facility] Comment on above: Order Comment: KASEY SAENZ Performed By: #### L 505.5000, L801.1541 ####[facility] [address] [place], [address] Comprehensive Metabolic Prof ilon 08-14-2024 Albumin [Mass/Vol] 3.4 g/dL Normal 3.2-5.0 [facility] Comment on above: Performed By: #### L 500.4050, L501.9520 ####[facility] [address] [place], [address] Albumin/Globulin [Mass ratio] 1.1 {ratio} Normal 0.9-2.4 [facility] Comment on above: Performed By: #### L 500.4050, L501.9520 ####[facility] [address] [place], [address] ALK P 102 U/L Normal 45-117 [facility] Comment on above: Performed By: #### L 500.4050, L501.9520 ####[facility] [address] [place], [address] ALT [Catalytic activity/Vol] 18 U/L Normal 13-56 [facility] Comment on above: Performed By: #### L 500.4050, L501.9520 ####[facility] [address] [place], [address] AST [Catalytic activity/Vol] 10 U/L Low 15-37 [facility] Comment on above: Performed By: #### L 500.4050, L501.9520 ####[facility] [address] [place], [address] Bilirubin [Mass/Vol] 0.20 mg/dL Normal 0.20-1.00 [facility] Comment on above: Result Comment: For patients on eltrombopag therapy, use of Dimension [place] TBIL is not recommended. Performed By: #### L 500.4050, L501.9520 ####[facility] [address] [place], [address] BUN/CRE 22.9 RATIO High 10-20 [facility] Comment on above: Performed By: #### L 500.4050, L501.9520 ####[facility] [address] [place], [address] CA,Total 9.1 mg/dL Normal 8.5-10.1 [facility] Comment on above: Performed By: #### L 500.4050, L501.9520 ####[facility] [address] [place], [address] Chloride [Moles/Vol] 114 mmol/L High 98-107 [facility] Comment on above: Performed By: #### L 500.4050, L501.9520 ####[facility] [address] [place], [address] CO2 [Moles/Vol] 25.0 mmol/L Normal 21.0-32.0 [facility] Comment on above: Performed By: #### L 500.4050, L501.9520 ####[facility] [address] [place], [address] Creatinine [Mass/Vol] 1.18 mg/dL High 0.55-1.02 [facility] Comment on above: Result Comment: The validity of the calculated GFR GFRAA in patients over70 years has not been determined. Clinical correlation isessential. Performed By: #### L 500.4050, L501.9520 ####[facility] [address] [place], [address] EST GFR - AA 60 mL/min Normal >60 [facility] Comment on above: Result Comment: Afri can Venezuelan GFR Calc Performed By: #### L 500.4050, L501.9520 ####[facility] [address] [place], [address] GAP 3 Low 5-15 [facility] Comment on above: Performed By: #### L 500.4050, L501.9520 ####[facility] [address] [place], [address] GFR/1.73 sq M.predicted among non-blacks MDRD (S/P/Bld) [Vol rate/Area] 49 mL/min/{1.73_m2} Low >60 [facility] Comment on above: Result Comment: Non- GFR Calc Performed By: #### L 500.4050, L501.9520 ####[facility] [address] [place], [address] Globulin (S) [Mass/Vol] 3.2 g/dL Normal 2.2-4.2 [facility] Comment on above: Performed By: #### L 500.4050, L501.9520 ####[facility] [address] [place], [address] Glucose [Mass/Vol] 90 mg/dL Normal 74-106 [facility] Comment on above: Performed By: #### L 500.4050, L501.9520 ####[facility] [address] [place], [address] Potassium [Moles/Vol] 4.6 mmol/L Normal 3.5-5.1 [facility] Comment on above: Performed By: #### L 500.4050, L501.9520 ####[facility] [address] [place], [address] Sodium [Moles/Vol] 142 mmol/L Normal 136-145 [facility] Comment on above: Performed By: #### L 500.4050, L501.1920 ####[facility] [address] [place], [address] T PROT 6.6 g/dL Normal 6.4-8.2 [facility] Comment on above: Performed By: #### L 500.4050, L501.9520 ####[facility] [address] [place], [address] Urea nitrogen [Mass/Vol] 27 mg/dL High 7-18 [facility] Comment on above: Performed By: #### L 500.4050, L501.9520 ####[facility] [address] [place], [address] Thyroid Stim Hormone (TSH)on 08-14-2024 TSH 0.212 uIU/mL Low 0.358-3.740 [facility] Comment on above: Performed By: #### L 500.4050, L501.9520 ####[facility] [address] [place], [address] Thyroid Antibodieson 024 TG AB < 1.0 Normal 0.0-0.9 [facility] Comment on above: Result Comment: Thyr oglobulin Antibody measured by Penny CoulterMethodologyIt should be noted that the presence of thyroglobulinantibodies may not be pathogenic nor diagnostic, especiallyat very low levels. The assay supervisor lead burning has found thatfour percent of individuals without evidence of thyroiddisease or autoimmunity will have positive TgAb levels upto 4 IU/mL.Performed at: [address] [id number] Director: Braden Collado PhD, Phone: [phone] Performed By: #### L 506.0400, S5712.7252, L565.8371, V689.4720 ####[facility] [address] [place], [address] THYR PEROX AB 12 IU/mL Normal 0-34 [facility] Comment on above: Performed By: #### L 506.0400, L3300.6750, L501.9520, L501.9310 ####[facility] [address] [place], [address] T4 Free Directon 06-20-2024 T4 FREE DIRECT 1.07 ng/dL Normal 0.76-1.46 [facility] Comment on above: Performed By: #### L 506.0400, L3300.6750, L501.9520, L501.9310 ####[facility] [address] [place], [address] T4 Total, Thyroxinon 024 T4 [Mass/Vol] 9.3 ug/dL Normal 4.8-13.9 [facility] Comment on above: Performed By: #### L 506.0400, L3300.6750, L501.9520, L501.9310 ####[facility] [address] [place], [address] Thyroid Stim Hormone (TSH)on 06-20-2024 TSH 0.691 uIU/mL Normal 0.358-3.740 [facility] Comment on above: Performed By: #### L 506.0400, L3300.6750, L501.9520, L501.9310 ####[facility] [address] [place], [address] Celiac AB,Comprehensiveon ANTIGLIADIN IGA 4 units Normal 0-19 [facility] Comment on above: Order Comment: Test( s) 377730-Fmug, Blood; 203389-Zikwweu, Blood; 291024-Jtfjuci, Bloodwas developed and its performance characteristicsdetermined by [employer]. It has not been cleared or approvedby the Food and Drug Administration. Result Comment: Nega tive 0 - 19 Weak Positive 20 - 30 Moderate to Strong Positive >30 Performed By: #### L 3410.2350, L3890.6005, L502.0500, L501.9985, L3000.0375, L503.0105, L501.6710, L101.9900, L7000.5300, L500.4100, L501.9520, L509.8000, L3100.6425, L503.6550, L500.4050, L501.3620, L100.0500 ####[facility] [address] [place], [address] ANTIGLIADIN IGG 2 units Normal 0-19 [facility] Comment on above: Order Comment: Test( s) 231793-Jdpz, Blood; 349363-Xdykrty, Blood; 251239-Zwlncnb, Bloodwas developed and its performance characteristicsdetermined by [employer]. It has not been cleared or approvedby the Food and Drug Administration. Result Comment: Nega tive 0 - 19 Weak Positive 20 - 30 Moderate to Strong Positive >30 Performed By: #### L 3410.2350, L3890.6005, L502.0500, L501.9985, L3000.0375, L503.0105, L501.6710, L101.9900, L7000.5300, L500.4100, L501.9520, L509.8000, L3100.6425, L503.6550, L500.4050, L501.3620, L100.0500 ####[facility] [address] [facility] [address] [place], [place], [id number] ENDOMYSIAL IGA Negative Normal Negative [facility] Comment on above: Order Comment: Test( s) 118397-Asfl, Blood; 508760-Odgdvyw, Blood; 233665-Rhzxvlv, Bloodwas developed and its performance characteristicsdetermined by [employer]. It has not been cleared or approvedby the Food and Drug Administration. Performed By: #### L 3410.2350, L3890.6005, L502.0500, L501.9985, L3000.0375, L503.0105, L501.6710, L101.9900, L7000.5300, L500.4100, L501.9520, L509.8000, L3100.6425, L503.6550, L500.4050, L501.3620, L100.0500 ####[facility] [address] [facility] [place], [address] IMMUNOGLOB A QN 140 mg/dL Normal 87-352 [facility] Comment on above: Order Comment: Test( s) 848690-Dekq, Blood; 206022-Ayntiwk, Blood; 343945-Nurugku, Bloodwas developed and its performance characteristicsdetermined by [employer]. It has not been cleared or approvedby the Food and Drug Administration. Performed By: #### L 3410.2350, L3890.6005, L502.0500, L501.9985, L3000.0375, L503.0105, L501.6710, L101.9900, L7000.5300, L500.4100, L501.9520, L509.8000, L3100.6425, L503.6550, L500.4050, L501.3620, L100.0500 ####[facility] [address] [facility] [place], [address] tTG IGA <2 Normal 0-3 [facility] Comment on above: Order Comment: Test( s) 979008-Hpru, Blood; 934175-Ckcwtxl, Blood; 569320-Wpgwott, Bloodwas developed and its performance characteristicsdetermined by [employer]. It has not been cleared or approvedby [...] L501.9520, L509.8000, L3100.6425, L503.6550, L500.4050, L501.3620, L100.0500 ####[facility] [address] [place], [address] tTG IGG <2 Normal 0-5 [facility] Comment on above: Order Comment: Test( s) 844237-Okdi, Blood; 571797-Dgcgfet, Blood; 977397-Yshhsaz, Bloodwas developed and its performance characteristicsdetermined by [employer]. It has not been cleared or approvedby the Food and Drug Administration. Result Comment: Nega tive 0 - 5 Weak Positive 6 - 9 Positive >9 Performed By: #### L 3410.2350, L3890.6005, L502.0500, L501.9985, L3000.0375, L503.0105, L501.6710, L101.9900, L7000.5300, L500.4100, L501.9520, L509.8000, L3100.6425, L503.6550, L500.4050, L501.3620, L100.0500 ####[facility] [address] [facility] [place], [place], [address] Heavy Metals, Bloodon 2023 ARSENIC,BLOOD 3 ug/L Normal 0-9 [facility] Comment on above: Order Comment: Test( s) 930850-Xetx, Blood; 418214-Vzwzcbm, Blood; 192556-Gpaflir, Bloodwas developed and its performance characteristicsdetermined by [employer]. It has not been cleared or approvedby the Food and Drug Administration. Result Comment: Dete ction Limit = 1 Performed By: #### L 3410.2350, L3890.6005, L502.0500, L501.9985, L3000.0375, L503.0105, L501.6710, L101.9900, L7000.5300, L500.4100, L501.9520, L509.8000, L3100.6425, L503.6550, L500.4050, L501.3620, L100.0500 ####[facility] [address] [facility] [place], [address] LEAD, BLOOD 2.3 ug/dL Normal 0.0-3.4 [facility] Comment on above: Order Comment: Test( s) 584244-Qucm, Blood; 702248-Mpbsunv, Blood; 065927-Ltxoehj, Bloodwas developed and its performance characteristicsdetermined by [employer]. It has not been cleared or approvedby the Food and Drug Administration. Result Comment: Test ing performed by Inductively coupled plasma/MassSpectrometry. Environmental Exposure: WHO Recommendation <5.0 Occupational Exposure: OSHA Lead Std 40.0 KRISTIE 30.0 Detection Limit = 1.0 Performed By: #### L 3410.2350, L3890.6005, L502.0500, L501.9985, L3000.0375, L503.0105, L501.6710, L101.9900, L7000.5300, L500.4100, L501.9520, L509.8000, L3100.6425, L503.6550, L500.4050, L501.3620, L100.0500 ####[facility] [address] [facility] [place], [place], [address] MERCURY,BLOOD < 1.0 Normal 0.0-14.9 [facility] Comment on above: Order Comment: Test( s) 107262-Bryk, Blood; 559564-Jlmdvrk, Blood; 325546-Rqswcvp, Bloodwas developed and its performance characteristicsdetermined by [employer]. It has not been cleared or approvedby the Food and Drug Administration. Result Comment: Dete ction Limit = 1.0 Performed By: #### L 3410.2350, L3890.6005, L502.0500, L501.9985, L3000.0375, L503.0105, L501.6710, L101.9900, L7000.5300, L500.4100, L501.9520, L509.8000, L3100.6425, L503.6550, L500.4050, L501.3620, L100.0500 ####[facility] [address] [place], [address] Hepatitis Panel Acuteon 08-0 COMMENT Comment Normal . [facility] Comment on above: Order Comment: Test( s) 389987-Tsfi, Blood; 300621-Hiysbyi, Blood; 439419-Mpvbomo, Bloodwas developed and its performance characteristicsdetermined by [employer]. It has not been cleared or approvedby the Food and Drug Administration. Result Comment: Not infected with HCV unless early or acute infection issuspected (which may be delayed in an immunocompromisedindividual), or other evidence exists to indicate HCVinfection. Performed By: #### L 3410.2350, L3890.6005, L502.0500, L501.9985, L3000.0375, L503.0105, L501.6710, L101.9900, L7000.5300, L500.4100, L501.9520, L509.8000, L3100.6425, L503.6550, L500.4050, L501.3620, L100.0500 ####[facility] [address] [place], [place], [address] HEP B CORE,IgM Negative Normal Negative [facility] Comment on above: Order Comment: Test( s) 759151-Dlpq, Blood; 413899-Dllehxt, Blood; 615594-Itrvbdp, Bloodwas developed and its performance characteristicsdetermined by [employer]. It has not been cleared or approvedby the Food and Drug Administration. Performed By: #### L 3410.2350, L3890.6005, L502.0500, L501.9985, L3000.0375, L503.0105, L501.6710, L101.9900, L7000.5300, L500.4100, L501.9520, L509.8000, L3100.6425, L503.6550, L500.4050, L501.3620, L100.0500 ####[facility] [address] [place], [place], [address] HEP B SURF AG Negative Normal Negative [facility] Comment on above: Order Comment: Test( s) 728276-Osfy, Blood; 635242-Ayrhylo, Blood; 013704-Ohirgvi, Bloodwas developed and its performance characteristicsdetermined by [employer]. It has not been cleared or approvedby the Food and Drug Administration. Performed By: #### L 3410.2350, L3890.6005, L502.0500, L501.9985, L3000.0375, L503.0105, L501.6710, L101.9900, L7000.5300, L500.4100, L501.9520, L509.8000, L3100.6425, L503.6550, L500.4050, L501.3620, L100.0500 ####[facility] [address] [facility] [place], [address] HEP C VIRUS AB Non-Reactive Normal Non Reactive [facility] Comment on above: Order Comment: Test( s) 132160-Fcfz, Blood; 784184-Qhbmkyv, Blood; 729430-Venyxqq, Bloodwas developed and its performance characteristicsdetermined by [employer]. It has not been cleared or approvedby the Food and Drug Administration. Performed By: #### L 3410.2350, L3890.6005, L502.0500, L501.9985, L3000.0375, L503.0105, L501.6710, L101.9900, L7000.5300, L500.4100, L501.9520, L509.8000, L3100.6425, L503.6550, L500.4050, L501.3620, L100.0500 ####[facility] [address] [facility] [place], [place], [address] HEPATITIS A-IgM Negative Normal Negative [facility] Comment on above: Order Comment: Test( s) 667908-Lgrv, Blood; 865038-Mfhgmuo, Blood; 543656-Jymunir, Bloodwas developed and its performance characteristicsdetermined by [employer]. It has not been cleared or approvedby the Food and Drug Administration. Performed By: #### L 3410.2350, L3890.6005, L502.0500, L501.9985, L3000.0375, L503.0105, L501.6710, L101.9900, L7000.5300, L500.4100, L501.9520, L509.8000, L3100.6425, L503.6550, L500.4050, L501.3620, L100.0500 ####[facility] [address] [place], [place], [address] Lyme Screen W/Reflex WBon LYME SCREEN Ab Negative Normal Negative [facility] Comment on above: Order Comment: Test( s) 154768-Clko, Blood; 983856-Dfdpotz, Blood; 663879-Lnwwzql, Bloodwas developed and its performance characteristicsdetermined by [employer]. It has not been cleared or approvedby [...] in 7 to 14 days isrecommended.Performed at: [address] [id number] Director: Braden Collado PhD, Phone: [phone] at: [address] [id number] Director: Rio Rondon MD, Phone: [phone] Performed By: #### L 3410.2350, L3890.6005, L502.0500, L501.9985, L3000.0375, L503.0105, L501.6710, L101.9900, L7000.5300, L500.4100, L501.9520, L509.8000, L3100.6425, L503.6550, L500.4050, L501.3620, L100.0500 ####[facility] [address] [place], [address] CPK Total, Creatine Kinaseon 05-23-2024 CPK TOTAL 97 U/L Normal 26-192 [facility] Comment on above: Performed By: #### L 3410.2350, L3890.6005, L502.0500, L501.9985, L3000.0375, L503.0105, L501.6710, L101.9900, L7000.5300, L500.4100, L501.9520, L509.8000, L3100.6425, L503.6550, L500.4050, L501.3620, L100.0500 ####[facility] [address] [place], [address] CBC-Complete Blood Cnt No Di ffon 05-22-2024 Erythrocyte distribution width (RBC) [Ratio] 13.9 % Normal 11.6-14.6 [facility] Comment on above: Performed By: #### L 3410.2350, L3890.6005, L502.0500, L501.9985, L3000.0375, L503.0105, L501.6710, L101.9900, L7000.5300, L500.4100, L501.9520, L509.8000, L3100.6425, L503.6550, L500.4050, L501.3620, L100.0500 ####[facility] [address] [place], [address] Hematocrit (Bld) [Volume fraction] 40.3 % Normal 37-47 [facility] Comment on above: Performed By: #### L 3410.2350, L3890.6005, L502.0500, L501.9985, L3000.0375, L503.0105, L501.6710, L101.9900, L7000.5300, L500.4100, L501.9520, L509.8000, L3100.6425, L503.6550, L500.4050, L501.3620, L100.0500 ####[facility] [id number] [facility] [address] [place], [place], [id number]) Hemoglobin (Bld) [Mass/Vol] 13.1 g/dL Normal 12.0-15.0 [facility] Comment on above: Performed By: #### L 3410.2350, L3890.6005, L502.0500, L501.9985, L3000.0375, L503.0105, L501.6710, L101.9900, L7000.5300, L500.4100, L501.9520, L509.8000, L3100.6425, L503.6550, L500.4050, L501.3620, L100.0500 ####[facility] [id number] [facility] [address]aughters. [place], [place], [phone] MCH (RBC) [Entitic mass] 29.8 pg Normal 27.0-32.0 [facility] Comment on above: Performed By: #### L 3410.2350, L3890.6005, L502.0500, L501.9985, L3000.0375, L503.0105, L501.6710, L101.9900, L7000.5300, L500.4100, L501.9520, L509.8000, L3100.6425, L503.6550, L500.4050, L501.3620, L100.0500 ####[facility] [address] [facility] [address]. [place], [place], [phone] MCHC (RBC) [Mass/Vol] 32.5 g/dL Normal 32-36 [facility] Comment on above: Performed By: #### L 3410.2350, L3890.6005, L502.0500, L501.9985, L3000.0375, L503.0105, L501.6710, L101.9900, L7000.5300, L500.4100, L501.9520, L509.8000, L3100.6425, L503.6550, L500.4050, L501.3620, L100.0500 ####[facility] [address] [place], [address] MCV (RBC) [Entitic vol] 91.8 fL Normal 81-99 [facility] Comment on above: Performed By: #### L 3410.2350, L3890.6005, L502.0500, L501.9985, L3000.0375, L503.0105, L501.6710, L101.9900, L7000.5300, L500.4100, L501.9520, L509.8000, L3100.6425, L503.6550, L500.4050, L501.3620, L100.0500 ####[facility] [address] [place], [address] Platelet mean volume (Bld) [Entitic vol] 9.8 fL Normal 6.2-12.0 [facility] Comment on above: Performed By: #### L 3410.2350, L3890.6005, L502.0500, L501.9985, L3000.0375, L503.0105, L501.6710, L101.9900, L7000.5300, L500.4100, L501.9520, L509.8000, L3100.6425, L503.6550, L500.4050, L501.3620, L100.0500 ####[facility] [address] [place], [address] Platelets (Bld) [#/Vol] 325 10*3/uL Normal 150-450 [facility] Comment on above: Performed By: #### L 3410.2350, L3890.6005, L502.0500, L501.9985, L3000.0375, L503.0105, L501.6710, L101.9900, L7000.5300, L500.4100, L501.9520, L509.8000, L3100.6425, L503.6550, L500.4050, L501.3620, L100.0500 ####[facility] [address] [place], [place], [phone](399) RBC (Bld) [#/Vol] 4.39 10*6/uL Normal 4.2-5.4 [facility] Comment on above: Performed By: #### L 3410.2350, L3890.6005, L502.0500, L501.9985, L3000.0375, L503.0105, L501.6710, L101.9900, L7000.5300, L500.4100, L501.9520, L509.8000, L3100.6425, L503.6550, L500.4050, L501.3620, L100.0500 ####[facility] [address] [place], [place], [phone](246) RDW SD 47.2 fl High 35.1-43.9 [facility] Comment on above: Performed By: #### L 3410.2350, L3890.6005, L502.0500, L501.9985, L3000.0375, L503.0105, L501.6710, L101.9900, L7000.5300, L500.4100, L501.9520, L509.8000, L3100.6425, L503.6550, L500.4050, L501.3620, L100.0500 ####[facility] [address] [place], [place], [phone](121) WBC (Bld) [#/Vol] 9.1 10*3/uL Normal 4.4-11.0 [facility] Comment on above: Performed By: #### L 3410.2350, L3890.6005, L502.0500, L501.9985, L3000.0375, L503.0105, L501.6710, L101.9900, L7000.5300, L500.4100, L501.9520, L509.8000, L3100.6425, L503.6550, L500.4050, L501.3620, L100.0500 ####[facility] [address] [facility]. [place], [place], [phone] CRPon 05-22-2024 C-REACTIVE PROT < 2.90 Normal 0.0-3.0 [facility] Comment on above: Result Comment: C-Re active Protein (CRP) provides useful information for thediagnosis, therapy and monitoring of inflammatory processesand associated diseases. For the evaluation of Relative Riskfor Cardiovascular Disease, a High Sensitivity CRP (HSCRP)should be ordered. Performed By: #### L 3410.2350, L3890.6005, L502.0500, L501.9985, L3000.0375, L503.0105, L501.6710, L101.9900, L7000.5300, L500.4100, L501.9520, L509.8000, L3100.6425, L503.6550, L500.4050, L501.3620, L100.0500 ####[facility] [address] [facility]. [place], [place], [phone] Comprehensive Metabolic Prof ilon 05-22-2024 Albumin [Mass/Vol] 3.7 g/dL Normal 3.2-5.0 [facility] Comment on above: Performed By: #### L 3410.2350, L3890.6005, L502.0500, L501.9985, L3000.0375, L503.0105, L501.6710, L101.9900, L7000.5300, L500.4100, L501.9520, L509.8000, L3100.6425, L503.6550, L500.4050, L501.3620, L100.0500 ####[facility] [address] [place], [place], [phone] Albumin/Globulin [Mass ratio] 1.2 {ratio} Normal 0.9-2.4 [facility] Comment on above: Performed By: #### L 3410.2350, L3890.6005, L502.0500, L501.9985, L3000.0375, L503.0105, L501.6710, L101.9900, L7000.5300, L500.4100, L501.9520, L509.8000, L3100.6425, L503.6550, L500.4050, L501.3620, L100.0500 ####[facility] [address] [place], [place], [phone] ALK P 110 U/L Normal 45-117 [facility] Comment on above: Performed By: #### L 3410.2350, L3890.6005, L502.0500, L501.9985, L3000.0375, L503.0105, L501.6710, L101.9900, L7000.5300, L500.4100, L501.9520, L509.8000, L3100.6425, L503.6550, L500.4050, L501.3620, L100.0500 ####[facility] [address] [place], [address] ALT [Catalytic activity/Vol] 31 U/L Normal 13-56 [facility] Comment on above: Performed By: #### L 3410.2350, L3890.6005, L502.0500, L501.9985, L3000.0375, L503.0105, L501.6710, L101.9900, L7000.5300, L500.4100, L501.9520, L509.8000, L3100.6425, L503.6550, L500.4050, L501.3620, L100.0500 ####[facility] [address] [place], [place], [phone] AST [Catalytic activity/Vol] 25 U/L Normal 15-37 [facility] Comment on above: Performed By: #### L 3410.2350, L3890.6005, L502.0500, L501.9985, L3000.0375, L503.0105, L501.6710, L101.9900, L7000.5300, L500.4100, L501.9520, L509.8000, L3100.6425, L503.6550, L500.4050, L501.3620, L100.0500 ####[facility] [address] [place], [place], [phone] Bilirubin [Mass/Vol] 0.30 mg/dL Normal 0.20-1.00 [facility] Comment on above: Result Comment: For patients on eltrombopag therapy, use of Dimension [place] TBIL is not recommended. Performed By: #### L 3410.2350, L3890.6005, L502.0500, L501.9985, L3000.0375, L503.0105, L501.6710, L101.9900, L7000.5300, L500.4100, L501.9520, L509.8000, L3100.6425, L503.6550, L500.4050, L501.3620, L100.0500 ####[facility] [address] [place], [place], [phone] BUN/CRE 15.2 RATIO Normal 10-20 [facility] Comment on above: Performed By: #### L 3410.2350, L3890.6005, L502.0500, L501.9985, L3000.0375, L503.0105, L501.6710, L101.9900, L7000.5300, L500.4100, L501.9520, L509.8000, L3100.6425, L503.6550, L500.4050, L501.3620, L100.0500 ####[facility] [address] [place], [address] CA,Total 9.6 mg/dL Normal 8.5-10.1 [facility] Comment on above: Performed By: #### L 3410.2350, L3890.6005, L502.0500, L501.9985, L3000.0375, L503.0105, L501.6710, L101.9900, L7000.5300, L500.4100, L501.9520, L509.8000, L3100.6425, L503.6550, L500.4050, L501.3620, L100.0500 ####[facility] [address] [facility] [address] [place], [place], [phone](311) Chloride [Moles/Vol] 109 mmol/L High 98-107 [facility] Comment on above: Performed By: #### L 3410.2350, L3890.6005, L502.0500, L501.9985, L3000.0375, L503.0105, L501.6710, L101.9900, L7000.5300, L500.4100, L501.9520, L509.8000, L3100.6425, L503.6550, L500.4050, L501.3620, L100.0500 ####[facility] [address] [facility] [address] [place], [place], [phone](617) CO2 [Moles/Vol] 21.0 mmol/L Normal 21.0-32.0 [facility] Comment on above: Performed By: #### L 3410.2350, L3890.6005, L502.0500, L501.9985, L3000.0375, L503.0105, L501.6710, L101.9900, L7000.5300, L500.4100, L501.9520, L509.8000, L3100.6425, L503.6550, L500.4050, L501.3620, L100.0500 ####[facility] [address] [place], [place], [phone] Creatinine [Mass/Vol] 0.98 mg/dL Normal 0.55-1.02 [facility] Comment on above: Result Comment: The validity of the calculated GFR GFRAA in patients over70 years has not been determined. Clinical correlation isessential. Performed By: #### L 3410.2350, L3890.6005, L502.0500, L501.9985, L3000.0375, L503.0105, L501.6710, L101.9900, L7000.5300, L500.4100, L501.9520, L509.8000, L3100.6425, L503.6550, L500.4050, L501.3620, L100.0500 ####[facility] [address] [place], [address] EST GFR - AA 73 mL/min Normal >60 [facility] Comment on above: Result Comment: Afri can Venezuelan GFR Calc Performed By: #### L 3410.2350, L3890.6005, L502.0500, L501.9985, L3000.0375, L503.0105, L501.6710, L101.9900, L7000.5300, L500.4100, L501.9520, L509.8000, L3100.6425, L503.6550, L500.4050, L501.3620, L100.0500 ####[facility] [address] [place], [place], [phone] GAP 9 Normal 5-15 [facility] Comment on above: Performed By: #### L 3410.2350, L3890.6005, L502.0500, L501.9985, L3000.0375, L503.0105, L501.6710, L101.9900, L7000.5300, L500.4100, L501.9520, L509.8000, L3100.6425, L503.6550, L500.4050, L501.3620, L100.0500 ####[facility] [address] [facility] [address] [place], [place], [phone](062) GFR/1.73 sq M.predicted among non-blacks MDRD (S/P/Bld) [Vol rate/Area] 61 mL/min/{1.73_m2} Normal >60 [facility] Comment on above: Result Comment: Non- GFR Calc Performed By: #### L 3410.2350, L3890.6005, L502.0500, L501.9985, L3000.0375, L503.0105, L501.6710, L101.9900, L7000.5300, L500.4100, L501.9520, L509.8000, L3100.6425, L503.6550, L500.4050, L501.3620, L100.0500 ####[facility] [address] [place], [place], [phone](032) Globulin (S) [Mass/Vol] 3.2 g/dL Normal 2.2-4.2 [facility] Comment on above: Performed By: #### L 3410.2350, L3890.6005, L502.0500, L501.9985, L3000.0375, L503.0105, L501.6710, L101.9900, L7000.5300, L500.4100, L501.9520, L509.8000, L3100.6425, L503.6550, L500.4050, L501.3620, L100.0500 ####[facility] [address] [facility] [place], [address] Glucose [Mass/Vol] 101 mg/dL Normal 74-106 [facility] Comment on above: Result Comment: Fast ing Glucose result from 100 to 125 mg/dLsuggests IMPAIRED HOMEOSTASIS per A.D.A. criteria. Performed By: #### L 3410.2350, L3890.6005, L502.0500, L501.9985, L3000.0375, L503.0105, L501.6710, L101.9900, L7000.5300, L500.4100, L501.9520, L509.8000, L3100.6425, L503.6550, L500.4050, L501.3620, L100.0500 ####[facility] [address] [place], [address] Potassium [Moles/Vol] 3.4 mmol/L Low 3.5-5.1 [facility] Comment on above: Performed By: #### L 3410.2350, L3890.6005, L502.0500, L501.9985, L3000.0375, L503.0105, L501.6710, L101.9900, L7000.5300, L500.4100, L501.9520, L509.8000, L3100.6425, L503.6550, L500.4050, L501.3620, L100.0500 ####[facility] [address] [place], [address] Sodium [Moles/Vol] 139 mmol/L Normal 136-145 [facility] Comment on above: Performed By: #### L 3410.2350, L3890.6005, L502.0500, L501.9985, L3000.0375, L503.0105, L501.6710, L101.9900, L7000.5300, L500.4100, L501.9520, L509.8000, L3100.6425, L503.6550, L500.4050, L501.3620, L100.0500 ####[facility] [address] [place], [place], [phone](292) T PROT 6.9 g/dL Normal 6.4-8.2 [facility] Comment on above: Performed By: #### L 3410.2350, L3890.6005, L502.0500, L501.9985, L3000.0375, L503.0105, L501.6710, L101.9900, L7000.5300, L500.4100, L501.9520, L509.8000, L3100.6425, L503.6550, L500.4050, L501.3620, L100.0500 ####[facility] [address] [place], [place], [phone] Urea nitrogen [Mass/Vol] 15 mg/dL Normal 7-18 [facility] Comment on above: Performed By: #### L 3410.2350, L3890.6005, L502.0500, L501.9985, L3000.0375, L503.0105, L501.6710, L101.9900, L7000.5300, L500.4100, L501.9520, L509.8000, L3100.6425, L503.6550, L500.4050, L501.3620, L100.0500 ####[facility] [address] [place], [place], [phone] Erythrocyte Sed Rateon 05-22 SED RATE 13 mm/hr Normal 0-30 [facility] Comment on above: Performed By: #### L 3410.2350, L3890.6005, L502.0500, L501.9985, L3000.0375, L503.0105, L501.6710, L101.9900, L7000.5300, L500.4100, L501.9520, L509.8000, L3100.6425, L503.6550, L500.4050, L501.3620, L100.0500 ####[facility] [address] [place], [place], [phone] Ferritinon 05-22-2024 Ferritin [Mass/Vol] 111 ng/mL Normal 8-252 [facility] Comment on above: Performed By: #### L 3410.2350, L3890.6005, L502.0500, L501.9985, L3000.0375, L503.0105, L501.6710, L101.9900, L7000.5300, L500.4100, L501.9520, L509.8000, L3100.6425, L503.6550, L500.4050, L501.3620, L100.0500 ####[facility] [address] [place], [place], [phone] HIV - WCHon 05-22-2024 HIV Non-Reactive Normal Nonreactive [facility] Comment on above: Performed By: #### L 3410.2350, L3890.6005, L502.0500, L501.9985, L3000.0375, L503.0105, L501.6710, L101.9900, L7000.5300, L500.4100, L501.9520, L509.8000, L3100.6425, L503.6550, L500.4050, L501.3620, L100.0500 ####[facility] [address] [place], [address] Hemoglobin A1con 05-22-2024 HbA1c (Bld) [Mass fraction] 5.0 % Normal 3.8-5.6 [facility] Comment on above: Result Comment: Norm al < 5.7 % Prediabetic 5.7 - 6.4 % Diabetic >or= 6.5 % Please note range changes. Performed By: #### L 3410.2350, L3890.6005, L502.0500, L501.9985, L3000.0375, L503.0105, L501.6710, L101.9900, L7000.5300, L500.4100, L501.9520, L509.8000, L3100.6425, L503.6550, L500.4050, L501.3620, L100.0500 ####[facility] [address] [place], [place], [phone] L509.8000on 05-22-2024 Syphilis Abs Non-Reactive Normal [facility] Comment on above: Performed By: #### L 3410.2350, L3890.6005, L502.0500, L501.9985, L3000.0375, L503.0105, L501.6710, L101.9900, L7000.5300, L500.4100, L501.9520, L509.8000, L3100.6425, L503.6550, L500.4050, L501.3620, L100.0500 ####[facility] [address] [place], [address] Lipid Profileon 05-22-2024 Cholesterol [Mass/Vol] 115 mg/dL Normal 200 [facility] Comment on above: Result Comment: <200 mg/dL Desirable 200-240 mg/dL Borderline >240 mg/dL High Risk Performed By: #### L 3410.2350, L3890.6005, L502.0500, L501.9985, L3000.0375, L503.0105, L501.6710, L101.9900, L7000.5300, L500.4100, L501.9520, L509.8000, L3100.6425, L503.6550, L500.4050, L501.3620, L100.0500 ####[facility] [address] [place], [place], [phone] Cholesterol in HDL [Mass/Vol] 42 mg/dL Normal [facility] Comment on above: Result Comment: The drugs N-Acetylcysteine and Metamizole may falselydepress this assay. Reference Range HDL <40 mg/dL Low HDL Cholesterol HDL >or= 60 mg/dL High HDL Cholesterol Performed By: #### L 3410.2350, L3890.6005, L502.0500, L501.9985, L3000.0375, L503.0105, L501.6710, L101.9900, L7000.5300, L500.4100, L501.9520, L509.8000, L3100.6425, L503.6550, L500.4050, L501.3620, L100.0500 ####[facility] [address] [place], [place], [phone](983) Cholesterol in LDL [Mass/Vol] 54 mg/dL Normal 0-130 [facility] Comment on above: Performed By: #### L 3410.2350, L3890.6005, L502.0500, L501.9985, L3000.0375, L503.0105, L501.6710, L101.9900, L7000.5300, L500.4100, L501.9520, L509.8000, L3100.6425, L503.6550, L500.4050, L501.3620, L100.0500 ####[facility] [address] [place], [address] Cholesterol in VLDL [Mass/Vol] 19 mg/dL Normal 5-40 [facility] Comment on above: Performed By: #### L 3410.2350, L3890.6005, L502.0500, L501.9985, L3000.0375, L503.0105, L501.6710, L101.9900, L7000.5300, L500.4100, L501.9520, L509.8000, L3100.6425, L503.6550, L500.4050, L501.3620, L100.0500 ####[facility] [address] [place], [address] Triglyceride [Mass/Vol] 95 mg/dL Normal [facility] Comment on above: Result Comment: The drugs N-Acetylcysteine and Metamizole may falselydepress this assay.Serum Triglycerides Reference Interval Normal <150 mg/dL Borderline high 150 - 199 mg/dL High 200 - 499 mg/dL Very High > or = 500 mg/dL Performed By: #### L 3410.2350, L3890.6005, L502.0500, L501.9985, L3000.0375, L503.0105, L501.6710, L101.9900, L7000.5300, L500.4100, L501.9520, L509.8000, L3100.6425, L503.6550, L500.4050, L501.3620, L100.0500 ####[facility] [address] [place], [place], [phone] Microalbumin,Random Urineon 05-22-2024 MICROALBUMIN,UR 6.9 mg/L Normal NO RANGE EST. [facility] Comment on above: Performed By: #### L 3410.2350, L3890.6005, L502.0500, L501.9985, L3000.0375, L503.0105, L501.6710, L101.9900, L7000.5300, L500.4100, L501.9520, L509.8000, L3100.6425, L503.6550, L500.4050, L501.3620, L100.0500 ####[facility] [address] [place], [place], [phone] Thyroid Stim Hormone (TSH)on 05-22-2024 TSH 0.18 uIU/mL Low 0.358-3.74 [facility] Comment on above: Performed By: #### L 3410.2350, L3890.6005, L502.0500, L501.9985, L3000.0375, L503.0105, L501.6710, L101.9900, L7000.5300, L500.4100, L501.9520, L509.8000, L3100.6425, L503.6550, L500.4050, L501.3620, L100.0500 ####[facility] [address] [place], [place], [phone] Vitamin B12on 05-22-2024 Cobalamin (Vitamin B12) [Mass/Vol] 232 pg/mL Normal 211-911 [facility] Comment on above: Performed By: #### L 3410.2350, L3890.6005, L502.0500, L501.9985, L3000.0375, L503.0105, L501.6710, L101.9900, L7000.5300, L500.4100, L501.9520, L509.8000, L3100.6425, L503.6550, L500.4050, L501.3620, L100.0500 ####[facility] [address] [place], [address] 12 Lead EKGon 05-09-2024 12 Lead EKG Normal [facility] Basic Metabolic Profile (BMP )on 05-09-2024 BUN/CRE 16.0 RATIO Normal 10-20 [facility] Comment on above: Order Comment: 'TROP ' Serial specimen #1, #2 or #3: 1 Performed By: #### L 501.3620, L500.2500, L100.0100, L501.4020 ####[facility] [address] [place], [address] CA,Total 8.8 mg/dL Normal 8.5-10.1 [facility] Comment on above: Order Comment: 'TROP ' Serial specimen #1, #2 or #3: 1 Performed By: #### L 501.3620, L500.2500, L100.0100, L501.4020 ####[facility] [address] [place], [address] Chloride [Moles/Vol] 113 mmol/L High 98-107 [facility] Comment on above: Order Comment: 'TROP ' Serial specimen #1, #2 or #3: 1 Performed By: #### L 501.3620, L500.2500, L100.0100, L501.4020 ####[facility] [address] [place], [address] CO2 [Moles/Vol] 21.0 mmol/L Normal 21.0-32.0 [facility] Comment on above: Order Comment: 'TROP ' Serial specimen #1, #2 or #3: 1 Performed By: #### L 501.3620, L500.2500, L100.0100, L501.4020 ####[facility] [address] [place], [address] Creatinine [Mass/Vol] 0.75 mg/dL Normal 0.55-1.02 [facility] Comment on above: Order Comment: 'TROP ' Serial specimen #1, #2 or #3: 1 Result Comment: The validity of the calculated GFR GFRAA in patients over70 years has not been determined. Clinical correlation isessential. Performed By: #### L 501.3620, L500.2500, L100.0100, L501.4020 ####[facility] [address] [place], [address] ECRCL 69.98 ml/min Normal [facility] Comment on above: Order Comment: 'TROP ' Serial specimen #1, #2 or #3: 1 Performed By: #### L 501.3620, L500.2500, L100.0100, L501.4020 ####[facility] [address] [place], [address] EST GFR - AA 101 mL/min Normal >60 [facility] Comment on above: Order Comment: 'TROP ' Serial specimen #1, #2 or #3: 1 Result Comment: Afri can Venezuelan GFR Calc Performed By: #### L 501.3620, L500.2500, L100.0100, L501.4020 ####[facility] [address] [place], [address] GAP 6 Normal 5-15 [facility] Comment on above: Order Comment: 'TROP ' Serial specimen #1, #2 or #3: 1 Performed By: #### L 501.3620, L500.2500, L100.0100, L501.4020 ####[facility] [address] [place], [address] GFR/1.73 sq M.predicted among non-blacks MDRD (S/P/Bld) [Vol rate/Area] 83 mL/min/{1.73_m2} Normal >60 [facility] Comment on above: Order Comment: 'TROP ' Serial specimen #1, #2 or #3: 1 Result Comment: Non- GFR Calc Performed By: #### L 501.3620, L500.2500, L100.0100, L501.4020 ####[facility] [address] [place], [address] Glucose [Mass/Vol] 109 mg/dL High 74-106 [facility] Comment on above: Order Comment: 'TROP ' Serial specimen #1, #2 or #3: 1 Result Comment: Fast ing Glucose result from 100 to 125 mg/dLsuggests IMPAIRED HOMEOSTASIS per A.D.A. criteria. Performed By: #### L 501.3620, L500.2500, L100.0100, L501.4020 ####[facility] [address] [place], [address] Potassium [Moles/Vol] 3.1 mmol/L Low 3.5-5.1 [facility] Comment on above: Order Comment: 'TROP ' Serial specimen #1, #2 or #3: 1 Performed By: #### L 501.3620, L500.2500, L100.0100, L501.4020 ####[facility] [address] [place], [address] Sodium [Moles/Vol] 140 mmol/L Normal 136-145 [facility] Comment on above: Order Comment: 'TROP ' Serial specimen #1, #2 or #3: 1 Performed By: #### L 501.3620, L500.2500, L100.0100, L501.4020 ####[facility] [address] [place], [address] Urea nitrogen [Mass/Vol] 12 mg/dL Normal 7-18 [facility] Comment on above: Order Comment: 'TROP ' Serial specimen #1, #2 or #3: 1 Performed By: #### L 501.3620, L500.2500, L100.0100, L501.4020 ####[facility] [address] [place], [address] CBC W/Diff, Automatedon 04-22 Absolute Lymph 1.89 X10 3/uL Normal 0.83-4.51 [facility] Comment on above: Performed By: #### L 501.3620, L500.2500, L100.0100, L501.4020 ####[facility] [address] [place], [address] Absolute Neut 3.9 X10 3/uL Normal 2.0-7.7 [facility] Comment on above: Performed By: #### L 501.3620, L500.2500, L100.0100, L501.4020 ####[facility] [address] [place], [address] Basophils/100 WBC (Bld) 1.1 % High 0-1 [facility] Comment on above: Performed By: #### L 501.3620, L500.2500, L100.0100, L501.4020 ####[facility] [address] [place], [address] Eosinophils/100 WBC (Bld) 0.9 % Normal 0-5 [facility] Comment on above: Performed By: #### L 501.3620, L500.2500, L100.0100, L501.4020 ####[facility] [address] [place], [address] Erythrocyte distribution width (RBC) [Ratio] 14.3 % Normal 11.6-14.6 [facility] Comment on above: Performed By: #### L 501.3620, L500.2500, L100.0100, L501.4020 ####[facility] [address] [place], [address] Hematocrit (Bld) [Volume fraction] 33.8 % Low 37-47 [facility] Comment on above: Performed By: #### L 501.3620, L500.2500, L100.0100, L501.4020 ####[facility] [address] [place], [address] Hemoglobin (Bld) [Mass/Vol] 11.4 g/dL Low 12.0-15.0 [facility] Comment on above: Performed By: #### L 501.3620, L500.2500, L100.0100, L501.4020 ####[facility] [address] [place], [address] IG% 0.300 Normal 0.0-0.9 [facility] Comment on above: Result Comment: IG% - Immature Granulocytes (promyelocytes, myelocytes andmetamyelocytes) > 1% indicates that a LEFT SHIFT is Present. Performed By: #### L 501.3620, L500.2500, L100.0100, L501.4020 ####[facility] [address] [place], [address] Lymphocytes/100 WBC (Bld) 29.7 % Normal 19-41 [facility] Comment on above: Performed By: #### L 501.3620, L500.2500, L100.0100, L501.4020 ####[facility] [address] [place], [address] MCH (RBC) [Entitic mass] 31.1 pg Normal 27.0-32.0 [facility] Comment on above: Performed By: #### L 501.3620, L500.2500, L100.0100, L501.4020 ####[facility] [address] [place], [address] MCHC (RBC) [Mass/Vol] 33.7 g/dL Normal 32-36 [facility] Comment on above: Performed By: #### L 501.3620, L500.2500, L100.0100, L501.4020 ####[facility] [address] [place], [address] MCV (RBC) [Entitic vol] 92.3 fL Normal 81-99 [facility] Comment on above: Performed By: #### L 501.3620, L500.2500, L100.0100, L501.4020 ####[facility] [address] [place], [address] Monocytes/100 WBC (Bld) 7.2 % Normal 0-10 [facility] Comment on above: Performed By: #### L 501.3620, L500.2500, L100.0100, L501.4020 ####[facility] [address] [place], [address] Neutrophils/100 WBC (Bld) 60.8 % Normal 47-70 [facility] Comment on above: Performed By: #### L 501.3620, L500.2500, L100.0100, L501.4020 ####[facility] [address] [place], [address] Nucleated RBC (Bld) [#/Vol] 0 10*3/uL Normal 0-5 [facility] Comment on above: Performed By: #### L 501.3620, L500.2500, L100.0100, L501.4020 ####[facility] [address] [place], [address] Platelet mean volume (Bld) [Entitic vol] 8.9 fL Normal 6.2-12.0 [facility] Comment on above: Performed By: #### L 501.3620, L500.2500, L100.0100, L501.4020 ####[facility] [address] [place], [address] Platelets (Bld) [#/Vol] 354 10*3/uL Normal 150-450 [facility] Comment on above: Performed By: #### L 501.3620, L500.2500, L100.0100, L501.4020 ####[facility] [address] [place], [address] RBC (Bld) [#/Vol] 3.66 10*6/uL Low 4.2-5.4 [facility] Comment on above: Performed By: #### L 501.3620, L500.2500, L100.0100, L501.4020 ####[facility] [address] [place], [address] RDW SD 49.0 fl High 35.1-43.9 [facility] Comment on above: Performed By: #### L 501.3620, L500.2500, L100.0100, L501.4020 ####[facility] [address] [place], [address] WBC (Bld) [#/Vol] 6.4 10*3/uL Normal 4.4-11.0 [facility] Comment on above: Performed By: #### L 501.3620, L500.2500, L100.0100, L501.4020 ####[facility] [address] [place], [address] CPK Total, Creatine Kinaseon 05-09-2024 CPK TOTAL 135 U/L Normal 26-192 [facility] Comment on above: Order Comment: 'TROP ' Serial specimen #1, #2 or #3: 1 Performed By: #### L 501.3620, L500.2500, L100.0100, L501.4020 ####[facility] [address] [place], [address] Chest 1 View (Portable)on Chest 1 View (Portable) Normal [facility] Emergency Department Summary on 05-09-2024 Emergency Department Summary Normal [facility] L501.4020on 05-09-2024 TROPONIN-I HS 4 pg/mL Normal 3.0-54.0 [facility] Comment on above: Order Comment: 'TROP ' Serial specimen #1, #2 or #3: 1 Result Comment: Mervat kim Note: New Test Units and Gender Specific Reference Ranges. For more information see Policy Stat Procedure [facility] High Sensitivity Troponin (TNIH) and attachments. Performed By: #### L 501.3620, L500.2500, L100.0100, L501.4020 ####[facility] [address] [place], [address] Lumbar Spine 2 or 3 Viewson 05-09-2024 Lumbar Spine 2 or 3 Views Normal [facility] Urinalysis, Completeon 05-09 BACTERIA 2+ /hpf Normal None Seen [facility] Comment on above: Order Comment: CLEAN CATCH Performed By: #### L 400.0001 ####[facility] [address] [place], [address] EPI,SQUAMOUS 0-5 SEEN Normal 5-10 [facility] Comment on above: Order Comment: CLEAN CATCH Performed By: #### L 400.0001 ####[facility] [address] [place], [address] WBC 0-5 SEEN Normal 0-5 [facility] Comment on above: Order Comment: CLEAN CATCH Performed By: #### L 400.0001 ####[facility] [address] [place], [address] Mucus Ql (Urine sed) 0 SEEN Normal [facility] Comment on above: Order Comment: CLEAN CATCH Performed By: #### L 400.0001 ####[facility] [address] [place], [address] RBC 0 SEEN Normal 0-5 [facility] Comment on above: Order Comment: CLEAN CATCH Performed By: #### L 400.0001 ####[facility] [address] [place], [address] 12 Lead EKGon 05-06-2024 12 Lead EKG Normal [facility] Alcohol, Blood (Medical)-Ser umon 05-06-2024 SERUM ETOH < 3.0 Normal [facility] Comment on above: Result Comment: The serum:whole blood ethanol ratio is approximately 1.14and varies slightly with hematocrit.Medical Alcohol reference interval and critical value innon-tolerant individuals; 50 - 100 Impairment 100 Intoxication 100 - 250 Severe Poisoning 250 - 400 Deep/possible fatal coma Performed By: #### L 500.2500, L505.5000, L501.3620, L100.0100, L501.4020, L501.9100 ####[facility] [address] [place], [address] Basic Metabolic Profile (BMP )on 05-06-2024 BUN/CRE 12.1 RATIO Normal 10-20 [facility] Comment on above: Order Comment: 'TROP ' Serial specimen #1, #2 or #3: 1 Performed By: #### L 500.2500, L505.5000, L501.3620, L100.0100, L501.4020, L501.9100 ####[facility] [address] [place], [address] CA,Total 9.1 mg/dL Normal 8.5-10.1 [facility] Comment on above: Order Comment: 'TROP ' Serial specimen #1, #2 or #3: 1 Performed By: #### L 500.2500, L505.5000, L501.3620, L100.0100, L501.4020, L501.9100 ####[facility] [address] [place], [address] Chloride [Moles/Vol] 112 mmol/L High 98-107 [facility] Comment on above: Order Comment: 'TROP ' Serial specimen #1, #2 or #3: 1 Performed By: #### L 500.2500, L505.5000, L501.3620, L100.0100, L501.4020, L501.9100 ####[facility] [address] [place], [address] CO2 [Moles/Vol] 24.0 mmol/L Normal 21.0-32.0 [facility] Comment on above: Order Comment: 'TROP ' Serial specimen #1, #2 or #3: 1 Performed By: #### L 500.2500, L505.5000, L501.3620, L100.0100, L501.4020, L501.9100 ####[facility] [address] [place], [address] Creatinine [Mass/Vol] 0.99 mg/dL Normal 0.55-1.02 [facility] Comment on above: Order Comment: 'TROP ' Serial specimen #1, #2 or #3: 1 Result Comment: The validity of the calculated GFR GFRAA in patients over70 years has not been determined. Clinical correlation isessential. Performed By: #### L 500.2500, L505.5000, L501.3620, L100.0100, L501.4020, L501.9100 ####[facility] [address] [place], [address] ECRCL 53.02 ml/min Normal [facility] Comment on above: Order Comment: 'TROP ' Serial specimen #1, #2 or #3: 1 Performed By: #### L 500.2500, L505.5000, L501.3620, L100.0100, L501.4020, L501.9100 ####[facility] [address] [place], [address] EST GFR - AA 73 mL/min Normal >60 [facility] Comment on above: Order Comment: 'TROP ' Serial specimen #1, #2 or #3: 1 Result Comment: Afri can [place]an GFR Calc Performed By: #### L 500.2500, L505.5000, L501.3620, L100.0100, L501.4020, L501.9100 ####[facility] [address] [place], [address] GAP 6 Normal 5-15 [facility] Comment on above: Order Comment: 'TROP ' Serial specimen #1, #2 or #3: 1 Performed By: #### L 500.2500, L505.5000, L501.3620, L100.0100, L501.4020, L501.9100 ####[facility] [address] [place], [address] GFR/1.73 sq M.predicted among non-blacks MDRD (S/P/Bld) [Vol rate/Area] 60 mL/min/{1.73_m2} Normal >60 [facility] Comment on above: Order Comment: 'TROP ' Serial specimen #1, #2 or #3: 1 Result Comment: Non- GFR Calc Performed By: #### L 500.2500, L505.5000, L501.3620, L100.0100, L501.4020, L501.9100 ####[facility] [address] [place], [address] Glucose [Mass/Vol] 97 mg/dL Normal 74-106 [facility] Comment on above: Order Comment: 'TROP ' Serial specimen #1, #2 or #3: 1 Performed By: #### L 500.2500, L505.5000, L501.3620, L100.0100, L501.4020, L501.9100 ####[facility] [address] [place], [address] Potassium [Moles/Vol] 3.7 mmol/L Normal 3.5-5.1 [facility] Comment on above: Order Comment: 'TROP ' Serial specimen #1, #2 or #3: 1 Performed By: #### L 500.2500, L505.5000, L501.3620, L100.0100, L501.4020, L501.9100 ####[facility] [address] [place], [address] Sodium [Moles/Vol] 142 mmol/L Normal 136-145 [facility] Comment on above: Order Comment: 'TROP ' Serial specimen #1, #2 or #3: 1 Performed By: #### L 500.2500, L505.5000, L501.3620, L100.0100, L501.4020, L501.9100 ####[facility] [address] [place], [address] Urea nitrogen [Mass/Vol] 12 mg/dL Normal 7-18 [facility] Comment on above: Order Comment: 'TROP ' Serial specimen #1, #2 or #3: 1 Performed By: #### L 500.2500, L505.5000, L501.3620, L100.0100, L501.4020, L501.9100 ####[facility] [address] [place], [address] CBC W/Diff, Automatedon 07-10 27-2023 Absolute Lymph 1.58 X10 3/uL Normal 0.83-4.51 [facility] Comment on above: Performed By: #### L 500.2500, L505.5000, L501.3620, L100.0100, L501.4020, L501.9100 ####[facility] [address] [place], [address] Absolute Neut 3.4 X10 3/uL Normal 2.0-7.7 [facility] Comment on above: Performed By: #### L 500.2500, L505.5000, L501.3620, L100.0100, L501.4020, L501.9100 ####[facility] [address] [place], [address] Basophils/100 WBC (Bld) 1.5 % High 0-1 [facility] Comment on above: Performed By: #### L 500.2500, L505.5000, L501.3620, L100.0100, L501.4020, L501.9100 ####[facility] [address] [place], [address] Eosinophils/100 WBC (Bld) 4.5 % Normal 0-5 [facility] Comment on above: Performed By: #### L 500.2500, L505.5000, L501.3620, L100.0100, L501.4020, L501.9100 ####[facility] [address] [place], [address] Erythrocyte distribution width (RBC) [Ratio] 14.6 % Normal 11.6-14.6 [facility] Comment on above: Performed By: #### L 500.2500, L505.5000, L501.3620, L100.0100, L501.4020, L501.9100 ####[facility] [address] [place], [address] Hematocrit (Bld) [Volume fraction] 38.6 % Normal 37-47 [facility] Comment on above: Performed By: #### L 500.2500, L505.5000, L501.3620, L100.0100, L501.4020, L501.9100 ####[facility] [address] [place], [address] Hemoglobin (Bld) [Mass/Vol] 12.1 g/dL Normal 12.0-15.0 [facility] Comment on above: Performed By: #### L 500.2500, L505.5000, L501.3620, L100.0100, L501.4020, L501.9100 ####[facility] [address] [place], [address] IG% 0.200 Normal 0.0-0.9 [facility] Comment on above: Result Comment: IG% - Immature Granulocytes (promyelocytes, myelocytes andmetamyelocytes) > 1% indicates that a LEFT SHIFT is Present. Performed By: #### L 500.2500, L505.5000, L501.3620, L100.0100, L501.4020, L501.9100 ####[facility] [address] [place], [address] Lymphocytes/100 WBC (Bld) 26.1 % Normal 19-41 [facility] Comment on above: Performed By: #### L 500.2500, L505.5000, L501.3620, L100.0100, L501.4020, L501.9100 ####[facility] [address] [place], [address] MCH (RBC) [Entitic mass] 29.8 pg Normal 27.0-32.0 [facility] Comment on above: Performed By: #### L 500.2500, L505.5000, L501.3620, L100.0100, L501.4020, L501.9100 ####[facility] [address] [place], [address] MCHC (RBC) [Mass/Vol] 31.3 g/dL Low 32-36 [facility] Comment on above: Performed By: #### L 500.2500, L505.5000, L501.3620, L100.0100, L501.4020, L501.9100 ####[facility] [address] [place], [address] MCV (RBC) [Entitic vol] 95.1 fL Normal 81-99 [facility] Comment on above: Performed By: #### L 500.2500, L505.5000, L501.3620, L100.0100, L501.4020, L501.9100 ####[facility] [address] [place], [address] Monocytes/100 WBC (Bld) 11.2 % High 0-10 [facility] Comment on above: Performed By: #### L 500.2500, L505.5000, L501.3620, L100.0100, L501.4020, L501.9100 ####[facility] [address] [place], [address] Neutrophils/100 WBC (Bld) 56.5 % Normal 47-70 [facility] Comment on above: Performed By: #### L 500.2500, L505.5000, L501.3620, L100.0100, L501.4020, L501.9100 ####[facility] [address] [place], [address] Nucleated RBC (Bld) [#/Vol] 0 10*3/uL Normal 0-5 [facility] Comment on above: Performed By: #### L 500.2500, L505.5000, L501.3620, L100.0100, L501.4020, L501.9100 ####[facility] [address] [place], [address] Platelet mean volume (Bld) [Entitic vol] 9.0 fL Normal 6.2-12.0 [facility] Comment on above: Performed By: #### L 500.2500, L505.5000, L501.3620, L100.0100, L501.4020, L501.9100 ####[facility] [address] [place], [address] Platelets (Bld) [#/Vol] 314 10*3/uL Normal 150-450 [facility] Comment on above: Performed By: #### L 500.2500, L505.5000, L501.3620, L100.0100, L501.4020, L501.9100 ####[facility] [address] [place], [address] RBC (Bld) [#/Vol] 4.06 10*6/uL Low 4.2-5.4 [facility] Comment on above: Performed By: #### L 500.2500, L505.5000, L501.3620, L100.0100, L501.4020, L501.9100 ####[facility] [address] [place], [address] RDW SD 51.3 fl High 35.1-43.9 [facility] Comment on above: Performed By: #### L 500.2500, L505.5000, L501.3620, L100.0100, L501.4020, L501.9100 ####[facility] [address] [place], [address] WBC (Bld) [#/Vol] 6.1 10*3/uL Normal 4.4-11.0 [facility] Comment on above: Performed By: #### L 500.2500, L505.5000, L501.3620, L100.0100, L501.4020, L501.9100 ####[facility] [address] [place], [address] CPK Total, Creatine Kinaseon 05-06-2024 CPK TOTAL 256 U/L High 26-192 [facility] Comment on above: Order Comment: 'TROP ' Serial specimen #1, #2 or #3: 1 Performed By: #### L 500.2500, L505.5000, L501.3620, L100.0100, L501.4020, L501.9100 ####[facility] [address] [place], [address] Chest 1 View (Portable)on Chest 1 View (Portable) Normal [facility] Emergency Department Summary on 05-06-2024 Emergency Department Summary Normal [facility] L501.4020on 05-06-2024 TROPONIN-I HS 4 pg/mL Normal 3.0-54.0 [facility] Comment on above: Order Comment: 'TROP ' Serial specimen #1, #2 or #3: 1 Result Comment: Mervat kim Note: New Test Units and Gender Specific Reference Ranges. For more information see Policy Stat Procedure [facility] High Sensitivity Troponin (TNIH) and attachments. Performed By: #### L 500.2500, L505.5000, L501.3620, L100.0100, L501.4020, L501.9100 ####[facility] [address] [place], [address] Urinalysis, Completeon 05-06 BACTERIA 0 SEEN Normal None Seen [facility] Comment on above: Order Comment: CLEAN CATCH Performed By: #### L 400.0001 ####[facility] [address] [place], [address] EPI,SQUAMOUS 0 SEEN Normal 5-10 [facility] Comment on above: Order Comment: CLEAN CATCH Performed By: #### L 400.0001 ####[facility] [address] [place], [address] Mucus Ql (Urine sed) 0 SEEN Normal [facility] Comment on above: Order Comment: CLEAN CATCH Performed By: #### L 400.0001 ####[facility] [address] [place], [address] RBC 0 SEEN Normal 0-5 [facility] Comment on above: Order Comment: CLEAN CATCH Performed By: #### L 400.0001 ####[facility] [address] [place], [address] WBC 0 SEEN Normal 0-5 [facility] Comment on above: Order Comment: CLEAN CATCH Performed By: #### L 400.0001 ####[facility] [address] [place], [address] Urine Drug Screen (VISTA)on 05-06-2024 AMPHETAMINES Negative Normal <1000 ng/mL [facility] Comment on above: Performed By: #### L 500.2500, L505.5000, L501.3620, L100.0100, L501.4020, L501.9100 ####[facility] [address] [place] [address] BARBITIURATES Negative Normal < 200 ng/mL [facility] Comment on above: Performed By: #### L 500.2500, L505.5000, L501.3620, L100.0100, L501.4020, L501.9100 ####[facility] [address] [place] [address] BENZODIAZIPINE Negative Normal < 200 ng/mL [facility] Comment on above: Performed By: #### L 500.2500, L505.5000, L501.3620, L100.0100, L501.4020, L501.9100 ####[facility] [address] [place] [address] COCAINE Negative Normal < 300 ng/mL [facility] Comment on above: Performed By: #### L 500.2500, L505.5000, L501.3620, L100.0100, L501.4020, L501.9100 ####[facility] [address] [place] [address] ECSTACY Negative Normal < 500 ng/mL [facility] Comment on above: Performed By: #### L 500.2500, L505.5000, L501.3620, L100.0100, L501.4020, L501.9100 ####[facility] [address] [place] [address] METHADONE Negative Normal < 300 ng/mL [facility] Comment on above: Performed By: #### L 500.2500, L505.5000, L501.3620, L100.0100, L501.4020, L501.9100 ####[facility] [address] [place] [address] OPIATES Negative Normal < 300 ng/mL [facility] Comment on above: Performed By: #### L 500.2500, L505.5000, L501.3620, L100.0100, L501.4020, L501.9100 ####[facility] [address] [place], [address] PCP Negative Normal < 25 ng/mL [facility] Comment on above: Performed By: #### L 500.2500, L505.5000, L501.3620, L100.0100, L501.4020, L501.9100 ####[facility] [address] [place], [address] THC Positive Abnormal < 50 ng/mL [facility] Comment on above: Performed By: #### L 500.2500, L505.5000, L501.3620, L100.0100, L501.4020, L501.9100 ####[facility] [address] [place], [address] VISTA UDS PH 6 Normal [facility] Comment on above: Performed By: #### L 500.2500, L505.5000, L501.3620, L100.0100, L501.4020, L501.9100 ####[facility] [address] [place], [address] Basic Metabolic Profile (BMP )on 03-28-2024 BUN Normal 7-18 [facility] Comment on above: Result Comment: Canc elled via OM: Order cancelled - Patient discharged Performed By: #### L 100.0100, L500.2500 ####[facility] [address] [place], [address] BUN/CRE Normal 10-20 [facility] Comment on above: Result Comment: Canc elled via OM: Order cancelled - Patient discharged Performed By: #### L 100.0100, L500.2500 ####[facility] [address] [place], [address] CA,Total Normal 8.5-10.1 [facility] Comment on above: Result Comment: Canc elled via OM: Order cancelled - Patient discharged Performed By: #### L 100.0100, L500.2500 ####[facility] [address] [place], [address] CL Normal 98-107 [facility] Comment on above: Result Comment: Canc elled via OM: Order cancelled - Patient discharged Performed By: #### L 100.0100, L500.2500 ####[facility] [address] [place], [address] CO2 Normal 21.0-32.0 [facility] Comment on above: Result Comment: Canc elled via OM: Order cancelled - Patient discharged Performed By: #### L 100.0100, L500.2500 ####[facility] [address] [place], [address] CREAT,SERUM Normal 0.55-1.02 [facility] Comment on above: Result Comment: Canc elled via OM: Order cancelled - Patient discharged Performed By: #### L 100.0100, L500.2500 ####[facility] [address] [place], [address] EST GFR Normal >60 [facility] Comment on above: Result Comment: Canc elled via OM: Order cancelled - Patient discharged Performed By: #### L 100.0100, L500.2500 ####[facility] [address] [place], [address] EST GFR - AA Normal >60 [facility] Comment on above: Result Comment: Canc elled via OM: Order cancelled - Patient discharged Performed By: #### L 100.0100, L500.2500 ####[facility] [address] [place], [address] GAP Normal 5-15 [facility] Comment on above: Result Comment: Canc elled via OM: Order cancelled - Patient discharged Performed By: #### L 100.0100, L500.2500 ####[facility] [address] [place], [address] GLU Normal 74-106 [facility] Comment on above: Result Comment: Canc elled via OM: Order cancelled - Patient discharged Performed By: #### L 100.0100, L500.2500 ####[facility] [address] [place], [address] Potassium Normal 3.5-5.1 [facility] Comment on above: Result Comment: Canc elled via OM: Order cancelled - Patient discharged Performed By: #### L 100.0100, L500.2500 ####[facility] [address] [place], [address] Basic Metabolic Profile (BMP) Normal 136-145 [facility] Comment on above: Result Comment: Canc elled via OM: Order cancelled - Patient discharged Performed By: #### L 100.0100, L500.2500 ####[facility] [address] [place], [address] CBC W/Diff, Automatedon 06-0 -2023 Absolute Neut Normal 2.0-7.7 [facility] Comment on above: Result Comment: Canc elled via OM: Order cancelled - Patient discharged Performed By: #### L 100.0100, L500.2500 ####[facility] [address] [place], [address] HCT Normal 37-47 [facility] Comment on above: Result Comment: Canc elled via OM: Order cancelled - Patient discharged Performed By: #### L 100.0100, L500.2500 ####[facility] [address] [place], [address] HGB Normal 12.0-15.0 [facility] Comment on above: Result Comment: Canc elled via OM: Order cancelled - Patient discharged Performed By: #### L 100.0100, L500.2500 ####[facility] [address] [place], [address] MCH Normal 27.0-32.0 [facility] Comment on above: Result Comment: Canc elled via OM: Order cancelled - Patient discharged Performed By: #### L 100.0100, L500.2500 ####[facility] [address] [place], [address] MCHC Normal 32-36 [facility] Comment on above: Result Comment: Canc elled via OM: Order cancelled - Patient discharged Performed By: #### L 100.0100, L500.2500 ####[facility] [address] [place], [address] MCV Normal 81-99 [facility] Comment on above: Result Comment: Canc elled via OM: Order cancelled - Patient discharged Performed By: #### L 100.0100, L500.2500 ####[facility] [address] [place], [address] NEUT% Normal 47-70 [facility] Comment on above: Result Comment: Canc elled via OM: Order cancelled - Patient discharged Performed By: #### L 100.0100, L500.2500 ####[facility] [address] [place], [address] PLT Normal 150-450 [facility] Comment on above: Result Comment: Canc elled via OM: Order cancelled - Patient discharged Performed By: #### L 100.0100, L500.2500 ####[facility] [address] [place], [address] RBC Normal 4.2-5.4 [facility] Comment on above: Result Comment: Canc elled via OM: Order cancelled - Patient discharged Performed By: #### L 100.0100, L500.2500 ####[facility] [address] [place], [address] RDW CV Normal 11.6-14.6 [facility] Comment on above: Result Comment: Canc elled via OM: Order cancelled - Patient discharged Performed By: #### L 100.0100, L500.2500 ####[facility] [address] [place], [address] RDW SD Normal 35.1-43.9 [facility] Comment on above: Result Comment: Canc elled via OM: Order cancelled - Patient discharged Performed By: #### L 100.0100, L500.2500 ####[facility] [address] [place], [address] WBC Normal 4.4-11.0 [facility] Comment on above: Result Comment: Canc elled via OM: Order cancelled - Patient discharged Performed By: #### L 100.0100, L500.2500 ####[facility] [address] [place], [address] Basic Metabolic Profile (BMP )on 03-27-2024 BUN Normal 7-18 [facility] Comment on above: Result Comment: Canc elled via OM: Order cancelled - Patient discharged Performed By: #### L 100.0100, L500.2500 ####[facility] [address] [place], [address] BUN/CRE Normal 10-20 [facility] Comment on above: Result Comment: Canc elled via OM: Order cancelled - Patient discharged Performed By: #### L 100.0100, L500.2500 ####[facility] [address] [place], [address] CA,Total Normal 8.5-10.1 [facility] Comment on above: Result Comment: Canc elled via OM: Order cancelled - Patient discharged Performed By: #### L 100.0100, L500.2500 ####[facility] [address] [place], [address] CL Normal 98-107 [facility] Comment on above: Result Comment: Canc elled via OM: Order cancelled - Patient discharged Performed By: #### L 100.0100, L500.2500 ####[facility] [address] [place], [address] CO2 Normal 21.0-32.0 [facility] Comment on above: Result Comment: Canc elled via OM: Order cancelled - Patient discharged Performed By: #### L 100.0100, L500.2500 ####[facility] [address] [place], [address] CREAT,SERUM Normal 0.55-1.02 [facility] Comment on above: Result Comment: Canc elled via OM: Order cancelled - Patient discharged Performed By: #### L 100.0100, L500.2500 ####[facility] [address] [place], [address] EST GFR Normal >60 [facility] Comment on above: Result Comment: Canc elled via OM: Order cancelled - Patient discharged Performed By: #### L 100.0100, L500.2500 ####[facility] [address] [place], [address] EST GFR - AA Normal >60 [facility] Comment on above: Result Comment: Canc elled via OM: Order cancelled - Patient discharged Performed By: #### L 100.0100, L500.2500 ####[facility] [address] [place], [address] GAP Normal 5-15 [facility] Comment on above: Result Comment: Canc elled via OM: Order cancelled - Patient discharged Performed By: #### L 100.0100, L500.2500 ####[facility] [address] [place], [address] GLU Normal 74-106 [facility] Comment on above: Result Comment: Canc elled via OM: Order cancelled - Patient discharged Performed By: #### L 100.0100, L500.2500 ####[facility] [address] [place], [address] Potassium Normal 3.5-5.1 [facility] Comment on above: Result Comment: Canc elled via OM: Order cancelled - Patient discharged Performed By: #### L 100.0100, L500.2500 ####[facility] [address] [place], [address] Basic Metabolic Profile (BMP) Normal 136-145 [facility] Comment on above: Result Comment: Canc elled via OM: Order cancelled - Patient discharged Performed By: #### L 100.0100, L500.2500 ####[facility] [address] [place], [address] CBC W/Diff, Automatedon 06-0 Absolute Neut Normal 2.0-7.7 [facility] Comment on above: Result Comment: Canc elled via OM: Order cancelled - Patient discharged Performed By: #### L 100.0100, L500.2500 ####[facility] [address] [place], [address] HCT Normal 37-47 [facility] Comment on above: Result Comment: Canc elled via OM: Order cancelled - Patient discharged Performed By: #### L 100.0100, L500.2500 ####[facility] [address] [place], [address] HGB Normal 12.0-15.0 [facility] Comment on above: Result Comment: Canc elled via OM: Order cancelled - Patient discharged Performed By: #### L 100.0100, L500.2500 ####[facility] [address] [place], [address] MCH Normal 27.0-32.0 [facility] Comment on above: Result Comment: Canc elled via OM: Order cancelled - Patient discharged Performed By: #### L 100.0100, L500.2500 ####[facility] [address] [place], [address] MCHC Normal 32-36 [facility] Comment on above: Result Comment: Canc elled via OM: Order cancelled - Patient discharged Performed By: #### L 100.0100, L500.2500 ####[facility] [address] [place], [address] MCV Normal 81-99 [facility] Comment on above: Result Comment: Canc elled via OM: Order cancelled - Patient discharged Performed By: #### L 100.0100, L500.2500 ####[facility] [address] [place], [address] NEUT% Normal 47-70 [facility] Comment on above: Result Comment: Canc elled via OM: Order cancelled - Patient discharged Performed By: #### L 100.0100, L500.2500 ####[facility] [address] [place], [address] PLT Normal 150-450 [facility] Comment on above: Result Comment: Canc elled via OM: Order cancelled - Patient discharged Performed By: #### L 100.0100, L500.2500 ####[facility] [address] [place], [address] RBC Normal 4.2-5.4 [facility] Comment on above: Result Comment: Canc elled via OM: Order cancelled - Patient discharged Performed By: #### L 100.0100, L500.2500 ####[facility] [address] [place], [address] RDW CV Normal 11.6-14.6 [facility] Comment on above: Result Comment: Canc elled via OM: Order cancelled - Patient discharged Performed By: #### L 100.0100, L500.2500 ####[facility] [address] [place], [address] RDW SD Normal 35.1-43.9 [facility] Comment on above: Result Comment: Canc elled via OM: Order cancelled - Patient discharged Performed By: #### L 100.0100, L500.2500 ####[facility] [address] [place], [address] WBC Normal 4.4-11.0 [facility] Comment on above: Result Comment: Canc elled via OM: Order cancelled - Patient discharged Performed By: #### L 100.0100, L500.2500 ####[facility] [address] [place], [address] Basic Metabolic Profile (BMP )on 03-26-2024 BUN/CRE 21.9 RATIO High 10-20 [facility] Comment on above: Performed By: #### L 500.2500, L100.0100, L501.2300, L501.5200 ####[facility] [address] [place], [address] CA,Total 8.9 mg/dL Normal 8.5-10.1 [facility] Comment on above: Performed By: #### L 500.2500, L100.0100, L501.2300, L501.5200 ####[facility] [address] [place], [address] Chloride [Moles/Vol] 109 mmol/L High 98-107 [facility] Comment on above: Performed By: #### L 500.2500, L100.0100, L501.2300, L501.5200 ####[facility] [address] [place], [address] CO2 [Moles/Vol] 23.0 mmol/L Normal 21.0-32.0 [facility] Comment on above: Performed By: #### L 500.2500, L100.0100, L501.2300, L501.5200 ####[facility] [address] [place], [address] Creatinine [Mass/Vol] 0.82 mg/dL Normal 0.55-1.02 [facility] Comment on above: Result Comment: The validity of the calculated GFR GFRAA in patients over70 years has not been determined. Clinical correlation isessential. Performed By: #### L 500.2500, L100.0100, L501.2300, L501.5200 ####[facility] [address] [place], [address] ECRCL 64.01 ml/min Normal [facility] Comment on above: Performed By: #### L 500.2500, L100.0100, L501.2300, L501.5200 ####[facility] [address] [place], [address] EST GFR - AA 91 mL/min Normal >60 [facility] Comment on above: Result Comment: Afri can Venezuelan GFR Calc Performed By: #### L 500.2500, L100.0100, L501.2300, L501.5200 ####[facility] [address] [place], [address] GAP 6 Normal 5-15 [facility] Comment on above: Performed By: #### L 500.2500, L100.0100, L501.2300, L501.5200 ####[facility] [address] [place], [address] GFR/1.73 sq M.predicted among non-blacks MDRD (S/P/Bld) [Vol rate/Area] 75 mL/min/{1.73_m2} Normal >60 [facility] Comment on above: Result Comment: Non- GFR Calc Performed By: #### L 500.2500, L100.0100, L501.2300, L501.5200 ####[facility] [address] [place], [address] Glucose [Mass/Vol] 86 mg/dL Normal 74-106 [facility] Comment on above: Performed By: #### L 500.2500, L100.0100, L501.2300, L501.5200 ####[facility] [address] [place], [address] Potassium [Moles/Vol] 4.2 mmol/L Normal 3.5-5.1 [facility] Comment on above: Performed By: #### L 500.2500, L100.0100, L501.2300, L501.5200 ####[facility] [address] [place], [address] Sodium [Moles/Vol] 138 mmol/L Normal 136-145 [facility] Comment on above: Performed By: #### L 500.2500, L100.0100, L501.2300, L501.5200 ####[facility] [address] [place], [address] Urea nitrogen [Mass/Vol] 18 mg/dL Normal 7-18 [facility] Comment on above: Performed By: #### L 500.2500, L100.0100, L501.2300, L501.5200 ####[facility] [address] [place], [address] CBC W/Diff, Automatedon 06-0 4-2023 Absolute Lymph 2.54 X10 3/uL Normal 0.83-4.51 [facility] Comment on above: Performed By: #### L 500.2500, L100.0100, L501.2300, L501.5200 ####[facility] [address] [place], [address] Absolute Neut 4.1 X10 3/uL Normal 2.0-7.7 [facility] Comment on above: Performed By: #### L 500.2500, L100.0100, L501.2300, L501.5200 ####[facility] [address] [place], [address] Basophils/100 WBC (Bld) 1.1 % High 0-1 [facility] Comment on above: Performed By: #### L 500.2500, L100.0100, L501.2300, L501.5200 ####[facility] [address] [place], [address] Eosinophils/100 WBC (Bld) 4.3 % Normal 0-5 [facility] Comment on above: Performed By: #### L 500.2500, L100.0100, L501.2300, L501.5200 ####[facility] [address] [place], [address] Erythrocyte distribution width (RBC) [Ratio] 13.9 % Normal 11.6-14.6 [facility] Comment on above: Performed By: #### L 500.2500, L100.0100, L501.2300, L501.5200 ####[facility] [address] [place], [address] Hematocrit (Bld) [Volume fraction] 38.9 % Normal 37-47 [facility] Comment on above: Performed By: #### L 500.2500, L100.0100, L501.2300, L501.5200 ####[facility] [address] [place], [address] Hemoglobin (Bld) [Mass/Vol] 12.6 g/dL Normal 12.0-15.0 [facility] Comment on above: Performed By: #### L 500.2500, L100.0100, L501.2300, L501.5200 ####[facility] [address] [place], [address] IG% 0.400 Normal 0.0-0.9 [facility] Comment on above: Result Comment: IG% - Immature Granulocytes (promyelocytes, myelocytes andmetamyelocytes) > 1% indicates that a LEFT SHIFT is Present. Performed By: #### L 500.2500, L100.0100, L501.2300, L501.5200 ####[facility] [address] [place], [address] Lymphocytes/100 WBC (Bld) 32.0 % Normal 19-41 [facility] Comment on above: Performed By: #### L 500.2500, L100.0100, L501.2300, L501.5200 ####[facility] [address] [place], [address] MCH (RBC) [Entitic mass] 30.1 pg Normal 27.0-32.0 [facility] Comment on above: Performed By: #### L 500.2500, L100.0100, L501.2300, L501.5200 ####[facility] [address] [place], [address] MCHC (RBC) [Mass/Vol] 32.4 g/dL Normal 32-36 [facility] Comment on above: Performed By: #### L 500.2500, L100.0100, L501.2300, L501.5200 ####[facility] [address] [place], [address] MCV (RBC) [Entitic vol] 93.1 fL Normal 81-99 [facility] Comment on above: Performed By: #### L 500.2500, L100.0100, L501.2300, L501.5200 ####[facility] [address] [place], [address] Monocytes/100 WBC (Bld) 10.3 % High 0-10 [facility] Comment on above: Performed By: #### L 500.2500, L100.0100, L501.2300, L501.5200 ####[facility] [address] [place], [address] Neutrophils/100 WBC (Bld) 51.9 % Normal 47-70 [facility] Comment on above: Performed By: #### L 500.2500, L100.0100, L501.2300, L501.5200 ####[facility] [address] [place], [address] Nucleated RBC (Bld) [#/Vol] 0 10*3/uL Normal 0-5 [facility] Comment on above: Performed By: #### L 500.2500, L100.0100, L501.2300, L501.5200 ####[facility] [address] [place], [address] Platelet mean volume (Bld) [Entitic vol] 9.9 fL Normal 6.2-12.0 [facility] Comment on above: Performed By: #### L 500.2500, L100.0100, L501.2300, L501.5200 ####[facility] [address] [place], [address] Platelets (Bld) [#/Vol] 267 10*3/uL Normal 150-450 [facility] Comment on above: Performed By: #### L 500.2500, L100.0100, L501.2300, L501.5200 ####[facility] [address] [place], [address] RBC (Bld) [#/Vol] 4.18 10*6/uL Low 4.2-5.4 [facility] Comment on above: Performed By: #### L 500.2500, L100.0100, L501.2300, L501.5200 ####[facility] [address] [place], [address] RDW SD 47.7 fl High 35.1-43.9 [facility] Comment on above: Performed By: #### L 500.2500, L100.0100, L501.2300, L501.5200 ####[facility] [address] [place], [address] WBC (Bld) [#/Vol] 7.9 10*3/uL Normal 4.4-11.0 [facility] Comment on above: Performed By: #### L 500.2500, L100.0100, L501.2300, L501.5200 ####[facility] [address] [place], [address] Magnesiumon 03-26-2024 Magnesium [Mass/Vol] 2.1 mg/dL Normal 1.6-2.6 [facility] Comment on above: Performed By: #### L 500.2500, L100.0100, L501.2300, L501.5200 ####[facility] [address] [place], [address] Phosphoruson 03-26-2024 Phosphate [Mass/Vol] 4.1 mg/dL Normal 2.5-4.9 [facility] Comment on above: Performed By: #### L 500.2500, L100.0100, L501.2300, L501.5200 ####[facility] [address] [place], [address] Topiramate, Serumon 03-26-20 24 TOPIRAMATE 11.0 ug/mL Normal 2.0-25.0 [facility] Comment on above: Result Comment: Dete ction Limit = 1.5Performed at: - [facility] [id number] Director: Rio Rondon MD, Phone: [phone] Performed By: #### L 1469.1400 ####[facility] [address] [place], [address] Basic Metabolic Profile (BMP )on 03-25-2024 BUN/CRE 21.2 RATIO High 10- [facility] Comment on above: Performed By: #### L 100.0500, L500.2500 ####[facility] [address] [place], [address] CA,Total 8.5 mg/dL Normal 8.5-10.1 [facility] Comment on above: Performed By: #### L 100.0500, L500.2500 ####[facility] [address] [place], [address] Chloride [Moles/Vol] 110 mmol/L High 98-107 [facility] Comment on above: Performed By: #### L 100.0500, L500.2500 ####[facility] [address] [place], [address] CO2 [Moles/Vol] 22.0 mmol/L Normal 21.0-32.0 [facility] Comment on above: Performed By: #### L 100.0500, L500.2500 ####[facility] [address] [place], [address] Creatinine [Mass/Vol] 0.76 mg/dL Normal 0.55-1.02 [facility] Comment on above: Result Comment: The validity of the calculated GFR GFRAA in patients over70 years has not been determined. Clinical correlation isessential. Performed By: #### L 100.0500, L500.2500 ####[facility] [address] [place], [address] ECRCL 69.06 ml/min Normal [facility] Comment on above: Performed By: #### L 100.0500, L500.2500 ####[facility] [address] [place], [address] EST GFR - AA 100 mL/min Normal >60 [facility] Comment on above: Result Comment: Afri can Venezuelan GFR Calc Performed By: #### L 100.0500, L500.2500 ####[facility] [address] [place], [address] GAP 8 Normal 5-15 [facility] Comment on above: Performed By: #### L 100.0500, L500.2500 ####[facility] [address] [place], [address] GFR/1.73 sq M.predicted among non-blacks MDRD (S/P/Bld) [Vol rate/Area] 82 mL/min/{1.73_m2} Normal >60 [facility] Comment on above: Result Comment: Non- GFR Calc Performed By: #### L 100.0500, L500.2500 ####[facility] [address] [place], [address] Glucose [Mass/Vol] 89 mg/dL Normal 74-106 [facility] Comment on above: Performed By: #### L 100.0500, L500.2500 ####[facility] [address] [place], [address] Potassium [Moles/Vol] 3.3 mmol/L Low 3.5-5.1 [facility] Comment on above: Performed By: #### L 100.0500, L500.2500 ####[facility] [address] [place], [address] Sodium [Moles/Vol] 140 mmol/L Normal 136-145 [facility] Comment on above: Performed By: #### L 100.0500, L500.2500 ####[facility] [address] [place], [address] Urea nitrogen [Mass/Vol] 16 mg/dL Normal 7-18 [facility] Comment on above: Performed By: #### L 100.0500, L500.2500 ####[facility] [address] [place], [address] CBC-Complete Blood Cnt No Di ffon 03-25-2024 Erythrocyte distribution width (RBC) [Ratio] 13.7 % Normal 11.6-14.6 [facility] Comment on above: Performed By: #### L 100.0500, L500.2500 ####[facility] [address] [place], [address] Hematocrit (Bld) [Volume fraction] 36.1 % Low 37-47 [facility] Comment on above: Performed By: #### L 100.0500, L500.2500 ####[facility] [address] [place], [address] Hemoglobin (Bld) [Mass/Vol] 11.9 g/dL Low 12.0-15.0 [facility] Comment on above: Performed By: #### L 100.0500, L500.2500 ####[facility] [address] [place], [address] MCH (RBC) [Entitic mass] 30.3 pg Normal 27.0-32.0 [facility] Comment on above: Performed By: #### L 100.0500, L500.2500 ####[facility] [address] [place], [address] MCHC (RBC) [Mass/Vol] 33.0 g/dL Normal 32-36 [facility] Comment on above: Performed By: #### L 100.0500, L500.2500 ####[facility] [address] [place], [address] MCV (RBC) [Entitic vol] 91.9 fL Normal 81-99 [facility] Comment on above: Performed By: #### L 100.0500, L500.2500 ####[facility] [address] [place], [address] Platelet mean volume (Bld) [Entitic vol] 10.0 fL Normal 6.2-12.0 [facility] Comment on above: Performed By: #### L 100.0500, L500.2500 ####[facility] [address] [place], [address] Platelets (Bld) [#/Vol] 243 10*3/uL Normal 150-450 [facility] Comment on above: Performed By: #### L 100.0500, L500.2500 ####[facility] [address] [place], [address] RBC (Bld) [#/Vol] 3.93 10*6/uL Low 4.2-5.4 [facility] Comment on above: Performed By: #### L 100.0500, L500.2500 ####[facility] [address] [place], [address] RDW SD 46.4 fl High 35.1-43.9 [facility] Comment on above: Performed By: #### L 100.0500, L500.2500 ####[facility] [address] [place], [address] WBC (Bld) [#/Vol] 8.7 10*3/uL Normal 4.4-11.0 [facility] Comment on above: Performed By: #### L 100.0500, L500.2500 ####[facility] [address] [place], [address] Basic Metabolic Profile (BMP )on 03-24-2024 BUN/CRE 20.7 RATIO High 10-20 [facility] Comment on above: Performed By: #### L 500.2500 ####[facility] [address] [place], [address] CA,Total 8.3 mg/dL Low 8.5-10.1 [facility] Comment on above: Performed By: #### L 500.2500 ####[facility] [address] [place], [address] Chloride [Moles/Vol] 109 mmol/L High 98-107 [facility] Comment on above: Performed By: #### L 500.2500 ####[facility] [address] [place], [address] CO2 [Moles/Vol] 23.0 mmol/L Normal 21.0-32.0 [facility] Comment on above: Performed By: #### L 500.2500 ####[facility] [address] [place], [address] Creatinine [Mass/Vol] 0.72 mg/dL Normal 0.55-1.02 [facility] Comment on above: Result Comment: The validity of the calculated GFR GFRAA in patients over70 years has not been determined. Clinical correlation isessential. Performed By: #### L 500.2500 ####[facility] [address] [place], [address] ECRCL 72.90 ml/min Normal [facility] Comment on above: Performed By: #### L 500.2500 ####[facility] [address] [place], [address] EST GFR - AA 105 mL/min Normal >60 [facility] Comment on above: Result Comment: Afri can Venezuelan GFR Calc Performed By: #### L 500.2500 ####[facility] [address] [place], [address] GAP 7 Normal 5-15 [facility] Comment on above: Performed By: #### L 500.2500 ####[facility] [address] [place], [address] GFR/1.73 sq M.predicted among non-blacks MDRD (S/P/Bld) [Vol rate/Area] 87 mL/min/{1.73_m2} Normal >60 [facility] Comment on above: Result Comment: Non- GFR Calc Performed By: #### L 500.2500 ####[facility] [address] [place], [address] Glucose [Mass/Vol] 96 mg/dL Normal 74-106 [facility] Comment on above: Performed By: #### L 500.2500 ####[facility] [address] [place], [address] Potassium [Moles/Vol] 3.3 mmol/L Low 3.5-5.1 [facility] Comment on above: Performed By: #### L 500.2500 ####[facility] [address] [place], [address] Sodium [Moles/Vol] 139 mmol/L Normal 136-145 [facility] Comment on above: Performed By: #### L 500.2500 ####[facility] [address] [place], [address] Urea nitrogen [Mass/Vol] 15 mg/dL Normal 7-18 [facility] Comment on above: Performed By: #### L 500.2500 ####[facility] [address] [place], [address] Respiratory Cultureon 2023 RESPC Normal [facility] Comment on above: Performed By: #### M 100.2000, M100.2400 ####[facility] [address] [place], [address] Basic Metabolic Profile (BMP )on 03-23-2024 BUN/CRE 16.0 RATIO Normal 10-20 [facility] Comment on above: Performed By: #### L 500.2500 ####[facility] [address] [place], [address] CA,Total 8.4 mg/dL Low 8.5-10.1 [facility] Comment on above: Performed By: #### L 500.2500 ####[facility] [address] [place], [address] Chloride [Moles/Vol] 109 mmol/L High 98-107 [facility] Comment on above: Performed By: #### L 500.2500 ####[facility] [address] [place], [address] CO2 [Moles/Vol] 24.0 mmol/L Normal 21.0-32.0 [facility] Comment on above: Performed By: #### L 500.2500 ####[facility] [address] [place], [address] Creatinine [Mass/Vol] 0.88 mg/dL Normal 0.55-1.02 [facility] Comment on above: Result Comment: The validity of the calculated GFR GFRAA in patients over70 years has not been determined. Clinical correlation isessential. Performed By: #### L 500.2500 ####[facility] [address] [place], [address] ECRCL 59.64 ml/min Normal [facility] Comment on above: Performed By: #### L 500.2500 ####[facility] [address] [place], [address] EST GFR - AA 84 mL/min Normal >60 [facility] Comment on above: Result Comment: Afri can Venezuelan GFR Calc Performed By: #### L 500.2500 ####[facility] [address] [place], [address] GAP 6 Normal 5-15 [facility] Comment on above: Performed By: #### L 500.2500 ####[facility] [address] [place], [address] GFR/1.73 sq M.predicted among non-blacks MDRD (S/P/Bld) [Vol rate/Area] 70 mL/min/{1.73_m2} Normal >60 [facility] Comment on above: Result Comment: Non- GFR Calc Performed By: #### L 500.2500 ####[facility] [address] [place], [address] Glucose [Mass/Vol] 114 mg/dL High 74-106 [facility] Comment on above: Result Comment: Fast ing Glucose result from 100 to 125 mg/dLsuggests IMPAIRED HOMEOSTASIS per A.D.A. criteria. Performed By: #### L 500.2500 ####[facility] [address] [place], [address] Potassium [Moles/Vol] 3.0 mmol/L Low 3.5-5.1 [facility] Comment on above: Performed By: #### L 500.2500 ####[facility] [address] [place], [address] Sodium [Moles/Vol] 139 mmol/L Normal 136-145 [facility] Comment on above: Performed By: #### L 500.2500 ####[facility] [address] [place], [address] Urea nitrogen [Mass/Vol] 14 mg/dL Normal 7-18 [facility] Comment on above: Performed By: #### L 500.2500 ####[facility] [address] [place], [address] Gram Stainon 03-23-2024 GS Acceptable Specimen? Yes (<25 Epithelial cells per/lpf) Gram Stain No Epithelial cells 3+ White Blood Cells 2+ Gram positive cocci 1+ Gram negative rods Normal [facility] Comment on above: Performed By: #### M 100.2000, M100.2400 ####[facility] [address] [place], [address] Basic Metabolic Profile (BMP )on 03-22-2024 BUN/CRE 16.3 RATIO Normal 10-20 [facility] Comment on above: Performed By: #### L 501.3620, L500.2500, L100.0500 ####[facility] [address] [place], [address] CA,Total 8.2 mg/dL Low 8.5-10.1 [facility] Comment on above: Performed By: #### L 501.3620, L500.2500, L100.0500 ####[facility] [address] [place], [address] Chloride [Moles/Vol] 108 mmol/L High 98-107 [facility] Comment on above: Performed By: #### L 501.3620, L500.2500, L100.0500 ####[facility] [address] [place], [address] CO2 [Moles/Vol] 18.0 mmol/L Low 21.0-32.0 [facility] Comment on above: Performed By: #### L 501.3620, L500.2500, L100.0500 ####[facility] [address] [place], [address] Creatinine [Mass/Vol] 0.67 mg/dL Normal 0.55-1.02 [facility] Comment on above: Result Comment: The validity of the calculated GFR GFRAA in patients over70 years has not been determined. Clinical correlation isessential. Performed By: #### L 501.3620, L500.2500, L100.0500 ####[facility] [address] [place], [address] ECRCL 78.34 ml/min Normal [facility] Comment on above: Performed By: #### L 501.3620, L500.2500, L100.0500 ####[facility] [address] [place], [address] EST GFR - AA 114 mL/min Normal >60 [facility] Comment on above: Result Comment: Afri can Venezuelan GFR Calc Performed By: #### L 501.3620, L500.2500, L100.0500 ####[facility] [address] [place], [address] GAP 12 Normal 5-15 [facility] Comment on above: Performed By: #### L 501.3620, L500.2500, L100.0500 ####[facility] [address] [place], [address] GFR/1.73 sq M.predicted among non-blacks MDRD (S/P/Bld) [Vol rate/Area] 94 mL/min/{1.73_m2} Normal >60 [facility] Comment on above: Result Comment: Non- GFR Calc Performed By: #### L 501.3620, L500.2500, L100.0500 ####[facility] [address] [place], [address] Glucose [Mass/Vol] 84 mg/dL Normal 74-106 [facility] Comment on above: Performed By: #### L 501.3620, L500.2500, L100.0500 ####[facility] [address] [place], [address] Potassium [Moles/Vol] 3.0 mmol/L Low 3.5-5.1 [facility] Comment on above: Performed By: #### L 501.3620, L500.2500, L100.0500 ####[facility] [address] [place], [address] Sodium [Moles/Vol] 138 mmol/L Normal 136-145 [facility] Comment on above: Performed By: #### L 501.3620, L500.2500, L100.0500 ####[facility] [address] [place], [address] Urea nitrogen [Mass/Vol] 11 mg/dL Normal 7-18 [facility] Comment on above: Performed By: #### L 501.3620, L500.2500, L100.0500 ####[facility] [address] [place], [address] CBC-Complete Blood Cnt No Nga couchon 03-22-2024 Erythrocyte distribution width (RBC) [Ratio] 13.3 % Normal 11.6-14.6 [facility] Comment on above: Performed By: #### L 501.3620, L500.2500, L100.0500 ####[facility] [address] [place], [address] Hematocrit (Bld) [Volume fraction] 37.3 % Normal 37-47 [facility] Comment on above: Performed By: #### L 501.3620, L500.2500, L100.0500 ####[facility] [address] [place], [address] Hemoglobin (Bld) [Mass/Vol] 12.3 g/dL Normal 12.0-15.0 [facility] Comment on above: Performed By: #### L 501.3620, L500.2500, L100.0500 ####[facility] [address] [place], [address] MCH (RBC) [Entitic mass] 30.1 pg Normal 27.0-32.0 [facility] Comment on above: Performed By: #### L 501.3620, L500.2500, L100.0500 ####[facility] [address] [place], [address] MCHC (RBC) [Mass/Vol] 33.0 g/dL Normal 32-36 [facility] Comment on above: Performed By: #### L 501.3620, L500.2500, L100.0500 ####[facility] [address] [place], [address] MCV (RBC) [Entitic vol] 91.2 fL Normal 81-99 [facility] Comment on above: Performed By: #### L 501.3620, L500.2500, L100.0500 ####[facility] [address] [place], [address] Platelet mean volume (Bld) [Entitic vol] 10.2 fL Normal 6.2-12.0 [facility] Comment on above: Performed By: #### L 501.3620, L500.2500, L100.0500 ####[facility] [address] [place], [address] Platelets (Bld) [#/Vol] 332 10*3/uL Normal 150-450 [facility] Comment on above: Performed By: #### L 501.3620, L500.2500, L100.0500 ####[facility] [address] [place], [address] RBC (Bld) [#/Vol] 4.09 10*6/uL Low 4.2-5.4 [facility] Comment on above: Performed By: #### L 501.3620, L500.2500, L100.0500 ####[facility] [address] [place], [address] RDW SD 44.7 fl High 35.1-43.9 [facility] Comment on above: Performed By: #### L 501.3620, L500.2500, L100.0500 ####[facility] [address] [place], [address] WBC (Bld) [#/Vol] 9.3 10*3/uL Normal 4.4-11.0 [facility] Comment on above: Performed By: #### L 501.3620, L500.2500, L100.0500 ####[facility] [address] [place], [address] CPK Total, Creatine Kinaseon 03-22-2024 CPK TOTAL 279 U/L High 26-192 [facility] Comment on above: Performed By: #### L 501.3620, L500.2500, L100.0500 ####[facility] [address] [place], [address] Magnesiumon 03-22-2024 Magnesium [Mass/Vol] 2.3 mg/dL Normal 1.6-2.6 [facility] Comment on above: Performed By: #### L 501.5200 ####[facility] [address] [place], [address] 12 Lead EKGon 03-21-2024 12 Lead EKG Normal [facility] Alcohol, Blood (Medical)-Ser umon 03-21-2024 SERUM ETOH < 3.0 Normal [facility] Comment on above: Result Comment: The serum:whole blood ethanol ratio is approximately 1.14and varies slightly with hematocrit.Medical Alcohol reference interval and critical value innon-tolerant individuals; 50 - 100 Impairment 100 Intoxication 100 - 250 Severe Poisoning 250 - 400 Deep/possible fatal coma Performed By: #### L 503.6005, L500.4050, L501.9100, L501.3620, L501.4020, L501.2450, L100.0100 ####[facility] [address] [place], [address] Bedside Glucoseon 03-21-2024 FINGERSTICK GLU 115 mg/dL High 74-106 [facility] Comment on above: Result Comment: DEWEY LAURAENT OF PATIENT CARE PER NURSING PROTOCOL Performed By: #### L 501.080 ####[facility] [address] [place], [address] Brain/Head without Contrasto n 03-21-2024 Brain/Head without Contrast Normal [facility] CBC W/Diff, Automatedon 02-22 0 Absolute Lymph 1.13 X10 3/uL Normal 0.83-4.51 [facility] Comment on above: Performed By: #### L 503.6005, L500.4050, L501.9100, L501.3620, L501.4020, L501.2450, L100.0100 ####[facility] [address] [place], [address] Absolute Neut 14.0 X10 3/uL High 2.0-7.7 [facility] Comment on above: Performed By: #### L 503.6005, L500.4050, L501.9100, L501.3620, L501.4020, L501.2450, L100.0100 ####[facility] [address] [place], [address] Basophils/100 WBC (Bld) 0.3 % Normal 0-1 [facility] Comment on above: Performed By: #### L 503.6005, L500.4050, L501.9100, L501.3620, L501.4020, L501.2450, L100.0100 ####[facility] [address] [place], [address] Eosinophils/100 WBC (Bld) 0.1 % Normal 0-5 [facility] Comment on above: Performed By: #### L 503.6005, L500.4050, L501.9100, L501.3620, L501.4020, L501.2450, L100.0100 ####[facility] [address] [place], [address] Erythrocyte distribution width (RBC) [Ratio] 13.2 % Normal 11.6-14.6 [facility] Comment on above: Performed By: #### L 503.6005, L500.4050, L501.9100, L501.3620, L501.4020, L501.2450, L100.0100 ####[facility] [address] [place], [address] Hematocrit (Bld) [Volume fraction] 43.6 % Normal 37-47 [facility] Comment on above: Performed By: #### L 503.6005, L500.4050, L501.9100, L501.3620, L501.4020, L501.2450, L100.0100 ####[facility] [address] [place], [address] Hemoglobin (Bld) [Mass/Vol] 14.6 g/dL Normal 12.0-15.0 [facility] Comment on above: Performed By: #### L 503.6005, L500.4050, L501.9100, L501.3620, L501.4020, L501.2450, L100.0100 ####[facility] [address] [place], [address] IG% 0.300 Normal 0.0-0.9 [facility] Comment on above: Result Comment: IG% - Immature Granulocytes (promyelocytes, myelocytes andmetamyelocytes) > 1% indicates that a LEFT SHIFT is Present. Performed By: #### L 503.6005, L500.4050, L501.9100, L501.3620, L501.4020, L501.2450, L100.0100 ####[facility] [address] [place], [address] Lymphocytes/100 WBC (Bld) 7.1 % Low 19-41 [facility] Comment on above: Performed By: #### L 503.6005, L500.4050, L501.9100, L501.3620, L501.4020, L501.2450, L100.0100 ####[facility] [address] [place], [address] MCH (RBC) [Entitic mass] 30.5 pg Normal 27.0-32.0 [facility] Comment on above: Performed By: #### L 503.6005, L500.4050, L501.9100, L501.3620, L501.4020, L501.2450, L100.0100 ####[facility] [address] [place], [address] MCHC (RBC) [Mass/Vol] 33.5 g/dL Normal 32-36 [facility] Comment on above: Performed By: #### L 503.6005, L500.4050, L501.9100, L501.3620, L501.4020, L501.2450, L100.0100 ####[facility] [address] [place], [address] MCV (RBC) [Entitic vol] 91.2 fL Normal 81-99 [facility] Comment on above: Performed By: #### L 503.6005, L500.4050, L501.9100, L501.3620, L501.4020, L501.2450, L100.0100 ####[facility] [address] [place], [address] Monocytes/100 WBC (Bld) 3.8 % Normal 0-10 [facility] Comment on above: Performed By: #### L 503.6005, L500.4050, L501.9100, L501.3620, L501.4020, L501.2450, L100.0100 ####[facility] [address] [place], [address] Neutrophils/100 WBC (Bld) 88.4 % High 47-70 [facility] Comment on above: Performed By: #### L 503.6005, L500.4050, L501.9100, L501.3620, L501.4020, L501.2450, L100.0100 ####[facility] [address] [place], [address] Nucleated RBC (Bld) [#/Vol] 0 10*3/uL Normal 0-5 [facility] Comment on above: Performed By: #### L 503.6005, L500.4050, L501.9100, L501.3620, L501.4020, L501.2450, L100.0100 ####[facility] [address] [place], [address] Platelet mean volume (Bld) [Entitic vol] 9.9 fL Normal 6.2-12.0 [facility] Comment on above: Performed By: #### L 503.6005, L500.4050, L501.9100, L501.3620, L501.4020, L501.2450, L100.0100 ####[facility] [address] [place], [address] Platelets (Bld) [#/Vol] 325 10*3/uL Normal 150-450 [facility] Comment on above: Performed By: #### L 503.6005, L500.4050, L501.9100, L501.3620, L501.4020, L501.2450, L100.0100 ####[facility] [address] [place], [address] RBC (Bld) [#/Vol] 4.78 10*6/uL Normal 4.2-5.4 [facility] Comment on above: Performed By: #### L 503.6005, L500.4050, L501.9100, L501.3620, L501.4020, L501.2450, L100.0100 ####[facility] [address] [place], [address] RDW SD 44.0 fl High 35.1-43.9 [facility] Comment on above: Performed By: #### L 503.6005, L500.4050, L501.9100, L501.3620, L501.4020, L501.2450, L100.0100 ####[facility] [address] [place], [address] WBC (Bld) [#/Vol] 15.8 10*3/uL High 4.4-11.0 [facility] Comment on above: Performed By: #### L 503.6005, L500.4050, L501.9100, L501.3620, L501.4020, L501.2450, L100.0100 ####[facility] [address] [place], [address] CPK Total, Creatine Kinaseon 03-21-2024 CPK TOTAL 571 U/L High 26-192 [facility] Comment on above: Order Comment: 'TROP ' Serial specimen #1, #2 or #3: 1 Performed By: #### L 503.6005, L500.4050, L501.9100, L501.3620, L501.4020, L501.2450, L100.0100 ####[facility] [address] [place], [address] CT Chest, Abd, Pel w/Contras ton 03-21-2024 CT Chest, Abd, Pel w/Contrast Normal [facility] Comprehensive Metabolic Prof ilon 03-21-2024 Albumin [Mass/Vol] 3.7 g/dL Normal 3.2-5.0 [facility] Comment on above: Order Comment: 'TROP ' Serial specimen #1, #2 or #3: 1 Performed By: #### L 503.6005, L500.4050, L501.9100, L501.3620, L501.4020, L501.2450, L100.0100 ####[facility] [address] [place], [address] Albumin/Globulin [Mass ratio] 1.2 {ratio} Normal 0.9-2.4 [facility] Comment on above: Order Comment: 'TROP ' Serial specimen #1, #2 or #3: 1 Performed By: #### L 503.6005, L500.4050, L501.9100, L501.3620, L501.4020, L501.2450, L100.0100 ####[facility] [address] [place], [address] ALK P 88 U/L Normal 45-117 [facility] Comment on above: Order Comment: 'TROP ' Serial specimen #1, #2 or #3: 1 Performed By: #### L 503.6005, L500.4050, L501.9100, L501.3620, L501.4020, L501.2450, L100.0100 ####[facility] [address] [place], [address] ALT [Catalytic activity/Vol] 49 U/L Normal 13-56 [facility] Comment on above: Order Comment: 'TROP ' Serial specimen #1, #2 or #3: 1 Performed By: #### L 503.6005, L500.4050, L501.9100, L501.3620, L501.4020, L501.2450, L100.0100 ####[facility] [address] [place], [address] AST [Catalytic activity/Vol] 48 U/L High 15-37 [facility] Comment on above: Order Comment: 'TROP ' Serial specimen #1, #2 or #3: 1 Result Comment: Slig ht Hemolysis, Result may be falsely increased. Performed By: #### L 503.6005, L500.4050, L501.9100, L501.3620, L501.4020, L501.2450, L100.0100 ####[facility] [address] [place], [address] Bilirubin [Mass/Vol] 0.50 mg/dL Normal 0.20-1.00 [facility] Comment on above: Order Comment: 'TROP ' Serial specimen #1, #2 or #3: 1 Result Comment: For patients on eltrombopag therapy, use of Dimension [place] TBIL is not recommended. Performed By: #### L 503.6005, L500.4050, L501.9100, L501.3620, L501.4020, L501.2450, L100.0100 ####[facility] [address] [place], [address] BUN/CRE 19.9 RATIO Normal 10-20 [facility] Comment on above: Order Comment: 'TROP ' Serial specimen #1, #2 or #3: 1 Performed By: #### L 503.6005, L500.4050, L501.9100, L501.3620, L501.4020, L501.2450, L100.0100 ####[facility] [address] [place], [address] CA,Total 8.6 mg/dL Normal 8.5-10.1 [facility] Comment on above: Order Comment: 'TROP ' Serial specimen #1, #2 or #3: 1 Performed By: #### L 503.6005, L500.4050, L501.9100, L501.3620, L501.4020, L501.2450, L100.0100 ####[facility] [address] [place], [address] Chloride [Moles/Vol] 100 mmol/L Normal 98-107 [facility] Comment on above: Order Comment: 'TROP ' Serial specimen #1, #2 or #3: 1 Performed By: #### L 503.6005, L500.4050, L501.9100, L501.3620, L501.4020, L501.2450, L100.0100 ####[facility] [address] [place], [address] CO2 [Moles/Vol] 22.0 mmol/L Normal 21.0-32.0 [facility] Comment on above: Order Comment: 'TROP ' Serial specimen #1, #2 or #3: 1 Performed By: #### L 503.6005, L500.4050, L501.9100, L501.3620, L501.4020, L501.2450, L100.0100 ####[facility] [address] [place], [address] Creatinine [Mass/Vol] 0.80 mg/dL Normal 0.55-1.02 [facility] Comment on above: Order Comment: 'TROP ' Serial specimen #1, #2 or #3: 1 Result Comment: The validity of the calculated GFR GFRAA in patients over70 years has not been determined. Clinical correlation isessential. Performed By: #### L 503.6005, L500.4050, L501.9100, L501.3620, L501.4020, L501.2450, L100.0100 ####[facility] [address] [place], [address] ECRCL 33.15 ml/min Normal [facility] Comment on above: Order Comment: 'TROP ' Serial specimen #1, #2 or #3: 1 Performed By: #### L 503.6005, L500.4050, L501.9100, L501.3620, L501.4020, L501.2450, L100.0100 ####[facility] [address] [place], [address] EST GFR - AA 93 mL/min Normal >60 [facility] Comment on above: Order Comment: 'TROP ' Serial specimen #1, #2 or #3: 1 Result Comment: Afri can Venezuelan GFR Calc Performed By: #### L 503.6005, L500.4050, L501.9100, L501.3620, L501.4020, L501.2450, L100.0100 ####[facility] [address] [place], [address] GAP 11 Normal 5-15 [facility] Comment on above: Order Comment: 'TROP ' Serial specimen #1, #2 or #3: 1 Performed By: #### L 503.6005, L500.4050, L501.9100, L501.3620, L501.4020, L501.2450, L100.0100 ####[facility] [address] [place], [address] GFR/1.73 sq M.predicted among non-blacks MDRD (S/P/Bld) [Vol rate/Area] 77 mL/min/{1.73_m2} Normal >60 [facility] Comment on above: Order Comment: 'TROP ' Serial specimen #1, #2 or #3: 1 Result Comment: Non- GFR Calc Performed By: #### L 503.6005, L500.4050, L501.9100, L501.3620, L501.4020, L501.2450, L100.0100 ####[facility] [address] [place], [address] Globulin (S) [Mass/Vol] 3.0 g/dL Normal 2.2-4.2 [facility] Comment on above: Order Comment: 'TROP ' Serial specimen #1, #2 or #3: 1 Performed By: #### L 503.6005, L500.4050, L501.9100, L501.3620, L501.4020, L501.2450, L100.0100 ####[facility] [address] [place], [address] Glucose [Mass/Vol] 117 mg/dL High 74-106 [facility] Comment on above: Order Comment: 'TROP ' Serial specimen #1, #2 or #3: 1 Result Comment: Fast ing Glucose result from 100 to 125 mg/dLsuggests IMPAIRED HOMEOSTASIS per A.D.A. criteria. Performed By: #### L 503.6005, L500.4050, L501.9100, L501.3620, L501.4020, L501.2450, L100.0100 ####[facility] [address] [place], [address] Potassium [Moles/Vol] 3.5 mmol/L Normal 3.5-5.1 [facility] Comment on above: Order Comment: 'TROP ' Serial specimen #1, #2 or #3: 1 Result Comment: Slig ht Hemolysis, Result may be falsely increased. Performed By: #### L 503.6005, L500.4050, L501.9100, L501.3620, L501.4020, L501.2450, L100.0100 ####[facility] [address] [place], [place], [id number] Sodium [Moles/Vol] 133 mmol/L Low 136-145 [facility] Comment on above: Order Comment: 'TROP ' Serial specimen #1, #2 or #3: 1 Performed By: #### L 503.6005, L500.4050, L501.9100, L501.3620, L501.4020, L501.2450, L100.0100 ####[facility] [address] [place], [place], [id number] T PROT 6.7 g/dL Normal 6.4-8.2 [facility] Comment on above: Order Comment: 'TROP ' Serial specimen #1, #2 or #3: 1 Performed By: #### L 503.6005, L500.4050, L501.9100, L501.3620, L501.4020, L501.2450, L100.0100 ####[facility] [address] [place], [place], [id number] Urea nitrogen [Mass/Vol] 16 mg/dL Normal 7-18 [facility] Comment on above: Order Comment: 'TROP ' Serial specimen #1, #2 or #3: 1 Performed By: #### L 503.6005, L500.4050, L501.9100, L501.3620, L501.4020, L501.2450, L100.0100 ####[facility] [address] [place], [place], [address] Emergency Department Summary on 03-21-2024 Emergency Department Summary Normal [facility] H AND P Exam - Hospitaliston 03-21-2024 H&P Exam - Hospitalist Normal [facility] L501.4020on 03-21-2024 TROPONIN-I HS 7 pg/mL Normal 3.0-54.0 [facility] Comment on above: Order Comment: 'TROP ' Serial specimen #1, #2 or #3: 1 Result Comment: Plea se Note: New Test Units and Gender Specific Reference Ranges. For more information see Policy Stat Procedure [place] High Sensitivity Troponin (TNIH) and attachments. Performed By: #### L 503.6005, L500.4050, L501.9100, L501.3620, L501.4020, L501.2450, L100.0100 ####[facility] [address] [place], [address] Lactic Acidon 03-21-2024 Lactate [Moles/Vol] 1.4 mmol/L Normal 0.4-1.9 [facility] Comment on above: Order Comment: Y Performed By: #### L 503.6005, L500.4050, L501.9100, L501.3620, L501.4020, L501.2450, L100.0100 ####[facility] [address] [place], [place], [id number] Lipaseon 03-21-2024 Lipase [Catalytic activity/Vol] 15 U/L Normal 13-75 [facility] Comment on above: Order Comment: 'TROP ' Serial specimen #1, #2 or #3: 1 Result Comment: Plea se note:LIPASE revised reference range effective 23.New Lipase methodology. Expected to produce lower valuesthan the previous assay method.NEW Reference Range: 13 - 75 U/L Performed By: #### L 503.6005, L500.4050, L501.9100, L501.3620, L501.4020, L501.2450, L100.0100 ####[facility] [id number] [place], [place], [phone] Spine Cervical without Contr ason 03-21-2024 Spine Cervical without Contras Normal [facility] Urinalysis, Completeon 03-21 BACTERIA 0 SEEN Normal None Seen [facility] Comment on above: Order Comment: RAND TER SPECIMEN Performed By: #### L 505.5000, L400.0001 ####[facility] [id number] [place], [address] EPI,SQUAMOUS 0 SEEN Normal 5-10 [facility] Comment on above: Order Comment: RAND TER SPECIMEN Performed By: #### L 505.5000, L400.0001 ####[facility] [id number] [place], [address] Mucus Ql (Urine sed) 0 SEEN Normal [facility] Comment on above: Order Comment: RAND TER SPECIMEN Performed By: #### L 505.5000, L400.0001 ####[facility] [address] [place], [address] RBC 0 SEEN Normal 0-5 [facility] Comment on above: Order Comment: RAND TER SPECIMEN Performed By: #### L 505.5000, L400.0001 ####[facility] [id number] [place], [address] WBC 0 SEEN Normal 0-5 [facility] Comment on above: Order Comment: RAND TER SPECIMEN Performed By: #### L 505.5000, L400.0001 ####[facility] [address] [place], [address] Urine Drug Screen (VISTA)on 03-21-2024 AMPHETAMINES Negative Normal <1000 ng/mL [facility] Comment on above: Performed By: #### L 505.5000, L400.0001 ####[facility] [address] [place], [address] BARBITIURATES Negative Normal < 200 ng/mL [facility] Comment on above: Performed By: #### L 505.5000, L400.0001 ####[facility] [address] [place], [address] BENZODIAZIPINE Negative Normal < 200 ng/mL [facility] Comment on above: Performed By: #### L 505.5000, L400.0001 ####[facility] [address] [place], [address] COCAINE Negative Normal < 300 ng/mL [facility] Comment on above: Performed By: #### L 505.5000, L400.0001 ####[facility] [address] [place], [address] ECSTACY Negative Normal < 500 ng/mL [facility] Comment on above: Performed By: #### L 505.5000, L400.0001 ####[facility] [address] [place], [address] METHADONE Negative Normal < 300 ng/mL [facility] Comment on above: Performed By: #### L 505.5000, L400.0001 ####[facility] [address] [place] [address] OPIATES Negative Normal < 300 ng/mL [facility] Comment on above: Performed By: #### L 505.5000, L400.0001 ####[facility] [address] [place], [address] PCP Negative Normal < 25 ng/mL [facility] Comment on above: Performed By: #### L 505.5000, L400.0001 ####[facility] [address] [place], [address] THC Positive Abnormal < 50 ng/mL [facility] Comment on above: Performed By: #### L 505.5000, L400.0001 ####[facility] [address] [place], [address] VISTA UDS PH 6 Normal [facility] Comment on above: Performed By: #### L 505.5000, L400.0001 ####[facility] [address] [place], [address] CBC W/Diff, Automatedon 05-2 0-4 Absolute Lymph 2.62 X10 3/uL Normal 0.83-4.51 [facility] Comment on above: Performed By: #### L 100.0100, L500.4050 ####[facility] [address] [place], [address] Absolute Neut 6.5 X10 3/uL Normal 2.0-7.7 [facility] Comment on above: Performed By: #### L 100.0100, L500.4050 ####[facility] [address] [place], [address] Basophils/100 WBC (Bld) 1.0 % Normal 0-1 [facility] Comment on above: Performed By: #### L 100.0100, L500.4050 ####[facility] [address] [place], [address] Eosinophils/100 WBC (Bld) 1.2 % Normal 0-5 [facility] Comment on above: Performed By: #### L 100.0100, L500.4050 ####[facility] [address] [place], [address] Erythrocyte distribution width (RBC) [Ratio] 13.0 % Normal 11.6-14.6 [facility] Comment on above: Performed By: #### L 100.0100, L500.4050 ####[facility] [address] [place], [address] Hematocrit (Bld) [Volume fraction] 37.9 % Normal 37-47 [facility] Comment on above: Performed By: #### L 100.0100, L500.4050 ####[facility] [address] [place], [address] Hemoglobin (Bld) [Mass/Vol] 12.2 g/dL Normal 12.0-15.0 [facility] Comment on above: Performed By: #### L 100.0100, L500.4050 ####[facility] [address] [place], [address] IG% 0.300 Normal 0.0-0.9 [facility] Comment on above: Result Comment: IG% - Immature Granulocytes (promyelocytes, myelocytes andmetamyelocytes) > 1% indicates that a LEFT SHIFT is Present. Performed By: #### L 100.0100, L500.4050 ####[facility] [address] [place], [address] Lymphocytes/100 WBC (Bld) 26.1 % Normal 19-41 [facility] Comment on above: Performed By: #### L 100.0100, L500.4050 ####[facility] [address] [place], [address] MCH (RBC) [Entitic mass] 30.0 pg Normal 27.0-32.0 [facility] Comment on above: Performed By: #### L 100.0100, L500.4050 ####[facility] [address] [place], [address] MCHC (RBC) [Mass/Vol] 32.2 g/dL Normal 32-36 [facility] Comment on above: Performed By: #### L 100.0100, L500.4050 ####[facility] [address] [place], [address] MCV (RBC) [Entitic vol] 93.1 fL Normal 81-99 [facility] Comment on above: Performed By: #### L 100.0100, L500.4050 ####[facility] [address] [place], [address] Monocytes/100 WBC (Bld) 7.2 % Normal 0-10 [facility] Comment on above: Performed By: #### L 100.0100, L500.4050 ####[facility] [address] [place], [address] Neutrophils/100 WBC (Bld) 64.2 % Normal 47-70 [facility] Comment on above: Performed By: #### L 100.0100, L500.4050 ####[facility] [address] [place], [address] Nucleated RBC (Bld) [#/Vol] 0 10*3/uL Normal 0-5 [facility] Comment on above: Performed By: #### L 100.0100, L500.4050 ####[facility] [address] [place], [address] Platelet mean volume (Bld) [Entitic vol] 9.0 fL Normal 6.2-12.0 [facility] Comment on above: Performed By: #### L 100.0100, L500.4050 ####[facility] [address] [place], [address] Platelets (Bld) [#/Vol] 269 10*3/uL Normal 150-450 [facility] Comment on above: Performed By: #### L 100.0100, L500.4050 ####[facility] [address] [place], [address] RBC (Bld) [#/Vol] 4.07 10*6/uL Low 4.2-5.4 [facility] Comment on above: Performed By: #### L 100.0100, L500.4050 ####[facility] [address] [place], [address] RDW SD 44.6 fl High 35.1-43.9 [facility] Comment on above: Performed By: #### L 100.0100, L500.4050 ####[facility] [address] [place], [address] WBC (Bld) [#/Vol] 10.1 10*3/uL Normal 4.4-11.0 [facility] Comment on above: Performed By: #### L 100.0100, L500.4050 ####[facility] [address] [place], [address] Comprehensive Metabolic Prof ilon 03-11-2024 Albumin [Mass/Vol] 2.8 g/dL Low 3.2-5.0 [facility] Comment on above: Performed By: #### L 100.0100, L500.4050 ####[facility] [address] [place], [address] Albumin/Globulin [Mass ratio] 1.2 {ratio} Normal 0.9-2.4 [facility] Comment on above: Performed By: #### L 100.0100, L500.4050 ####[facility] [address] [place], [address] ALK P 55 U/L Normal 45-117 [facility] Comment on above: Performed By: #### L 100.0100, L500.4050 ####[facility] [address] [place], [address] ALT [Catalytic activity/Vol] 30 U/L Normal 13-56 [facility] Comment on above: Performed By: #### L 100.0100, L500.4050 ####[facility] [address] [place], [address] AST [Catalytic activity/Vol] 24 U/L Normal 15-37 [facility] Comment on above: Performed By: #### L 100.0100, L500.4050 ####[facility] [address] [place], [address] Bilirubin [Mass/Vol] 0.30 mg/dL Normal 0.20-1.00 [facility] Comment on above: Result Comment: For patients on eltrombopag therapy, use of Dimension [place] TBIL is not recommended. Performed By: #### L 100.0100, L500.4050 ####[facility] [address] [place], [address] BUN/CRE 15.8 RATIO Normal 10-20 [facility] Comment on above: Performed By: #### L 100.0100, L500.4050 ####[facility] [address] [place], [address] CA,Total 7.8 mg/dL Low 8.5-10.1 [facility] Comment on above: Performed By: #### L 100.0100, L500.4050 ####[facility] [address] [place], [address] Chloride [Moles/Vol] 119 mmol/L High 98-107 [facility] Comment on above: Performed By: #### L 100.0100, L500.4050 ####[facility] [address] [place], [address] CO2 [Moles/Vol] 23.0 mmol/L Normal 21.0-32.0 [facility] Comment on above: Performed By: #### L 100.0100, L500.4050 ####[facility] [address] [place], [address] Creatinine [Mass/Vol] 0.76 mg/dL Normal 0.55-1.02 [facility] Comment on above: Result Comment: The validity of the calculated GFR GFRAA in patients over70 years has not been determined. Clinical correlation isessential. Performed By: #### L 100.0100, L500.4050 ####[facility] [address] [place], [address] ECRCL 69.06 ml/min Normal [facility] Comment on above: Performed By: #### L 100.0100, L500.4050 ####[facility] [address] [place], [address] EST GFR - AA 99 mL/min Normal >60 [facility] Comment on above: Result Comment: Afri can Venezuelan GFR Calc Performed By: #### L 100.0100, L500.4050 ####[facility] [address] [place], [address] GAP 4 Low 5-15 [facility] Comment on above: Performed By: #### L 100.0100, L500.4050 ####[facility] [address] [place], [address] GFR/1.73 sq M.predicted among non-blacks MDRD (S/P/Bld) [Vol rate/Area] 82 mL/min/{1.73_m2} Normal >60 [facility] Comment on above: Result Comment: Non- GFR Calc Performed By: #### L 100.0100, L500.4050 ####[facility] [address] [place], [address] Globulin (S) [Mass/Vol] 2.3 g/dL Normal 2.2-4.2 [facility] Comment on above: Performed By: #### L 100.0100, L500.4050 ####[facility] [address] [place], [address] Glucose [Mass/Vol] 98 mg/dL Normal 74-106 [facility] Comment on above: Performed By: #### L 100.0100, L500.4050 ####[facility] [address] [place], [address] Potassium [Moles/Vol] 2.9 mmol/L Low 3.5-5.1 [facility] Comment on above: Performed By: #### L 100.0100, L500.4050 ####[facility] [address] [place], [address] Sodium [Moles/Vol] 146 mmol/L High 136-145 [facility] Comment on above: Performed By: #### L 100.0100, L500.4050 ####[facility] [address] [place], [address] T PROT 5.1 g/dL Low 6.4-8.2 [facility] Comment on above: Performed By: #### L 100.0100, L500.4050 ####[facility] [address] [place], [address] Urea nitrogen [Mass/Vol] 12 mg/dL Normal 7-18 [facility] Comment on above: Performed By: #### L 100.0100, L500.4050 ####[facility] [address] [place], [address] H AND P Exam - Hospitaliston 03-11-2024 H&P Exam - Hospitalist Normal [facility] 12 Lead EKGon 03-10-2024 12 Lead EKG Normal [facility] Alcohol, Blood (Medical)-Ser umon 03-10-2024 SERUM ETOH < 3.0 Normal [facility] Comment on above: Result Comment: The serum:whole blood ethanol ratio is approximately 1.14and varies slightly with hematocrit.Medical Alcohol reference interval and critical value innon-tolerant individuals; 50 - 100 Impairment 100 Intoxication 100 - 250 Severe Poisoning 250 - 400 Deep/possible fatal coma Performed By: #### L 100.0100, L501.4020, L500.4050, L501.9100 ####[facility] [address] [place], [address] Brain/Head without Contrasto n 03-10-2024 Brain/Head without Contrast Normal [facility] CBC W/Diff, Automatedon 05- Absolute Lymph 1.79 X10 3/uL Normal 0.83-4.51 [facility] Comment on above: Performed By: #### L 100.0100, L501.4020, L500.4050, L501.9100 ####[facility] [address] [place], [address] Absolute Neut 8.9 X10 3/uL High 2.0-7.7 [facility] Comment on above: Performed By: #### L 100.0100, L501.4020, L500.4050, L501.9100 ####[facility] [address] [place], [address] Basophils/100 WBC (Bld) 0.6 % Normal 0-1 [facility] Comment on above: Performed By: #### L 100.0100, L501.4020, L500.4050, L501.9100 ####[facility] [address] [place], [address] Eosinophils/100 WBC (Bld) 0.1 % Normal 0-5 [facility] Comment on above: Performed By: #### L 100.0100, L501.4020, L500.4050, L501.9100 ####[facility] [address] [place], [address] Erythrocyte distribution width (RBC) [Ratio] 12.8 % Normal 11.6-14.6 [facility] Comment on above: Performed By: #### L 100.0100, L501.4020, L500.4050, L501.9100 ####[facility] [address] [place], [address] Hematocrit (Bld) [Volume fraction] 36.5 % Low 37-47 [facility] Comment on above: Performed By: #### L 100.0100, L501.4020, L500.4050, L501.9100 ####[facility] [address] [place], [address] Hemoglobin (Bld) [Mass/Vol] 12.2 g/dL Normal 12.0-15.0 [facility] Comment on above: Performed By: #### L 100.0100, L501.4020, L500.4050, L501.9100 ####[facility] [address] [place], [address] IG% 0.400 Normal 0.0-0.9 [facility] Comment on above: Result Comment: IG% - Immature Granulocytes (promyelocytes, myelocytes andmetamyelocytes) > 1% indicates that a LEFT SHIFT is Present. Performed By: #### L 100.0100, L501.4020, L500.4050, L501.9100 ####[facility] [address] [place], [address] Lymphocytes/100 WBC (Bld) 15.7 % Low 19-41 [facility] Comment on above: Performed By: #### L 100.0100, L501.4020, L500.4050, L501.9100 ####[facility] [address] [place], [address] MCH (RBC) [Entitic mass] 30.6 pg Normal 27.0-32.0 [facility] Comment on above: Performed By: #### L 100.0100, L501.4020, L500.4050, L501.9100 ####[facility] [address] [place], [address] MCHC (RBC) [Mass/Vol] 33.4 g/dL Normal 32-36 [facility] Comment on above: Performed By: #### L 100.0100, L501.4020, L500.4050, L501.9100 ####[facility] [address] [place], [address] MCV (RBC) [Entitic vol] 91.5 fL Normal 81-99 [facility] Comment on above: Performed By: #### L 100.0100, L501.4020, L500.4050, L501.9100 ####[facility] [address] [place], [address] Monocytes/100 WBC (Bld) 4.9 % Normal 0-10 [facility] Comment on above: Performed By: #### L 100.0100, L501.4020, L500.4050, L501.9100 ####[facility] [address] [place], [address] Neutrophils/100 WBC (Bld) 78.3 % High 47-70 [facility] Comment on above: Performed By: #### L 100.0100, L501.4020, L500.4050, L501.9100 ####[facility] [address] [place], [address] Nucleated RBC (Bld) [#/Vol] 0 10*3/uL Normal 0-5 [facility] Comment on above: Performed By: #### L 100.0100, L501.4020, L500.4050, L501.9100 ####[facility] [address] [place], [address] Platelet mean volume (Bld) [Entitic vol] 9.3 fL Normal 6.2-12.0 [facility] Comment on above: Performed By: #### L 100.0100, L501.4020, L500.4050, L501.9100 ####[facility] [address] [place], [address] Platelets (Bld) [#/Vol] 318 10*3/uL Normal 150-450 [facility] Comment on above: Performed By: #### L 100.0100, L501.4020, L500.4050, L501.9100 ####[facility] [address] [place], [address] RBC (Bld) [#/Vol] 3.99 10*6/uL Low 4.2-5.4 [facility] Comment on above: Performed By: #### L 100.0100, L501.4020, L500.4050, L501.9100 ####[facility] [address] [place], [address] RDW SD 43.2 fl Normal 35.1-43.9 [facility] Comment on above: Performed By: #### L 100.0100, L501.4020, L500.4050, L501.9100 ####[facility] [address] [place], [address] WBC (Bld) [#/Vol] 11.4 10*3/uL High 4.4-11.0 [facility] Comment on above: Performed By: #### L 100.0100, L501.4020, L500.4050, L501.9100 ####[facility] [address] [place], [address] Chest 1 View (Portable)on Chest 1 View (Portable) Normal [facility] Comprehensive Metabolic Prof ilon 03-10-2024 Albumin [Mass/Vol] 3.6 g/dL Normal 3.2-5.0 [facility] Comment on above: Order Comment: 'TROP ' Serial specimen #1, #2 or #3: 1 Performed By: #### L 100.0100, L501.4020, L500.4050, L501.9100 ####[facility] [address] [place], [address] Albumin/Globulin [Mass ratio] 1.3 {ratio} Normal 0.9-2.4 [facility] Comment on above: Order Comment: 'TROP ' Serial specimen #1, #2 or #3: 1 Performed By: #### L 100.0100, L501.4020, L500.4050, L501.9100 ####[facility] [address] [place], [address] ALK P 80 U/L Normal 45-117 [facility] Comment on above: Order Comment: 'TROP ' Serial specimen #1, #2 or #3: 1 Performed By: #### L 100.0100, L501.4020, L500.4050, L501.9100 ####[facility] [address] [place], [address] ALT [Catalytic activity/Vol] 41 U/L Normal 13-56 [facility] Comment on above: Order Comment: 'TROP ' Serial specimen #1, #2 or #3: 1 Performed By: #### L 100.0100, L501.4020, L500.4050, L501.9100 ####[facility] [address] [place], [address] AST [Catalytic activity/Vol] 35 U/L Normal 15-37 [facility] Comment on above: Order Comment: 'TROP ' Serial specimen #1, #2 or #3: 1 Performed By: #### L 100.0100, L501.4020, L500.4050, L501.9100 ####[facility] [address] [place], [address] Bilirubin [Mass/Vol] 0.40 mg/dL Normal 0.20-1.00 [facility] Comment on above: Order Comment: 'TROP ' Serial specimen #1, #2 or #3: 1 Result Comment: For patients on eltrombopag therapy, use of Dimension [place] TBIL is not recommended. Performed By: #### L 100.0100, L501.4020, L500.4050, L501.9100 ####[facility] [address] [place], [address] BUN/CRE 13.9 RATIO Normal 10-20 [facility] Comment on above: Order Comment: 'TROP ' Serial specimen #1, #2 or #3: 1 Performed By: #### L 100.0100, L501.4020, L500.4050, L501.9100 ####[facility] [address] [place], [address] CA,Total 8.5 mg/dL Normal 8.5-10.1 [facility] Comment on above: Order Comment: 'TROP ' Serial specimen #1, #2 or #3: 1 Performed By: #### L 100.0100, L501.4020, L500.4050, L501.9100 ####[facility] [address] [place], [address] Chloride [Moles/Vol] 107 mmol/L Normal 98-107 [facility] Comment on above: Order Comment: 'TROP ' Serial specimen #1, #2 or #3: 1 Performed By: #### L 100.0100, L501.4020, L500.4050, L501.9100 ####[facility] [address] [place], [address] CO2 [Moles/Vol] 23.0 mmol/L Normal 21.0-32.0 [facility] Comment on above: Order Comment: 'TROP ' Serial specimen #1, #2 or #3: 1 Performed By: #### L 100.0100, L501.4020, L500.4050, L501.9100 ####[facility] [address] [place], [address] Creatinine [Mass/Vol] 1.22 mg/dL High 0.55-1.02 [facility] Comment on above: Order Comment: 'TROP ' Serial specimen #1, #2 or #3: 1 Result Comment: The validity of the calculated GFR GFRAA in patients over70 years has not been determined. Clinical correlation isessential. Performed By: #### L 100.0100, L501.4020, L500.4050, L501.9100 ####[facility] [address] [place], [address] ECRCL 43.02 ml/min Normal [facility] Comment on above: Order Comment: 'TROP ' Serial specimen #1, #2 or #3: 1 Performed By: #### L 100.0100, L501.4020, L500.4050, L501.9100 ####[facility] [address] [place], [address] EST GFR - AA 57 mL/min Low >60 [facility] Comment on above: Order Comment: 'TROP ' Serial specimen #1, #2 or #3: 1 Result Comment: Afri can Venezuelan GFR Calc Performed By: #### L 100.0100, L501.4020, L500.4050, L501.9100 ####[facility] [address] [place], [address] GAP 7 Normal 5-15 [facility] Comment on above: Order Comment: 'TROP ' Serial specimen #1, #2 or #3: 1 Performed By: #### L 100.0100, L501.4020, L500.4050, L501.9100 ####[facility] [address] [place], [address] GFR/1.73 sq M.predicted among non-blacks MDRD (S/P/Bld) [Vol rate/Area] 47 mL/min/{1.73_m2} Low >60 [facility] Comment on above: Order Comment: 'TROP ' Serial specimen #1, #2 or #3: 1 Result Comment: Non- GFR Calc Performed By: #### L 100.0100, L501.4020, L500.4050, L501.9100 ####[facility] [address] [place], [address] Globulin (S) [Mass/Vol] 2.8 g/dL Normal 2.2-4.2 [facility] Comment on above: Order Comment: 'TROP ' Serial specimen #1, #2 or #3: 1 Performed By: #### L 100.0100, L501.4020, L500.4050, L501.9100 ####[facility] [address] [place], [address] Glucose [Mass/Vol] 110 mg/dL High 74-106 [facility] Comment on above: Order Comment: 'TROP ' Serial specimen #1, #2 or #3: 1 Result Comment: Fast ing Glucose result from 100 to 125 mg/dLsuggests IMPAIRED HOMEOSTASIS per A.D.A. criteria. Performed By: #### L 100.0100, L501.4020, L500.4050, L501.9100 ####[facility] [address] [place], [address] Potassium [Moles/Vol] 3.3 mmol/L Low 3.5-5.1 [facility] Comment on above: Order Comment: 'TROP ' Serial specimen #1, #2 or #3: 1 Performed By: #### L 100.0100, L501.4020, L500.4050, L501.9100 ####[facility] [address] [place], [address] Sodium [Moles/Vol] 137 mmol/L Normal 136-145 [facility] Comment on above: Order Comment: 'TROP ' Serial specimen #1, #2 or #3: 1 Performed By: #### L 100.0100, L501.4020, L500.4050, L501.9100 ####[facility] [address] [place], [address] T PROT 6.4 g/dL Normal 6.4-8.2 [facility] Comment on above: Order Comment: 'TROP ' Serial specimen #1, #2 or #3: 1 Performed By: #### L 100.0100, L501.4020, L500.4050, L501.9100 ####[facility] [address] [place], [address] Urea nitrogen [Mass/Vol] 17 mg/dL Normal 7-18 [facility] Comment on above: Order Comment: 'TROP ' Serial specimen #1, #2 or #3: 1 Performed By: #### L 100.0100, L501.4020, L500.4050, L501.9100 ####[facility] [address] [place], [address] Emergency Department Summary on 03-10-2024 Emergency Department Summary Normal [facility] L501.4020on 03-10-2024 TROPONIN-I HS 5 pg/mL Normal 3.0-54.0 [facility] Comment on above: Order Comment: 'TROP ' Serial specimen #1, #2 or #3: 1 Result Comment: Pleandreas se Note: New Test Units and Gender Specific Reference Ranges. For more information see Policy Stat Procedure [place] High Sensitivity Troponin (TNIH) and attachments. Performed By: #### L 100.0100, L501.4020, L500.4050, L501.9100 ####[facility] [address] [place], [address] Urinalysis, Completeon 03-10 BACTERIA 0 SEEN Normal None Seen [facility] Comment on above: Order Comment: CLEAN CATCH Performed By: #### L 400.0001, L505.5000 ####[facility] [address] [place], [address] EPI,SQUAMOUS 0 SEEN Normal 5-10 [facility] Comment on above: Order Comment: CLEAN CATCH Performed By: #### L 400.0001, L505.5000 ####[facility] [address] [place], [address] Mucus Ql (Urine sed) 0 SEEN Normal [facility] Comment on above: Order Comment: CLEAN CATCH Performed By: #### L 400.0001, L505.5000 ####[facility] [address] [place], [address] RBC 0 SEEN Normal 0-5 [facility] Comment on above: Order Comment: CLEAN CATCH Performed By: #### L 400.0001, L505.5000 ####[facility] [address] [place], [address] WBC 0 SEEN Normal 0-5 [facility] Comment on above: Order Comment: CLEAN CATCH Performed By: #### L 400.0001, L505.5000 ####[facility] [address] [place] [address] Urine Drug Screen (VISTA)on 03-10-2024 AMPHETAMINES Negative Normal <1000 ng/mL [facility] Comment on above: Performed By: #### L 400.0001, L505.5000 ####[facility] [address] [place] [address] BARBITIURATES Negative Normal < 200 ng/mL [facility] Comment on above: Performed By: #### L 400.0001, L505.5000 ####[facility] [address] [place] [address] BENZODIAZIPINE Negative Normal < 200 ng/mL [facility] Comment on above: Performed By: #### L 400.0001, L505.5000 ####[facility] [address] [place] [address] COCAINE Negative Normal < 300 ng/mL [facility] Comment on above: Performed By: #### L 400.0001, L505.5000 ####[facility] [address] [place] [address] ECSTACY Negative Normal < 500 ng/mL [facility] Comment on above: Performed By: #### L 400.0001, L505.5000 ####[facility] [address] [place] [address] METHADONE Negative Normal < 300 ng/mL [facility] Comment on above: Performed By: #### L 400.0001, L505.5000 ####[facility] [address] [place] [id number] OPIATES Negative Normal < 300 ng/mL [facility] Comment on above: Performed By: #### L 400.0001, L505.5000 ####[facility] [address] [place], [address] PCP Negative Normal < 25 ng/mL [facility] Comment on above: Performed By: #### L 400.0001, L505.5000 ####[facility] [address] [place], [address] THC Positive Abnormal < 50 ng/mL [facility] Comment on above: Performed By: #### L 400.0001, L505.5000 ####[facility] [address] [place], [address] VISTA UDS PH 6 Normal [facility] Comment on above: Performed By: #### L 400.0001, L505.5000 ####[facility] [address] [place], [address] Basic metabolic 2000 panelon 01-30-2024 Anion gap [Moles/Vol] 9 mmol/L Low 10-20 [facility] Comment on above: Performed By: #### 2 4323-8 #### [place] ([id number]) [facility] ([facility]) [address] [place] [address] Calcium [Mass/Vol] 7.8 mg/dL Low 8.6-10.3 [facility] Comment on above: Performed By: #### 2 4323-8 #### [place] ([id number]) [facility] ([facility]) [facility] [place] [address] Chloride [Moles/Vol] 114 mmol/L High 98-107 [facility] Comment on above: Performed By: #### 2 4323-8 #### [place] (55956) [facility] ([facility]) [address] [place] [address] CO2 [Moles/Vol] 19 mmol/L Low 21-32 [facility] Comment on above: Performed By: #### 2 4323-8 #### [place] ([id number]) [facility] ([facility]) [address] [place] [address] Creatinine [Mass/Vol] 0.80 mg/dL Normal 0.50-1.05 [facility] Comment on above: Performed By: #### 2 4323-8 #### [place] ([id number]) [facility] ([facility]) [address] [place] [address] 43328 Glomerular filtration rate/1.73 sq M.predicted 83 mL/min/1.73m*2 Normal >60 [facility] Comment on above: Result Comment: Calc ulations of estimated GFR are performed using the 2020 CKD-EPI Study Refit equation without the race variable for the IDMS-Traceable creatinine methods. https://jasn.asnjournals.org/content/early//ASN.413522 3880 Performed By: #### 2 432-8 #### [place] ([id number]) [facility] ([facility]) [address] [place] [address]19 Glucose [Mass/Vol] 86 mg/dL Normal 74-99 [facility] Comment on above: Performed By: #### 2 432-8 #### [place] (89091) [facility] ([facility]) [address] [place] [address] 61832 Potassium [Moles/Vol] 4.0 mmol/L Normal 3.5-5.3 [facility] Comment on above: Performed By: #### 2 4323-8 #### [place] (59854) [facility] ([facility]) [address] [place] [address] 19968 Sodium [Moles/Vol] 138 mmol/L Normal 136-145 [facility] Comment on above: Performed By: #### 2 4323-8 #### [place] ([id number]) [facility] ([facility]) [address] [place] [address] 51943 Urea nitrogen [Mass/Vol] 19 mg/dL Normal 6-23 [facility] Comment on above: Performed By: #### 2 4323-8 #### [place] ([id number]) [facility] ([facility]) [address] [place] [address] CBC panel Auto (Bld)on 01-29 Erythrocyte distribution width (RBC) [Ratio] 12.9 % Normal 11.5-14.5 [facility] Comment on above: Performed By: #### 2 4323-8 #### [place] ([id number]) [facility] ([facility]) [address] [place] [address] Hematocrit (Bld) [Volume fraction] 38.6 % Normal 36.0-46.0 [facility] Comment on above: Performed By: #### 2 4323-8 #### [place] (59782) [facility] ([facility]) [address] [place] [address] Hemoglobin (Bld) [Mass/Vol] 12.7 g/dL Normal 12.0-16.0 [facility] Comment on above: Performed By: #### 2 4323-8 #### [place] ([id number]) [facility] ([facility]) [address] [place] [address] MCH (RBC) [Entitic mass] 30.5 pg Normal 26.0-34.0 [facility] Comment on above: Performed By: #### 2 4323-8 #### [place] (08311) [facility] ([facility]) [address] [place], [place] [address] MCHC (RBC) [Mass/Vol] 32.9 g/dL Normal 32.0-36.0 [facility] Comment on above: Performed By: #### 2 4323-8 #### [place] (66326) [facility] ([facility]) [address] [place], [place] [address] MCV (RBC) [Entitic vol] 93 fL Normal 80-100 [facility] Comment on above: Performed By: #### 2 4323-8 #### [place] (23529) [facility] ([facility]) [address] [place] [address] Nucleated RBC/100 WBC (Bld) [Ratio] 0.0 /100 WBCs Normal 0.0-0.0 [facility] Comment on above: Performed By: #### 2 4323-8 #### [place] (52407) [facility] ([facility]) [address] [place] [address] 78365 Platelets (Bld) [#/Vol] 230 x10*3/uL Normal 150-450 [facility] Comment on above: Performed By: #### 2 432-8 #### [place] (35657) [facility] ([facility]) [address] [place] [address] 59517 RBC (Bld) [#/Vol] 4.16 x10*6/uL Normal 4.00-5.20 [facility] Comment on above: Performed By: #### 2 432-8 #### [place] ([id number]) [facility] ([facility]) [address] [place] [address] 84594 WBC (Bld) [#/Vol] 10.4 x10*3/uL Normal 4.4-11.3 [facility] Comment on above: Performed By: #### 2 4323-8 #### [place] (54308) [facility] ([facility]) [address] [place] [address] 92410 Basic metabolic 2000 panelon 01-29-2024 Anion gap [Moles/Vol] 16 mmol/L Normal 10-20 [facility] Comment on above: Performed By: #### 2 4323-8 #### [place] ([id number]) [facility] ([facility]) [address] [place] [address] 37382 Calcium [Mass/Vol] 8.5 mg/dL Low 8.6-10.3 [facility] Comment on above: Performed By: #### 2 4323-8 #### [place] ([id number]) [facility] ([facility]) [address] [place] [address] 39400 Chloride [Moles/Vol] 104 mmol/L Normal 98-107 [facility] Comment on above: Performed By: #### 2 4323-8 #### [place] (25377) [facility] ([facility]) [address] [place] [address] 17981 CO2 [Moles/Vol] 20 mmol/L Low 21-32 [facility] Comment on above: Performed By: #### 2 4323-8 #### [place] (44508) [facility] ([facility]) [address] [place] [address] 64957 Creatinine [Mass/Vol] 0.96 mg/dL Normal 0.50-1.05 [facility] Comment on above: Performed By: #### 2 4323-8 #### [place] (25022) [facility] ([facility]) [address] [place] [address] 82887 Glomerular filtration rate/1.73 sq M.predicted 67 mL/min/1.73m*2 Normal >60 [facility] Comment on above: Result Comment: Calc ulations of estimated GFR are performed using the 2020 CKD-EPI Study Refit equation without the race variable for the IDMS-Traceable creatinine methods. https://jasn.asnjournals.org/content/early/ASN.104798 7914 Performed By: #### 2 4323-8 #### [place] (15595) [facility] ([facility]) [address] [place] [address] 82153 Glucose [Mass/Vol] 118 mg/dL High 74-99 [facility] Comment on above: Performed By: #### 2 4323-8 #### [place] (55232) [facility] ([facility]) [address] [place] [address] 20772 Potassium [Moles/Vol] 3.1 mmol/L Low 3.5-5.3 [facility] Comment on above: Performed By: #### 2 4323-8 #### [place] (39726) [facility] ([facility]) [address] [place] [address] 46914 Sodium [Moles/Vol] 137 mmol/L Normal 136-145 [facility] Comment on above: Performed By: #### 2 4323-8 #### [place] (04402) [facility] ([facility]) [address] [place] [address] 22158 Urea nitrogen [Mass/Vol] 24 mg/dL High 6-23 [facility] Comment on above: Performed By: #### 2 4323-8 #### [place] (73960) [facility] ([facility]) [address] [place] [address] 57609 CBC panel Auto (Bld)on 01-28 Erythrocyte distribution width (RBC) [Ratio] 12.9 % Normal 11.5-14.5 [facility] Comment on above: Performed By: #### 5 8410-2 #### [place] ([id number]) [facility] ([facility]) [address] [place] [address] Hematocrit (Bld) [Volume fraction] 41.9 % Normal 36.0-46.0 [facility] Comment on above: Performed By: #### 5 8410-2 #### [place] ([id number]) [facility] ([facility]) [address] [place] [address] 50515 Hemoglobin (Bld) [Mass/Vol] 14.1 g/dL Normal 12.0-16.0 [facility] Comment on above: Performed By: #### 5 8410-2 #### [place] (86113) [facility] ([facility]) [address] [place] [address] 19837 MCH (RBC) [Entitic mass] 30.8 pg Normal 26.0-34.0 [facility] Comment on above: Performed By: #### 5 8410-2 #### [place] (65053) [facility] ([facility]) [address] [place] [address] 51503 MCHC (RBC) [Mass/Vol] 33.7 g/dL Normal 32.0-36.0 [facility] Comment on above: Performed By: #### 5 8410-2 #### [place] (50865) [facility] ([facility]) [address] [place] [address] 24207 MCV (RBC) [Entitic vol] 92 fL Normal 80-100 [facility] Comment on above: Performed By: #### 5 8410-2 #### [place] (96530) [facility] ([facility]) [address] [place], [place] [address] Nucleated RBC/100 WBC (Bld) [Ratio] 0.0 /100 WBCs Normal 0.0-0.0 [facility] Comment on above: Performed By: #### 5 8410-2 #### [place] (43633) [facility] ([facility]) [address] [place] [address] 77021 Platelets (Bld) [#/Vol] 295 x10*3/uL Normal 150-450 [facility] Comment on above: Performed By: #### 5 8410-2 #### [place] ([id number]) [facility] ([facility]) [address] [place] [address] 77957 RBC (Bld) [#/Vol] 4.58 x10*6/uL Normal 4.00-5.20 [facility] Comment on above: Performed By: #### 5 8410-2 #### [place] (83809) [facility] ([facility]) [address] [place] [address] 62697 WBC (Bld) [#/Vol] 11.3 x10*3/uL Normal 4.4-11.3 [facility] Comment on above: Performed By: #### 5 8410-2 #### [place] (52873) [facility] ([facility]) [address] [place], [place] [address] Clostridioides difficile tox in A+B tcdA+tcdB geneson 01-29-2024 C. difficile toxin A+B tcdA+tcdB genes ABEL+probe Ql (Stl) Clostridioides difficile toxin A+B tcdA+tcdB genes Not Detected Normal Not Detected [facility] Comment on above: Order Comment: This test [...] By: #### 8 0685-1 #### [place] ([id number]) [facility] ([facility]) [address] [place] [address] Gastrointestinal pathogens i dentifiedon 01-29-2024 Gastrointestinal pathogens [...] Rotavirus RNA Not Detected Normal Not Detected [facility] Comment on above: Performed By: #### 2 4323-8 #### [place] ([id number]) [facility] ([facility]) [address] [place] [address] Bacteria identifiedon 2023 Bacteria identified Cx Nom (U) Test: Urine Culture Specimen Source: Clean Catch/Voided Specimen Type: Urine Specimen Date: 01/28/2024 6:13 PM Result Date: 01/30/2024 8:15 AM Result Status: Final result Abnormal: No Resulting Lab: [facility] [id number] [place] [address] CULTURE No significant growth Normal [facility] Comment on above: Performed By: #### 2 4323-8 #### [place] ([id number]) [facility] ([facility]) [address] [place] [address] CBC panel Auto (Bld)on 01-27 Erythrocyte distribution width (RBC) [Ratio] 12.8 % Normal 11.5-14.5 [facility] Comment on above: Performed By: #### 5 8410-2 #### [place] (55387) [facility] ([facility]) [address] [place] [address] 73749 Hematocrit (Bld) [Volume fraction] 46.8 % High 36.0-46.0 [facility] Comment on above: Performed By: #### 5 8410-2 #### [place] (61559) [facility] ([facility]) [address] [place] [address] 11540 Hemoglobin (Bld) [Mass/Vol] 16.2 g/dL High 12.0-16.0 [facility] Comment on above: Performed By: #### 5 8410-2 #### [place] (11682) [facility] ([facility]) [address] [place] [address] 70473 MCH (RBC) [Entitic mass] 30.9 pg Normal 26.0-34.0 [facility] Comment on above: Performed By: #### 5 8410-2 #### [place] (57832) [facility] ([facility]) [address] [place] [address] 40193 MCHC (RBC) [Mass/Vol] 34.6 g/dL Normal 32.0-36.0 [facility] Comment on above: Performed By: #### 5 8410-2 #### [place] (01774) [facility] ([facility]) [address] [place] [address] 29418 MCV (RBC) [Entitic vol] 89 fL Normal 80-100 [facility] Comment on above: Performed By: #### 5 8410-2 #### [place] (98647) [facility] ([facility]) [address] [place] [address] 32577 Nucleated RBC/100 WBC (Bld) [Ratio] 0.0 /100 WBCs Normal 0.0-0.0 [facility] Comment on above: Performed By: #### 5 8410-2 #### [place] (50790) [facility] ([facility]) [facility] [place] [address] Platelets (Bld) [#/Vol] 339 x10*3/uL Normal 150-450 [facility] Comment on above: Performed By: #### 5 8410-2 #### [place] (92943) [facility] ([facility]) [address] [place] [address] RBC (Bld) [#/Vol] 5.24 x10*6/uL High 4.00-5.20 [facility] Comment on above: Performed By: #### 5 8410-2 #### [place] (13793) [facility] ([facility]) [facility] [place] [address] WBC (Bld) [#/Vol] 10.0 x10*3/uL Normal 4.4-11.3 [facility] Comment on above: Performed By: #### 5 8410-2 #### [place] ([id number]) [facility] ([facility]) [address] [place] [address] CT ABDOMEN PELVIS W IV CONTR Johnnie 01-28-2024 CT ABDOMEN PELVIS W IV CONTRAST Interpreted By: Robbie Diaz, STUDY: CT ABDOMEN PELVIS W IV CONTRAST; 01/28/2024 8:19 pm INDICATION: Signs/Symptoms:vomiting. COMPARISON: None. ACCESSION NUMBER(S): [id number] ORDERING CLINICIAN: MIKE LUCERO TECHNIQUE: Contiguous axial images of the abdomen and pelvis were obtained after the intravenous administration of iodinated contrast. Coronal and sagittal reformatted images were reconstructed from the axial data. FINDINGS: LOWER CHEST: No acute abnormality. ABDOMEN/PELVIS: ABDOMINAL WALL: No significant abnormality. LIVER: The liver is enlarged measuring 17.1 cm in craniocaudal dimension. There are multiple hja-ffuvy-zx-characterize hypodensities in the liver statistically representing benign [...] Robbie Diaz 01/28/2024 9:10 PM Dictation workstation: [id number] Normal [facility] Comprehensive metabolic 2000 panelon 01-28-2024 Albumin BCP dye [Mass/Vol] 4.2 g/dL Normal 3.4-5.0 [facility] Comment on above: Performed By: #### 2 4323-8 #### MADISON LENKA ([id number]) [facility] ([facility]) [address] [place] [address] 72130 ALP [Catalytic activity/Vol] 75 U/L Normal 33-136 [facility] Comment on above: Performed By: #### 2 4323-8 #### MADISON LENKA ([id number]) [facility] ([facility]) [address] [place] [address] 34175 ALT With P-5'-P [Catalytic activity/Vol] 23 U/L Normal 7-45 [facility] Comment on above: Result Comment: Marina ents treated with Sulfasalazine may generate falsely decreased results for ALT. Performed By: #### 2 4323-8 #### [place] (50231) [facility] ([facility]) [address] [place] [address] Anion gap [Moles/Vol] 19 mmol/L Normal 10-20 [facility] Comment on above: Performed By: #### 2 4323-8 #### [place] ([id number]) [facility] ([facility]) [address] [place] [address] AST With P-5'-P [Catalytic activity/Vol] 15 U/L Normal 9-39 [facility] Comment on above: Performed By: #### 2 4323-8 #### [place] ([id number]) [facility] ([facility]) [address] [place] [address] Bilirubin [Mass/Vol] 0.4 mg/dL Normal 0.0-1.2 [facility] Comment on above: Performed By: #### 2 4323-8 #### [place] (32534) [facility] ([facility]) [address] [place] [address] Calcium [Mass/Vol] 9.3 mg/dL Normal 8.6-10.3 [facility] Comment on above: Performed By: #### 2 4323-8 #### [place] (90851) [facility] ([facility]) [address] [place] [address] Chloride [Moles/Vol] 104 mmol/L Normal 98-107 [facility] Comment on above: Performed By: #### 2 4323-8 #### [place] (10829) [facility] ([facility]) [address] [place] [address] CO2 [Moles/Vol] 17 mmol/L Low 21-32 [facility] Comment on above: Performed By: #### 2 4323-8 #### [place] (97973) [facility] ([facility]) [facility] [place] [address] Creatinine [Mass/Vol] 1.07 mg/dL High 0.50-1.05 [facility] Comment on above: Performed By: #### 2 4323-8 #### [place] (63111) [facility] ([facility]) [address] [place] [address] 45891 Glomerular filtration rate/1.73 sq M.predicted 59 mL/min/1.73m*2 Low >60 [facility] Comment on above: Result Comment: Calc ulations of estimated GFR are performed using the 2020 CKD-EPI Study Refit equation without the race variable for the IDMS-Traceable creatinine methods. https://jasn.asnjournals.org/content/early//ASN.946796 5566 Performed By: #### 2 4323-8 #### [place] ([id number]) [facility] ([facility]) [address] [place] [address] 14823 Glucose [Mass/Vol] 158 mg/dL High 74-99 [facility] Comment on above: Performed By: #### 2 4323-8 #### [place] (48551) [facility] ([facility]) [address] [place] [address] 62121 Potassium [Moles/Vol] 3.2 mmol/L Low 3.5-5.3 [facility] Comment on above: Performed By: #### 2 4323-8 #### [place] ([id number]) [facility] ([facility]) [address] [place] [address] 98176 Protein [Mass/Vol] 7.0 g/dL Normal 6.4-8.2 [facility] Comment on above: Performed By: #### 2 4323-8 #### [place] (95442) [facility] ([facility]) [address] [place] [address] 82474 Sodium [Moles/Vol] 137 mmol/L Normal 136-145 [facility] Comment on above: Performed By: #### 2 4323-8 #### [place] ([id number]) [facility] ([facility]) [address] [place] [address] 67733 Urea nitrogen [Mass/Vol] 25 mg/dL High 6-23 [facility] Comment on above: Performed By: #### 2 4323-8 #### [place] ([id number]) [facility] ([facility]) [address] [place], [place] [address] ECG 12-LEADon 01-28-2024 ECG 12-LEAD Ventricular Rate 87 Atrial Rate 87 P-R Interval 128 QRS Duration 92 Q-T Interval 380 QTC Calculation(Bazett) 457 P Hobart 82 R Hobart 60 T Hobart 102 QRS Count 15 Q Onset 229 P Onset 165 P Offset 216 T Offset 419 QTC Fredericia 430 Diagnosis Sinus rhythm with Premature atrial complexes Incomplete right bundle branch block ST & T wave abnormality, consider anterior ischemia Abnormal ECG No previous ECGs available See ED provider note for full interpretation and clinical correlation Confirmed by Shweta Moreno ([id number]) on 01/29/2024 8:55:13 PM Normal [facility] Magnesiumon 01-28-2024 Magnesium [Mass/Vol] 1.83 mg/dL Normal 1.60-2.40 [facility] Comment on above: Performed By: #### 1 9123-9 #### [place] (40108) [facility] ([facility]) [address] [place], [place] [address] Triacylglycerol lipaseon Lipase [Catalytic activity/Vol] 20 U/L Normal 9-82 [facility] Comment on above: Order Comment: Venip uncture immediately after or during the administration of Metamizole may lead to falsely low results. Testing should be performed immediately prior to Metamizole dosing. Performed By: #### 3 040-3 #### [place] ([id number]) [facility] ([facility]) [address] [place] [address] 97806 Troponin I.cardiac panelon 0 01-28-2024 Tropinin I.cardiac panel High sensitivity method 3 ng/L Normal 0-13 [facility] Comment on above: Order Comment: Less than [...] performed using a different testing methodology at [facility] than at other [facility]. Direct result comparisons should only be made within the same method. Performed By: #### [id number] #### [place] ([id number]) [facility] ([facility]) [address] [place] [id number] Urinalysis complete W Reflex Culture panel (U)on 01-28-2024 Appearance (U) Hazy Normal Clear [facility] Comment on above: Performed By: #### [id number] #### [place] ([id number]) [facility] ([facility]) 21 [place] [id number] Bilirubin (U) [Mass/Vol] SMALL (1+) Abnormal NEGATIVE [facility] Comment on above: Performed By: #### 5 8077-9 #### [place] OG ([id number]) [facility] ([facility]) [address] [place] [address] [id number] Color (U) Yellow Normal Straw, Yellow [facility] Comment on above: Performed By: #### 5 8077-9 #### [place]G ([id number]) [facility] ([facility]) [address] [place] [address] 09053 Glucose Auto test strip (U) [Mass/Vol] Negative Normal NEGATIVE [facility] Comment on above: Performed By: #### 5 8077-9 #### [place] ([id number]) [facility] ([facility]) [address] [place] [address] 22408 Ketones (U) [Mass/Vol] 20 (1+) Abnormal NEGATIVE [facility] Comment on above: Performed By: #### 5 8077-9 #### [place] ([id number]) [facility] ([facility]) [address] [place] [address] 44626 Leukocyte esterase Auto test strip Ql (U) TRACE Abnormal NEGATIVE [facility] Comment on above: Performed By: #### 5 8077-9 #### [place] ([id number]) [facility] ([facility]) [address] [place] [address] 39205 Nitrite Auto test strip Ql (U) Negative Normal NEGATIVE [facility] Comment on above: Performed By: #### 5 8077-9 #### [place] ([id number]) [facility] ([facility]) [address] [place] [address] 97649 pH (U) 5.0 [pH] Normal 5.0, 5.5, 6.0, 6.5, 7.0, 7.5, 8.0 [facility] Comment on above: Performed By: #### 5 8077-9 #### [place] ([id number]) [facility] ([facility]) [address] [place] [address] 37285 Protein (U) [Mass/Vol] 100 (2+) Normal NEGATIVE [facility] Comment on above: Performed By: #### 5 8077-9 #### [place] ([id number]) [facility] ([facility]) [address] [place] [address] 86107 RBC (U) [#/Vol] Negative Normal NEGATIVE [facility] Comment on above: Performed By: #### 5 8077-9 #### [place] ([id number]) [facility] ([facility]) [address] [place] [address] 68014 Specific gravity (U) [Rel density] 1.026 Normal 1.005-1.035 [facility] Comment on above: Performed By: #### 5 8077-9 #### [place] ([id number]) [facility] ([facility]) [address] [place] [address] Urobilinogen (U) [Mass/Vol] mg/dL Normal <2.0 [facility] Comment on above: Performed By: #### 5 8077-9 #### [place] ([id number]) [facility] ([facility]) [address] [place] [address] Urinalysis microscopic panel Auto Ql (U)on 01-28-2024 Epithelial cells.squamous Auto (Urine sed) [#/Area] 1-9 (SPARSE) Normal Reference range not established. [facility] Comment on above: Performed By: #### 5 3315-8 #### [place] ([id number]) [facility] ([facility]) [address] [place] [address] Hyaline casts Auto (Urine sed) [#/Area] 2+ /LPF Abnormal NONE [facility] Comment on above: Performed By: #### 5 3315-8 #### [place] ([id number]) [facility] ([facility]) [address] [place] [address] Mucus Auto (Urine sed) [#/Area] 1+ /LPF Normal Reference range not established. [facility] Comment on above: Performed By: #### 5 3315-8 #### [place] ([id number]) [facility] ([facility]) [address] [place] [address] RBC Auto (Urine sed) [#/Area] 1-2 Normal NONE, 1-2, 3-5 [facility] Comment on above: Performed By: #### 5 3315-8 #### [place] ([id number]) [facility] ([facility]) [address] [place] [address] WBC Auto (Urine sed) [#/Area] 1-5 Normal 1-5, NONE [facility] Comment on above: Performed By: #### 5 3315-8 #### [place] ([id number]) [facility] ([facility]) [address] [id number] Vital Signs Date Time Vital Sign Value Performing Clinician Facility 11-08-2024 15:34-0500 Body temperature 98.29 [degF] Perico Pendlebury MRI 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 Work Phone: [facility] 11-08-2024 15:34-0500 Body weight 56 kg Perico Pendlebury MRI 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 Work Phone: [facility] 11-08-2024 15:34-0500 Diastolic blood pressure 77 mm[Hg] Perico Pendlebury MRI 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 Work Phone: [facility] 11-08-2024 15:34-0500 Heart rate 80 /min Perico Pendlebury MRI 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 Work Phone: [facility] 11-08-2024 15:34-0500 Respiratory rate 22 /min Perico Pendlebury MRI 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 Work Phone: [facility] 11-08-2024 15:34-0500 SaO2% (BldA) [Mass fraction] 99 % 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 Work Phone: [facility] 11-08-2024 15:34-0500 Systolic blood pressure 121 mm[Hg] [facility] 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 Work Phone: [facility] 10-23-2024 19:00-0500 Heart rate 74 /min Celina Nolberto DO Work Phone: [facility] 10-23-2024 19:00-0500 Respiratory rate 18 /min Celina Nolberto DO Work Phone: [facility] 10-23-2024 19:00-0500 SaO2% (BldA) [Mass fraction] 100 % Celina Nolberto DO Work Phone: [facility] 10-23-2024 17:45-0500 Body temperature 96.3 [degF] Celina Nolberto DO Work Phone: [facility] 10-23-2024 17:45-0500 Diastolic blood pressure 77 mm[Hg] Celina Nolberto DO Work Phone: [facility] 10-23-2024 17:45-0500 Systolic blood pressure 108 mm[Hg] Celina Nolberto DO Work Phone: [facility] 10-23-2024 16:36-0500 Body height 165.1 cm Celina Nolberto DO Work Phone: [facility] 10-23-2024 16:36-0500 Body mass index (BMI) [Ratio] 21.2 kg/m2 Celina Nolberto DO Work Phone: [facility] 10-23-2024 16:36-0500 Body weight 57.83 kg Celina Nolberto DO Work Phone: [facility] Encounters Encounter Date Encounter Type Care Provider Facility Start: 02-06-2025 ambulatory Celina Arvizu [facility] Faci lity:[facility] Start: 12-24-2024 End: 12-24-2024 ambulatory Celina Lownger DO Work Phone: [facility] Work Phone: Start: 12-24-2024 End: 12-24-2024 Patient encounter procedure Sonia Welch NP-C -Laboratory, [facility] Start: 12-24-2024 End: 12-24-2024 ambulatory Sonia Welch Facility:[facility] Start: 11-08-2024 End: 11-08-2024 Subsequent hospital visit by physician Xr [facility] Work Phone: Radiology Comment on above: Acute cough [R05.1] Start: 11-08-2024 End: 11-08-2024 ambulatory PERICO HAZEL Facility:[facility] Start: 11-08-2024 End: 11-08-2024 Office outpatient new 20 minutes Perico Hazel MRI 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 Work Phone: [facility] Comment on above: Acute cough (Primary Dx); Thrush; Sinobronchitis Start: 10-23-2024 End: 10-23-2024 Emergency department patient visit Dr. Lester Naranjo MD -Emergency Department Work Phone: Start: 09-05-2024 End: 09-05-2024 ambulatory Celina Arvizu VS Facility:[facility] Start: 08-28-2024 End: 08-28-2024 ambulatory Celina Arvizu [facility] Facility:[facility] Start: 08-14-2024 End: 08-14-2024 ambulatory Celina Lownger VS Facility:[facility] Start: 07-04-2024 ambulatory Angel Murrayi ty:[facility] Start: 06-20-2024 End: 06-20-2024 ambulatory Celina Arvizu VS Facility:[facility] Start: 05-22-2024 End: 05-22-2024 ambulatory Celina Arvizu [facility] Facility:[facility] Start: 05-09-2024 End: 05-09-2024 Emergency department patient visit No Primary Care Physician Facility:[facility] Start: 05-06-2024 End: 05-06-2024 Emergency department patient visit Gil Baker Facility:[facility] Start: 03-22-2024 ambulatory Alvarez Razo Fac ility:[facility] Start: 03-22-2024 End: 03-26-2024 Evaluation and management of inpatient Dillon Laguerrechaneljeffery Facility:[facility] Start: 03-21-2024 ambulatory Alvarez Razo Fac ility:[facility] Start: 03-11-2024 End: 03-11-2024 ambulatory Gil Foster Facility:[facility] Start: 01-28-2024 End: 01-30-2024 Evaluation and management of inpatient RADHA PAYTON NATAN [facility] Procedures Date Procedure Procedure Detail Performing Clinician [...] MABEL FLORESCHEM Start: 01-28-2024 MEASURE HEIGHT RADHA FLORESCHEM Start: 01-28-2024 NURSING COMMUNICATION P SUZIE GAMA [...] RSV Vaccine (1 - 1-dose 75+ series) [facility] Start: 03-21-2034 Urine microalbumin profile DTaP,Tdap,Td Vaccine (2 - Td or Tdap) [facility] Start: 10-23-2024 [facility] Start: 10-23-2024 Enteric precautions [facility] Start: 06-23-2024 Covid-19 Vaccine ( season) Covid-19 Vaccine ( season) [facility] Start: 06-23-2024 Influenza vaccination Influenza Vaccine (#1) [facility] Start: 01-06-2012 Screening for malignant neoplasm of lung Lung Cancer Screening [facility] Start: 01-06-2012 Shingrix Vaccine (1 of 2) Shingrix Vaccine (1 of 2) [facility] Start: 2007 Diabetes Screening Diabetes Screening [facility] Start: 2007 Lipid panel Lipid Screening [facility] Start: 2007 Screening for malignant neoplasm of colon [facility] Start: 2002 Screening for malignant neoplasm of breast Mammogram Screening [facility] Start: 1983 Screening for malignant neoplasm of cervix Cervical Cancer Screening [facility] Start: 1981 Pneumococcal Vaccine: 50+ (1 of 2 - PCV) Pneumococcal Vaccine: 50+ (1 of 2 - PCV) [facility] Start: 01-06-1980 Anxiety Screening Anxiety Screening [facility] Start: 01-06-1980 Depression Screening Depression Screening [facility] Start: 01-06-1980 Hepatitis C screening Hepatitis C Screening [facility] Start: 01-06-1980 HIV screening HIV Screening [facility] Patient Education ED Bronchitis, No Antibiotic (Adult) ED Gastroenteritis, Noninfectious [facility] Work Phone: Patient referral [facility] Work Phone: Immunizations Immunization Date Immunization Notes Care Provider Kaylyn astudillo 03-21-2024 tetanus toxoid, reduced diphtheria toxoid, and acellular pertussis vaccine, adsorbed Celina Arvizu DO Work Phone: [facility] 08-29-2022 influenza virus vaccine, unspecified formulation Perico Hazel APRN.BILLET HEATER OPERATOR Work Phone: [facility] Payers Date Payer Category Payer Self-pay 2010 Medicare MEDICARE MEDICAR E A AND B [id number] 2010-Present [phone] [address] [address] [place] [address] Medicare [id number] 2010 Medicare [id number] 1960 Unknown [id number] 3 Unknown [id number] [id number] Unknown [id number] 2.16.840.1.419648.3.579.2.462 Unknown [id number] 2.16.840.1.025981.3.579.2.462 Unknown [id number] 2.16.840.1.062415.3.579.2.462 Unknown [id number] 2.16.840.1.878335.3.579.2.462 Unknown [id number] 2.16.840.1.187092.3.579.2.462 Unknown [id number] 2.16.840.1.105812.3.579.2.462 Unknown [id number] 2.16.840.1.650368.3.579.2.462 Unknown [id number] 2.16.840.1.128289.3.579.2.462 Unknown [id number] 2.16.840.1.682537.3.579.2.462 Unknown [id number] 2.16.840.1.927492.3.579.2.462 Unknown [id number] 2.16.840.1.396508.3.579.2.462 Unknown [id number] 2.16.840.1.856608.3.579.2.462 Unknown [id number] 2.16.840.1.456536.3.579.2.462 Unknown [id number] 2.16.840.1.008607.3.579.2.462 Unknown [id number] 2.16.840.1.225289.3.579.2.462 Unknown [id number] 2.16.840.1.083836.3.579.2.462 Unknown [id number] 2.16.840.1.314782.3.579.2.462 Unknown [id number] 2.16.840.1.730069.3.579.2.462 Unknown [id number] 2.16.840.1.636203.3.579.2.462 Social History Date Type Detail Facility Start: 10-23-2024 End: 11-08-2024 Tobacco smoking status NHIS Smokes tobacco daily [facility] Start: 10-23-1978 History of tobacco use Cigarette Smo ker [facility] Start: 11-08-2024 Cigarettes smoked current (pack per day) - Reported 1 [facility] Start: 11-08-2024 Tobacco use and exposure Smokeless tobacco non-user [facility] Start: 11-08-2024 Tobacco use panel [facility] Start: 1960 Sex assigned at Not on file [facility] Start: 2025 Sex Female (finding) [facility] Start: 1960 Sex Assigned At Female [facility] History of Present illness Narrative 11-08-2024 [...] PATIENT PRESENTS WITH AN IMPLANTABLE OR ATTACHED SHEET METAL JOURNEYMAN: No RADIOLOGY DEPARTMENT: General X-ray: Exam(s) Completed: Chest X-Ray PERIPHERAL IV DATA: Not applicable SIGNED BY: RT Eliana(R) November 08, 2024 3:47 PM documented in this encounter [facility] Progress note 11-08-2024 Note Date & Type Note Facility 11-08-2024 Note HNO ID: [id number] Author: RIGO YORK RT(R) Service: Radiology Author [...] PATIENT PRESENTS WITH AN IMPLANTABLE OR ATTACHED SHEET METAL JOURNEYMAN: No RADIOLOGY DEPARTMENT: General X-ray: Exam(s) Completed: Chest X-Ray PERIPHERAL IV DATA: Not applicable SIGNED BY: RT Eliana(R) November 08, 2024 3:47 PM [facility] Progress note 11-08-2024 Note Date & Type Note Facility 11-08-2024 Note HNO ID: [id number] Author: PERICO HAZEL APRN.BILLET HEATER OPERATOR Service: ? Author Type: Nurse Practitioner Type: [...] worsening, or symp (more content not included)... [facility] History of Present illness Narrative 11-08-2024 Perico Hazel APRN.BILLET HEATER OPERATOR - 11/08/2024 3:40 PM EST Note Date [...] of care. This note was generated using [employer] software. It may contain errors in wording, punctuation, or spelling. Perico Hazel APRN.BILLET HEATER OPERATOR documented in this encounter [facility] Discharge summary note 03-26-2024 Note Date & Type Note Facility 03-26-2024 Note [facility] Discharge summary note 03-11-2024 Note Date & Type Note Facility 03-11-2024 Note [facility] Evaluation note Note Date & Type Note Facility Evaluation note Diagnosis Acute cough- Primary Thrush Candidiasis of mouth Sinobronchitis Unspecified sinusitis (chronic) Acute cough documented in this encounter [facility] Evaluation note Note Date & Type Note Facility Evaluation note Diagnosis Acute cough documented in this encounter [facility] Evaluation note Note Date & Type Note Facility Evaluation note No assessment information availa ble [facility] Work Phone: Reason for referral (narrative) Note Date & Type Note Facility Reason for referral (narrative) No reason for referral information available [facility] Work Phone: Summary Purpose Family History No Family History Records FoundNo Family History Records FoundNo Family History Records FoundNo Family History Records Found Advance Directives No Advanced Directives Records Found Advance Directive Response Recorded Date/ Time Living Will No October 23 6:41pm Power of Strategic Debriefing Officer No October 23 025 6:41pm Chief Complaint and Reason for Visit Chief Complaint Admit Date diarrhea, cough October 23, 2024 4: 35pm Additional Source Comments INFORMATION SOURCE (unrecogn ized section and content) DATE CREATED AUTHOR 01/30/2024 [facility] DATE CREATED AUTHOR AUTHOR'S ORGANIZ ATION 02/01/2024 [facility] DATE CREATED AUTHOR AUTHOR'S ORGANIZ ATION 01/12/2025 [facility] DATE CREATED AUTHOR AUTHOR'S ORGANIZ ATION 02/08/2025 [facility] Source Comments (unrecognize d section and content) In the event this informatio n is protected by the Federal Confidentiality of Alcohol and Drug Abuse Patient Records regulations: The Federal rules restrict any use of the information to criminally investigate or prosecute any alcohol or drug abuse patient[facility] the event this information is protected by the Federal Confidentiality of Alcohol and Drug Abuse Patient Records regulations: The Federal rules restrict any use of the information to criminally investigate or prosecute any alcohol or drug abuse patient.[facility] Reason for Visit (unrecogniz ed section and [...] BE BASED ON THE PRIMARY CLINICAL RECORDS. [employer] provides no warranty or guarantee of the accuracy or completeness of information in this document.
[2025-05-01 23:46] VITALS: BMI 20.9
[2025-05-02] VITALS (10 sets, daily range): BP systolic 101–117; BP diastolic 61–79; PULSE 54–72; RESP 12–18; TEMP 35.5–36.8; O2SAT 94–100
[2025-05-02] MEDS: Lactated Ringers 1,000 ML 1000 ML IV (00:35)
--- NOTE | 2025-05-02 01:45 | NURSING ---
soft wrist restraints applied at 0145. good circulation noted bilaterally
[2025-05-02] MEDS: Lorazepam 2 MG/ML WCH Syringe IM (01:53)
[2025-05-02] MEDS: Potassium Chloride Oral Tablet 20 MEQ 40 MEQ PO (02:02)
--- NOTE | 2025-05-02 02:36 | NURSING ---
0055: pt was up to BR, had a small liquid BM. pt began yelling out of nowhere stating that i have a right to leave ya know. when this RN questioned pt on why she was wanting to leave, pt kept repeating i can leave, i can leave. pt is A&Ox2 for this RN. pt adamant wanting to leave AMA. deescalation attempts made and education provided. pt yelling in staff faces', threatening to jovanna, and stating fuck you over and over again. pt getting dressed to leave. security was called in hopes to deescalate further. pt called [facility]. This RN called [facility] and new orders for Haldol 4mg IM x1 received. [place] [employer] enters pts room, pt yelling and cursing and threatening to push past us to leave. [place] [employer] questioning whether pt is invol psych hold or not. This RN called [facility] and [facility] came to the floor and stated he is placing pt in invol medical hold at 0122. new orders for soft wrist restraints: applied at 0145. pt still yelling and cursing and attempting to get OOB, new orders for ativan 2mg IM x1. 0200: VSS, pt more relaxed, dosing on and off.
--- NOTE | 2025-05-02 03:23 | PCM.HOSP.N ---
Hospitalist Note Notified by nursing around 1 AM patient was becoming combative with staff. Patient had gotten dressed and was asking to leave AMA. However, she remained confused and could not answer orientation questions. She was given a dose of IM Haldol 4 mg without response. Security was called and she was placed in bed in soft wrist restraints. I then saw the patient at bedside. Patient asked to leave AMA and was verbally abusive to me and other staff when I noted that she did not have medical capacity to leave. Similar to on admission, she could tell me that she was in the hospital but she did not know the month or year and she had poor insight into her medical condition. At that time I opted to give her a dose of IM Ativan 1 mg and shortly afterward she became less combative and then fell asleep. Has now been sleeping soundly for the past hour or so. Medical hold order placed in the chart and nonviolent wrist restraints order signed as well.
[2025-05-02 05:46] LABS: Hematocrit 36.4 % (37-47); Hemoglobin 11.8 g/dL (12.0-15.0); Mean Corp Hgb Conc 32.4 g/dL (32-36); Mean Corpuscular Volume 93.1 fL (81-99); Mean Platelet Vol. 9.3 fl (6.2-12.0); Platelet Count 260 K/mm3 (150-450); RBC Distribution Width CV 14.8 % (11.6-14.6); RBC Distribution Width SD 51.0 fl (35.1-43.9); Red Blood Count 3.91 M/mm3 (4.2-5.4); White Blood Count 8.5 K/mm3 (4.4-11.0)
[2025-05-02 06:06] LABS: Scan Indicated on CBC? Y/N NO
--- NOTE | 2025-05-02 06:17 | NURSING ---
pt cooperative, drowsy but follows commands. bilateral soft wrist restraints removed at this time
[2025-05-02 06:36] LABS: Anion Gap 10 (5-15); BUN 12 mg/dL (4-19); BUN/Creat Ratio 16.5 RATIO (10-20); Calcium,Total 7.9 mg/dL (7.6-11.0); Carbon Dioxide 18.8 mmol/L (21.0-32.0); Chloride 116 mmol/L (98-108); Estimated Creatinine Clearance 69.09 ml/min (50-250); Glucose 84 mg/dL (70-99); Potassium 3.5 mmol/L (3.3-5.1)
[2025-05-02] MEDS: Magnesium Chloride 64 MG Delay Rel.Tablet 128 MG PO ×2 (09:58→21:22)
[2025-05-02] MEDS: Ensure Plus High Protein 120 ML LIQUID PO ×3 (10:05→16:56)
--- NOTE | 2025-05-02 11:32 | CASEMGMT ---
Social Work- SW met with pt to discuss discharge planning, as pt was reported to be cognitively cleared. SW introduced self and role. Pt was sitting on bed eating breakfast. Pt was observed to slump and drift to the left while eating. Pt head nodded and remained in a downward facing position. SW observed that pt slurred words, mumbled, and spoke intelligibly. Pt repeated words and phrases frequently. Pt reported that she lived on [address] Pt could not recall where. [facility] Pt confirmed and reported living there since October. Pt could not recall apartment number, providing SW with3 different numbers. Pt reports that Ania is contact. When SW asked who Ania is, pt replied a child of the living God who knows who I am. Pt reports that they denied the happenings that are going to happen to them; they don't deserve to know exact merced on. Pt could not stay awake to provide information. Pt began leaning backwards in bed with food in her mouth. SW repeatedly had to wake pt up. Pt began flicking phone instead of pushing screen to look for a phone number. Physician updated. Physician provided a name and phone number provided by Jaycee for a Marla Pace that is a disconnected number. Physician updated. [facility] is a [facility] on independent living side; no other information known. SW remains available to follow. KAHLIL Leung
--- NOTE | 2025-05-02 15:20 | PCM.PN.HOSP ---
Reason for Visit Reason for Visit: Diagnoses Altered mental status, unspecified (05/01/25) Subjective Subjective Patient was seen and examined today, she remains confused, we were not able to contact anyone in regard to the patient, patient would like to be discharged, we are unsure whether she even has a place to live and she is acting somnolent and lethargic, socially responsible investment adviser is attempting to reach Objective Data Objective Data Vital Signs: Vital Signs Temp Pulse Resp BP Pulse Ox O2 Del Method 97.8 F 72 12 111/79 97 Room Air 05/02/25 10:07 05/02/25 10:07 05/02/25 10:07 05/02/25 10:07 05/02/25 13:50 05/02/25 13:50 Oxygen Delivery Method Room Air Weight: 57.243 kg Body Mass Index (BMI) 20.9 Intake & Output: Intake and Output for Last 24 Hours 04/30/25 05/01/25 05/02/25 23:59 23:59 23:59 Intake Total 1999 1000 / 1000 Balance 1999 1000 / 1000 Lab / Micro Data 05/02/25 05:29 05/02/25 05:29 Labs: Laboratory Results - last 24 hr 05/01/25 14:55: WBC 9.0, RBC 4.00 L, Hgb 12.2, Hct 37.4, MCV 93.5, MCH 30.5, MCHC 32.6, RDW Std Deviation 51.0 H, RDW Coeff of Jessica 14.7 H, Plt Count 296, MPV 10.4, Immature Gran % (Auto) 0.200, Neut % (Auto) 56.4, Lymph % (Auto) 32.2, [place] % (Auto) 8.1, Eos % (Auto) 2.0, Baso % (Auto) 1.1 H, Absolute Neuts (auto) 5.1, Absolute Lymphs (auto) 2.89, Nucleated RBC % 0, PT 15.1 H, INR 1.2, APTT 28.9, Sodium 144, Potassium 3.1 L, Chloride 106, Carbon Dioxide 23.5, Anion Gap 14, BUN 18, Creatinine 1.21 H, Estim Creat Clear Calc 42.82 L, Est GFR (MDRD) Non-Af 50 L, BUN/Creatinine Ratio 15.1, Glucose 89, Lactic Acid < 1.0, Calcium 9.6, Phosphorus 4.7 H, Magnesium 2.3 H, Total Bilirubin 0.16, AST 31, ALT 42 H, Alkaline Phosphatase 133 H, Ammonia 26.6, Total Protein 6.4, Albumin 3.9, Globulin 2.5, Albumin/Globulin Ratio 1.6, TSH 0.198 L, Free T4 1.20 05/01/25 16:50: Urine Color Yellow, Urine Clarity Clear, Urine pH 7.0, Ur Specific [place] 1.010, Urine Protein 15 H, Urine Glucose (UA) Normal, Urine Ketones 5 H, Urine Occult Blood Negative, Urine Nitrite Negative, Urine Bilirubin Negative, Urine Urobilinogen Normal, Ur Leukocyte Esterase 500 H, Urine RBC 0-5 SEEN, Urine WBC 0-5 SEEN, Ur Squamous Epith Cells 0-5 SEEN, Ur Transition Epith Cell 0 SEEN, Urine Bacteria RARE, Urine Mucus 0 SEEN, Urine Opiates Screen NEGATIVE, U Buprenorphine Qual NEGATIVE, Ur Oxycodone Screen NEGATIVE, Urine Methadone Screen NEGATIVE, Urine Fentanyl Screen NEGATIVE, Ur Barbiturates Screen NEGATIVE, Ur Phencyclidine Scrn NEGATIVE, Ur Amphetamines Screen NEGATIVE, U Benzodiazepines Scrn NEGATIVE, Urine Cocaine Screen NEGATIVE, U Cannabinoids Screen PRESUMPTIVE POSITIVE 05/01/25 17:35: Ethyl Alcohol < 10.1 05/02/25 05:29: WBC 8.5, RBC 3.91 L, Hgb 11.8 L, Hct 36.4 L, MCV 93.1, MCH 30.2, MCHC 32.4, RDW Std Deviation 51.0 H, RDW Coeff of Jessica 14.8 H, Plt Count 260, MPV 9.3, Sodium 144, Potassium 3.5, Chloride 116 H, Carbon Dioxide 18.8 L, Anion Gap 10, BUN 12, Creatinine 0.75, Estim Creat Clear Calc 69.09, Est GFR (MDRD) Non-Af 90, BUN/Creatinine Ratio 16.5, Glucose 84, Calcium 7.9 Micro: Microbiology 05/02/25 01:00 Stool Clostridioides difficile (PCR) - Final Radiography Diagnostic Testing: Radiology Impression Brain CT 05/01/25 16:10 IMPRESSION: Stable examination, without acute intracranial process noted. Reading Location: [id number] Chest X-Ray 05/01/25 16:15 IMPRESSION: Lungs are significantly hypoinflated, but no gross acute pneumonic process is seen. No pleural effusion or pneumothorax is noted. The cardiomediastinal silhouette is stable, without evidence of cardiomegaly. No interval osseous change is identified. Reading Location: [id number] Physical Exam Const alert, no apparent distress and healthy appearing Constitutional Narrative: Patient appears older than her stated age General Appearance: cooperative, well kempt and well developed Orientation / Consciousness: awake, oriented to person and oriented to place HEENT normocephalic, head/scalp atraumatic and moist oral mucous membranes Eyes PERRL, EOMs intact bilaterally and conjunctivae normal Neck supple, no JVD, thyroid normal and no carotid bruits General: trachea midline Resp normal respiratory effort, no retractions, no use of accessory muscles and clear to auscultation bilaterally Auscultation: Negative for rales, rhonchi or wheezes Cardio regular rate, regular rhythm, S1 normal heart sound, S2 normal heart sound, no murmurs, no rub and no gallops GI normal to inspection, nondistended, normoactive bowel sounds, soft to palpation, non-tender and non-distended Extremity no clubbing, cyanosis or edema Skin no rashes or lesions noted General Skin Exam: no breakdown Neuro CN's II-XII intact bilaterally, no focal motor deficits and no sensory deficits noted Neuro Narrative: Patient is confused and delusional at times, she does know who she has and she knows where she is at Sensorium / Orientation: awake, alert, oriented to person and oriented to place Speech: speech normal Psych Psych Narrative: Patient is delusional and shows signs of confusion Assessment & Plan Assessment/Plan (1) Acute alteration in mental status: PLAN: Plan 1. Metabolic encephalopathy-etiology unclear, I feel the patient is not safe to be discharged, I am unsure where she is even living and we have no contact acid plant operator as of this afternoon to give us any information on her. Patient will remain here and be observed. I have decided to markedly decrease the patient's gabapentin and remove any sedating drugs such as baclofen and melatonin. 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
[2025-05-02] MEDS: 0.9% Saline Lock 10 ML Syringe IV (21:20)
[2025-05-02] MEDS: Fluticasone 0.05% 1 SPRAY NASAL.SRY NASAL (23:59)
[2025-05-03 02:15] VITALS: BP 105/65; PULSE 58; RESP 16; TEMP 36.6; O2SAT 98
[2025-05-03 07:45] VITALS: O2SAT 96
[2025-05-03 08:41] VITALS: BP 105/67; PULSE 64; RESP 14; TEMP 36.7; O2SAT 100
[2025-05-03] MEDS: Fluticasone 0.05% 1 SPRAY NASAL.SRY NASAL (08:50)
[2025-05-03 08:51] VITALS: PULSE 66
[2025-05-03] MEDS: Magnesium Chloride 64 MG Delay Rel.Tablet 128 MG PO (08:52)
[2025-05-03] MEDS: Ensure Plus High Protein 120 ML LIQUID PO ×2 (08:55→14:17)
--- NOTE | 2025-05-03 10:09 | CASEMGMT ---
VINOD MCCOY in to complete BARRETT form. RN DARIUS explained BARRETT Form to patient, patient voiced understanding. Patient signed BARRETT Form and filed in chart. Patient provided copy of signed BARRETT Form. Patient had no further questions or concerns.
[2025-05-03 14:19] VITALS: BP 109/66; PULSE 63; RESP 16; TEMP 36.9; O2SAT 98
--- NOTE | 2025-05-03 14:44 | DCINST_ITS ---
Discharge Instructions DC O2, CPAP, BIPAP needs Home O2 Discharge instructions: No Dressing / Incision Discharge Activity: Return to Normal Activity Weight Bearing Status: Full weight bearing Follow Up Care Test Results: Test results from this visit will be discussed in further detail at your follow- up appointment, if applicable. Discharge Plan Admission Admit Date/Time: 05/01/25 22:08 Primary Reason for Your Visit: Encephalopathy, weakness Attending Provider: Cabrera Smith Primary Care Provider: Celina Arvizu Consulting Providers: Alvarez Razo Discharge Orders/Prescriptions Prescriptions: New amitriptyline 25 mg Tablet 25 mg PO QHS Qty: 30 0RF gabapentin 100 mg Capsule 100 mg PO TIDCM Qty: 90 0RF Continued metoprolol tartrate 25 mg tablet 25 mg PO BID melatonin 10 mg capsule 10 mg PO HS PRN (Reason: sleep) aspirin 81 mg capsule 81 mg PO DAILY celecoxib [Celebrex] 200 mg capsule 200 mg PO BID topiramate [Topamax] 100 mg tablet 100 mg PO BID magnesium 250 mg tablet 250 mg PO BID duloxetine [Cymbalta] 60 mg capsule,delayed release(DR/EC) 60 mg PO DAILY Qty: 30 0RF cyanocobalamin (vitamin B-12) 1,000 mcg/mL solution 1,000 mcg subcut QWEEK zinc gluconate 50 mg tablet 50 mg PO DAILY acetaminophen 500 mg Tablet 1,000 mg PO .Q8 PRN Discontinued diphenhydramine HCl [Allergy (diphenhydramine)] 25 mg tablet 50 mg PO Q4H gabapentin 600 mg tablet 600 mg PO TIDCM Patient Comments: Takes 600mg po in am Takes 600mg po at noon Takes 1800 mg po at HS Rx Instructions: Takes 600mg po in am Takes 600mg po at noon Takes 1800 mg po at HS baclofen 20 mg tablet 20 mg PO TID amitriptyline 50 mg tablet 50 mg PO QHS Qty: 30 0RF Referrals / Follow Up: Celina Arvizu, [Primary Care Provider] - Within 2 Weeks Disposition Disposition (needs filled in before D/C Order can be placed): Home, Self Care
--- NOTE | 2025-05-03 14:44 | CASEMGMT ---
Social Work Pt is much improved today with cognition and function. Per physician, pt is ready for discharge. SW met with pt who confirms she is ready for discharge. SW inquired about transportation home and pt states her friend Ghazal Schuster ([phone]) can be called. SW called Ghazal and she will pick pt up at 3:45. Physician and nurse notified. Nurse to have pt at the main entrance at 3:45. Ghazal's number entered on pt's face sheet. KAHLIL Young
--- NOTE | 2025-05-03 14:53 | PCM.DC.SUM ---
Providers Date of Admission: 05/01/25 Date of Discharge: 05/03/25 Primary Care Physician: Celina Arvizu [facility], DO Reason For Visit: AMS W/WEAKNESS Diagnosis Discharge Diagnosis (1) Acute alteration in mental status: Status: Acute Code(s): R41.82 - Altered mental status, unspecified Plan 1. Metabolic encephalopathy-etiology unclear, I feel the patient is not safe to be discharged, I am unsure where she is even living and we have no psychologist military personnel as of this afternoon to give us any information on her. Patient will remain here and be observed. I have decided to markedly decrease the patient's gabapentin and remove any sedating drugs such as baclofen and melatonin. 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-complicates care, management, recovery, and prognosis #4 chronic anxiety/depression-patient is on Cymbalta Total clinical time spent by myself addressing the patient's medical issues, reviewing all of her data, and collaborating with patient's care team: 35 minutes Medications at Discharge Home Medications aspirin 81 mg capsule 81 mg PO DAILY 03/10/24 celecoxib 200 mg capsule (Celebrex) 200 mg PO BID 03/11/24 topiramate 100 mg tablet (Topamax) 100 mg PO BID 03/11/24 duloxetine 60 mg capsule,delayed release (Cymbalta) 60 mg PO DAILY #30 caps 05/09/24 magnesium 250 mg tablet 250 mg PO BID 05/09/24 melatonin 10 mg capsule 10 mg PO HS PRN sleep 01/29/25 metoprolol tartrate 25 mg tablet 25 mg PO BID 01/29/25 acetaminophen 500 mg tablet 1,000 mg PO .Q8 PRN 05/02/25 cyanocobalamin (vitamin B-12) 1,000 mcg/mL injection solution 1,000 mcg subcut QWEEK 05/02/25 zinc gluconate 50 mg tablet 50 mg PO DAILY 05/02/25 amitriptyline 25 mg tablet 25 mg PO QHS #30 tabs 05/03/25 gabapentin 100 mg capsule 100 mg PO TIDCM #90 caps 05/03/25 Hospital Course Operations None Procedures None Summary of Care Provided Minutes Spent on Discharge: 31 Hospital Course: This 65-year-old white female was seen in the emergency room at [facility] with generalized weakness and complaints of falling frequently. On evaluation, patient was not making sense, labs were obtained, CBC was unremarkable, potassium was low at 3.1, creatinine was elevated 1.21, ALT was slightly elevated at 42, alkaline phosphatase was elevated at 133, UA was unremarkable, tox screen was presumed positive for cannabinoids, ethyl alcohol level was less than 10.1. Patient was placed in observation status on MedSurg 3, she remained confused and lethargic for the next 24 hours, the second day of her hospitalization, she was alert and appropriate. I made several changes to her home medications, it is unknown whether the patient could have taken too much of her home medication (gabapentin) and this is what caused her to be confused. On 05/03/2025, patient was seen and examined: On examination she appeared in good health and spirits, she does not appear to be in any distress. Vital signs as documented. Skin warm and dry and without overt rashes. Neck without JVD, thyroid appears normal, trachea is midline, neck is supple. Lungs clear, normal air movement was noted. Heart exam notable for regular rhythm, normal sounds and absence of murmurs, rubs or gallops. Abdomen unremarkable and without evidence of organomegaly, masses, or abdominal aortic enlargement, bowel sounds are present in all 4 quadrants, no abdominal tenderness was noted. Extremities nonedematous, no cyanosis was noted, no clubbing was noted. Neuro: Cranial nerves II through XII are grossly intact, no focal motor deficits were noted, sensation to light touch and pinprick is intact, motor exam 5/5 throughout. Psych: Patient is alert and oriented x3, she does not appear anxious or depressed, she does not appear agitated. Patient was discharged home in stable condition on 05/03/2025. Weight / BMI Weight Weight: 57.243 kg Body Mass Index (BMI) 20.9 ABG / Lab / Microbiology Data 05/02/25 05:29 05/02/25 05:29 Microbiology: Microbiology 05/02/25 01:00 Stool Enteric Bacteriology - Final 05/02/25 01:00 Stool Clostridioides difficile (PCR) - Final D/C Instructions Weight Bearing Status: Full weight bearing DC O2, CPAP, BIPAP Needs Home O2 Discharge instructions: No Meaningful Use Info Meaningful Use Meaningful Use Diagnoses (Choose all that apply): None applicable Discharge Plan Admission Admit Date/Time: 05/01/25 22:08 Primary Reason for Your Visit: Encephalopathy, weakness Attending Provider: Cabrera Smith Primary Care Provider: Celina Arvizu Consulting Providers: Alvarez Razo Discharge Orders/Prescriptions Prescriptions: New amitriptyline 25 mg Tablet 25 mg PO QHS Qty: 30 0RF gabapentin 100 mg Capsule 100 mg PO TIDCM Qty: 90 0RF Continued metoprolol tartrate 25 mg tablet 25 mg PO BID melatonin 10 mg capsule 10 mg PO HS PRN (Reason: sleep) aspirin 81 mg capsule 81 mg PO DAILY celecoxib [Celebrex] 200 mg capsule 200 mg PO BID topiramate [Topamax] 100 mg tablet 100 mg PO BID magnesium 250 mg tablet 250 mg PO BID duloxetine [Cymbalta] 60 mg capsule,delayed release(DR/EC) 60 mg PO DAILY Qty: 30 0RF cyanocobalamin (vitamin B-12) 1,000 mcg/mL solution 1,000 mcg subcut QWEEK zinc gluconate 50 mg tablet 50 mg PO DAILY acetaminophen 500 mg Tablet 1,000 mg PO .Q8 PRN Discontinued diphenhydramine HCl [Allergy (diphenhydramine)] 25 mg tablet 50 mg PO Q4H gabapentin 600 mg tablet 600 mg PO TIDCM Patient Comments: Takes 600mg po in am Takes 600mg po at noon Takes 1800 mg po at HS Rx Instructions: Takes 600mg po in am Takes 600mg po at noon Takes 1800 mg po at HS baclofen 20 mg tablet 20 mg PO TID amitriptyline 50 mg tablet 50 mg PO QHS Qty: 30 0RF Referrals / Follow Up: Celina Arvizu, [Primary Care Provider] - Within 2 Weeks Disposition Disposition (needs filled in before D/C Order can be placed): Home, Self Care Charges/Coding Visit Charges Inpatient E&M: 37774 Disch Hosp >30min
== END 2025-05-03 15:55 | disposition home or self-care (01) ==
LOC: ED 22:11 → MS3 22:22
PROVIDERS: Admitting Provider Hospitalist; Emergency Provider Emergency Medicine; PCP Family Medicine; Referring Provider Emergency Medicine; Visit Provider Internal Medicine
DX: G93.41 Metabolic encephalopathy (principal); R53.1 Weakness; F41.8 Other specified anxiety disorders; G89.4 Chronic pain syndrome; Z79.82 Long term (current) use of aspirin; R29.6 Repeated falls; K21.9 Gastro-esophageal reflux disease without esophagitis; I25.2 Old myocardial infarction; Z79.899 Other long term (current) drug therapy; F17.210 Nicotine dependence, cigarettes, uncomplicated; R94.6 Abnormal results of thyroid function studies; M51.34 Other intervertebral disc degeneration, thoracic region; I47.10 Supraventricular tachycardia, unspecified; E87.6 Hypokalemia; R79.89 Other specified abnormal findings of blood chemistry; Z59.00 Homelessness unspecified; G43.909 Migraine, unspecified, not intractable, without status migrainosus
CPT/HCPCS: 36415; 70450; 71046; 80048; 80053; 80307; 81001; 82077; 82140; 83605; 83735; 84100; 84439; 84443; 85025; 85027; 85610; 85730; 87493; 87506; 94668; 96361; 96372; 96374; 99221; 99284; 99406; A4216; G0378; J2405

== ENCOUNTER 2025-08-27 19:06 | Emergency (ER) | payer MEDICARE, SELFPAY ==
[2025-08-27 19:07] VITALS: BP 113/72; PULSE 110; RESP 18; TEMP 37.4; O2SAT 100; BMI 23.5
[2025-08-27 19:10] VITALS: BP 113/72; PULSE 110; RESP 18; TEMP 37.4; O2SAT 100
--- NOTE | 2025-08-27 19:31 | ED.VIS.DENTA ---
HPI History of Present Illness Chief Complaint: Dental Informant: patient Narrative Narrative: 65-year-old female presenting to the emergency room with dental abscess. Patient states she began to have pain in the left mandibular region little over a week ago. She was placed on doxycycline by her provider. She states that she started amoxicillin on 08/25 because it was not any better. She has a dental appointment on 03 September. She is been taking Tylenol and ibuprofen for pain. She has not felt feverish at home. Triage note notes her temperature here to be 99.4 with a slight tachycardia. Patient states she has pain with swallowing. She states she has very poor dentition. She has not experienced any rash. [facility] Medical History Acute alteration in mental status Smoker Mixed anxiety and depressive disorder Pain in thoracic spine Other chronic pain Vitamin B12 deficiency GERD (gastroesophageal reflux disease) Migraines Insomnia Depression Chronic back pain PSVT (paroxysmal supraventricular tachycardia) Rhabdomyolysis Heart attack Pain management Home Medications ?Medication ?Instructions ?Recorded ?Last Taken ?Type aspirin 81 mg capsule 81 mg PO DAILY 03/10/24 Unknown History celecoxib 200 mg capsule (Celebrex) 200 mg PO BID 03/11/24 Unknown History topiramate 100 mg tablet (Topamax) 100 mg PO BID 03/11/24 Unknown History duloxetine 60 mg capsule,delayed 60 mg PO DAILY #30 caps 05/09/24 Unknown Rx release (Cymbalta) metoprolol tartrate 25 mg tablet 12.5 mg PO BID 01/29/25 Unknown History amitriptyline 25 mg tablet 50 mg PO QHS 08/27/25 Unknown History amoxicillin 500 mg capsule 500 mg PO TID 08/27/25 Unknown History baclofen 20 mg tablet 20 mg PO TID 08/27/25 Unknown History gabapentin 100 mg capsule 800 mg PO .5xdaily 08/27/25 Unknown History Allergy/AdvReac Type Severity Reaction Status Date / Time diltiazem (From Cardizem) Allergy Severe Angioedema Verified 08/27/25 19:06 meloxicam Allergy Intermediate Pain in Verified 08/27/25 19:06 joints oxybutynin Allergy Unknown NEEDS Verified 08/27/25 19:06 FOLLOW-UP Surgical History History of back surgery Social History Smoking Status: Current every day smoker tobacco type: cigarettes alcohol intake: never substance use type: does not use caffeine: Yes ROS ROS ED Constitutional Constitutional ED: Denies chills or weight loss Eyes Eyes: Denies change in vision or diplopia ENT ENT ED: Reports other Details: See history of present illness ; Denies ear pain, rhinorrhea or sore throat Cardiovascular Cardiovascular: Denies chest pain, orthopnea, palpitations or racing heartbeat Respiratory/Chest Respiratory/Chest: Denies cough, dyspnea or orthopnea Gastrointestinal Gastrointestinal: Denies abdominal pain, diarrhea, nausea or vomiting Genitourinary Genitourinary ED: Denies dysuria, hematuria or urinary frequency Musculoskeletal Musculoskeletal: Denies arthralgias or myalgias Integumentary Denies abscess or rash Neurologic Neurologic: Denies headache(s) or weakness Psychiatric Psychiatric: Denies anxiety, depression, suicidal ideation or suicidal thoughts Endocrine Endocrinology: Denies polydipsia, polyphagia or polyuria Allergic/Immunologic Allergic/Immunologic ED: Denies mouth swelling, tongue swelling or urticaria EXAM Physical Exam Const Vital Signs: 08/27/25 19:07 08/27/25 19:10 08/27/25 22:09 Temperature 99.4 F H 99.4 F H 98.9 F Temperature Source Oral Oral Oral Pulse Rate 110 H 110 H Respiratory Rate 18 18 Blood Pressure 113/72 113/72 Blood Pressure Mean 85 85 Pulse Ox 100 100 Oxygen Delivery Method Room Air Room Air Positive well nourished and well developed General Appearance ED: well developed HEENT Reports normocephalic, head/scalp atraumatic and moist mucous membranes HEENT Narrative: There is obvious swelling near the posterior half of the mandible that extends into the submandibular and submental area. No overlying erythema. There is mild trismus trismus. Intraorally the patient has only a few teeth remaining. And what appears to be maybe a canine there is a small ulcer along the gumline. There is a fullness diffusely along the gumline/mandible junction. I do not see an area that is fluctuant or pointing. The floor the mouth is soft. There is no tongue protrusion. Eyes PERRL and EOMs intact bilaterally Neck no lymphadenopathy, supple and no JVD Resp normal respiratory effort and clear to auscultation bilaterally Cardio regular rate, regular rhythm and no murmurs Rate: tachycardic GI normal to inspection, nondistended, normoactive bowel sounds and non-tender Palpation: soft Back/Spine no CVA tenderness and normal ROM Extremity normal to inspection General Extremety ED: Negative for edema General Extremity: Negative for edema Neuro oriented x3 and CN's II-XII intact bilaterally Sensorium / Orientation: alert Motor Exam: strength 5/5 throughout Psych mental status grossly normal Mood & Affect: Negative for depressed or tearful Skin no rashes or lesions noted and no wounds MDM MDM MDM Narrative Medical decision making narrative: Differential diagnosis includes but not limited to Erick's angina dental abscess dental caries parotitis sepsis mumps. White count returns at 15.9 hemoglobin 11.2 platelet count of 425. CMP within normal limits. CT of the neck with IV contrast was obtained. This was read by radiology reviewed by myself. This demonstrates a large submandibular abscess collection extending anteriorly with no obvious airway involvement at this time. BLood cultures obtained. Patient received clindamycin and Levaquin. She also received morphine for pain. I do not feel that she has Erick's angina at this time however given the size of this abscess and the swelling I do believe that she requires hospitalization and drainage. I spoke with Dr. Bates from ENT locally who recommends transfer to larger facility. I spoke with the patient and I contacted [facility]. Their MICU doctor is recommending transfer to [facility]. I spoke with [facility] in [place]. History & Record Review Discussion w/independent historian: Patient Lab Data Attestation: I reviewed the patient's lab results. Labs: Laboratory Results - last 24 hr 08/27/25 19:47 WBC 15.9 H RBC 3.70 L Hgb 11.2 L Hct 31.8 L MCV 85.9 MCH 30.3 MCHC 35.2 RDW Std Deviation 42.4 RDW Coeff of Jessica 13.5 Plt Count 425 MPV 8.5 Immature Gran % (Auto) 0.300 Neut % (Auto) 75.8 H Lymph % (Auto) 15.4 L [place] % (Auto) 6.9 Eos % (Auto) 1.1 Baso % (Auto) 0.5 Absolute Neuts (auto) 12.0 H Absolute Lymphs (auto) 2.45 Nucleated RBC % 0 Sodium 133 Potassium 4.1 Chloride 99 Carbon Dioxide 22.2 Anion Gap 11 BUN 12 Creatinine 0.68 L Estim Creat Clear Calc 76.20 Est GFR (MDRD) Non-Af 98 BUN/Creatinine Ratio 18.3 Glucose 97 Calcium 8.8 Total Bilirubin < 0.15 AST 21 ALT 10 Alkaline Phosphatase 90 Total Protein 6.3 Albumin 3.6 Globulin 2.8 Albumin/Globulin Ratio 1.3 Radiography Diagnostic Testing: Clinical Impression(s) from Imaging Studies Soft Tissue Neck CT 08/27/25 20:05 IMPRESSION: Left submandibular abscess collection measuring approximately 4.2 x 3.3 x 2.8 cm. Reading Location: [id number] Management Discussion w/another healthcare provider: In Flight Refueling System Repairer (Dr Bates ([facility]), [facility]) Discharge Plan Triage Chief Complaint: Dental ED Provider: Andrez Munoz Dx/Rx/DC Orders Clinical Impression: Abscess of submandibular region, Dental caries Prescriptions: No Action metoprolol tartrate 25 mg tablet 12.5 mg PO BID aspirin 81 mg capsule 81 mg PO DAILY celecoxib [Celebrex] 200 mg capsule 200 mg PO BID topiramate [Topamax] 100 mg tablet 100 mg PO BID duloxetine [Cymbalta] 60 mg capsule,delayed release(DR/EC) 60 mg PO DAILY Qty: 30 0RF baclofen 20 mg tablet 20 mg PO TID amoxicillin 500 mg capsule 500 mg PO TID amitriptyline 25 mg Tablet 50 mg PO QHS gabapentin 100 mg Capsule 800 mg PO .5xdaily Primary Care Provider: Celina Arvizu Referrals: Celina Arvizu, DO [Primary Care Provider, Family Practice] Print Language: Panamanian Disposition Disposition: Acute Care Hospital
--- NOTE | 2025-08-27 20:05 | CT_ITS ---
PROCEDURE: CT/Soft Tissue Neck WITH Contrast
[2025-08-27 20:07] LABS: Hematocrit 31.8 % (37-47); Hemoglobin 11.2 g/dL (12.0-15.0); Immature Granulocytes Count 0.050 X10^3/uL (0.0-0.0); Mean Corp Hgb Conc 35.2 g/dL (32-36); Mean Corpuscular Volume 85.9 fL (81-99); Mean Platelet Vol. 8.5 fl (6.2-12.0); NRBC Flagged by Analyzer 0 % (0-5); Platelet Count 425 K/mm3 (150-450); RBC Distribution Width CV 13.5 % (11.6-14.6); RBC Distribution Width SD 42.4 fl (35.1-43.9); Red Blood Count 3.70 M/mm3 (4.2-5.4); White Blood Count 15.9 K/mm3 (4.4-11.0)
[2025-08-27 20:28] LABS: AST(SGOT) 21 U/L (<=31); Alanine Aminotransfer ALT/SGPT 10 U/L (<=34); Albumin, Serum 3.6 g/dL (3.4-4.8); Alkaline Phosphatase 90 U/L (35-104); Anion Gap 11 (5-15); BUN 12 mg/dL (4-19); BUN/Creat Ratio 18.3 RATIO (10-20); Calcium,Total 8.8 mg/dL (7.6-11.0); Carbon Dioxide 22.2 mmol/L (21.0-32.0); Chloride 99 mmol/L (98-108); Estimated Creatinine Clearance 76.20 ml/min (50-250); Globulin 2.8 g/dL (2.2-4.2); Glucose 97 mg/dL (70-99); Potassium 4.1 mmol/L (3.3-5.1)
[2025-08-27] MEDS: WATER IV (20:39)
[2025-08-27] MEDS: CLINDAMYCIN PHOSPHATE IV (20:39)
[2025-08-27] MEDS: DEXTROSE 5% IV (20:39)
--- NOTE | 2025-08-27 21:28 | CM.ED ---
Social Work SW met with patient, introduced self and explained role with [facility]. Patient accepting of visit. Patient states she was being transferred to get her absess removed. When asked if she was okay with the treatment plan, patient states I came here for help, I have a great doctor and he is getting me help. I will go where ever I need to. Patient states she feels better because she was able to get ahold of friends that will be watching her apartment while while she is gone. No further needs identified at this time. Mary Catherine, FASHION ADVISER, OIL ANALYST
[2025-08-27] MEDS: levoFLOXacin IV 750 MG/150 ML BAG 100 MG IV (21:59)
[2025-08-27 22:09] VITALS: TEMP 37.2
[2025-08-27 22:51] VITALS: BP 117/72; PULSE 85; RESP 14; TEMP 37.1; O2SAT 97
--- NOTE | 2025-08-27 23:45 | PCA ---
PT ACCEPTED AT ON LICENSE OF [facility] . LOCAL SQUAD ARRANGED. PT WAS DECLINED FROM [facility].
--- NOTE | 2025-08-27 23:57 | PCA ---
LOCAL SQUAD ARRANGED, GIVEN ETA OF 4 HRS. DID ASK TO TRY AND [facility]. WAITING CALL BACK.
[2025-08-28 01:08] VITALS: BP 123/73; PULSE 85; RESP 18; TEMP 37; O2SAT 97
[2025-08-28 01:09] VITALS: BP 123/73; PULSE 85; RESP 18; TEMP 37; O2SAT 97
== END 2025-08-28 03:41 | disposition short-term general hospital (02) ==
PROVIDERS: Emergency Provider Emergency Medicine; PCP Family Medicine; Visit Provider Emergency Medicine
DX: K12.2 Cellulitis and abscess of mouth (principal); K02.9 Dental caries, unspecified; F17.210 Nicotine dependence, cigarettes, uncomplicated
CPT/HCPCS: 70491; 80053; 85025; 87040; 96365; 96367; 96375; 96376; 99284; Q9967; A4216